=== PATIENT | male | born 1950 | race Caucasian/White ===

== ENCOUNTER 2017-07-23 12:13 | Inpatient (IN) ==
[2017-07-23] MEDS ORDERED: Ipratropium/Albuterol Neb 3 ML IH ONE (12:40)
[2017-07-23] MEDS ORDERED: methylPREDNISolone 125 MG/2 ML VIAL IVP ONE (12:40)
--- NOTE | 2017-07-23 12:41 | Emergency Department Note ---
Disposition Clinical Impression: COPD (chronic obstructive pulmonary disease), UTI (urinary tract infection), Hyperkalemia, [id number] kidney injury Disposition: Admitted As Inpatient Condition: Fair General Adult HPI - General Chief complaint: ED Shortness of Breath/Dyspnea Stated complaint: LASHAY, coughing Time Seen by Provider: 07/23/17 12:38 Source: patient Limitations: no limitations - History of Present Illness Pain Scale: 7 - Related Data Home Medications Medication Instructions Recorded Confirmed Amlodipine Besylate 2.5 mg PO DAILY 06/16/16 07/23/17 Clopidogrel [Plavix] 75 mg PO DAILY 06/16/16 07/23/17 Fenofibrate Nanocrystallized 48 mg PO DAILY 06/16/16 07/23/17 [Tricor] GlipiZIDE [Glipizide Xl] 5 mg PO DAILY 06/16/16 07/23/17 Levothyroxine Sodium [Tirosint] 137 mcg PO DAILY 06/16/16 07/23/17 Lisinopril [Zestril] 10 mg PO DAILY 06/16/16 07/23/17 Montelukast Sodium [Singulair] 10 mg PO DAILY 06/16/16 07/23/17 Pantoprazole Sodium [Protonix] 40 mg PO DAILY 06/16/16 07/23/17 Tamsulosin [Flomax] 0.4 mg PO DAILY 06/16/16 07/23/17 Budesonide/Formoterol 80/4.5 1 puff IH BID 08/07/16 07/23/17 [Symbicort 80/4.5] Isosorbide MONOnitrate (24 HR) 30 mg PO DAILY 08/07/16 07/23/17 [Imdur] Polyethylene Glycol 3350 [MiraLAX] 17 gm PO DAILY 08/07/16 07/23/17 predniSONE [Prednisone] 5 mg PO DAILY 08/07/16 07/23/17 Atorvastatin Calcium [Lipitor] 80 mg PO HS 07/23/17 07/23/17 Previous Rx's Medication Instructions Recorded Insulin ASPART [Novolog Flexpen] 0 unit SQ ACHS #200 unit 08/09/16 Metoprolol [Lopressor] 50 mg PO BID #30 08/09/16 Allergies Allergy/AdvReac Type Severity Reaction Status Date / Time adenosine Allergy See Verified 08/07/16 16:26 Comments fluticasone Allergy See Verified 08/07/16 16:26 [From Advair Diskus] Comments Iodinated Contrast- Oral and Allergy See Verified 06/16/16 15:37 IV Dye Comments [Iodinated Contrast Media - IV Dye] salmeterol Allergy See Verified 08/07/16 16:26 [From Advair Diskus] Comments Past Medical History - Past Medical History Medical history: Reports: COPD, coronary artery disease, diabetes, hyperlipidemia, hypertension Psychiatric history: Reports: no psych history - Social History Smoking Status: Current every day smoker Smokeless Tobacco Status: No Alcohol use: Reports: none Drug use: Reports: none Physical Exam - General Limitations: no limitations General appearance: alert Course Vital Signs Temperature 100.1 F H 07/23/17 12:29 Pulse Rate 95 07/23/17 12:29 Respiratory Rate 24 07/23/17 12:29 Blood Pressure 92/51 07/23/17 12:29 O2 Sat by Pulse Oximetry 74 07/23/17 12:29 Temperature 97.7 F 07/27/17 07:05 Pulse Rate 98 07/27/17 07:05 Respiratory Rate 14 07/27/17 07:05 Blood Pressure 112/87 07/27/17 07:05 O2 Sat by Pulse Oximetry 99 07/27/17 07:05 Oxygen Delivery Oxygen Delivery Nasal Cannula Medical Decision Making - Lab Data Result diagrams: 07/27/17 04:15 07/27/17 04:15 Lab Results 07/23/17 07/23/17 07/23/17 Range/Units 12:50 12:50 12:50 WBC 12.2 H (4.3-11.1) K/mcL RBC 4.63 (4.19-5.50) M/mcL Hgb 13.4 (12.9-16.9) g/dL Hct 43.5 (37.5-50.1) % MCV 94.0 (83.0-100.0) fL MCH 28.9 (28.0-33.3) pg MCHC 30.8 L (31.6-35.5) g/dL RDW 15.0 H (11.5-14.5) % Plt Count 134 L (140-400) K/mcL MPV 10.0 (9.4-12.4) fL Immature Gran % 0.4 (0-4) % Seg Neutrophils % 86.5 % Lymphocytes % 5.0 % Monocytes % 7.6 % Eosinophils % 0.0 % Basophils % 0.5 % Neutrophils # 10.5 H (1.6-8.9) K/mcL Lymphocytes # 0.6 (0.6-4.6) K/mcL Monocytes # 0.9 (0.0-1.3) K/mcL Eosinophils # 0.0 (0.0-0.6) K/mcL Basophils # 0.1 (0.0-0.2) K/mcL PT (9.4-12.1) Seconds INR APTT (26.0-36.0) Seconds ABG pH (7.32-7.45) pH Units ABG pCO2 (35-45) mmHg ABG pO2 (85-104) mmHg ABG HCO3 (21-27) mEq/L ABG Total CO2 (20-26) mEq/L ABG O2 Saturation (95-98) % ABG Base Excess (-2 to 3) mEq/L Sodium 136 (136-145) mEq/L Potassium 4.7 H (3.5-4.5) mEq/L Chloride 100 (98-109) mEq/L Carbon Dioxide 28 (19-29) mEq/L BUN 18 (8-26) mg/dL Creatinine 2.16 H (0.72-1.25) mg/dL Est GFR ( Amer) 37 L (> 60) Est GFR (Non-Af Amer) 31 L (> 60) BUN/Creatinine Ratio 8 (6-26) Glucose 177 H (70-99) mg/dL POC Glucose (58-89) Calculated Osmolality 288 (280-300) Lactic Acid (0.5-2.2) mmol/L Calcium 9.5 (8.6-10.8) mg/dL Phosphorus (2.3-4.7) mg/dL Magnesium (1.6-2.6) mg/dL Total Bilirubin (0.2-1.2) mg/dL Direct Bilirubin (0.0-0.5) mg/dL Indirect Bilirubin (0.0-1.2) mg/dL AST (5-34) Units/L ALT (0-55) Units/L Alkaline Phosphatase (38-126) Units/L Troponin I 0.04 H* (0-0.03) ng/mL B-Natriuretic Peptide (0-100) pg/mL Serum Total Protein (6.0-8.3) g/dL Albumin (3.5-5.0) g/dL Globulin (2.4-3.5) g/dL Albumin/Globulin Ratio (1.1-2.2) Lipase (8-78) Units/L Urine Color (Yellow) Urine Clarity (Clear) Urine pH (5.0-8.0) pH Units Ur Specific [place] (1.010-1.025) Urine Protein (Neg-Trace) mg/dL Urine Glucose (UA) (Normal) mg/dL Urine Ketones (Negative) mg/dL Urine Blood (Negative) Urine Nitrite (Negative) Urine Bilirubin (Negative) Urine Urobilinogen (Normal) mg/dL Ur Leukocyte Esterase (Negative) Urine Microscopic RBC (0-3) per hpf Urine Microscopic WBC (0-3) per hpf Ur Squamous Epith Cells (None-Few) per lpf Urine Bacteria (None-Few) per hpf Hyaline Casts Ur Culture Indicated? (NO) 07/23/17 07/23/17 07/23/17 Range/Units 12:50 12:50 13:38 WBC (4.3-11.1) K/mcL RBC (4.19-5.50) M/mcL Hgb (12.9-16.9) g/dL Hct (37.5-50.1) % MCV (83.0-100.0) fL MCH (28.0-33.3) pg MCHC (31.6-35.5) g/dL RDW (11.5-14.5) % Plt Count (140-400) K/mcL MPV (9.4-12.4) fL Immature Gran % (0-4) % Seg Neutrophils % % Lymphocytes % % Monocytes % % Eosinophils % % Basophils % % Neutrophils # (1.6-8.9) K/mcL Lymphocytes # (0.6-4.6) K/mcL Monocytes # (0.0-1.3) K/mcL Eosinophils # (0.0-0.6) K/mcL Basophils # (0.0-0.2) K/mcL PT 12.1 (9.4-12.1) Seconds INR 1.1 APTT (26.0-36.0) Seconds ABG pH (7.32-7.45) pH Units ABG pCO2 (35-45) mmHg ABG pO2 (85-104) mmHg ABG HCO3 (21-27) mEq/L ABG Total CO2 (20-26) mEq/L ABG O2 Saturation (95-98) % ABG Base Excess (-2 to 3) mEq/L Sodium (136-145) mEq/L Potassium (3.5-4.5) mEq/L Chloride (98-109) mEq/L Carbon Dioxide (19-29) mEq/L BUN (8-26) mg/dL Creatinine (0.72-1.25) mg/dL Est GFR ( Amer) (> 60) Est GFR (Non-Af Amer) (> 60) BUN/Creatinine Ratio (6-26) Glucose (70-99) mg/dL POC Glucose (58-89) Calculated Osmolality (280-300) Lactic Acid 0.7 (0.5-2.2) mmol/L Calcium (8.6-10.8) mg/dL Phosphorus (2.3-4.7) mg/dL Magnesium (1.6-2.6) mg/dL Total Bilirubin (0.2-1.2) mg/dL Direct Bilirubin (0.0-0.5) mg/dL Indirect Bilirubin (0.0-1.2) mg/dL AST (5-34) Units/L ALT (0-55) Units/L Alkaline Phosphatase (38-126) Units/L Troponin I (0-0.03) ng/mL B-Natriuretic Peptide 107 H (0-100) pg/mL Serum Total Protein (6.0-8.3) g/dL Albumin (3.5-5.0) g/dL Globulin (2.4-3.5) g/dL Albumin/Globulin Ratio (1.1-2.2) Lipase (8-78) Units/L Urine Color (Yellow) Urine Clarity (Clear) Urine pH (5.0-8.0) pH Units Ur Specific [place] (1.010-1.025) Urine Protein (Neg-Trace) mg/dL Urine Glucose (UA) (Normal) mg/dL Urine Ketones (Negative) mg/dL Urine Blood (Negative) Urine Nitrite (Negative) Urine Bilirubin (Negative) Urine Urobilinogen (Normal) mg/dL Ur Leukocyte Esterase (Negative) Urine Microscopic RBC (0-3) per hpf Urine Microscopic WBC (0-3) per hpf Ur Squamous Epith Cells (None-Few) per lpf Urine Bacteria (None-Few) per hpf Hyaline Casts Ur Culture Indicated? (NO) 07/23/17 07/23/17 07/23/17 Range/Units 13:38 13:38 14:16 WBC (4.3-11.1) K/mcL RBC (4.19-5.50) M/mcL Hgb (12.9-16.9) g/dL Hct (37.5-50.1) % MCV (83.0-100.0) fL MCH (28.0-33.3) pg MCHC (31.6-35.5) g/dL RDW (11.5-14.5) % Plt Count (140-400) K/mcL MPV (9.4-12.4) fL Immature Gran % (0-4) % Seg Neutrophils % % Lymphocytes % % Monocytes % % Eosinophils % % Basophils % % Neutrophils # (1.6-8.9) K/mcL Lymphocytes # (0.6-4.6) K/mcL Monocytes # (0.0-1.3) K/mcL Eosinophils # (0.0-0.6) K/mcL Basophils # (0.0-0.2) K/mcL PT (9.4-12.1) Seconds INR APTT 32.5 (26.0-36.0) Seconds ABG pH 7.30 L (7.32-7.45) pH Units ABG pCO2 59 H (35-45) mmHg ABG pO2 63 L (85-104) mmHg ABG HCO3 29 H (21-27) mEq/L ABG Total CO2 31 H (20-26) mEq/L ABG O2 Saturation 89 L (95-98) % ABG Base Excess 1 (-2 to 3) mEq/L Sodium (136-145) mEq/L Potassium (3.5-4.5) mEq/L Chloride (98-109) mEq/L Carbon Dioxide (19-29) mEq/L BUN (8-26) mg/dL Creatinine (0.72-1.25) mg/dL Est GFR ( Amer) (> 60) Est GFR (Non-Af Amer) (> 60) BUN/Creatinine Ratio (6-26) Glucose (70-99) mg/dL POC Glucose (58-89) Calculated Osmolality (280-300) Lactic Acid (0.5-2.2) mmol/L Calcium (8.6-10.8) mg/dL Phosphorus 2.7 (2.3-4.7) mg/dL Magnesium 1.4 L (1.6-2.6) mg/dL Total Bilirubin 1.4 H (0.2-1.2) mg/dL Direct Bilirubin 0.5 (0.0-0.5) mg/dL Indirect Bilirubin 0.9 (0.0-1.2) mg/dL AST 17 (5-34) Units/L ALT 13 (0-55) Units/L Alkaline Phosphatase 68 (38-126) Units/L Troponin I (0-0.03) ng/mL B-Natriuretic Peptide (0-100) pg/mL Serum Total Protein 6.2 (6.0-8.3) g/dL Albumin 3.1 L (3.5-5.0) g/dL Globulin 3.1 (2.4-3.5) g/dL Albumin/Globulin Ratio 1.0 L (1.1-2.2) Lipase 22 (8-78) Units/L Urine Color (Yellow) Urine Clarity (Clear) Urine pH (5.0-8.0) pH Units Ur Specific [place] (1.010-1.025) Urine Protein (Neg-Trace) mg/dL Urine Glucose (UA) (Normal) mg/dL Urine Ketones (Negative) mg/dL Urine Blood (Negative) Urine Nitrite (Negative) Urine Bilirubin (Negative) Urine Urobilinogen (Normal) mg/dL Ur Leukocyte Esterase (Negative) Urine Microscopic RBC (0-3) per hpf Urine Microscopic WBC (0-3) per hpf Ur Squamous Epith Cells (None-Few) per lpf Urine Bacteria (None-Few) per hpf Hyaline Casts Ur Culture Indicated? (NO) 07/23/17 07/23/17 07/23/17 Range/Units 15:02 15:07 20:07 WBC (4.3-11.1) K/mcL RBC (4.19-5.50) M/mcL Hgb (12.9-16.9) g/dL Hct (37.5-50.1) % MCV (83.0-100.0) fL MCH (28.0-33.3) pg MCHC (31.6-35.5) g/dL RDW (11.5-14.5) % Plt Count (140-400) K/mcL MPV (9.4-12.4) fL Immature Gran % (0-4) % Seg Neutrophils % % Lymphocytes % % Monocytes % % Eosinophils % % Basophils % % Neutrophils # (1.6-8.9) K/mcL Lymphocytes # (0.6-4.6) K/mcL Monocytes # (0.0-1.3) K/mcL Eosinophils # (0.0-0.6) K/mcL Basophils # (0.0-0.2) K/mcL PT (9.4-12.1) Seconds INR APTT (26.0-36.0) Seconds ABG pH (7.32-7.45) pH Units ABG pCO2 (35-45) mmHg ABG pO2 (85-104) mmHg ABG HCO3 (21-27) mEq/L ABG Total CO2 (20-26) mEq/L ABG O2 Saturation (95-98) % ABG Base Excess (-2 to 3) mEq/L Sodium (136-145) mEq/L Potassium (3.5-4.5) mEq/L Chloride (98-109) mEq/L Carbon Dioxide (19-29) mEq/L BUN (8-26) mg/dL Creatinine (0.72-1.25) mg/dL Est GFR ( Amer) (> 60) Est GFR (Non-Af Amer) (> 60) BUN/Creatinine Ratio (6-26) Glucose (70-99) mg/dL POC Glucose 177 H (58-89) Calculated Osmolality (280-300) Lactic Acid 0.8 (0.5-2.2) mmol/L Calcium (8.6-10.8) mg/dL Phosphorus (2.3-4.7) mg/dL Magnesium (1.6-2.6) mg/dL Total Bilirubin (0.2-1.2) mg/dL Direct Bilirubin (0.0-0.5) mg/dL Indirect Bilirubin (0.0-1.2) mg/dL AST (5-34) Units/L ALT (0-55) Units/L Alkaline Phosphatase (38-126) Units/L Troponin I (0-0.03) ng/mL B-Natriuretic Peptide (0-100) pg/mL Serum Total Protein (6.0-8.3) g/dL Albumin (3.5-5.0) g/dL Globulin (2.4-3.5) g/dL Albumin/Globulin Ratio (1.1-2.2) Lipase (8-78) Units/L Urine Color Dark Yellow (Yellow) Urine Clarity Cloudy A (Clear) Urine pH 6.0 (5.0-8.0) pH Units Ur Specific [place] 1.024 (1.010-1.025) Urine Protein 30 H (Neg-Trace) mg/dL Urine Glucose (UA) Normal (Normal) mg/dL Urine Ketones Trace H (Negative) mg/dL Urine Blood Negative (Negative) Urine Nitrite Positive A (Negative) Urine Bilirubin Moderate H (Negative) Urine Urobilinogen Normal (Normal) mg/dL Ur Leukocyte Esterase Small H (Negative) Urine Microscopic RBC 0-3 (0-3) per hpf Urine Microscopic WBC 5-15 H (0-3) per hpf Ur Squamous Epith Cells Many H (None-Few) per lpf Urine Bacteria None Seen (None-Few) per hpf Hyaline Casts Test Not Performed Ur Culture Indicated? YES A (NO) Attestation Statement - Attestation Attestation: I examined this patient and my medical decision-making was reviewed with the Resident Physician. I agree with the documented findings, disposition and treatment plan as described except to the extent set forth below. [id number] time provided Patient arrives to the treatment area by wheelchair. He complains of cough and dyspnea. He has a history of active tobacco use and oxygen dependency. Appears mildly dyspneic on exam. He was hypoxic at triage
[2017-07-23 13:04] LABS: Basophils # 0.1 K/mcL (0.0-0.2); Basophils % 0.5 %; Hematocrit 43.5 % (37.5-50.1); Hemoglobin 13.4 g/dL (12.9-16.9); Immature Granulocytes % 0.4 % (0-4); Lymphocytes # 0.6 K/mcL (0.6-4.6); Mean Corpuscular HGB Conc 30.8 g/dL (31.6-35.5); Mean Corpuscular Hemoglobin 28.9 pg (28.0-33.3); Monocytes # 0.9 K/mcL (0.0-1.3); Monocytes % 7.6 %; Neutrophils # 10.5 K/mcL (1.6-8.9); Platelet Count 134 K/mcL (140-400); Red Blood Count 4.63 M/mcL (4.19-5.50); Segmented Neutrophils % 86.5 %
[2017-07-23 13:11] LABS: Calcium 9.5 mg/dL (8.6-10.8); Potassium 4.7 mEq/L (3.5-4.5)
[2017-07-23 13:13] LABS: INR 1.1; Prothrombin Time 12.1 Seconds (9.4-12.1)
[2017-07-23] MEDS ORDERED: 0.9 % Sodium Chloride 1,000 ML IVC ONE (13:20)
[2017-07-23] MEDS ORDERED: cefTRIAXone 1,000 MG in Water for inj. (sterile) 10 ML IVP ONE (13:26)
[2017-07-23] MEDS ORDERED: Levofloxacin 750 MG/150 ML 750 MG/150 ML BAG IVPB ONE (13:26)
[2017-07-23 13:58] LABS: Albumin 3.1 g/dL (3.5-5.0); Bilirubin,Direct 0.5 mg/dL (0.0-0.5); Bilirubin,Indirect 0.9 mg/dL (0.0-1.2); Bilirubin,Total 1.4 mg/dL (0.2-1.2); Globulin 3.1 g/dL (2.4-3.5); Magnesium 1.4 mg/dL (1.6-2.6); Phosphorous 2.7 mg/dL (2.3-4.7); Total Protein 6.2 g/dL (6.0-8.3)
[2017-07-23 14:20] LABS: ABG Base Excess 1 mEq/L (-2 to 3); ABG HCO3 29 mEq/L (21-27); ABG Oxygen Saturation 89 % (95-98); ABG PCO2 59 mmHg (35-45); ABG PO2 63 mmHg (85-104); ABG TCO2 31 mEq/L (20-26)
--- NOTE | 2017-07-23 14:49 | Emergency Department Note ---
Disposition Clinical Impression: Hyperkalemia COPD (chronic obstructive pulmonary disease) Qualifiers: COPD type: unspecified COPD Qualified Code(s): J44.9 - Chronic obstructive pulmonary disease, unspecified UTI (urinary tract infection) Qualifiers: Urinary tract infection type: site unspecified Hematuria presence: without hematuria Qualified Code(s): N39.0 - Urinary tract infection, site not specified [id number] kidney injury Qualifiers: Acute renal failure type: unspecified Chronic kidney disease stage: unspecified stage Qualified Code(s): N17.9 - Acute kidney failure, unspecified; N18.9 - Chronic kidney disease, unspecified; N18.9 - Chronic kidney disease, unspecified Disposition: Admitted As Inpatient Condition: Fair Time of Disposition: 15:00 SOB HPI - General Chief Complaint: ED Shortness of Breath/Dyspnea Stated Complaint: LASHAY, coughing Time Seen by Provider: 07/23/17 12:38 Source: patient Limitations: no limitations Nursing Notes Reviewed: Yes Vital Signs Reviewed: Yes - History of Present Illness Patient 66-year-old male complains of shortness of breath the past 3 days. Patient has history of COPD and CHF. Patient's family on home oxygen of 2 L. Patient has not increased his home most to usage but presents today with hypoxia O2 sats 74% 2 L via nasal cannula. Patient is also has a fever of 100.1 his concerns for sepsis. Plan to rule out. Patient admits to pleuritic chest pain with deep respirations. Patient continues to smoke - Related Data Home Medications Medication Instructions Recorded Confirmed Amlodipine Besylate 2.5 mg PO DAILY 06/16/16 07/23/17 Clopidogrel [Plavix] 75 mg PO DAILY 06/16/16 07/23/17 Fenofibrate Nanocrystallized 48 mg PO DAILY 06/16/16 07/23/17 [Tricor] GlipiZIDE [Glipizide Xl] 5 mg PO DAILY 06/16/16 07/23/17 Levothyroxine Sodium [Tirosint] 137 mcg PO DAILY 06/16/16 07/23/17 Lisinopril [Zestril] 10 mg PO DAILY 06/16/16 07/23/17 Montelukast Sodium [Singulair] 10 mg PO DAILY 06/16/16 07/23/17 Pantoprazole Sodium [Protonix] 40 mg PO DAILY 06/16/16 07/23/17 Tamsulosin [Flomax] 0.4 mg PO DAILY 06/16/16 07/23/17 Budesonide/Formoterol 80/4.5 1 puff IH BID 08/07/16 07/23/17 [Symbicort 80/4.5] Isosorbide MONOnitrate (24 HR) 30 mg PO DAILY 08/07/16 07/23/17 [Imdur] Polyethylene Glycol 3350 [MiraLAX] 17 gm PO DAILY 08/07/16 07/23/17 predniSONE [Prednisone] 5 mg PO DAILY 08/07/16 07/23/17 Atorvastatin Calcium [Lipitor] 80 mg PO HS 07/23/17 07/23/17 Previous Rx's Medication Instructions Recorded Insulin ASPART [Novolog Flexpen] 0 unit SQ ACHS #200 unit 08/09/16 Metoprolol [Lopressor] 50 mg PO BID #30 08/09/16 Allergies Allergy/AdvReac Type Severity Reaction Status Date / Time adenosine Allergy See Verified 08/07/16 16:26 Comments fluticasone Allergy See Verified 08/07/16 16:26 [From Advair Diskus] Comments Iodinated Contrast- Oral and Allergy See Verified 06/16/16 15:37 IV Dye Comments [Iodinated Contrast Media - IV Dye] salmeterol Allergy See Verified 08/07/16 16:26 [From Advair Diskus] Comments All systems ED: reviewed and negative except as stated. Review of Systems: As Per HPI Constitutional: Reports: fever Eyes: Denies: vision change ENT ED: Reports: congestion Cardiovascular: Reports: chest pain Respiratory: Reports: cough, dyspnea, wheezes. Denies: hemoptysis Gastrointestinal: Reports: abdominal pain. Denies: nausea, vomiting, diarrhea Genitourinary: Denies: urgency, dysuria, frequency Musculoskeletal: Denies: back pain, neck pain Integumentary: Denies: rash Neurological: Denies: headache Psychiatric: Reports: anxiety Endocrine: Reports: fatigue Past Medical History - Past Medical History Attestation: Yes The following information was validated with the patient. Source: patient, nursing notes reviewed Medical history: Reports: COPD, coronary artery disease, diabetes, hyperlipidemia, hypertension Psychiatric history: Reports: no psych history - Social History Smoking Status: Current every day smoker Smokeless Tobacco Status: No Alcohol use: Reports: none Drug use: Reports: none Physical Exam Vital Signs Temperature 100.1 F H 07/23/17 12:29 Pulse Rate 95 07/23/17 12:29 Respiratory Rate 24 07/23/17 12:29 Blood Pressure 92/51 07/23/17 12:29 O2 Sat by Pulse Oximetry 74 07/23/17 12:29 Temperature 100.1 F H 07/23/17 12:29 Pulse Rate 95 07/23/17 12:29 Respiratory Rate 22 07/23/17 12:52 Blood Pressure 92/51 07/23/17 12:29 O2 Sat by Pulse Oximetry 93 07/23/17 12:52 Oxygen Delivery Oxygen Delivery Room Air 66-year-old male who is alert and oriented 3 and in acute distress secondary to respiratory issues of COPD exacerbation. Patient has a O2 sat of 74 was placed on nonrebreather high flow at 15 L. Patient has poor air movement bilateral lung schofield with diffuse wheezing. Patient is mildly tachypneic and has conversational dyspnea. Patient's vital signs also shows hypotension and 92 /51 - General Limitations: no limitations General appearance: alert - Head Head exam: atraumatic, normocephalic, normal inspection - Eye Eye exam: Present: normal appearance, PERRL, EOMI - ENT ENT exam: normal exam, normal oropharynx, mucous membranes moist - Neck Neck exam: Present: normal inspection, full ROM, trachea midline Course Vital Signs Temperature 100.1 F H 07/23/17 12:29 Pulse Rate 95 07/23/17 12:29 Respiratory Rate 24 07/23/17 12:29 Blood Pressure 92/51 07/23/17 12:29 O2 Sat by Pulse Oximetry 74 07/23/17 12:29 Temperature 97.8 F 07/29/17 07:04 Pulse Rate 132 07/29/17 07:04 Respiratory Rate 20 07/29/17 08:00 Blood Pressure 102/78 07/29/17 07:04 O2 Sat by Pulse Oximetry 95 07/29/17 08:00 Oxygen Delivery Oxygen Delivery Nasal Cannula Shortness of Breath/Dyspnea - MDM Narrative Medical decision making narrative: Patient presents with respiratory distress secondary to acute COPD exacerbation. Patient is febrile as well suspect infectious source. Chest x- ray shows bilateral atelectasis. Blood urine shows UTI. Patient also has hyperkalemia and acute on chronic kidney injury. Patient's WBC is elevated but lactic acid is negative. Patient also has an elevated troponin of 0.04 with no acute changes seen on EKG for ischemia. Most likely secondary to demand ischemia. Patient has been given DuoNeb therapy, started on antibiotics levofloxacin and ceftriaxone. Recommended admission and Pt accepts decision. He was been accepted for admission by Dr. Way the hospitalist. - Lab Data Lab results reviewed: Yes I reviewed the patient's lab results. Lab results narrative: Chest X-Ray 07/23/17 12:34 IMPRESSION: Bibasilar atelectasis. D/ / Marija Lewis MD / Marija Lewis MD Interpreting Provider: Marija Lewis MD Short CBC 07/23/17 Range/Units 12:50 WBC 12.2 H (4.3-11.1) K/mcL Hgb 13.4 (12.9-16.9) g/dL Hct 43.5 (37.5-50.1) % Plt Count 134 L (140-400) K/mcL Neutrophils # 10.5 H (1.6-8.9) K/mcL BMP 07/23/17 Range/Units 12:50 Sodium 136 (136-145) mEq/L Potassium 4.7 H (3.5-4.5) mEq/L Chloride 100 (98-109) mEq/L Carbon Dioxide 28 (19-29) mEq/L BUN 18 (8-26) mg/dL Creatinine 2.16 H (0.72-1.25) mg/dL Glucose 177 H (70-99) mg/dL Calcium 9.5 (8.6-10.8) mg/dL Cardiac Enzymes 07/23/17 07/23/17 Range/Units 22:10 12:50 Troponin I 0.02 0.04 H* (0-0.03) ng/mL Liver Function 07/23/17 Range/Units 13:38 Total Bilirubin 1.4 H (0.2-1.2) mg/dL Direct Bilirubin 0.5 (0.0-0.5) mg/dL AST 17 (5-34) Units/L ALT 13 (0-55) Units/L Alkaline Phosphatase 68 (38-126) Units/L Albumin 3.1 L (3.5-5.0) g/dL Urine 07/23/17 Range/Units 15:02 Urine Color Dark Yellow (Yellow) Urine Clarity Cloudy A (Clear) Urine pH 6.0 (5.0-8.0) pH Units Ur Specific Grayson 1.024 (1.010-1.025) Urine Protein 30 H (Neg-Trace) mg/dL Urine Glucose (UA) Normal (Normal) mg/dL Result diagrams: 07/29/17 04:58 07/29/17 04:58 Lab Results 07/23/17 07/23/17 07/23/17 Range/Units 12:50 12:50 12:50 WBC 12.2 H (4.3-11.1) K/mcL RBC 4.63 (4.19-5.50) M/mcL Hgb 13.4 (12.9-16.9) g/dL Hct 43.5 (37.5-50.1) % MCV 94.0 (83.0-100.0) fL MCH 28.9 (28.0-33.3) pg MCHC 30.8 L (31.6-35.5) g/dL RDW 15.0 H (11.5-14.5) % Plt Count 134 L (140-400) K/mcL MPV 10.0 (9.4-12.4) fL Immature Gran % 0.4 (0-4) % Seg Neutrophils % 86.5 % Lymphocytes % 5.0 % Monocytes % 7.6 % Eosinophils % 0.0 % Basophils % 0.5 % Neutrophils # 10.5 H (1.6-8.9) K/mcL Lymphocytes # 0.6 (0.6-4.6) K/mcL Monocytes # 0.9 (0.0-1.3) K/mcL Eosinophils # 0.0 (0.0-0.6) K/mcL Basophils # 0.1 (0.0-0.2) K/mcL PT (9.4-12.1) Seconds INR APTT (26.0-36.0) Seconds ABG pH (7.32-7.45) pH Units ABG pCO2 (35-45) mmHg ABG pO2 (85-104) mmHg ABG HCO3 (21-27) mEq/L ABG Total CO2 (20-26) mEq/L ABG O2 Saturation (95-98) % ABG Base Excess (-2 to 3) mEq/L Sodium 136 (136-145) mEq/L Potassium 4.7 H (3.5-4.5) mEq/L Chloride 100 (98-109) mEq/L Carbon Dioxide 28 (19-29) mEq/L BUN 18 (8-26) mg/dL Creatinine 2.16 H (0.72-1.25) mg/dL Est GFR ( Amer) 37 L (> 60) Est GFR (Non-Af Amer) 31 L (> 60) BUN/Creatinine Ratio 8 (6-26) Glucose 177 H (70-99) mg/dL POC Glucose (58-89) Calculated Osmolality 288 (280-300) Lactic Acid (0.5-2.2) mmol/L Calcium 9.5 (8.6-10.8) mg/dL Phosphorus (2.3-4.7) mg/dL Magnesium (1.6-2.6) mg/dL Total Bilirubin (0.2-1.2) mg/dL Direct Bilirubin (0.0-0.5) mg/dL Indirect Bilirubin (0.0-1.2) mg/dL AST (5-34) Units/L ALT (0-55) Units/L Alkaline Phosphatase (38-126) Units/L Troponin I 0.04 H* (0-0.03) ng/mL B-Natriuretic Peptide (0-100) pg/mL Serum Total Protein (6.0-8.3) g/dL Albumin (3.5-5.0) g/dL Globulin (2.4-3.5) g/dL Albumin/Globulin Ratio (1.1-2.2) Lipase (8-78) Units/L Urine Color (Yellow) Urine Clarity (Clear) Urine pH (5.0-8.0) pH Units Ur Specific Grayson (1.010-1.025) Urine Protein (Neg-Trace) mg/dL Urine Glucose (UA) (Normal) mg/dL Urine Ketones (Negative) mg/dL Urine Blood (Negative) Urine Nitrite (Negative) Urine Bilirubin (Negative) Urine Urobilinogen (Normal) mg/dL Ur Leukocyte Esterase (Negative) Urine Microscopic RBC (0-3) per hpf Urine Microscopic WBC (0-3) per hpf Ur Squamous Epith Cells (None-Few) per lpf Urine Bacteria (None-Few) per hpf Hyaline Casts Ur Culture Indicated? (NO) 07/23/17 07/23/17 07/23/17 Range/Units 12:50 12:50 13:38 WBC (4.3-11.1) K/mcL RBC (4.19-5.50) M/mcL Hgb (12.9-16.9) g/dL Hct (37.5-50.1) % MCV (83.0-100.0) fL MCH (28.0-33.3) pg MCHC (31.6-35.5) g/dL RDW (11.5-14.5) % Plt Count (140-400) K/mcL MPV (9.4-12.4) fL Immature Gran % (0-4) % Seg Neutrophils % % Lymphocytes % % Monocytes % % Eosinophils % % Basophils % % Neutrophils # (1.6-8.9) K/mcL Lymphocytes # (0.6-4.6) K/mcL Monocytes # (0.0-1.3) K/mcL Eosinophils # (0.0-0.6) K/mcL Basophils # (0.0-0.2) K/mcL PT 12.1 (9.4-12.1) Seconds INR 1.1 APTT (26.0-36.0) Seconds ABG pH (7.32-7.45) pH Units ABG pCO2 (35-45) mmHg ABG pO2 (85-104) mmHg ABG HCO3 (21-27) mEq/L ABG Total CO2 (20-26) mEq/L ABG O2 Saturation (95-98) % ABG Base Excess (-2 to 3) mEq/L Sodium (136-145) mEq/L Potassium (3.5-4.5) mEq/L Chloride (98-109) mEq/L Carbon Dioxide (19-29) mEq/L BUN (8-26) mg/dL Creatinine (0.72-1.25) mg/dL Est GFR ( Amer) (> 60) Est GFR (Non-Af Amer) (> 60) BUN/Creatinine Ratio (6-26) Glucose (70-99) mg/dL POC Glucose (58-89) Calculated Osmolality (280-300) Lactic Acid 0.7 (0.5-2.2) mmol/L Calcium (8.6-10.8) mg/dL Phosphorus (2.3-4.7) mg/dL Magnesium (1.6-2.6) mg/dL Total Bilirubin (0.2-1.2) mg/dL Direct Bilirubin (0.0-0.5) mg/dL Indirect Bilirubin (0.0-1.2) mg/dL AST (5-34) Units/L ALT (0-55) Units/L Alkaline Phosphatase (38-126) Units/L Troponin I (0-0.03) ng/mL B-Natriuretic Peptide 107 H (0-100) pg/mL Serum Total Protein (6.0-8.3) g/dL Albumin (3.5-5.0) g/dL Globulin (2.4-3.5) g/dL Albumin/Globulin Ratio (1.1-2.2) Lipase (8-78) Units/L Urine Color (Yellow) Urine Clarity (Clear) Urine pH (5.0-8.0) pH Units Ur Specific Grayson (1.010-1.025) Urine Protein (Neg-Trace) mg/dL Urine Glucose (UA) (Normal) mg/dL Urine Ketones (Negative) mg/dL Urine Blood (Negative) Urine Nitrite (Negative) Urine Bilirubin (Negative) Urine Urobilinogen (Normal) mg/dL Ur Leukocyte Esterase (Negative) Urine Microscopic RBC (0-3) per hpf Urine Microscopic WBC (0-3) per hpf Ur Squamous Epith Cells (None-Few) per lpf Urine Bacteria (None-Few) per hpf Hyaline Casts Ur Culture Indicated? (NO) 07/23/17 07/23/17 07/23/17 Range/Units 13:38 13:38 14:16 WBC (4.3-11.1) K/mcL RBC (4.19-5.50) M/mcL Hgb (12.9-16.9) g/dL Hct (37.5-50.1) % MCV (83.0-100.0) fL MCH (28.0-33.3) pg MCHC (31.6-35.5) g/dL RDW (11.5-14.5) % Plt Count (140-400) K/mcL MPV (9.4-12.4) fL Immature Gran % (0-4) % Seg Neutrophils % % Lymphocytes % % Monocytes % % Eosinophils % % Basophils % % Neutrophils # (1.6-8.9) K/mcL Lymphocytes # (0.6-4.6) K/mcL Monocytes # (0.0-1.3) K/mcL Eosinophils # (0.0-0.6) K/mcL Basophils # (0.0-0.2) K/mcL PT (9.4-12.1) Seconds INR APTT 32.5 (26.0-36.0) Seconds ABG pH 7.30 L (7.32-7.45) pH Units ABG pCO2 59 H (35-45) mmHg ABG pO2 63 L (85-104) mmHg ABG HCO3 29 H (21-27) mEq/L ABG Total CO2 31 H (20-26) mEq/L ABG O2 Saturation 89 L (95-98) % ABG Base Excess 1 (-2 to 3) mEq/L Sodium (136-145) mEq/L Potassium (3.5-4.5) mEq/L Chloride (98-109) mEq/L Carbon Dioxide (19-29) mEq/L BUN (8-26) mg/dL Creatinine (0.72-1.25) mg/dL Est GFR ( Amer) (> 60) Est GFR (Non-Af Amer) (> 60) BUN/Creatinine Ratio (6-26) Glucose (70-99) mg/dL POC Glucose (58-89) Calculated Osmolality (280-300) Lactic Acid (0.5-2.2) mmol/L Calcium (8.6-10.8) mg/dL Phosphorus 2.7 (2.3-4.7) mg/dL Magnesium 1.4 L (1.6-2.6) mg/dL Total Bilirubin 1.4 H (0.2-1.2) mg/dL Direct Bilirubin 0.5 (0.0-0.5) mg/dL Indirect Bilirubin 0.9 (0.0-1.2) mg/dL AST 17 (5-34) Units/L ALT 13 (0-55) Units/L Alkaline Phosphatase 68 (38-126) Units/L Troponin I (0-0.03) ng/mL B-Natriuretic Peptide (0-100) pg/mL Serum Total Protein 6.2 (6.0-8.3) g/dL Albumin 3.1 L (3.5-5.0) g/dL Globulin 3.1 (2.4-3.5) g/dL Albumin/Globulin Ratio 1.0 L (1.1-2.2) Lipase 22 (8-78) Units/L Urine Color (Yellow) Urine Clarity (Clear) Urine pH (5.0-8.0) pH Units Ur Specific Grayson (1.010-1.025) Urine Protein (Neg-Trace) mg/dL Urine Glucose (UA) (Normal) mg/dL Urine Ketones (Negative) mg/dL Urine Blood (Negative) Urine Nitrite (Negative) Urine Bilirubin (Negative) Urine Urobilinogen (Normal) mg/dL Ur Leukocyte Esterase (Negative) Urine Microscopic RBC (0-3) per hpf Urine Microscopic WBC (0-3) per hpf Ur Squamous Epith Cells (None-Few) per lpf Urine Bacteria (None-Few) per hpf Hyaline Casts Ur Culture Indicated? (NO) 07/23/17 07/23/17 07/23/17 Range/Units 15:02 15:07 20:07 WBC (4.3-11.1) K/mcL RBC (4.19-5.50) M/mcL Hgb (12.9-16.9) g/dL Hct (37.5-50.1) % MCV (83.0-100.0) fL MCH (28.0-33.3) pg MCHC (31.6-35.5) g/dL RDW (11.5-14.5) % Plt Count (140-400) K/mcL MPV (9.4-12.4) fL Immature Gran % (0-4) % Seg Neutrophils % % Lymphocytes % % Monocytes % % Eosinophils % % Basophils % % Neutrophils # (1.6-8.9) K/mcL Lymphocytes # (0.6-4.6) K/mcL Monocytes # (0.0-1.3) K/mcL Eosinophils # (0.0-0.6) K/mcL Basophils # (0.0-0.2) K/mcL PT (9.4-12.1) Seconds INR APTT (26.0-36.0) Seconds ABG pH (7.32-7.45) pH Units ABG pCO2 (35-45) mmHg ABG pO2 (85-104) mmHg ABG HCO3 (21-27) mEq/L ABG Total CO2 (20-26) mEq/L ABG O2 Saturation (95-98) % ABG Base Excess (-2 to 3) mEq/L Sodium (136-145) mEq/L Potassium (3.5-4.5) mEq/L Chloride (98-109) mEq/L Carbon Dioxide (19-29) mEq/L BUN (8-26) mg/dL Creatinine (0.72-1.25) mg/dL Est GFR ( Amer) (> 60) Est GFR (Non-Af Amer) (> 60) BUN/Creatinine Ratio (6-26) Glucose (70-99) mg/dL POC Glucose 177 H (58-89) Calculated Osmolality (280-300) Lactic Acid 0.8 (0.5-2.2) mmol/L Calcium (8.6-10.8) mg/dL Phosphorus (2.3-4.7) mg/dL Magnesium (1.6-2.6) mg/dL Total Bilirubin (0.2-1.2) mg/dL Direct Bilirubin (0.0-0.5) mg/dL Indirect Bilirubin (0.0-1.2) mg/dL AST (5-34) Units/L ALT (0-55) Units/L Alkaline Phosphatase (38-126) Units/L Troponin I (0-0.03) ng/mL B-Natriuretic Peptide (0-100) pg/mL Serum Total Protein (6.0-8.3) g/dL Albumin (3.5-5.0) g/dL Globulin (2.4-3.5) g/dL Albumin/Globulin Ratio (1.1-2.2) Lipase (8-78) Units/L Urine Color Dark Yellow (Yellow) Urine Clarity Cloudy A (Clear) Urine pH 6.0 (5.0-8.0) pH Units Ur Specific Gr[place] 1.024 (1.010-1.025) Urine Protein 30 H (Neg-Trace) mg/dL Urine Glucose (UA) Normal (Normal) mg/dL Urine Ketones Trace H (Negative) mg/dL Urine Blood Negative (Negative) Urine Nitrite Positive A (Negative) Urine Bilirubin Moderate H (Negative) Urine Urobilinogen Normal (Normal) mg/dL Ur Leukocyte Esterase Small H (Negative) Urine Microscopic RBC 0-3 (0-3) per hpf Urine Microscopic WBC 5-15 H (0-3) per hpf Ur Squamous Epith Cells Many H (None-Few) per lpf Urine Bacteria None Seen (None-Few) per hpf Hyaline Casts Test Not Performed Ur Culture Indicated? YES A (NO) - Radiology Data Radiology results reviewed: Yes I reviewed the patient's radiology results. Chest X-Ray 07/23/17 12:34 IMPRESSION: Bibasilar atelectasis. D/ / Marija Lewis MD / Marija Lewis MD Interpreting Provider: Marija Lewis MD - EKG Data EKG attestation: Yes I reviewed and interpreted this EKG.
[2017-07-23 15:18] LABS: Bilirubin,Urine Moderate (Negative); Blood,Urine Negative (Negative); Clarity,Urine Cloudy (Clear); Glucose,Urine (UA) Normal (Normal); Ketones,Urine Trace mg/dL (Negative); Leukocyte Esterase,Urine Small (Negative); Nitrite,Urine Positive (Negative); Protein,Urine 30 mg/dL (Neg-Trace); Specific Gravity,Urine 1.024 (1.010-1.025); Urobilinogen,Urine Normal (Normal)
[2017-07-23 15:20] LABS: Bacteria,Urine None Seen per hpf (None-Few); RBC,Urine 0-3 per hpf (0-3); Squamous Epithelial Cell,Urine Many per lpf (None-Few)
[2017-07-23 15:22] LABS: Color,Urine Dark Yellow (Yellow)
[2017-07-23] MEDS ORDERED: Magnesium Sulfate 2 GM in D5% in Water 100 ML IVPB ONE (20:50)
[2017-07-23] MEDS ORDERED: Acetaminophen 325 MG TABLET PO PRN (20:53)
[2017-07-23] MEDS ORDERED: Naloxone 0.4 MG/ML INJ IVP PRN (20:53)
[2017-07-23] MEDS ORDERED: *HR* Morphine 2 MG/ML SYRINGE IVP PRN (20:53)
[2017-07-23] MEDS ORDERED: Ondansetron 4 MG/2 ML VIAL IVP PRN (20:53)
--- NOTE | 2017-07-23 20:56 | Internal Med History&Physical ---
Date of Encounter: 07/23/17 Time of Encounter: 20:30 Assessment and Plan (1) Acute and chronic respiratory failure Current visit: Yes Status: Acute Acute on chronic hypoxic and hypercapnic respiratory failure secondary to acute exacerbation of advanced COPD Continue DuoNeb breathing treatment, IV Solu-Medrol, IV Rocephin, IV azithromycin Symbicort, O2 via NC, Continue all home meds Chest x-ray - bibasilar atelectasis Cultures - pending Cardiac telemetry, pulse ox, labs in a.m., monitor closely Qualifiers: Respiratory failure complication: hypoxia and hypercapnia Qualified Code(s) : J96.21 - Acute and chronic respiratory failure with hypoxia; J96.22 - Acute and chronic respiratory failure with hypercapnia; J96.22 - Acute and chronic respiratory failure with hypercapnia; J96.22 - Acute and chronic respiratory failure with hypercapnia (2) UTI (urinary tract infection) Current visit: Yes Status: Acute Acute cystitis, UTI, present on admission, likely secondary to gram-negative bacilli Empiric IV Rocephin Cultures - pending Qualifiers: Urinary tract infection type: site unspecified Hematuria presence: without hematuria Qualified Code(s): N39.0 - Urinary tract infection, site not specified (3) CKD (chronic kidney disease) Current visit: Yes Status: Chronic Chronic kidney disease stage III - creatinine slightly above baseline Repeat labs in a.m. Qualifiers: Chronic kidney disease stage: stage 3 (moderate) Qualified Code(s): N18.3 - Chronic kidney disease, stage 3 (moderate) (4) CAD (coronary artery disease) Current visit: Yes Status: Chronic Coronary artery disease, stable Home dose of Plavix, Lipitor, TriCor Qualifiers: Coronary Disease-Associated Artery/Lesion type: [place] artery [place] vs. transplanted heart: jackson heart Associated angina: with unstable angina Qualified Code(s): I25.110 - Atherosclerotic heart disease of [place] coronary artery with unstable angina pectoris (5) Diabetes mellitus Current visit: Yes Status: Chronic Type 2 diabetes mellitus, insulin-dependent, hyperglycemia Continue insulin sliding scale, glucose checks 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 mellitus complication status: with kidney complications Diabetes mellitus complication detail: with chronic kidney disease Diabetes mellitus long-term insulin use: with crankshaft grinder use Chronic kidney disease stage: stage 3 (moderate) Qualified Code(s): E11.22 - Type 2 diabetes mellitus with diabetic chronic kidney disease; N18.3 - Chronic kidney disease, stage 3 (moderate); Z79.4 - knitter helper (current) use of insulin (6) Morbid obesity Current visit: Yes Status: Acute Morbid obesity with BMI 40.6 Advised lifestyle modification (7) DVT prophylaxis Current visit: Yes Status: Acute Heparin subcutaneous Internal Medicine - H&P: HPI Chief complaint: Shortness of breath Admitted From: Emergency Dept Plans for Post Hospital Care: Home History of present illness: Mr. Humphries is a 66 year old male with past medical history of COPD, coronary artery disease, CHF, diabetes, hyperlipidemia and hypertension. Patient presents to the ED with complaints of shortness of breath and cough. Examined in the room. Patient is awake and alert. Not in any distress. Able to provide all history. Family members at bedside. Patient states his symptoms of shortness of breath and cough started about 2-3 days ago. They have gradually worsened. He states he does have a productive cough with clear sputum. Shortness of breath is worse with exertion. Patient uses oxygen at home and also uses nebulizer breathing treatments at home, which did not help with his symptoms. Denies chest pain or dizziness. Patient states he continues to smoke daily, but says he smokes only a few cigarettes per day. No alleviating factors. No other associated symptoms. No other acute complaints. Initial workup in the ED is significant for hypoxia and hypercapnia along with elevated white count. Patient also has a UTI. Patient is being admitted for acute COPD exacerbation. He will need DuoNeb breathing treatment and empiric IV antibiotics and IV steroids. Patient has been explained about his condition and plan of care in detail. He understood and agreed. No unanswered questions. CODE STATUS full code. Past Med Surg Social Fam HX - Past Medical History Medical history: COPD, coronary artery disease, diabetes, hyperlipidemia, hypertension Psychiatric history: no psych history - Social History Smoking Status: Current every day smoker Smokeless Tobacco Status: No Alcohol use: none Drug use: none Internal Medicine - H&P: Meds Amlodipine Besylate 2.5 mg PO DAILY 06/16/16 [History] Clopidogrel [Plavix] 75 mg PO DAILY 06/16/16 [History] Fenofibrate Nanocrystallized [Tricor] 48 mg PO DAILY 06/16/16 [History] GlipiZIDE [Glipizide Xl] 5 mg PO DAILY 06/16/16 [History] Levothyroxine Sodium [Tirosint] 137 mcg PO DAILY 06/16/16 [History] Lisinopril [Zestril] 10 mg PO DAILY 06/16/16 [History] Montelukast Sodium [Singulair] 10 mg PO DAILY 06/16/16 [History] Pantoprazole Sodium [Protonix] 40 mg PO DAILY 06/16/16 [History] Tamsulosin [Flomax] 0.4 mg PO DAILY 06/16/16 [History] Budesonide/Formoterol 80/4.5 [Symbicort 80/4.5] 1 puff IH BID 08/07/16 [History ] Isosorbide MONOnitrate (24 HR) [Imdur] 30 mg PO DAILY 08/07/16 [History] Polyethylene Glycol 3350 [MiraLAX] 17 gm PO DAILY 08/07/16 [History] predniSONE [Prednisone] 5 mg PO DAILY 08/07/16 [History] Insulin ASPART [Novolog Flexpen] 0 unit SQ ACHS #200 unit 08/09/16 [Rx] Metoprolol [Lopressor] 50 mg PO BID #30 08/09/16 [Rx] Atorvastatin Calcium [Lipitor] 80 mg PO HS 07/23/17 [History] 3 Allergy/AdvReac Type Severity Reaction Status Date / Time adenosine Allergy See Verified 08/07/16 16:26 Comments fluticasone Allergy See Verified 08/07/16 16:26 [From Advair Diskus] Comments Iodinated Contrast- Oral and Allergy See Verified 06/16/16 15:37 IV Dye Comments [Iodinated Contrast Media - IV Dye] salmeterol Allergy See Verified 08/07/16 16:26 [From Advair Diskus] Comments All Systems PM: A 10-system review of systems was performed and is negative for pertinent findings except as documented above in the HPI. - Constitutional Constitutional: fatigue, fever(s), no weakness - EENT Eyes: no blurry vision - Cardiovascular Cardiovascular ROS IM: dyspnea, dyspnea on exertion, orthopnea, no chest pain, no diaphoresis, no edema, no lightheadedness, no palpitations, no syncope - Respiratory Respiratory: cough, dyspnea on exertion, wheezing, chest congestion, no hemoptysis - Gastrointestinal Gastrointestinal: no abdominal pain, no bloating, no cramping, no diarrhea, no hematemesis, no hematochezia, no loose stools, no nausea, no vomiting - Genitourinary Genitourinary ROS male: no dysuria - Neurological Neurological ROS: no abnormal gait, no abnormal speech, no dizziness, no numbness, no tingling - Constitutional Vitals: Temp Pulse Resp BP Pulse Ox 98.7 F 88 20 102/62 86 07/23/17 20:22 07/23/17 20:22 07/23/17 20:22 07/23/17 20:22 07/23/17 20:22 General appearance: Present: cooperative, mild distress, A&O X 3, morbidly obese , pleasant, answers questions appropriately - Head Head exam: Present: atraumatic - Eye Eye exam: Present: EOMI - ENT ENT exam: Present: mucous membranes dry - Respiratory Respiratory exam: Present: wheezes (Bilateral). Absent: accessory muscle use, rales, respiratory distress, rhonchi, tachypnea - Cardiovascular Cardiovascular exam: Present: RRR, +S1, +S2 - GI/Abdominal GI/Abdominal exam: Present: soft. Absent: distended, firm, guarding, tenderness - Extremities Exam Extremities exam: Present: pedal edema (Bilateral lower leg 1+ edema), radial pulses palpable and symmetrical. Absent: calf tenderness, cyanotic - Neurological Exam Neurological exam: Present: alert, oriented X3, no focal deficits. Absent: facial droop, speech deficit Internal Med - H&P Results - Labs CBC & Chem 7: 07/23/17 12:50 07/23/17 12:50
[2017-07-23] MEDS ORDERED: 0.9 % Sodium Chloride 1,000 ML IVC SCH (21:00)
[2017-07-23] MEDS: *HR* Heparin 5,000 UNIT/ML VIAL SQ SCH (22:10)
[2017-07-23] MEDS: Azithromycin 500 MG in D5% in Water 250 ML IVPB SCH (22:11)
[2017-07-23] MEDS: Ipratropium/Albuterol Neb 3 ML IH SCH ×2 (22:40→23:35)
[2017-07-23] MEDS: Budesonide/Formoterol 80/4.5 MDI IH SCH (22:40)
[2017-07-23] MEDS: methylPREDNISolone 125 MG/2 ML VIAL IVP SCH (23:58)
[2017-07-24 02:59] LABS: Hematocrit 40.8 % (37.5-50.1); Magnesium 2.4 mg/dL (1.6-2.6); Mean Corpuscular Volume 95.1 fL (83.0-100.0); Red Blood Count 4.29 M/mcL (4.19-5.50); Red Cell Distribution Width 14.9 % (11.5-14.5)
[2017-07-24 03:01] LABS: Hemoglobin 12.5 g/dL (12.9-16.9); Immature Granulocytes % 0.9 % (0-4); Immature Platelets 4.2 % (1.1-6.1); Lymphocytes # 0.2 K/mcL (0.6-4.6); Lymphocytes % 2.5 %; Mean Corpuscular HGB Conc 30.6 g/dL (31.6-35.5); Mean Corpuscular Hemoglobin 29.1 pg (28.0-33.3); Mean Platelet Volume 9.9 fL (9.4-12.4); Monocytes # 0.2 K/mcL (0.0-1.3); Neutrophils # 7.1 K/mcL (1.6-8.9); Platelet Count 102 K/mcL (140-400); Segmented Neutrophils % 94.6 %
[2017-07-24 03:44] LABS: Platelet Estimate Slight Decrease (Normal)
[2017-07-24] MEDS: Ipratropium/Albuterol Neb 3 ML IH SCH ×5 (04:50→20:36)
[2017-07-24] MEDS ORDERED: 0.9 % Sodium Chloride 1,000 ML IVC SCH (05:13)
[2017-07-24] MEDS: *HR* Heparin 5,000 UNIT/ML VIAL SQ SCH ×3 (06:18→21:03)
[2017-07-24] MEDS: Isosorbide MONOnitrate (24 HR) 30 MG TAB.ER.24H PO SCH (09:37)
[2017-07-24] MEDS: amLODIPine 5 MG TABLET PO SCH (09:37)
[2017-07-24] MEDS: methylPREDNISolone 125 MG/2 ML VIAL IVP SCH ×2 (09:37→18:43)
[2017-07-24] MEDS: Fenofibrate 54 MG TABLET PO SCH (09:37)
[2017-07-24] MEDS: cefTRIAXone 1,000 MG in Water for inj. (sterile) 10 ML IVP SCH (09:38)
[2017-07-24] MEDS: Budesonide/Formoterol 80/4.5 MDI IH SCH ×2 (11:24→20:37)
[2017-07-24] MEDS ORDERED: Ipratropium/Albuterol Neb 3 ML IH PRN (14:31)
--- NOTE | 2017-07-24 14:33 | Internal Med Progress Note ---
Date of Encounter: 07/24/17 Time of Encounter: 14:31 - Assessment and plan (1) UTI (urinary tract infection) Current Visit: Yes Status: Acute Assessment and plan: continue IV rocephin urine culture showed no growth, will treat for 3 days Qualifiers: Urinary tract infection type: site unspecified Hematuria presence: without hematuria Qualified Code(s): N39.0 - Urinary tract infection, site not specified (2) Acute and chronic respiratory failure Current Visit: Yes Status: Acute Assessment and plan: secondary to acute exacerbation of COPD continue systemic steroids and bronchodilator support O2 supplementation bipap at bedtime continue IV abx monitor respiratory status ABG as needed f/u blood cultures goal O2 sat: 88-92% Qualifiers: Respiratory failure complication: hypoxia and hypercapnia Qualified Code(s) : J96.21 - Acute and chronic respiratory failure with hypoxia; J96.22 - Acute and chronic respiratory failure with hypercapnia; J96.22 - Acute and chronic respiratory failure with hypercapnia; J96.22 - Acute and chronic respiratory failure with hypercapnia (3) COPD exacerbation Current Visit: Yes Status: Acute Assessment and plan: as listed above (4) CAD (coronary artery disease) Current Visit: Yes Status: Chronic Assessment and plan: stable, continue home meds (plavix, statin, tricor, bb) Qualifiers: Coronary Disease-Associated Artery/Lesion type: [place] artery [place] vs. transplanted heart: [place] heart Associated angina: with unstable angina Qualified Code(s): I25.110 - Atherosclerotic heart disease of [place] coronary artery with unstable angina pectoris (5) CKD (chronic kidney disease) Current Visit: Yes Status: Chronic Assessment and plan: renal function at baseline continue to monitor Qualifiers: Chronic kidney disease stage: stage 3 (moderate) Qualified Code(s): N18.3 - Chronic kidney disease, stage 3 (moderate) (6) Diabetes mellitus Current Visit: Yes Status: Chronic Assessment and plan: sliding scale insulin algorithm monitor FS and BG ADA diet 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 mellitus complication status: with kidney complications Diabetes mellitus complication detail: with chronic kidney disease Diabetes mellitus long term care administrator insulin use: with fpc use Chronic kidney disease stage: stage 3 (moderate) Qualified Code(s): E11.22 - Type 2 diabetes mellitus with diabetic chronic kidney disease; N18.3 - Chronic kidney disease, stage 3 (moderate); Z79.4 - nursing home (current) use of insulin (7) DVT prophylaxis Current Visit: Yes Status: Acute Assessment and plan: Heparin SQ (8) Hypertension Current Visit: No Status: Chronic Assessment and plan: BP within acceptable range continue home meds Qualifiers: Hypertension type: essential hypertension Qualified Code(s): I10 - Essential (primary) hypertension (9) Morbid obesity Current Visit: Yes Status: Chronic - Subjective Interval history: Pt seen and examined at bedside. Resting in bed and reports of feeling better compared to previous day however continues to require high flow O2 therapy Noted to have bilateral expiratory wheezing - Constitutional Vitals: Temp Pulse Resp BP Pulse Ox 97.9 F 87 22 139/65 92 07/24/17 11:16 07/24/17 11:16 07/24/17 11:26 07/24/17 11:16 07/24/17 11:26 General appearance: Present: cooperative, A&O X 3, morbidly obese, pleasant, no acute distress, answers questions appropriately - Head Head exam: Present: atraumatic, normocephalic - Eye Eye exam: Present: conjuntiva pink, sclera anicteric - Respiratory Respiratory exam: Absent: accessory muscle use (bilateral expiratory wheezing ) , respiratory distress, wheezes - Cardiovascular Cardiovascular exam: Present: RRR, +S1, +S2. Absent: diastolic murmur, gallop, rubs, systolic murmur - GI/Abdominal GI/Abdominal exam: Present: normal bowel sounds, soft, no peritoneal signs. Absent: distended, tenderness - Extremities Exam Extremities exam: Present: warm, radial pulses palpable and symmetrical. Absent : calf tenderness, cyanotic, pedal edema - Neurological Exam Neurological exam: Present: alert, oriented X3 Internal Medicine: Result - Labs CBC & Chem 7: 07/24/17 02:39 07/24/17 02:39 Labs: Short CBC 07/24/17 Range/Units 02:39 WBC 7.5 (4.3-11.1) K/mcL Hgb 12.5 L (12.9-16.9) g/dL Hct 40.8 (37.5-50.1) % Plt Count 102 L (140-400) K/mcL Neutrophils # 7.1 (1.6-8.9) K/mcL BMP 07/24/17 02:39 Sodium 135 L Potassium 5.0 H Chloride 102 Carbon Dioxide 25 BUN 19 Creatinine 1.69 H Glucose 247 H Calcium 9.0 Cardiac Enzymes 07/23/17 07/24/17 07/24/17 Range/Units 22:10 02:39 08:35 Troponin I 0.02 0.02 0.02 (0-0.03) ng/mL - ABG Interpretation ABG results: ABG ABG pH 7.30 pH Units (7.32-7.45) L 07/23/17 14:16 ABG pCO2 59 mmHg (35-45) H 07/23/17 14:16 ABG pO2 63 mmHg (85-104) L 07/23/17 14:16 ABG O2 Saturation 89 % (95-98) L 07/23/17 14:16 PT/INR, D-dimer PT 12.1 Seconds (9.4-12.1) 07/23/17 12:50 Consult Discharge Plan - Plan Referrals: Khurram Victoria DO [Primary Care Provider] -
[2017-07-24] MEDS ORDERED: Dextrose Gel 15 GM PO PRN ×2 (15:26)
[2017-07-24] MEDS ORDERED: D5% in Water 1,000 ML IVC PRN (15:26)
[2017-07-24] MEDS ORDERED: *HR* Dextrose 50 % in Water (Syg) 50 ML SYRINGE IVP PRN (15:26)
[2017-07-24] MEDS: Ipratropium/Albuterol Neb 3 ML IH PRN (17:36)
[2017-07-24] MEDS: Insulin LISPRO 300 UNITS/3 ML VIAL SQ SCH ×2 (18:42→21:03)
--- NOTE | 2017-07-24 19:11 | Electrocardiograph Report ---
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
[2017-07-24] MEDS: Azithromycin 500 MG in D5% in Water 250 ML IVPB SCH (20:49)
[2017-07-25] MEDS: Ipratropium/Albuterol Neb 3 ML IH SCH ×7 (00:31→23:10)
[2017-07-25] MEDS: methylPREDNISolone 125 MG/2 ML VIAL IVP SCH ×3 (01:06→15:53)
[2017-07-25 03:40] LABS: Hematocrit 40.4 % (37.5-50.1); Hemoglobin 12.2 g/dL (12.9-16.9); Immature Granulocytes % 1.1 % (0-4); Lymphocytes # 0.2 K/mcL (0.6-4.6); Lymphocytes % 1.7 %; Mean Corpuscular HGB Conc 30.2 g/dL (31.6-35.5); Mean Corpuscular Hemoglobin 28.8 pg (28.0-33.3); Mean Corpuscular Volume 95.3 fL (83.0-100.0); Mean Platelet Volume 10.3 fL (9.4-12.4); Monocytes # 0.3 K/mcL (0.0-1.3); Monocytes % 3.3 %; Platelet Count 113 K/mcL (140-400); Red Blood Count 4.24 M/mcL (4.19-5.50); Red Cell Distribution Width 14.8 % (11.5-14.5); Segmented Neutrophils % 93.9 %
[2017-07-25 03:43] LABS: Neutrophils # 8.3 K/mcL (1.6-8.9)
[2017-07-25 03:59] LABS: Calcium 8.8 mg/dL (8.6-10.8); Magnesium 2.1 mg/dL (1.6-2.6); Potassium 5.6 mEq/L (3.5-4.5)
[2017-07-25 04:08] LABS: Platelet Estimate Decreased (Normal)
[2017-07-25] MEDS: *HR* Heparin 5,000 UNIT/ML VIAL SQ SCH ×3 (06:02→21:08)
[2017-07-25] MEDS: Budesonide/Formoterol 80/4.5 MDI IH SCH ×2 (07:42→19:20)
[2017-07-25] MEDS: Fenofibrate 54 MG TABLET PO SCH (08:12)
[2017-07-25] MEDS: Isosorbide MONOnitrate (24 HR) 30 MG TAB.ER.24H PO SCH (08:12)
[2017-07-25] MEDS: amLODIPine 5 MG TABLET PO SCH (08:12)
[2017-07-25] MEDS: cefTRIAXone 1,000 MG in Water for inj. (sterile) 10 ML IVP SCH (08:14)
[2017-07-25] MEDS: Insulin LISPRO 300 UNITS/3 ML VIAL SQ SCH ×4 (08:16→21:10)
[2017-07-25 12:42] LABS: ABG Base Excess 3 mEq/L (-2 to 3); ABG HCO3 33 mEq/L (21-27); ABG Oxygen Saturation 86 % (95-98); ABG PCO2 82 mmHg (35-45); ABG PH 7.22 pH Units (7.32-7.45); ABG PO2 64 mmHg (85-104); ABG TCO2 36 mEq/L (20-26)
--- NOTE | 2017-07-25 16:41 | Internal Med Progress Note ---
Date of Encounter: 07/25/17 Time of Encounter: 11:40 - Assessment and plan (1) Acute and chronic respiratory failure Current Visit: Yes Status: Acute Assessment and plan: Acute on chronic respiratory failure with hypercapnia and hypoxia secondary to acute exacerbation of COPD continue systemic steroids and bronchodilator support O2 supplementation Bipap throughout the day with breaks for meals and bipap at bedtime Pt has been noncompliant with bipap support overnight and noted to have worsening of his respiratory status continue IV abx monitor respiratory status will repeat ABG once patient has been on bipap for a few hours Preliminary blood cultures: No growth goal O2 sat: 88-92% patient at high risk of intubation given noncompliance with bipap and worsening respiratory status Qualifiers: Respiratory failure complication: hypoxia and hypercapnia Qualified Code(s) : J96.21 - Acute and chronic respiratory failure with hypoxia; J96.22 - Acute and chronic respiratory failure with hypercapnia; J96.22 - Acute and chronic respiratory failure with hypercapnia; J96.22 - Acute and chronic respiratory failure with hypercapnia (2) COPD exacerbation Current Visit: Yes Status: Acute Assessment and plan: as listed above (3) UTI (urinary tract infection) Current Visit: Yes Status: Acute Assessment and plan: continue IV rocephin urine culture showed no growth, will treat for 3 days Qualifiers: Urinary tract infection type: site unspecified Hematuria presence: without hematuria Qualified Code(s): N39.0 - Urinary tract infection, site not specified (4) CAD (coronary artery disease) Current Visit: Yes Status: Chronic Assessment and plan: stable, continue home meds (plavix, statin, tricor, bb) Qualifiers: Coronary Disease-Associated Artery/Lesion type: [place] artery [place] vs. transplanted heart: [place] heart Associated angina: with unstable angina Qualified Code(s): I25.110 - Atherosclerotic heart disease of [place] coronary artery with unstable angina pectoris (5) CKD (chronic kidney disease) Current Visit: Yes Status: Chronic Assessment and plan: renal function at baseline continue to monitor Qualifiers: Chronic kidney disease stage: stage 3 (moderate) Qualified Code(s): N18.3 - Chronic kidney disease, stage 3 (moderate) (6) Diabetes mellitus Current Visit: Yes Status: Chronic Assessment and plan: sliding scale insulin algorithm monitor FS and BG ADA diet 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 mellitus complication status: with kidney complications Diabetes mellitus complication detail: with chronic kidney disease 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 insulin use: with marine oil terminal superintendent use Chronic kidney disease stage: stage 3 (moderate) Qualified Code(s): E11.22 - Type 2 diabetes mellitus with diabetic chronic kidney disease; N18.3 - Chronic kidney disease, stage 3 (moderate); Z79.4 - intermediate (current) use of insulin (7) DVT prophylaxis Current Visit: Yes Status: Acute Assessment and plan: Heparin SQ (8) Hypertension Current Visit: No Status: Chronic Assessment and plan: BP within acceptable range continue home meds Qualifiers: Hypertension type: essential hypertension Qualified Code(s): I10 - Essential (primary) hypertension (9) Morbid obesity Current Visit: Yes Status: Chronic (10) Electrolyte abnormality Current Visit: Yes Status: Acute Assessment and plan: Hyperkalemia and Hypophosphatemia No ekg changes reported Kayexalate given Phos supplemented will continue to closely monitor electrolytes - Subjective Interval history: Pt seen and examined multiple times throughout the day Reported of refusing bipap overnight and requiring higher levels of O2 repeat ABG reported worsening respiratory acidosis Pt educated extensively about the need to be on bipap support Currently tolerating bipap support Will repeat ABG later today - Constitutional Vitals: Temp Pulse Resp BP Pulse Ox 97.9 F 97 16 144/86 100 07/25/17 15:41 07/25/17 15:41 07/25/17 15:41 07/25/17 15:41 07/25/17 15:41 General appearance: Present: A&O X 3, morbidly obese, no acute distress, answers questions appropriately - Head Head exam: Present: atraumatic, normocephalic - Eye Eye exam: Present: conjuntiva pink, sclera anicteric - Respiratory Respiratory exam: Present: decreased breath sounds. Absent: accessory muscle use, respiratory distress, wheezes - Cardiovascular Cardiovascular exam: Present: +S1, +S2, tachycardia. Absent: diastolic murmur, gallop, rubs, systolic murmur - GI/Abdominal GI/Abdominal exam: Present: normal bowel sounds, soft, no peritoneal signs. Absent: distended, tenderness - Extremities Exam Extremities exam: Present: warm, radial pulses palpable and symmetrical. Absent : calf tenderness - Neurological Exam Neurological exam: Present: alert, oriented X3 Internal Medicine: Result - Labs CBC & Chem 7: 07/25/17 02:49 07/25/17 02:49 Labs: Short CBC 07/25/17 Range/Units 02:49 WBC 8.8 (4.3-11.1) K/mcL Hgb 12.2 L (12.9-16.9) g/dL Hct 40.4 (37.5-50.1) % Plt Count 113 L (140-400) K/mcL Neutrophils # 8.3 (1.6-8.9) K/mcL BMP 07/25/17 02:49 Sodium 137 Potassium 5.6 H Chloride 103 Carbon Dioxide 28 BUN 25 Creatinine 1.64 H Glucose 189 H Calcium 8.8 - ABG Interpretation ABG results: ABG ABG pH 7.22 pH Units (7.32-7.45) L 07/25/17 12:35 ABG pCO2 82 mmHg (35-45) H* 07/25/17 12:35 ABG pO2 64 mmHg (85-104) L 07/25/17 12:35 ABG O2 Saturation 86 % (95-98) L 07/25/17 12:35 PT/INR, D-dimer PT 12.1 Seconds (9.4-12.1) 07/23/17 12:50 Consult Discharge Plan - Plan Referrals: George Hazel MD [Partnered Physician] - 08/15/17 1:00 pm Khurram Victoria DO [Primary Care Provider] - 08/01/17 11:30 am
--- NOTE | 2017-07-25 19:02 | Electrocardiograph Report ---
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
[2017-07-25 20:43] LABS: ABG Base Excess 5 mEq/L (-2 to 3); ABG HCO3 37 mEq/L (21-27); ABG Oxygen Saturation 88 % (95-98); ABG PCO2 97 mmHg (35-45); ABG PH 7.19 pH Units (7.32-7.45); ABG PO2 72 mmHg (85-104); ABG TCO2 40 mEq/L (20-26)
[2017-07-25] MEDS: Azithromycin 500 MG in D5% in Water 250 ML IVPB SCH (21:08)
[2017-07-26] MEDS: methylPREDNISolone 125 MG/2 ML VIAL IVP SCH ×4 (00:18→23:51)
[2017-07-26] MEDS: Ipratropium/Albuterol Neb 3 ML IH SCH ×3 (03:47→12:53)
[2017-07-26 03:56] LABS: ABG Base Excess 8 mEq/L (-2 to 3); ABG HCO3 38 mEq/L (21-27); ABG Oxygen Saturation 88 % (95-98); ABG PCO2 78 mmHg (35-45); ABG PH 7.29 pH Units (7.32-7.45); ABG PO2 63 mmHg (85-104); ABG TCO2 40 mEq/L (20-26)
[2017-07-26] MEDS: *HR* Heparin 5,000 UNIT/ML VIAL SQ SCH (06:04)
[2017-07-26] MEDS: Budesonide/Formoterol 80/4.5 MDI IH SCH ×2 (07:45→19:58)
[2017-07-26] MEDS: Isosorbide MONOnitrate (24 HR) 30 MG TAB.ER.24H PO SCH (08:09)
[2017-07-26] MEDS: Insulin LISPRO 300 UNITS/3 ML VIAL SQ SCH ×4 (08:09→21:13)
[2017-07-26] MEDS: Fenofibrate 54 MG TABLET PO SCH (08:09)
[2017-07-26] MEDS: amLODIPine 5 MG TABLET PO SCH (08:09)
[2017-07-26] MEDS: cefTRIAXone 1,000 MG in Water for inj. (sterile) 10 ML IVP SCH (08:10)
[2017-07-26 09:17] LABS: Basophils % 0.1 %; Immature Granulocytes % 1.2 % (0-4); Lymphocytes # 0.3 K/mcL (0.6-4.6); Lymphocytes % 3.2 %; Mean Corpuscular HGB Conc 29.5 g/dL (31.6-35.5); Mean Corpuscular Hemoglobin 28.7 pg (28.0-33.3); Mean Corpuscular Volume 97.1 fL (83.0-100.0); Mean Platelet Volume 9.9 fL (9.4-12.4); Monocytes # 0.4 K/mcL (0.0-1.3); Monocytes % 4.2 %; Neutrophils # 8.7 K/mcL (1.6-8.9); Platelet Count 142 K/mcL (140-400); Red Blood Count 4.53 M/mcL (4.19-5.50); Red Cell Distribution Width 14.9 % (11.5-14.5); Segmented Neutrophils % 91.3 %
[2017-07-26 09:27] LABS: Calcium 9.2 mg/dL (8.6-10.8); Magnesium 2.3 mg/dL (1.6-2.6); Phosphorous 2.7 mg/dL (2.3-4.7); Potassium 5.2 mEq/L (3.5-4.5)
[2017-07-26 12:07] LABS: ABG Base Excess 7 mEq/L (-2 to 3); ABG HCO3 38 mEq/L (21-27); ABG Oxygen Saturation 88 % (95-98); ABG PCO2 90 mmHg (35-45); ABG PH 7.23 pH Units (7.32-7.45); ABG PO2 69 mmHg (85-104); ABG TCO2 40 mEq/L (20-26); Blood Gas Modality BIVENT
[2017-07-26] MEDS: dilTIAZem HCl 100 MG in D5% in Water 50 ML IVC SCH ×2 (12:44→20:06)
[2017-07-26] MEDS ORDERED: *HR* Heparin 5,000 UNIT/ML VIAL IVP ONE (14:48)
[2017-07-26] MEDS ORDERED: *HR* Heparin 5,000 UNIT/ML VIAL IVP PRN (14:48)
[2017-07-26] MEDS ORDERED: *HR* Metoprolol 5 MG/5 ML VIAL IVP ONE ×2 (14:57→15:01)
[2017-07-26 15:26] LABS: Hemoglobin 12.2 g/dL (12.9-16.9); Mean Corpuscular HGB Conc 29.8 g/dL (31.6-35.5); Mean Corpuscular Volume 97.6 fL (83.0-100.0); Mean Platelet Volume 10.5 fL (9.4-12.4); Platelet Count 131 K/mcL (140-400); Red Cell Distribution Width 14.9 % (11.5-14.5)
[2017-07-26 15:31] LABS: Prothrombin Time 10.7 Seconds (9.4-12.1)
[2017-07-26 15:34] LABS: Activated Partial Thrombo Time 26.8 Seconds (26.0-36.0)
--- NOTE | 2017-07-26 16:04 | Cardiology Consult Note ---
<Gregg Jaramillo - Last Filed: 07/26/17 16:32> Date of Encounter: 07/26/17 Time of Encounter: 14:00 Assessment and Plan (1) Tachyarrhythmia Current Visit: Yes Status: Acute Likely 2:1 Atrial flutter Consistently 140s after 15mg/hr Cardizem drip Started on Heparin by Primary Team Possible candidate for cardioversion (assuming within 48 hours of onset) Pt needs adherence to bipap and RT. 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 (2) COPD exacerbation Current Visit: Yes Status: Acute Tachyarrhythmia unlikely MAT due to p wave morphology on ECG. COPD being managed by primary team. Discussion w patient/family: The assessment and plan as outlined above was discussed with the patient and/or family members who expressed understanding and agreement. All questions were answered. Thank you for involving us in the care of your patient. Please call with any questions. History of Present Illness Consult date: 07/26/17 Requesting physician: Sharyn Mercado Consult reason: tachyarrhythmia Chief complaint: Shortness of breath/cough History of present illness: Devyn Humphries, 66M, PMH COPD, current smoker, CAD, CHF, DM, HLD, HTN, presents to ED with shortness of breath and cough. Admitted for acute COPD exacerbation with hypoxia. Patient demonstrates intolerance to Bipap at night as he removes the mask and desaturates and worsens hypercapnia. Cardiology was consulted for newly discovered tachyarrhytmia: ddx afib/aflutter/sinus tachycardia. Past Med Surg Social Fam HX - Past Medical History Medical history: COPD, coronary artery disease, diabetes, hyperlipidemia, hypertension Psychiatric history: no psych history - Social History Smoking Status: Current every day smoker Packs per day: 3 Smokeless Tobacco Status: No Alcohol use: none Drug use: none Medications and Allergies Amlodipine Besylate 2.5 mg PO DAILY 06/16/16 [History] Clopidogrel [Plavix] 75 mg PO DAILY 06/16/16 [History] Fenofibrate Nanocrystallized [Tricor] 48 mg PO DAILY 06/16/16 [History] GlipiZIDE [Glipizide Xl] 5 mg PO DAILY 06/16/16 [History] Levothyroxine Sodium [Tirosint] 137 mcg PO DAILY 06/16/16 [History] Lisinopril [Zestril] 10 mg PO DAILY 06/16/16 [History] Montelukast Sodium [Singulair] 10 mg PO DAILY 06/16/16 [History] Pantoprazole Sodium [Protonix] 40 mg PO DAILY 06/16/16 [History] Tamsulosin [Flomax] 0.4 mg PO DAILY 06/16/16 [History] Budesonide/Formoterol 80/4.5 [Symbicort 80/4.5] 1 puff IH BID 08/07/16 [History ] Isosorbide MONOnitrate (24 HR) [Imdur] 30 mg PO DAILY 08/07/16 [History] Polyethylene Glycol 3350 [MiraLAX] 17 gm PO DAILY 08/07/16 [History] predniSONE [Prednisone] 5 mg PO DAILY 08/07/16 [History] Insulin ASPART [Novolog Flexpen] 0 unit SQ ACHS #200 unit 08/09/16 [Rx] Metoprolol [Lopressor] 50 mg PO BID #30 08/09/16 [Rx] Atorvastatin Calcium [Lipitor] 80 mg PO HS 07/23/17 [History] 3 Allergy/AdvReac Type Severity Reaction Status Date / Time adenosine Allergy See Verified 08/07/16 16:26 Comments fluticasone Allergy See Verified 08/07/16 16:26 [From Advair Diskus] Comments Iodinated Contrast- Oral and Allergy See Verified 06/16/16 15:37 IV Dye Comments [Iodinated Contrast Media - IV Dye] salmeterol Allergy See Verified 08/07/16 16:26 [From Advair Diskus] Comments All Systems Review: A 10-system review of systems was performed and is negative for pertinent findings except as documented above in the HPI. Physical Examination Vital Signs, Last 4 Hours Temp Pulse Resp BP Pulse Ox 07/26/17 15:50 98.4 F 140 16 121/98 94 07/26/17 12:53 26 95 General: Conversant HEENT: Atraumatic Neck: No JVD Cardiac: Reg Rate and Rhythm, Normal S1 and S2 Lungs: Other (distant breath sounds, on bipap) Neuro: No focal deficits noted Extremities: No Clubbing, No Cyanosis Results 07/26/17 15:05 07/26/17 09:08 Lab Results 12/08/17 12/08/17 12/08/17 09:08 09:08 15:05 WBC 9.5 8.3 Hgb 13.0 12.2 L Hct 44.0 41.0 Plt Count 142 131 L INR APTT Sodium 141 Potassium 5.2 H Chloride 102 Carbon Dioxide 30 H BUN 27 H Creatinine 1.46 H Glucose 265 H Calcium 9.2 Magnesium 2.3 07/26/17 15:05 WBC Hgb Hct Plt Count INR 1.0 APTT 26.8 Sodium Potassium Chloride Carbon Dioxide BUN Creatinine Glucose Calcium Magnesium Consult Discharge Plan - Plan Referrals: George Hazel MD [Partnered Physician] - 08/15/17 1:00 pm Khurram Victoria DO [Primary Care Provider] - 08/01/17 11:30 am <Alice Melgar - Last Filed: 07/27/17 07:17> Date of Encounter: 07/27/17 - Attending Attestation I examined this patient and my medical decision-making was reviewed with the Resident Physician. I agree with the documented findings, disposition and treatment plan as described except to the extent set forth below. 66 YOM presents with COPD exacerbation found to be in tachycardia. EKGs reviewed no clear afib or flutter noted confirmed also on telemetry. Previously seen by cardiology for similiar tachycardia and no afib confirmed. Attempt to record EKG and administer adenosine to verify rythm as it slows but pt allergic to adenosine. BB and CCB boluses did not lower rate. Low suspicion for aflutter but could not confirm. Will review previous ECHO for A waves and also review telemetry overnight. Heparin IV overnight Assessment and Plan Discussion w patient/family: The assessment and plan as outlined above was discussed with the patient and/or family members who expressed understanding and agreement. All questions were answered. Thank you for involving us in the care of your patient. Please call with any questions. History of Present Illness History of present illness: Mr. Humphries is a 66 year old male All Systems Review: A 10-system review of systems was performed and is negative for pertinent findings except as documented above in the HPI. Physical Examination Vital Signs, Last 4 Hours Temp Pulse Resp BP Pulse Ox 07/27/17 07:05 97.7 F 98 14 112/87 99 07/27/17 04:00 97.8 F 71 21 117/60 20 07/27/17 03:24 26 96 Results 07/27/17 04:15 07/27/17 04:15 Lab Results 07/26/17 07/26/17 07/26/17 09:08 09:08 15:05 WBC 9.5 8.3 Hgb 13.0 12.2 L Hct 44.0 41.0 Plt Count 142 131 L INR APTT Sodium 141 Potassium 5.2 H Chloride 102 Carbon Dioxide 30 H BUN 27 H Creatinine 1.46 H Glucose 265 H Calcium 9.2 Magnesium 2.3 07/26/17 07/26/17 07/27/17 15:05 21:54 04:15 WBC 8.5 Hgb 12.4 L Hct 42.4 Plt Count 131 L INR 1.0 APTT 26.8 119.8 H* D Sodium Potassium Chloride Carbon Dioxide BUN Creatinine Glucose Calcium Magnesium 07/27/17 07/27/17 04:15 05:49 WBC Hgb Hct Plt Count INR APTT 110.1 H* Sodium 142 Potassium 5.8 H Chloride 103 Carbon Dioxide 35 H BUN 37 H D Creatinine 1.52 H Glucose 238 H Calcium 9.1 Magnesium 2.3
[2017-07-26] MEDS: Ipratropium Neb 0.5 MG NEBULIZER IH SCH ×4 (16:36→23:10)
[2017-07-26] MEDS: Levalbuterol Neb 1.25 MG/3 ML IH SCH ×4 (16:36→23:10)
[2017-07-26 16:52] LABS: ABG Base Excess 6 mEq/L (-2 to 3); ABG HCO3 37 mEq/L (21-27); ABG Oxygen Saturation 95 % (95-98); ABG PCO2 90 mmHg (35-45); ABG PH 7.23 pH Units (7.32-7.45); ABG PO2 97 mmHg (85-104); ABG TCO2 40 mEq/L (20-26)
--- NOTE | 2017-07-26 17:27 | Internal Med Progress Note ---
Date of Encounter: 07/26/17 Time of Encounter: 09:45 - Assessment and plan (1) Atrial tachycardia Current Visit: No Status: Acute Assessment and plan: Likely Aflutter cardiology on board and consultation appreciated continue heparin gtt continue cardizem gtt pt may need cardioversion as per cardiology if arrhythmia persists (2) Acute and chronic respiratory failure Current Visit: Yes Status: Acute Assessment and plan: Acute on chronic respiratory failure with hypercapnia and hypoxia secondary to acute exacerbation of COPD continue systemic steroids and bronchodilator support O2 supplementation Bipap throughout the day with breaks for meals and bipap at bedtime Pt has been noncompliant with bipap support overnight and noted to have worsening of his respiratory status continue IV abx monitor respiratory status Preliminary blood cultures: No growth goal O2 sat: 88-92% will f/u CT chest patient at high risk of intubation given noncompliance with bipap and worsening respiratory status (3) COPD exacerbation Current Visit: Yes Status: Acute Assessment and plan: as listed above (4) UTI (urinary tract infection) Current Visit: Yes Status: Resolved Assessment and plan: urine culture showed no growth Qualifiers: Urinary tract infection type: site unspecified Hematuria presence: without hematuria Qualified Code(s): N39.0 - Urinary tract infection, site not specified (5) CAD (coronary artery disease) Current Visit: Yes Status: Chronic Assessment and plan: stable, continue home meds (plavix, statin, tricor, bb) Qualifiers: Coronary Disease-Associated Artery/Lesion type: [place] artery [place] vs. transplanted heart: [place] heart Associated angina: with unstable angina Qualified Code(s): I25.110 - Atherosclerotic heart disease of [place] coronary artery with unstable angina pectoris (6) CKD (chronic kidney disease) Current Visit: Yes Status: Chronic Assessment and plan: renal function at baseline continue to monitor Qualifiers: Chronic kidney disease stage: stage 3 (moderate) Qualified Code(s): N18.3 - Chronic kidney disease, stage 3 (moderate) (7) Diabetes mellitus Current Visit: Yes Status: Chronic Assessment and plan: sliding scale insulin algorithm monitor FS and BG ADA diet 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 mellitus complication status: with kidney complications Diabetes mellitus complication detail: with chronic kidney disease Diabetes mellitus 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 care 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 Chronic kidney disease stage: stage 3 (moderate) Qualified Code(s): E11.22 - Type 2 diabetes mellitus with diabetic chronic kidney disease; N18.3 - Chronic kidney disease, stage 3 (moderate); Z79.4 - custodial (current) use of insulin (8) DVT prophylaxis Current Visit: Yes Status: Acute Assessment and plan: Heparin SQ (9) Hypertension Current Visit: No Status: Chronic Assessment and plan: BP within acceptable range continue home meds Qualifiers: Hypertension type: essential hypertension Qualified Code(s): I10 - Essential (primary) hypertension (10) Morbid obesity Current Visit: Yes Status: Chronic (11) Electrolyte abnormality Current Visit: Yes Status: Acute Assessment and plan: Hyperkalemia improved from previous day will continue to monitor - Time Spent With Patient Greater than 35 minutes - Subjective Interval history: Pt seen and examined multiple times throughout the day Patient continues to remain in respiratory distress and only wearing bipap for a couple of hours at a time. He is able to communicate, eat his meals and has been refusing to stay on the bipap for more than a couple of hours Pt repetitively counselled about the need to be compliant with bipap support. Currently on bipap saturating well Also noted to have atrial tachycardia, EKG concerning for Afib due to which cardiology was consulted. pt started on Cardizem gtt and given IV lopressor without any rate control Will obtain CT chest to r/o any acute etiology other than the current COPD exac contributing to his current presentation Pt remains high risk for intubation - Constitutional Vitals: Temp Pulse Resp BP Pulse Ox 98.4 F 140 22 121/98 95 07/26/17 15:50 07/26/17 15:50 07/26/17 16:36 07/26/17 15:50 07/26/17 16:36 General appearance: Present: mild distress (respiratory distress), A&O X 3, morbidly obese, answers questions appropriately - Head Head exam: Present: atraumatic, normocephalic - Eye Eye exam: Present: conjuntiva pink, sclera anicteric - Respiratory Respiratory exam: Present: respiratory distress (expiratory wheezing with minimal inspiratory effort, decreased breath sounds diffusely ) - Cardiovascular Cardiovascular exam: Present: irregular rhythm, +S1, +S2, tachycardia - GI/Abdominal GI/Abdominal exam: Present: normal bowel sounds, soft, no peritoneal signs. Absent: distended, tenderness - Extremities Exam Extremities exam: Present: warm, radial pulses palpable and symmetrical. Absent : calf tenderness - Neurological Exam Neurological exam: Present: alert, oriented X3 Internal Medicine: Result - Labs CBC & Chem 7: 07/26/17 15:05 07/26/17 09:08 Labs: Short CBC 07/26/17 07/26/17 Range/Units 09:08 15:05 WBC 9.5 8.3 (4.3-11.1) K/mcL Hgb 13.0 12.2 L (12.9-16.9) g/dL Hct 44.0 41.0 (37.5-50.1) % Plt Count 142 131 L (140-400) K/mcL Neutrophils # 8.7 (1.6-8.9) K/mcL BMP 07/26/17 09:08 Sodium 141 Potassium 5.2 H Chloride 102 Carbon Dioxide 30 H BUN 27 H Creatinine 1.46 H Glucose 265 H Calcium 9.2 - ABG Interpretation ABG results: ABG ABG pH 7.23 pH Units (7.32-7.45) L 07/26/17 16:47 ABG pCO2 90 mmHg (35-45) H* 07/26/17 16:47 ABG pO2 97 mmHg (85-104) 07/26/17 16:47 ABG O2 Saturation 95 % (95-98) 07/26/17 16:47 PT/INR, D-dimer PT 10.7 Seconds (9.4-12.1) 07/26/17 15:05 Consult Discharge Plan - Plan Referrals: George Hazel MD [Partnered Physician] - 08/15/17 1:00 pm Khurram Victoria DO [Primary Care Provider] - 08/01/17 11:30 am
[2017-07-26] MEDS: Heparin 25,000 UNIT/500 ML D5W 25,000 UNIT/500 ML BAG IVC SCH (19:55)
[2017-07-26] MEDS ORDERED: Azithromycin 250 MG TABLET PO SCH (21:00)
[2017-07-26 23:12] LABS: Activated Partial Thrombo Time 119.8 Seconds (26.0-36.0)
[2017-07-26 23:21] LABS: Heparin anti-factor XA UFH 0.77 IU/mL (0.30-0.70)
[2017-07-27] MEDS: dilTIAZem HCl 100 MG in D5% in Water 50 ML IVC SCH ×2 (02:52→10:09)
[2017-07-27] MEDS: Levalbuterol Neb 1.25 MG/3 ML IH SCH ×6 (03:24→23:41)
[2017-07-27] MEDS: Ipratropium Neb 0.5 MG NEBULIZER IH SCH ×6 (03:24→23:41)
[2017-07-27 04:43] LABS: Basophils % 0.2 %; Hematocrit 42.4 % (37.5-50.1); Hemoglobin 12.4 g/dL (12.9-16.9); Immature Granulocytes % 0.7 % (0-4); Lymphocytes # 0.4 K/mcL (0.6-4.6); Mean Corpuscular HGB Conc 29.2 g/dL (31.6-35.5); Mean Corpuscular Hemoglobin 28.5 pg (28.0-33.3); Mean Corpuscular Volume 97.5 fL (83.0-100.0); Mean Platelet Volume 10.5 fL (9.4-12.4); Monocytes # 0.4 K/mcL (0.0-1.3); Monocytes % 4.7 %; Neutrophils # 7.6 K/mcL (1.6-8.9); Platelet Count 131 K/mcL (140-400); Red Blood Count 4.35 M/mcL (4.19-5.50); Red Cell Distribution Width 14.9 % (11.5-14.5); Segmented Neutrophils % 89.4 %
[2017-07-27 04:55] LABS: Calcium 9.1 mg/dL (8.6-10.8); Magnesium 2.3 mg/dL (1.6-2.6); Phosphorous 2.9 mg/dL (2.3-4.7)
[2017-07-27 05:20] LABS: Potassium 5.8 mEq/L (3.5-4.5)
[2017-07-27 06:25] LABS: Activated Partial Thrombo Time 110.1 Seconds (26.0-36.0)
[2017-07-27 06:30] LABS: Heparin anti-factor XA UFH 0.71 IU/mL (0.30-0.70)
[2017-07-27] MEDS: Budesonide/Formoterol 80/4.5 MDI IH SCH ×2 (08:18→20:30)
[2017-07-27] MEDS: cefTRIAXone 1,000 MG in Water for inj. (sterile) 10 ML IVP SCH (08:18)
[2017-07-27] MEDS: methylPREDNISolone 125 MG/2 ML VIAL IVP SCH ×3 (08:19→23:41)
[2017-07-27] MEDS: Insulin LISPRO 300 UNITS/3 ML VIAL SQ SCH ×4 (08:19→21:12)
[2017-07-27] MEDS: Isosorbide MONOnitrate (24 HR) 30 MG TAB.ER.24H PO SCH (08:20)
[2017-07-27] MEDS: Fenofibrate 54 MG TABLET PO SCH (08:20)
[2017-07-27] MEDS: amLODIPine 5 MG TABLET PO SCH (08:20)
--- NOTE | 2017-07-27 10:49 | Internal Med Progress Note ---
Date of Encounter: 07/27/17 Time of Encounter: 10:40 - Assessment and plan (1) Atrial tachycardia Current Visit: No Status: Acute Assessment and plan: Likely Aflutter cardiology on board and consultation appreciated continue heparin gtt continue cardizem gtt pt may need cardioversion as per cardiology if arrhythmia persists Amiodarone loading dose ordered by cardiology (2) Acute and chronic respiratory failure Current Visit: Yes Status: Acute Assessment and plan: Acute on chronic respiratory failure with hypercapnia and hypoxia secondary to acute exacerbation of COPD continue systemic steroids and bronchodilator support O2 supplementation Bipap throughout the day with breaks for meals and bipap at bedtime Pt has been more compliant with bipap support, will continue, repeat ABG improved from previous day continue IV abx monitor respiratory status Preliminary blood cultures: No growth goal O2 sat: 88-92% Given CT chest findings, concern for aspiration, will start zosyn and d/c ceftriaxone/azithromycin patient at high risk of intubation Qualifiers: Respiratory failure complication: hypoxia and hypercapnia Qualified Code(s) : J96.21 - Acute and chronic respiratory failure with hypoxia; J96.22 - Acute and chronic respiratory failure with hypercapnia; J96.22 - Acute and chronic respiratory failure with hypercapnia; J96.22 - Acute and chronic respiratory failure with hypercapnia (3) COPD exacerbation Current Visit: Yes Status: Acute Assessment and plan: as listed above (4) UTI (urinary tract infection) Current Visit: Yes Status: Resolved Assessment and plan: urine culture showed no growth Qualifiers: Urinary tract infection type: site unspecified Hematuria presence: without hematuria Qualified Code(s): N39.0 - Urinary tract infection, site not specified (5) CAD (coronary artery disease) Current Visit: Yes Status: Chronic Assessment and plan: stable, continue home meds (plavix, statin, tricor, bb) Qualifiers: Coronary Disease-Associated Artery/Lesion type: [place] artery [place] vs. transplanted heart: [place] heart Associated angina: with unstable angina Qualified Code(s): I25.110 - Atherosclerotic heart disease of [place] coronary artery with unstable angina pectoris (6) CKD (chronic kidney disease) Current Visit: Yes Status: Chronic Assessment and plan: renal function at baseline continue to monitor Qualifiers: Chronic kidney disease stage: stage 3 (moderate) Qualified Code(s): N18.3 - Chronic kidney disease, stage 3 (moderate) (7) Diabetes mellitus Current Visit: Yes Status: Chronic Assessment and plan: sliding scale insulin algorithm monitor FS and BG ADA diet 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 mellitus complication status: with kidney complications Diabetes mellitus complication detail: with chronic kidney disease Diabetes mellitus snf insulin use: with 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 operations manager use Chronic kidney disease stage: stage 3 (moderate) Qualified Code(s): E11.22 - Type 2 diabetes mellitus with diabetic chronic kidney disease; N18.3 - Chronic kidney disease, stage 3 (moderate); N18.3 - Chronic kidney disease, stage 3 ( moderate); 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; Z79.4 - FDC ( current) use of insulin; 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; Z79.4 - FDC (current) use of insulin (8) DVT prophylaxis Current Visit: Yes Status: Acute Assessment and plan: on heparin gtt (9) Hypertension Current Visit: No Status: Chronic Assessment and plan: BP within acceptable range continue home meds Qualifiers: Hypertension type: essential hypertension Qualified Code(s): I10 - Essential (primary) hypertension (10) Morbid obesity Current Visit: Yes Status: Chronic (11) Electrolyte abnormality Current Visit: Yes Status: Acute Assessment and plan: Hyperkalemia [place] given no ekg changes noted will continue to monitor - Subjective Interval history: Pt seen and examined at bedside. Resting in bed, saturating well on bipap pt being compliant with bipap support and improved from previous day continues to have Aflutter, rate poorly controlled, cardiology on board - Constitutional Vitals: Temp Pulse Resp BP Pulse Ox 97.7 F 98 19 113/87 99 07/27/17 07:05 07/27/17 07:05 07/27/17 08:18 07/27/17 08:18 07/27/17 08:36 General appearance: Present: A&O X 3, morbidly obese, no acute distress, answers questions appropriately - Head Head exam: Present: atraumatic, normocephalic - Eye Eye exam: Present: conjuntiva pink, sclera anicteric - Respiratory Respiratory exam: Present: wheezes (bilateral expiratory wheezing ). Absent: accessory muscle use - Cardiovascular Cardiovascular exam: Present: irregular rhythm, +S1, +S2, tachycardia - GI/Abdominal GI/Abdominal exam: Present: normal bowel sounds, soft, no peritoneal signs. Absent: distended, tenderness - Extremities Exam Extremities exam: Present: warm, radial pulses palpable and symmetrical. Absent : calf tenderness - Neurological Exam Neurological exam: Present: alert, oriented X3 Internal Medicine: Result - Labs CBC & Chem 7: 07/27/17 04:15 07/27/17 04:15 Labs: Short CBC 07/26/17 07/27/17 Range/Units 15:05 04:15 WBC 8.3 8.5 (4.3-11.1) K/mcL Hgb 12.2 L 12.4 L (12.9-16.9) g/dL Hct 41.0 42.4 (37.5-50.1) % Plt Count 131 L 131 L (140-400) K/mcL Neutrophils # 7.6 (1.6-8.9) K/mcL BMP 07/27/17 04:15 Sodium 142 Potassium 5.8 H Chloride 103 Carbon Dioxide 35 H BUN 37 H D Creatinine 1.52 H Glucose 238 H Calcium 9.1 - ABG Interpretation ABG results: ABG ABG pH 7.23 pH Units (7.32-7.45) L 07/26/17 16:47 ABG pCO2 90 mmHg (35-45) H* 07/26/17 16:47 ABG pO2 97 mmHg (85-104) 07/26/17 16:47 ABG O2 Saturation 95 % (95-98) 07/26/17 16:47 PT/INR, D-dimer PT 10.7 Seconds (9.4-12.1) 07/26/17 15:05 - Impressions Impressions Chest CT 07/26/17 16:11 IMPRESSION: Limited evaluation due to respiratory motion artifact; however, there is moderate to severe diffuse bronchial wall inflammation with multifocal tree-in-bud like opacities, most pronounced in the right upper and middle lobes, but probably involving the right lower and left upper lobes as well. These findings could reflect sequela of aspiration, especially given tracheobronchial secretions, hiatal hernia and esophageal features, suggesting dysmotility and reflux. Infectious bronchiolitis would be an additional consideration. No consolidative pneumonia. Enlarged main pulmonary artery may be seen with pulmonary hypertension. Advanced multivessel coronary artery disease with evidence of prior percutaneous coronary intervention. D/ /26/2017 17:43:55 Jaren Laird / earnold Interpreting Provider: Jaren Laird Consult Discharge Plan - Plan Referrals: George Hazel MD [Partnered Physician] - 08/15/17 1:00 pm Khurram Victoria DO [Primary Care Provider] - 08/01/17 11:30 am
[2017-07-27 11:05] LABS: ABG Base Excess 2 mEq/L (-2 to 3); ABG HCO3 30 mEq/L (21-27); ABG Oxygen Saturation 96 % (95-98); ABG PCO2 62 mmHg (35-45); ABG PH 7.29 pH Units (7.32-7.45); ABG PO2 90 mmHg (85-104); ABG TCO2 32 mEq/L (20-26)
[2017-07-27] MEDS ORDERED: Amiodarone Premix 150 MG/100 ML BAG IVPB ONE (12:04)
--- NOTE | 2017-07-27 12:16 | Cardiology Progress Note ---
Date of Encounter: 07/27/17 Time of Encounter: 11:30 Assessment and Plan (1) COPD exacerbation Current Visit: Yes Status: Acute Per cardiology: -On Bipap, states breathing improved today. -Management per primary service. (2) Tachyarrhythmia Current Visit: Yes Status: Acute Per cardiology: -Likely 2:1 Atrial flutter -Consistently 140s after 15mg/hr Cardizem drip. Average HR previous 12 hours 135. -ON heparin drip. -Telemetry strips reviewed with and noted to be atrial flutter. -Suspect may be difficult tor rate control due to underlying lung issues. -Per discussion with will give 150mg amiodarone bolus in attempt to rate control. -Possible NINOSKA/DCCV on Saturday if unable to rate control. -Will consider possible EP consult on Saturday. Discussion w patient/family: The assessment and plan as outlined above was discussed with the patient who expressed understanding and agreement. All questions were answered. Thank you for involving us in the care of your patient. Please call with any questions. Discussed and reviewed with . Subjective Principal diagnosis: COPD exacerbation Interval history: Patient states his breathing is imrpoved today. Denies chest pain. Denies palpitations or fluttering. Objective Vital Signs, Last 4 Hours Temp Pulse Resp BP Pulse Ox 07/27/17 11:50 98.2 F 84 14 103/73 92 07/27/17 08:36 99 07/27/17 08:18 19 113/87 99 General: Conversant, No Apparent Distress HEENT: Atraumatic, Normocephaly, Mucus Membranes Moist Neck: No JVD, Normal carotid pulses Cardiac: No Murmur, Other (Tachycardic. ) Lungs: Other (Lung sound with inspiratory wheezes throughout. ) Neuro: Alert and responsive, No focal deficits noted Abdomen: Soft, Non-Tender Skin: No rashes noted on visualized skin Musculoskeletal: No Chest Wall Tenderness Extremities: No Clubbing, No Cyanosis, Normal Pulses, Other (Moderate pedal edema noted, non-pitting. ) Results 07/27/17 04:15 07/27/17 04:15 Lab Results Impressions Chest CT 07/26/17 16:11 IMPRESSION: Limited evaluation due to respiratory motion artifact; however, there is moderate to severe diffuse bronchial wall inflammation with multifocal tree-in-bud like opacities, most pronounced in the right upper and middle lobes, but probably involving the right lower and left upper lobes as well. These findings could reflect sequela of aspiration, especially given tracheobronchial secretions, hiatal hernia and esophageal features, suggesting dysmotility and reflux. Infectious bronchiolitis would be an additional consideration. No consolidative pneumonia. Enlarged main pulmonary artery may be seen with pulmonary hypertension. Advanced multivessel coronary artery disease with evidence of prior percutaneous coronary intervention. D/ : / 07/26/2017 17:43:55 Jaren Laird / earnold Interpreting Provider: Jaren Laird Active Medications Acetaminophen (Tylenol) 650 mg PO Q6HR PRN PRN Reason: Mild Pain (1-3) Stop: 01/22/18 20:54 Albuterol/Ipratropium (Duoneb) 3 ml IH Q2HR PRN PRN Reason: Shortness Of Breath/Wheezing Stop: 01/23/18 14:44 Last Admin: 07/24/17 17:36 Dose: 3 ml Amlodipine Besylate (Norvasc) 2.5 mg PO DAILY [facility] Stop: 01/23/18 09:01 Last Admin: 07/27/17 08:20 Dose: 2.5 mg Atorvastatin Calcium (Lipitor) 80 mg PO HS [facility] Stop: 01/22/18 21:01 Last Admin: 07/26/17 20:06 Dose: 80 mg Azithromycin (Zithromax) 500 mg PO Q24H [facility] Stop: 01/25/18 21:01 Last Admin: 07/26/17 20:06 Dose: 500 mg Budesonide/Formoterol Fumarate (Symbicort) 1 puff IH BIDR [facility] PRN Reason: Protocol Stop: 01/22/18 22:01 Last Admin: 07/27/17 08:18 Dose: 1 puff Clopidogrel Bisulfate (Plavix) 75 mg PO DAILY [facility] Stop: 01/23/18 09:01 Last Admin: 07/27/17 05:28 Dose: 75 mg Dextrose/Water (Dextrose 50% (Syg)) 25 ml IVP AD PRN PRN Reason: Hypoglycemia Stop: 01/23/18 15:27 Fenofibrate (Tricor) 54 mg PO DAILY [facility] Stop: 01/23/18 09:01 Last Admin: 07/27/17 08:20 Dose: 54 mg Glucagon (Glucagen) 1 mg IM ONCE PRN PRN Reason: Hypoglycemia Stop: 01/23/18 15:27 Glucose (Gluctose) 15 gm PO ONCE PRN PRN Reason: Hypoglycemia Stop: 01/23/18 15:27 Glucose (Gluctose) 30 gm PO ONCE PRN PRN Reason: Hypoglycemia Stop: 01/23/18 15:27 Heparin Sodium (Porcine) (Heparin) 6,500 unit 70 unit/kg (6500 unit) IVP Q6HR PRN PRN Reason: SEE COMMENTS Stop: 01/25/18 14:49 Heparin Sodium (Porcine) (Heparin) 3,300 unit 35 unit/kg (3300 unit) IVP Q6H PRN PRN Reason: SEE COMMENTS Stop: 01/25/18 14:49 Hydralazine HCl (Hydralazine) 10 mg IVP Q6HR PRN PRN Reason: SBP>160 Stop: 01/24/18 08:27 Ceftriaxone Sodium 1,000 mg/ (Sterile Water) 10 mls @ 300 mls/hr IVP DAILY [facility] Stop: 01/23/18 09:01 Last Admin: 07/27/17 08:18 Dose: 300 mls/hr Dextrose (Dextrose 5%) 1,000 mls @ 100 mls/hr IVC .Q10H PRN PRN Reason: HYPOGLYCEMIA Stop: 01/23/18 15:27 Diltiazem HCl 100 mg/ Dextrose 50 mls @ 2.5 mls/hr IVC .Q20H [facility]; 5 MG/HR PRN Reason: Protocol Stop: 01/25/18 12:16 Last Titration: 07/27/17 12:05 Dose: 12.5 mg/hr, 6.25 mls/hr Heparin Sodium/Dextrose (Heparin 25,000 Unit/500 Ml D5w) 25,000 unit in 500 mls @ 26.068 mls/hr IVC .[id number] [facility]; 14 UNIT/KG/HR PRN Reason: Protocol Stop: 01/25/18 15:01 Last Titration: 07/27/17 08:30 Dose: 7.57 unit/kg/hr, 14.1 mls/hr Amiodarone HCl/Dextrose (Amiodarone Premix 150mg/100ml) 150 mg in 100 mls @ 300 mls/hr IVPB ONCE ONE Stop: 07/27/17 12:23 Insulin Human Lispro (Humalog) 0 units SQ HS [facility] PRN Reason: Protocol Stop: 01/23/18 21:01 Last Admin: 07/26/17 21:13 Dose: 3 units Insulin Human Lispro (Humalog) 0 units SQ TIDAC [facility] PRN Reason: Protocol Stop: 01/23/18 16:31 Last Admin: 07/27/17 12:04 Dose: 10 units Ipratropium [place] (Atrovent Neb) 0.5 mg IH [id number] [facility] Stop: 01/25/18 16:01 Last Admin: 07/27/17 11:12 Dose: 0.5 mg Isosorbide Mononitrate (Imdur) 30 mg PO DAILY [facility] Stop: 01/23/18 09:01 Last Admin: 07/27/17 08:20 Dose: 30 mg Levalbuterol HCl (Xopenex) 1.25 mg IH [id number] [facility] Stop: 01/25/18 16:01 Last Admin: 07/27/17 11:12 Dose: 1.25 mg Levothyroxine Sodium (Levothyroxine Sodium) 137 mcg PO 0630 [facility] Stop: 01/23/18 06:31 Last Admin: 07/27/17 05:28 Dose: 137 mcg Methylprednisolone (Solu-Medrol) 60 mg IVP Q8HR [facility] Stop: 01/23/18 00:01 Last Admin: 07/27/17 08:19 Dose: 60 mg Metoprolol Tartrate (Lopressor) 50 mg PO BID [facility] Stop: 01/22/18 21:01 Last Admin: 07/27/17 08:20 Dose: 50 mg Montelukast Sodium (Singulair) 10 mg PO QPM [facility] Stop: 01/23/18 18:01 Last Admin: 07/26/17 18:17 Dose: 10 mg Morphine Sulfate (Morphine Sulfate) 2 mg IVP Q4HR PRN PRN Reason: Severe Pain (7-10) Stop: 01/22/18 20:54 Naloxone HCl (Narcan) 0.4 mg IVP Q2MIN PRN PRN Reason: Opioid Reversal Stop: 01/22/18 20:54 Omeprazole (Prilosec) 20 mg PO 0630 [facility] Stop: 01/22/18 20:46 Last Admin: 07/27/17 08:20 Dose: Not Given Ondansetron HCl (Zofran) 4 mg IVP Q8HR PRN PRN Reason: Nausea And Vomiting Stop: 01/22/18 20:54 Polyethylene Glycol (Miralax) 17 gm PO DAILY [facility] Stop: 01/23/18 09:01 Last Admin: 07/27/17 08:19 Dose: 17 gm Tamsulosin HCl (Flomax) 0.4 mg PO HS [facility] PRN Reason: Protocol Stop: 01/23/18 21:01 Last Admin: 07/26/17 20:06 Dose: 0.4 mg Laboratory Tests 07/27/17 07/27/17 04:15 04:15 Hgb 12.4 L Potassium 5.8 H Creatinine 1.52 H - Imaging and Cardiology Chest Xray: report reviewed Echo: pending - EKG Interpretation EKG results cardiology: other (Telemetry reviewed with average HR previous 12 hours noted to be 135, atrial flutter. PVCs noted. Strips reviewed with and noted to be atrial flutter.) Consult Discharge Plan - Plan Referrals: George Hazel MD [Partnered Physician] - 08/15/17 1:00 pm Khurram Victoria DO [Primary Care Provider] - 08/01/17 11:30 am
[2017-07-27] MEDS: *HR* Heparin 5,000 UNIT/ML VIAL IVP PRN (15:03)
[2017-07-27] MEDS: Piperacillin/Tazobactam 3.375 GM/200 ML BAG IVPB SCH (16:44)
[2017-07-27] MEDS: Heparin 25,000 UNIT/500 ML D5W 25,000 UNIT/500 ML BAG IVC SCH (16:46)
[2017-07-27] MEDS ORDERED: 0.9 % Sodium Chloride 250 ML ONE (21:30)
[2017-07-28] MEDS: Piperacillin/Tazobactam 3.375 GM/200 ML BAG IVPB SCH ×3 (00:07→16:22)
[2017-07-28] MEDS: dilTIAZem HCl 100 MG in D5% in Water 50 ML IVC SCH ×2 (00:47→11:33)
[2017-07-28] MEDS: Levalbuterol Neb 1.25 MG/3 ML IH SCH ×5 (03:38→20:46)
[2017-07-28] MEDS: Ipratropium Neb 0.5 MG NEBULIZER IH SCH ×5 (03:38→20:46)
[2017-07-28 03:41] LABS: Hematocrit 36.6 % (37.5-50.1); Hemoglobin 11.3 g/dL (12.9-16.9); Immature Granulocytes % 0.7 % (0-4); Lymphocytes % 5.1 %; Mean Corpuscular HGB Conc 30.9 g/dL (31.6-35.5); Mean Corpuscular Hemoglobin 29.6 pg (28.0-33.3); Mean Corpuscular Volume 95.8 fL (83.0-100.0); Mean Platelet Volume 10.4 fL (9.4-12.4); Monocytes % 4.1 %; Platelet Count 109 K/mcL (140-400); Red Blood Count 3.82 M/mcL (4.19-5.50); Red Cell Distribution Width 14.5 % (11.5-14.5); Segmented Neutrophils % 89.9 %
[2017-07-28 03:42] LABS: Basophils % 0.2 %; Lymphocytes # 0.3 K/mcL (0.6-4.6); Monocytes # 0.3 K/mcL (0.0-1.3); Neutrophils # 5.5 K/mcL (1.6-8.9)
[2017-07-28 03:47] LABS: BUN/Creatinine Ratio 27 (6-26); Blood Urea Nitrogen 38 mg/dL (8-26); Calcium 9.1 mg/dL (8.6-10.8); Carbon Dioxide 38 mEq/L (19-29); Chloride 102 mEq/L (98-109); Glucose 225 mg/dL (70-99); Magnesium 2.3 mg/dL (1.6-2.6); Osmolality,Calculated 310 (280-300); Phosphorous 2.6 mg/dL (2.3-4.7); Sodium 142 mEq/L (136-145); eGFR For African Americans > 60 (> 60); eGFR For Non-African Americans 51 (> 60)
[2017-07-28 03:49] LABS: Potassium 4.7 mEq/L (3.5-4.5)
[2017-07-28] MEDS: Isosorbide MONOnitrate (24 HR) 30 MG TAB.ER.24H PO SCH (07:47)
[2017-07-28] MEDS: methylPREDNISolone 125 MG/2 ML VIAL IVP SCH ×2 (07:47→16:22)
[2017-07-28] MEDS: Insulin LISPRO 300 UNITS/3 ML VIAL SQ SCH ×4 (07:48→21:11)
[2017-07-28] MEDS: Budesonide/Formoterol 80/4.5 MDI IH SCH ×2 (08:11→20:46)
[2017-07-28 08:46] LABS: ABG Base Excess 10 mEq/L (-2 to 3); ABG HCO3 37 mEq/L (21-27); ABG Oxygen Saturation 89 % (95-98); ABG PCO2 64 mmHg (35-45); ABG PH 7.37 pH Units (7.32-7.45); ABG PO2 60 mmHg (85-104); ABG TCO2 39 mEq/L (20-26)
[2017-07-28] MEDS: *HR* Heparin 5,000 UNIT/ML VIAL IVP PRN (09:51)
[2017-07-28] MEDS: amLODIPine 5 MG TABLET PO SCH (09:51)
[2017-07-28] MEDS: Fenofibrate 54 MG TABLET PO SCH (09:51)
--- NOTE | 2017-07-28 10:49 | Internal Med Progress Note ---
Date of Encounter: 07/28/17 Time of Encounter: 10:45 - Assessment and plan (1) Atrial tachycardia Current Visit: No Status: Acute Assessment and plan: Likely Aflutter cardiology on board and consultation appreciated continue heparin gtt restarted cardizem gtt pt may need cardioversion as per cardiology if arrhythmia persists Amiodarone loading dose ordered by cardiology yesterday but was not given as his rate was appropriately controlled (2) Acute and chronic respiratory failure Current Visit: Yes Status: Acute Assessment and plan: Acute on chronic respiratory failure with hypercapnia and hypoxia secondary to acute exacerbation of COPD continue systemic steroids and bronchodilator support O2 supplementation Bipap support continue IV abx monitor respiratory status Preliminary blood cultures: No growth goal O2 sat: 88-92% Given CT chest findings, concern for aspiration will continue Zosyn IV patient remains at high risk of intubation (3) COPD exacerbation Current Visit: Yes Status: Acute Assessment and plan: as listed above (4) UTI (urinary tract infection) Current Visit: Yes Status: Resolved Assessment and plan: urine culture showed no growth Qualifiers: Urinary tract infection type: site unspecified Hematuria presence: without hematuria Qualified Code(s): N39.0 - Urinary tract infection, site not specified (5) CAD (coronary artery disease) Current Visit: Yes Status: Chronic Assessment and plan: stable, continue home meds (plavix, statin, tricor, bb) Qualifiers: Coronary Disease-Associated Artery/Lesion type: [place] artery [place] vs. transplanted heart: [place] heart Associated angina: with unstable angina Qualified Code(s): I25.110 - Atherosclerotic heart disease of [place] coronary artery with unstable angina pectoris (6) CKD (chronic kidney disease) Current Visit: Yes Status: Chronic Assessment and plan: renal function at baseline continue to monitor Qualifiers: Chronic kidney disease stage: stage 3 (moderate) Qualified Code(s): N18.3 - Chronic kidney disease, stage 3 (moderate) (7) Diabetes mellitus Current Visit: Yes Status: Chronic Assessment and plan: sliding scale insulin algorithm monitor FS and BG ADA diet 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 mellitus complication status: with kidney complications Diabetes mellitus complication detail: with chronic kidney disease Diabetes mellitus snf insulin use: with terminal operator use Chronic kidney disease stage: stage 3 (moderate) Qualified Code(s): E11.22 - Type 2 diabetes mellitus with diabetic chronic kidney disease; N18.3 - Chronic kidney disease, stage 3 (moderate); N18.3 - Chronic kidney disease, stage 3 ( moderate); Z79.4 - intermediate teacher (current) use of insulin; Z79.4 - correction ( current) use of insulin; Z79.4 - intermediate teacher (current) use of insulin; Z79.4 - intermediate teacher (current) use of insulin (8) DVT prophylaxis Current Visit: Yes Status: Acute Assessment and plan: on heparin gtt (9) Hypertension Current Visit: No Status: Chronic Assessment and plan: BP within acceptable range continue home meds Qualifiers: Hypertension type: essential hypertension Qualified Code(s): I10 - Essential (primary) hypertension (10) Morbid obesity Current Visit: Yes Status: Chronic (11) Electrolyte abnormality Current Visit: Yes Status: Resolved - Subjective Interval history: Pt seen and examined at bedside. Resting in bed. Pt has been refusing to wear bipap since yesterday evening and overnight Currently on 8L high flow NC I had an extensive conversation with the need for him to be compliant with bipap support He is in agreement to bipap support at this time. Bipap placed and will continue to closely monitor Yesterday the rate was better controlled while his respiratory status was stable. According to his tele readings, his HR remains controlled when he is on bipap support compared to nasal cannula. Amiodarone not given yesterday due to appropriate rate control. - Constitutional Vitals: Temp Pulse Resp BP Pulse Ox 97.8 F 148 16 113/92 97 07/28/17 06:59 07/28/17 06:59 07/28/17 07:50 07/28/17 07:50 07/28/17 07:50 General appearance: Present: A&O X 3, morbidly obese, no acute distress, answers questions appropriately - Head Head exam: Present: atraumatic, normocephalic - Eye Eye exam: Present: conjuntiva pink, sclera anicteric - Respiratory Respiratory exam: Present: decreased breath sounds. Absent: respiratory distress, tachypnea - Cardiovascular Cardiovascular exam: Present: irregular rhythm, +S1, +S2, tachycardia - GI/Abdominal GI/Abdominal exam: Present: normal bowel sounds, soft, no peritoneal signs. Absent: distended, tenderness - Extremities Exam Extremities exam: Present: warm, radial pulses palpable and symmetrical. Absent : calf tenderness, pedal edema, tenderness - Neurological Exam Neurological exam: Present: alert, oriented X3 Internal Medicine: Result - Labs CBC & Chem 7: 07/28/17 03:22 07/28/17 03:22 Labs: Short CBC 07/28/17 Range/Units 03:22 WBC 6.1 (4.3-11.1) K/mcL Hgb 11.3 L (12.9-16.9) g/dL Hct 36.6 L (37.5-50.1) % Plt Count 109 L (140-400) K/mcL Neutrophils # 5.5 (1.6-8.9) K/mcL BMP 07/28/17 03:22 Sodium 142 Potassium 4.7 H D Chloride 102 Carbon Dioxide 38 H BUN 38 H Creatinine 1.39 H Glucose 225 H Calcium 9.1 - ABG Interpretation ABG results: ABG ABG pH 7.37 pH Units (7.32-7.45) 07/28/17 08:41 ABG pCO2 64 mmHg (35-45) H 07/28/17 08:41 ABG pO2 60 mmHg (85-104) L 07/28/17 08:41 ABG O2 Saturation 89 % (95-98) L 07/28/17 08:41 PT/INR, D-dimer PT 10.7 Seconds (9.4-12.1) 07/26/17 15:05 - Impressions Impressions Echocardiogram 07/27/17 12:16 Impressions: LVEF 60%. Mild left ventricular diastolic dysfunction. Mildly dilated left atrium. Unable to estimate RVSP due to lack of TR jet. Left Ventricular Wall Motion: Rest Echo Findings All wall segments showed normal motion. Findings: Study Quality * Technically sub-optimal due to COPD. ECG Findings * Normal sinus rhythm. Left Ventricle * LVEF 60%. * Mild left ventricular diastolic dysfunction. Right Ventricle * Normal right ventricular structure and function. Left Atrium * Mildly dilated left atrium. Right Atrium * Normal right atrial size. Interatrial Septum * No evidence of PFO by color Doppler. Aortic Valve * Aortic valve not well visualized. * No aortic regurgitation. * No aortic stenosis. Mitral Valve * Normal mitral valve structure and function. Tricuspid Valve * Unable to estimate RVSP due to lack of TR jet. Pulmonic Valve * Pulmonic valve not well visualized. Aorta * Normally sized aortic root. Pericardium * The pericardium appears normal. IVC * Normal IVC dimensions and inspiratory collapse. Consult Discharge Plan - Plan Referrals: George Hazel MD [Partnered Physician] - 08/15/17 1:00 pm Khurram Victoria DO [Primary Care Provider] - 08/01/17 11:30 am
--- NOTE | 2017-07-28 11:31 | Cardiology Progress Note ---
Date of Encounter: 07/28/17 Time of Encounter: 10:30 Assessment and Plan (1) COPD exacerbation Current Visit: Yes Status: Acute Per cardiology: -On Bipap, states breathing improved today. -Management per primary service. (2) Tachyarrhythmia Current Visit: Yes Status: Acute Per cardiology: -Atrial flutter, on cardizem drip and beta evin. -Average HR previous 12 hours noted to be 113. At bedside HR 80s. Previously average HR had been 135. -ON heparin drip for anticoagulation. -Telemetry strips reviewed with and noted to be atrial flutter. -Suspect may be difficult tor rate control due to underlying lung issues. -TTE with LVEF 60%, mild diastolic dysfunction, mildly dilated left atrium, all wall segments with normal motion. -Will increase beta evin. -Possible NINOSKA/DCCV on Saturday if unable to rate control. -Will consider possible EP consult on Saturday. Discussion w patient/family: The assessment and plan as outlined above was discussed with the patient who expressed understanding and agreement. All questions were answered. Thank you for involving us in the care of your patient. Please call with any questions. Discussed and reviewed with . Subjective Principal diagnosis: COPD exacerbation Interval history: Patient states his breathing is imrpoved today. Denies chest pain. Denies palpitations or fluttering. Objective Vital Signs, Last 4 Hours Temp Pulse Resp BP Pulse Ox 07/28/17 11:15 98.3 F 149 17 149/96 98 07/28/17 07:50 16 113/92 97 General: Conversant, No Apparent Distress HEENT: Atraumatic, Normocephaly, Mucus Membranes Moist Neck: No JVD, Normal carotid pulses Cardiac: Normal S1 and S2, No Murmur, Other (Irregular) Lungs: Other (Lung sounds diminished throughout) Neuro: Alert and responsive, No focal deficits noted Abdomen: Soft, Non-Tender Skin: No rashes noted on visualized skin Musculoskeletal: No Chest Wall Tenderness Extremities: No Clubbing, No Cyanosis, Normal Pulses, Other (Mild pedal edema noted, non-pitting. ) Results 07/28/17 03:22 07/28/17 03:22 Lab Results Impressions Echocardiogram 07/27/17 12:16 Impressions: LVEF 60%. Mild left ventricular diastolic dysfunction. Mildly dilated left atrium. Unable to estimate RVSP due to lack of TR jet. Left Ventricular Wall Motion: Rest Echo Findings All wall segments showed normal motion. Findings: Study Quality * Technically sub-optimal due to COPD. ECG Findings * Normal sinus rhythm. Left Ventricle * LVEF 60%. * Mild left ventricular diastolic dysfunction. Right Ventricle * Normal right ventricular structure and function. Left Atrium * Mildly dilated left atrium. Right Atrium * Normal right atrial size. Interatrial Septum * No evidence of PFO by color Doppler. Aortic Valve * Aortic valve not well visualized. * No aortic regurgitation. * No aortic stenosis. Mitral Valve * Normal mitral valve structure and function. Tricuspid Valve * Unable to estimate RVSP due to lack of TR jet. Pulmonic Valve * Pulmonic valve not well visualized. Aorta * Normally sized aortic root. Pericardium * The pericardium appears normal. IVC * Normal IVC dimensions and inspiratory collapse. Active Medications Acetaminophen (Tylenol) 650 mg PO Q6HR PRN PRN Reason: Mild Pain (1-3) Stop: 01/22/18 20:54 Albuterol/Ipratropium (Duoneb) 3 ml IH Q2HR PRN PRN Reason: Shortness Of Breath/Wheezing Stop: 01/23/18 14:44 Last Admin: 07/24/17 17:36 Dose: 3 ml Amlodipine Besylate (Norvasc) 2.5 mg PO DAILY [facility] Stop: 01/23/18 09:01 Last Admin: 07/28/17 09:51 Dose: 2.5 mg Atorvastatin Calcium (Lipitor) 80 mg PO HS [facility] Stop: 01/22/18 21:01 Last Admin: 07/27/17 21:09 Dose: 80 mg Budesonide/Formoterol Fumarate (Symbicort) 1 puff IH BIDR [facility] PRN Reason: Protocol Stop: 01/22/18 22:01 Last Admin: 07/28/17 08:11 Dose: 1 puff Clopidogrel Bisulfate (Plavix) 75 mg PO DAILY [facility] Stop: 01/23/18 09:01 Last Admin: 07/28/17 09:51 Dose: 75 mg Dextrose/Water (Dextrose 50% (Syg)) 25 ml IVP AD PRN PRN Reason: Hypoglycemia Stop: 01/23/18 15:27 Fenofibrate (Tricor) 54 mg PO DAILY [facility] Stop: 01/23/18 09:01 Last Admin: 07/28/17 09:51 Dose: 54 mg Glucagon (Glucagen) 1 mg IM ONCE PRN PRN Reason: Hypoglycemia Stop: 01/23/18 15:27 Glucose (Gluctose) 15 gm PO ONCE PRN PRN Reason: Hypoglycemia Stop: 01/23/18 15:27 Glucose (Gluctose) 30 gm PO ONCE PRN PRN Reason: Hypoglycemia Stop: 01/23/18 15:27 Heparin Sodium (Porcine) (Heparin) 6,500 unit 70 unit/kg (6500 unit) IVP Q6HR PRN PRN Reason: SEE COMMENTS Stop: 01/25/18 14:49 Heparin Sodium (Porcine) (Heparin) 3,300 unit 35 unit/kg (3300 unit) IVP Q6H PRN PRN Reason: SEE COMMENTS Stop: 01/25/18 14:49 Last Admin: 07/28/17 09:51 Dose: 3,300 unit Hydralazine HCl (Hydralazine) 10 mg IVP Q6HR PRN PRN Reason: SBP>160 Stop: 01/24/18 08:27 Dextrose (Dextrose 5%) 1,000 mls @ 100 mls/hr IVC .Q10H PRN PRN Reason: HYPOGLYCEMIA Stop: 01/23/18 15:27 Diltiazem HCl 100 mg/ Dextrose 50 mls @ 2.5 mls/hr IVC .Q20H [facility]; 5 MG/HR PRN Reason: Protocol Stop: 01/25/18 12:16 Last Titration: 07/28/17 07:54 Dose: 12.5 mg/hr, 6.25 mls/hr Heparin Sodium/Dextrose (Heparin 25,000 Unit/500 Ml D5w) 25,000 unit in 500 mls @ 26.068 mls/hr IVC .[id number] [facility]; 14 UNIT/KG/HR PRN Reason: Protocol Stop: 01/25/18 15:01 Last Titration: 07/28/17 09:47 Dose: 9.72 unit/kg/hr, 18.1 mls/hr Piperacillin Sod/Tazobactam Sod (Zosyn Premix 3.375 Gm/200 Ml) 3.375 gm in 200 mls @ 50 mls/hr IVPB Q8H [facility] Stop: 01/26/18 16:01 Last Admin: 07/28/17 08:52 Dose: 50 mls/hr Insulin Human Lispro (Humalog) 0 units SQ HS [facility] PRN Reason: Protocol Stop: 01/23/18 21:01 Last Admin: 07/27/17 21:12 Dose: 5 units Insulin Human Lispro (Humalog) 0 units SQ TIDAC [facility] PRN Reason: Protocol Stop: 01/23/18 16:31 Last Admin: 07/28/17 07:48 Dose: 8 units Ipratropium [place] (Atrovent Neb) 0.5 mg IH [id number] [facility] Stop: 01/25/18 16:01 Last Admin: 07/28/17 07:50 Dose: 0.5 mg Isosorbide Mononitrate (Imdur) 30 mg PO DAILY [facility] Stop: 01/23/18 09:01 Last Admin: 07/28/17 07:47 Dose: 30 mg Levalbuterol HCl (Xopenex) 1.25 mg IH [id number] [facility] Stop: 01/25/18 16:01 Last Admin: 07/28/17 07:50 Dose: 1.25 mg Levothyroxine Sodium (Levothyroxine Sodium) 137 mcg PO 0630 [facility] Stop: 01/23/18 06:31 Last Admin: 07/28/17 06:30 Dose: 137 mcg Methylprednisolone (Solu-Medrol) 60 mg IVP Q8HR [facility] Stop: 01/23/18 00:01 Last Admin: 07/28/17 07:47 Dose: 60 mg Metoprolol Tartrate (Lopressor) 50 mg PO BID [facility] Stop: 01/22/18 21:01 Last Admin: 07/28/17 07:47 Dose: 50 mg Montelukast Sodium (Singulair) 10 mg PO QPM [facility] Stop: 01/23/18 18:01 Last Admin: 07/27/17 16:23 Dose: 10 mg Morphine Sulfate (Morphine Sulfate) 2 mg IVP Q4HR PRN PRN Reason: Severe Pain (7-10) Stop: 01/22/18 20:54 Naloxone HCl (Narcan) 0.4 mg IVP Q2MIN PRN PRN Reason: Opioid Reversal Stop: 01/22/18 20:54 Omeprazole (Prilosec) 20 mg PO 0630 [facility] Stop: 01/22/18 20:46 Last Admin: 07/28/17 06:30 Dose: 20 mg Ondansetron HCl (Zofran) 4 mg IVP Q8HR PRN PRN Reason: Nausea And Vomiting Stop: 01/22/18 20:54 Polyethylene Glycol (Miralax) 17 gm PO DAILY [facility] Stop: 01/23/18 09:01 Last Admin: 07/28/17 07:46 Dose: 17 gm Tamsulosin HCl (Flomax) 0.4 mg PO HS [facility] PRN Reason: Protocol Stop: 01/23/18 21:01 Last Admin: 07/27/17 21:09 Dose: 0.4 mg Laboratory Tests 07/27/17 07/28/17 07/28/17 04:15 03:22 03:22 Hgb 11.3 L Plt Count 109 L Creatinine 1.52 H 1.39 H - Imaging and Cardiology Chest Xray: report reviewed Echo: report reviewed - EKG Interpretation EKG results cardiology: other (Telemetry reviewed with average HR previous 12 hours noted to be 113, atrial flutter. At bedside now, HRs 80s.) Consult Discharge Plan - Plan Referrals: George Hazel MD [Partnered Physician] - 08/15/17 1:00 pm Khurram Victoria DO [Primary Care Provider] - 08/01/17 11:30 am
[2017-07-28] MEDS: *HR* Warfarin 5 MG TABLET PO SCH (16:22)
[2017-07-28] MEDS ORDERED: Warfarin perPT PO PRN (18:00)
[2017-07-28] MEDS: Heparin 25,000 UNIT/500 ML D5W 25,000 UNIT/500 ML BAG IVC SCH ×2 (22:47→22:48)
[2017-07-28] MEDS: *HR* Heparin 5,000 UNIT/ML VIAL SQ SCH (22:51)
[2017-07-29] MEDS: dilTIAZem HCl 100 MG in D5% in Water 50 ML IVC SCH ×2 (00:50→07:38)
[2017-07-29] MEDS: Heparin 25,000 UNIT/500 ML D5W 25,000 UNIT/500 ML BAG IVC SCH (00:52)
[2017-07-29] MEDS: Levalbuterol Neb 1.25 MG/3 ML IH SCH ×6 (01:23→20:23)
[2017-07-29] MEDS: Ipratropium Neb 0.5 MG NEBULIZER IH SCH ×6 (01:23→20:24)
[2017-07-29] MEDS: Piperacillin/Tazobactam 3.375 GM/200 ML BAG IVPB SCH ×4 (01:29→23:24)
[2017-07-29] MEDS: methylPREDNISolone 125 MG/2 ML VIAL IVP SCH ×4 (01:29→17:47)
[2017-07-29 05:06] LABS: Basophils % 0.2 %; Hematocrit 39.8 % (37.5-50.1); Hemoglobin 12.2 g/dL (12.9-16.9); Immature Granulocytes % 1.6 % (0-4); Lymphocytes # 0.5 K/mcL (0.6-4.6); Lymphocytes % 5.7 %; Mean Corpuscular HGB Conc 30.7 g/dL (31.6-35.5); Mean Corpuscular Volume 94.5 fL (83.0-100.0); Mean Platelet Volume 10.9 fL (9.4-12.4); Monocytes # 0.4 K/mcL (0.0-1.3); Monocytes % 4.3 %; Neutrophils # 7.9 K/mcL (1.6-8.9); Platelet Count 128 K/mcL (140-400); Red Blood Count 4.21 M/mcL (4.19-5.50); Red Cell Distribution Width 14.5 % (11.5-14.5); Segmented Neutrophils % 88.2 %
[2017-07-29 05:21] LABS: Calcium 8.9 mg/dL (8.6-10.8); Magnesium 2.2 mg/dL (1.6-2.6); Phosphorous 3.1 mg/dL (2.3-4.7); Potassium 4.6 mEq/L (3.5-4.5)
[2017-07-29 05:49] LABS: Activated Partial Thrombo Time > 360.0 Seconds (26.0-36.0)
[2017-07-29 06:11] LABS: Heparin anti-factor XA UFH 1.09 IU/mL (0.30-0.70)
[2017-07-29] MEDS: amLODIPine 5 MG TABLET PO SCH (07:37)
[2017-07-29] MEDS: Isosorbide MONOnitrate (24 HR) 30 MG TAB.ER.24H PO SCH (07:37)
[2017-07-29] MEDS: Fenofibrate 54 MG TABLET PO SCH (07:37)
[2017-07-29] MEDS: Insulin LISPRO 300 UNITS/3 ML VIAL SQ SCH ×5 (07:39→22:11)
[2017-07-29] MEDS: Budesonide/Formoterol 80/4.5 MDI IH SCH ×2 (08:00→20:21)
[2017-07-29 12:32] LABS: INR 1.3
[2017-07-29 12:36] LABS: Activated Partial Thrombo Time 88.4 Seconds (26.0-36.0)
--- NOTE | 2017-07-29 13:31 | Electrophysiology Consult Note ---
<Maty Pichardo - Last Filed: 07/29/17 13:28> Date of Encounter: 07/29/17 Time of Encounter: 10:30 Assessment and Plan (1) COPD exacerbation Current Visit: Yes Status: Acute Per cardiology: -On nasal cannula now, states breathing improved today. -Management per primary service. (2) Tachyarrhythmia Current Visit: Yes Status: Acute Per cardiology: -Suspected Atrial flutter, on cardizem drip at 7.5mg/hour and lopressor 75mg BID. -Average HR previous 12 hours noted to be 146. -BP 90-100s systolic. -ON heparin drip for anticoagulation, started on coumadin yesterday. -Suspect may be difficult tor rate control due to underlying lung issues. -TTE with LVEF 60%, mild diastolic dysfunction, mildly dilated left atrium, all wall segments with normal motion. -Will disucss and review with Dr.John Torres for further recommendations. Discussion w patient/family: The assessment and plan as outlined above was discussed with the patient who expressed understanding and agreement. All questions were answered. Thank you for involving us in the care of your patient. Please call with any questions. Discussed and reviewed with Dr.John Torres. History of Present Illness Consult date: 07/29/17 Requesting physician: Pasha Dangelo Consult reason: a.flutter RVR Chief complaint: shortness of breath History of present illness: Mr. Humphries is a 67 year old male with a relevant past medical history of COPD, current smoker, CAD, CHF, DM, HLD, HTN. Patient presented to [facility] with complaints of cough and shortness of breath. Patient has been tachycardic and mostly Bipap dependent since admission. Patient has been difficult to rate control. Patient states he feels breathing has improved today. Patient denies chest pain. Patient denies palpitations or fluttering. Past Med Surg Social Fam HX - Past Medical History Attestation: Yes The following information was validated with the patient. Source: patient, old records reviewed Medical history: COPD, coronary artery disease, diabetes, hyperlipidemia, hypertension Psychiatric history: no psych history - Social History Smoking Status: Current every day smoker Packs per day: 3 Smokeless Tobacco Status: No Alcohol use: none Drug use: none Medications and Allergies Amlodipine Besylate 2.5 mg PO DAILY 06/16/16 [History] Clopidogrel [Plavix] 75 mg PO DAILY 06/16/16 [History] Fenofibrate Nanocrystallized [Tricor] 48 mg PO DAILY 06/16/16 [History] GlipiZIDE [Glipizide Xl] 5 mg PO DAILY 06/16/16 [History] Lisinopril [Zestril] 10 mg PO DAILY 06/16/16 [History] Montelukast Sodium [Singulair] 10 mg PO DAILY 06/16/16 [History] Pantoprazole Sodium [Protonix] 40 mg PO DAILY 06/16/16 [History] Tamsulosin [Flomax] 0.4 mg PO DAILY 06/16/16 [History] Budesonide/Formoterol 80/4.5 [Symbicort 80/4.5] 1 puff IH BID 08/07/16 [History ] Isosorbide MONOnitrate (24 HR) [Imdur] 30 mg PO DAILY 08/07/16 [History] Polyethylene Glycol 3350 [MiraLAX] 17 gm PO DAILY 08/07/16 [History] predniSONE [Prednisone] 5 mg PO DAILY 08/07/16 [History] Insulin ASPART [Novolog Flexpen] 0 unit SQ ACHS #200 unit 08/09/16 [Rx] Metoprolol [Lopressor] 50 mg PO BID #30 08/09/16 [Rx] Atorvastatin Calcium [Lipitor] 80 mg PO HS 07/23/17 [History] Levothyroxine [Synthroid] 125 mcg PO 0630 07/30/17 [History] 3 Allergy/AdvReac Type Severity Reaction Status Date / Time adenosine Allergy See Verified 08/07/16 16:26 Comments fluticasone Allergy See Verified 08/07/16 16:26 [From SMS Assist] Comments Iodinated Contrast- Oral and Allergy See Verified 06/16/16 15:37 IV Dye Comments [Iodinated Contrast Media - IV Dye] salmeterol Allergy See Verified 08/07/16 16:26 [From SMS Assist] Comments All Systems Review: A 10-system review of systems was performed and is negative for pertinent findings except as documented above in the HPI. - Cardiovascular Cardiovascular: as per HPI, dyspnea on exertion - Respiratory Respiratory: cough Physical Examination Vital Signs, Last 4 Hours Temp Pulse Resp BP Pulse Ox 12/11/17 11:14 97.9 F 94 14 108/78 96 General: Conversant, No Apparent Distress HEENT: Atraumatic, Normocephaly, Mucus Membranes Moist Neck: No JVD, Normal carotid pulses Cardiac: Normal S1 and S2, No Murmur, Other (Tachycardic. ) Lungs: Other (Lung sounds diminished througout. ) Neuro: Alert and responsive, No focal deficits noted Abdomen: Soft, Non-Tender Skin: No rashes noted on visualized skin Musculoskeletal: No Chest Wall Tenderness Extremities: No Clubbing, No Cyanosis, Normal Pulses, Other (Moderate pedal edema, non-pitting. ) Results 07/29/17 04:58 07/29/17 04:58 Lab Results Impressions Chest CT 07/26/17 16:11 IMPRESSION: Limited evaluation due to respiratory motion artifact; however, there is moderate to severe diffuse bronchial wall inflammation with multifocal tree-in-bud like opacities, most pronounced in the right upper and middle lobes, but probably involving the right lower and left upper lobes as well. These findings could reflect sequela of aspiration, especially given tracheobronchial secretions, hiatal hernia and esophageal features, suggesting dysmotility and reflux. Infectious bronchiolitis would be an additional consideration. No consolidative pneumonia. Enlarged main pulmonary artery may be seen with pulmonary hypertension. Advanced multivessel coronary artery disease with evidence of prior percutaneous coronary intervention. D/ /26/2017 17:43:55 Jaren Laird / marlon Interpreting Provider: Jaren Laird Active Medications Acetaminophen (Tylenol) 650 mg PO Q6HR PRN PRN Reason: Mild Pain (1-3) Stop: 01/22/18 20:54 Albuterol/Ipratropium (Duoneb) 3 ml IH Q2HR PRN PRN Reason: Shortness Of Breath/Wheezing Stop: 01/23/18 14:44 Last Admin: 07/24/17 17:36 Dose: 3 ml Amlodipine Besylate (Norvasc) 2.5 mg PO DAILY EL[facility]ETH Stop: 01/23/18 09:01 Last Admin: 07/29/17 07:37 Dose: 2.5 mg Atorvastatin Calcium (Lipitor) 80 mg PO HS EL[facility]ETH Stop: 01/22/18 21:01 Last Admin: 07/28/17 20:25 Dose: 80 mg Budesonide/Formoterol Fumarate (Symbicort) 1 puff IH BIDR [facility]ETH PRN Reason: Protocol Stop: 01/22/18 22:01 Last Admin: 07/29/17 08:00 Dose: 1 puff Clopidogrel Bisulfate (Plavix) 75 mg PO DAILY [facility]ETH Stop: 01/23/18 09:01 Last Admin: 07/29/17 07:36 Dose: 75 mg Dextrose/Water (Dextrose 50% (Syg)) 25 ml IVP AD PRN PRN Reason: Hypoglycemia Stop: 01/23/18 15:27 Fenofibrate (Tricor) 54 mg PO DAILY [facility]ETH Stop: 01/23/18 09:01 Last Admin: 07/29/17 07:37 Dose: 54 mg Glucagon (Glucagen) 1 mg IM ONCE PRN PRN Reason: Hypoglycemia Stop: 01/23/18 15:27 Glucose (Gluctose) 15 gm PO ONCE PRN PRN Reason: Hypoglycemia Stop: 01/23/18 15:27 Glucose (Gluctose) 30 gm PO ONCE PRN PRN Reason: Hypoglycemia Stop: 01/23/18 15:27 Heparin Sodium (Porcine) (Heparin) 6,500 unit 70 unit/kg (6500 unit) IVP Q6HR PRN PRN Reason: SEE COMMENTS Stop: 01/25/18 14:49 Last Admin: 07/28/17 23:16 Dose: 6,500 unit Heparin Sodium (Porcine) (Heparin) 3,300 unit 35 unit/kg (3300 unit) IVP Q6H PRN PRN Reason: SEE COMMENTS Stop: 01/25/18 14:49 Last Admin: 07/28/17 09:51 Dose: 3,300 unit Hydralazine HCl (Hydralazine) 10 mg IVP Q6HR PRN PRN Reason: SBP>160 Stop: 01/24/18 08:27 Dextrose (Dextrose 5%) 1,000 mls @ 100 mls/hr IVC .Q10H PRN PRN Reason: HYPOGLYCEMIA Stop: 01/23/18 15:27 Diltiazem HCl 100 mg/ Dextrose 50 mls @ 2.5 mls/hr IVC .Q20H ELIZABETH; 5 MG/HR PRN Reason: Protocol Stop: 01/25/18 12:16 Last Admin: 07/29/17 07:38 Dose: 15 mg/hr, 7.5 mls/hr Heparin Sodium/Dextrose (Heparin 25,000 Unit/500 Ml D5w) 25,000 unit in 500 mls @ 26.068 mls/hr IVC .[id number] ELIZABETH; 14 UNIT/KG/HR PRN Reason: Protocol Stop: 01/25/18 15:01 Last Titration: 07/29/17 07:00 Dose: 10.47 unit/kg/hr, 19.5 mls/hr Piperacillin Sod/Tazobactam Sod (Zosyn Premix 3.375 Gm/200 Ml) 3.375 gm in 200 mls @ 50 mls/hr IVPB Q8H [facility] Stop: 01/26/18 16:01 Last Admin: 07/29/17 07:38 Dose: 50 mls/hr Insulin Human Lispro (Humalog) 0 units SQ HS [facility] PRN Reason: Protocol Stop: 01/23/18 21:01 Last Admin: 07/28/17 21:11 Dose: Not Given Insulin Human Lispro (Humalog) 0 units SQ TIDAC [facility] PRN Reason: Protocol Stop: 01/23/18 16:31 Last Admin: 07/29/17 11:26 Dose: Not Given Ipratropium [place] (Atrovent Neb) 0.5 mg IH [id number] [facility] Stop: 01/25/18 16:01 Last Admin: 07/29/17 11:13 Dose: 0.5 mg Isosorbide Mononitrate (Imdur) 30 mg PO DAILY [facility] Stop: 01/23/18 09:01 Last Admin: 07/29/17 07:37 Dose: 30 mg Levalbuterol HCl (Xopenex) 1.25 mg IH [id number] [facility] Stop: 01/25/18 16:01 Last Admin: 07/29/17 11:13 Dose: 1.25 mg Levothyroxine Sodium (Levothyroxine Sodium) 137 mcg PO 0630 [facility] Stop: 01/23/18 06:31 Last Admin: 07/29/17 07:36 Dose: 137 mcg Methylprednisolone (Solu-Medrol) 60 mg IVP Q8HR [facility] Stop: 01/23/18 00:01 Last Admin: 07/29/17 07:37 Dose: 60 mg Metoprolol Tartrate (Lopressor) 75 mg PO BID [facility] Stop: 01/27/18 21:01 Last Admin: 07/29/17 07:37 Dose: 75 mg Montelukast Sodium (Singulair) 10 mg PO QPM [facility] Stop: 01/23/18 18:01 Last Admin: 07/28/17 16:22 Dose: 10 mg Morphine Sulfate (Morphine Sulfate) 2 mg IVP Q4HR PRN PRN Reason: Severe Pain (7-10) Stop: 01/22/18 20:54 Naloxone HCl (Narcan) 0.4 mg IVP Q2MIN PRN PRN Reason: Opioid Reversal Stop: 01/22/18 20:54 Omeprazole (Prilosec) 20 mg PO 0630 [facility] Stop: 01/22/18 20:46 Last Admin: 07/29/17 07:37 Dose: 20 mg Ondansetron HCl (Zofran) 4 mg IVP Q8HR PRN PRN Reason: Nausea And Vomiting Stop: 01/22/18 20:54 Polyethylene Glycol (Miralax) 17 gm PO DAILY [facility] Stop: 01/23/18 09:01 Last Admin: 07/29/17 07:39 Dose: Not Given Tamsulosin HCl (Flomax) 0.4 mg PO HS [facility]ETH PRN Reason: Protocol Stop: 01/23/18 21:01 Last Admin: 07/28/17 20:25 Dose: 0.4 mg Warfarin Sodium (Coumadin Perpt) 1 each PO DAILY@1800 PRN PRN Reason: SEE COMMENTS Stop: 01/27/18 18:01 Warfarin Sodium (Coumadin) 5 mg PO 1800 [facility] Stop: 01/27/18 18:01 Last Admin: 07/28/17 16:22 Dose: 5 mg Laboratory Tests 06/11/17 07/29/17 07/29/17 10:47 04:58 04:58 Hgb 12.2 L INR Potassium 4.6 H Creatinine 1.62 H Magnesium 2.2 TSH 0.623 07/29/17 12:13 Hgb INR 1.3 Potassium Creatinine Magnesium TSH - Imaging and Cardiology Chest Xray: report reviewed Echo: report reviewed - EKG Interpretation EKG results cardiology: other (Telemetry reviewed with average HR previous 12 hours noted to be 146, suspect atrial flutter.) Consult Discharge Plan - Plan Referrals: George Hazel MD [Partnered Physician] - 08/15/17 1:00 pm Khurram Victoria DO [Primary Care Provider] - 08/01/17 11:30 am <Rell Torres - Last Filed: 07/30/17 15:39> Date of Encounter: 07/30/17 - Attending Attestation I have personally performed a face to face evaluation on this patient. I have reviewed and agree with the care plan. History and Exam by me shows: AFL with RVR in setting of resp. failure. At this point the best treatment strategy is aggressive rate control and anticoagulation. Would use amio and cardizem. Hopefully as resp, status improves rate control will be easier. At this point he does not seem to be stable enough from a resp. standpoint for cardioversion. Assessment and Plan Discussion w patient/family: The assessment and plan as outlined above was discussed with the patient and/or family members who expressed understanding and agreement. All questions were answered. Thank you for involving us in the care of your patient. Please call with any questions. History of Present Illness History of present illness: Mr. Humphries is a 67 year old male All Systems Review: A 10-system review of systems was performed and is negative for pertinent findings except as documented above in the HPI. Physical Examination Vital Signs, Last 4 Hours Temp Pulse Resp BP Pulse Ox 07/30/17 15:11 18 92 07/30/17 11:46 97.6 F 157 18 103/80 92 Results 07/30/17 07:20 07/30/17 07:20 Lab Results 07/29/17 07/30/17 07/30/17 22:41 07:20 07:20 WBC 7.5 Hgb 11.1 L Hct 36.2 L Plt Count 140 INR 2.2 D APTT 80.1 H Sodium Potassium Chloride Carbon Dioxide BUN Creatinine Glucose Calcium Magnesium 07/30/17 07:20 WBC Hgb Hct Plt Count INR APTT Sodium 140 Potassium 4.6 H Chloride 101 Carbon Dioxide 33 H BUN 43 H Creatinine 1.53 H Glucose 321 H Calcium 8.7 Magnesium 2.4
--- NOTE | 2017-07-29 14:35 | Electrocardiograph Report ---
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
--- NOTE | 2017-07-29 14:36 | Electrocardiograph Report ---
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
--- NOTE | 2017-07-29 14:37 | Electrocardiograph Report ---
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
--- NOTE | 2017-07-29 14:42 | Electrocardiograph Report ---
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
--- NOTE | 2017-07-29 14:51 | Electrocardiograph Report ---
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
[2017-07-29] MEDS ORDERED: Amiodarone Premix 360 MG/200 ML BAG IVC ONE (15:18)
--- NOTE | 2017-07-29 15:23 | Event Note ---
Date of Encounter: 07/29/17 Time of Encounter: 15:20 - Cardiology Event Note Patient's case, ECGs, and telemetry discussed and reviewed with Dr.John Torres. Per 's recommendations, will start amiodarone drip in attempt to rate control patient. Patient will need to transfer to for amio drip. If unable to rate control with amio, may need NINOSKA/DCCV. Will continue to monitor.
--- NOTE | 2017-07-29 17:27 | Internal Med Progress Note ---
<Bekah Quevedo - Last Filed: 07/29/17 17:25> Date of Encounter: 07/29/17 Time of Encounter: 13:00 - Assessment and plan (1) Atrial tachycardia Current Visit: No Status: Acute Assessment and plan: Likely Aflutter Echo 07/29/17 showed LVEF 60%, mild LV diastolic dysfunction, mildly dilated left atrium, no wall motion abnormalities. Plan: consult to cardio- appreciate recs amiodarone gtt per cardio if unable to rate control, may need NINOSKA/DCCV per cardio continue heparin gtt being bridged with coumadin (2) Acute and chronic respiratory failure Current Visit: Yes Status: Acute Assessment and plan: Acute on chronic respiratory failure with hypercapnia and hypoxia secondary to acute exacerbation of COPD CXR showed bibasilar atalectasis influenza A/B negative. chest CT showed moderate to severe diffuse bronchial wall inflammation with multifocal tree in bud like opacities, opacities in right lower and left upper lobes, possible aspiration. Plan: continue IV zosyn- day 3 Qualifiers: Respiratory failure complication: hypoxia and hypercapnia Qualified Code(s) : J96.21 - Acute and chronic respiratory failure with hypoxia; J96.22 - Acute and chronic respiratory failure with hypercapnia; J96.22 - Acute and chronic respiratory failure with hypercapnia; J96.22 - Acute and chronic respiratory failure with hypercapnia (3) COPD exacerbation Current Visit: Yes Status: Acute Assessment and plan: acute on chronic respiratory failure with hypercapnia, hypoxia secondary to COPD exacerbation. plan as above (4) UTI (urinary tract infection) Current Visit: Yes Status: Acute Assessment and plan: urine culture showed no growth. Qualifiers: Urinary tract infection type: site unspecified Hematuria presence: without hematuria Qualified Code(s): N39.0 - Urinary tract infection, site not specified (5) CAD (coronary artery disease) Current Visit: Yes Status: Chronic Assessment and plan: continue atorvastatin. Qualifiers: Coronary Disease-Associated Artery/Lesion type: [place] artery [place] vs. transplanted heart: [place] heart Associated angina: with unstable angina Qualified Code(s): I25.110 - Atherosclerotic heart disease of [place] coronary artery with unstable angina pectoris (6) CKD (chronic kidney disease) Current Visit: Yes Status: Chronic Assessment and plan: renal function at baseline. continue to monitor. Qualifiers: Chronic kidney disease stage: stage 3 (moderate) Qualified Code(s): N18.3 - Chronic kidney disease, stage 3 (moderate) (7) Diabetes mellitus Current Visit: Yes Status: Chronic Assessment and plan: continue medium dose sliding scale insulin diabetic diet ACHS accuchecks 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 mellitus complication status: with kidney complications Diabetes mellitus complication detail: with chronic kidney disease Diabetes mellitus longterm insulin use: with longterm use Chronic kidney disease stage: stage 3 (moderate) Qualified Code(s): E11.22 - Type 2 diabetes mellitus with diabetic chronic kidney disease; N18.3 - Chronic kidney disease, stage 3 (moderate); N18.3 - Chronic kidney disease, stage 3 ( moderate); Z79.4 - USP (current) use of insulin; Z79.4 - intermediate card tender ( current) use of insulin; Z79.4 - intermediate card tender (current) use of insulin; Z79.4 - USP (current) use of insulin (8) Hypertension Current Visit: No Status: Chronic Assessment and plan: continue norvasc, metoprolol hydralazine PRN Qualifiers: Hypertension type: essential hypertension Qualified Code(s): I10 - Essential (primary) hypertension (9) Morbid obesity Current Visit: Yes Status: Chronic Assessment and plan: lifestyle modifications advised (10) Hypothyroidism Current Visit: Yes Status: Acute Assessment and plan: continue synthroid Qualifiers: Hypothyroidism type: unspecified Qualified Code(s): E03.9 - Hypothyroidism , unspecified (11) DVT prophylaxis Current Visit: Yes Status: Acute Assessment and plan: pharmacy dosing coumadin, being bridged with heparin gtt - Subjective Interval history: 67M evaluated at bedside. patient denies nausea, vomiting, diarrhea, fever, chills, chest pain, shortness of breath. - Constitutional Vitals: Temp Pulse Resp BP Pulse Ox 97.6 F 159 24 111/96 95 07/29/17 16:51 07/29/17 16:51 07/29/17 16:51 07/29/17 16:51 07/29/17 16:51 General appearance: Present: A&O X 3, morbidly obese, no acute distress, answers questions appropriately - Head Head exam: Present: atraumatic, normocephalic - Neck Neck exam general surgery: Present: supple, trachea midline - Respiratory Respiratory exam: Present: wheezes - Cardiovascular Cardiovascular exam: Present: +S1, +S2, tachycardia - GI/Abdominal Additional comments: significant bruising/hematoma present on lower abdomen. - Extremities Exam Extremities exam: Present: pedal edema. Absent: cyanotic Additional comments: left lower extremity +2 pitting edema right lower extremity +1 pitting edema. - Neurological Exam Neurological exam: Present: alert, oriented X3, no focal deficits - Psychiatric Psychiatric exam: Present: normal affect, normal mood - Skin Skin exam: Present: intact Internal Medicine: Result - Labs CBC & Chem 7: 07/29/17 04:58 07/29/17 04:58 Labs: Short CBC 07/29/17 Range/Units 04:58 WBC 9.0 (4.3-11.1) K/mcL Hgb 12.2 L (12.9-16.9) g/dL Hct 39.8 (37.5-50.1) % Plt Count 128 L (140-400) K/mcL Neutrophils # 7.9 (1.6-8.9) K/mcL BMP 07/29/17 04:58 Sodium 142 Potassium 4.6 H Chloride 102 Carbon Dioxide 33 H BUN 40 H Creatinine 1.62 H Glucose 303 H Calcium 8.9 - ABG Interpretation ABG results: ABG ABG pH 7.37 pH Units (7.32-7.45) 07/28/17 08:41 ABG pCO2 64 mmHg (35-45) H 07/28/17 08:41 ABG pO2 60 mmHg (85-104) L 07/28/17 08:41 ABG O2 Saturation 89 % (95-98) L 07/28/17 08:41 PT/INR, D-dimer PT 14.0 Seconds (9.4-12.1) H 07/29/17 12:13 Consult Discharge Plan - Plan Referrals: George Hazel MD [Partnered Physician] - 08/15/17 1:00 pm Khurram Victoria DO [Primary Care Provider] - 08/01/17 11:30 am <Mega Pearl - Last Filed: 07/29/17 18:17> Date of Encounter: 07/29/17 - Assessment and plan (1) Acute and chronic respiratory failure Current Visit: Yes Status: Acute Qualifiers: Respiratory failure complication: hypoxia and hypercapnia Qualified Code(s) : J96.21 - Acute and chronic respiratory failure with hypoxia; J96.22 - Acute and chronic respiratory failure with hypercapnia; J96.22 - Acute and chronic respiratory failure with hypercapnia; J96.22 - Acute and chronic respiratory failure with hypercapnia (2) Pneumonia Current Visit: Yes Status: Suspected Assessment and plan: On IV Zosyn. Suggested on CT of chest. Qualifiers: Pneumonia type: aspiration pneumonia Aspiration pneumonia type: due to gastric secretions Laterality: bilateral Lung location: upper lobe of lung Qualified Code(s): J69.0 - Pneumonitis due to inhalation of food and vomit (3) COPD exacerbation Current Visit: Yes Status: Acute (4) Atrial flutter Current Visit: Yes Status: Acute Assessment and plan: Transferred to and amio drip started Qualifiers: Atrial flutter type: atypical Qualified Code(s): I48.4 - Atypical atrial flutter (5) CAD (coronary artery disease) Current Visit: Yes Status: Chronic Qualifiers: Coronary Disease-Associated Artery/Lesion type: [place] artery [place] vs. transplanted heart: [place] heart Associated angina: with unstable angina Qualified Code(s): I25.110 - Atherosclerotic heart disease of [place] coronary artery with unstable angina pectoris (6) Hypothyroidism Current Visit: Yes Status: Acute Qualifiers: Hypothyroidism type: acquired Qualified Code(s): E03.9 - Hypothyroidism, unspecified (7) Diabetes mellitus Current Visit: Yes Status: Chronic 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 mellitus complication status: with kidney complications Diabetes mellitus complication detail: with chronic kidney disease Diabetes mellitus termite exterminator helper insulin use: with termite exterminator helper use Chronic kidney disease stage: stage 3 (moderate) Qualified Code(s): E11.22 - Type 2 diabetes mellitus with diabetic chronic kidney disease; N18.3 - Chronic kidney disease, stage 3 (moderate); N18.3 - Chronic kidney disease, stage 3 ( moderate); Z79.4 - intermediate card tender (current) use of insulin; Z79.4 - intermediate card tender ( current) use of insulin; Z79.4 - intermediate card tender (current) use of insulin; Z79.4 - intermediate card tender (current) use of insulin (8) Hypertension Current Visit: No Status: Chronic Qualifiers: Hypertension type: essential hypertension Qualified Code(s): I10 - Essential (primary) hypertension (9) Ecchymoses, spontaneous Current Visit: Yes Status: Acute Assessment and plan: Multiple on arms, abdomen. Monitoring as he is on IV heparin and coumadin. (10) Tobacco abuse Current Visit: Yes Status: Chronic Assessment and plan: Cessation counselling. - Constitutional Vitals: Temp Pulse Resp BP Pulse Ox 97.6 F 159 24 111/96 95 07/29/17 16:51 07/29/17 16:51 07/29/17 16:51 07/29/17 16:51 07/29/17 16:51 Internal Medicine: Result - Labs CBC & Chem 7: 07/29/17 04:58 07/29/17 04:58 Labs: Short CBC 07/29/17 Range/Units 04:58 WBC 9.0 (4.3-11.1) K/mcL Hgb 12.2 L (12.9-16.9) g/dL Hct 39.8 (37.5-50.1) % Plt Count 128 L (140-400) K/mcL Neutrophils # 7.9 (1.6-8.9) K/mcL BMP 07/29/17 04:58 Sodium 142 Potassium 4.6 H Chloride 102 Carbon Dioxide 33 H BUN 40 H Creatinine 1.62 H Glucose 303 H Calcium 8.9 - ABG Interpretation ABG results: ABG ABG pH 7.37 pH Units (7.32-7.45) 07/28/17 08:41 ABG pCO2 64 mmHg (35-45) H 07/28/17 08:41 ABG pO2 60 mmHg (85-104) L 07/28/17 08:41 ABG O2 Saturation 89 % (95-98) L 07/28/17 08:41 PT/INR, D-dimer PT 14.0 Seconds (9.4-12.1) H 07/29/17 12:13 - Attending Attestation I examined this patient and my medical decision-making was reviewed with the Resident Physician on 07/29/17. I agree with the documented findings, disposition and treatment plan as described except to the extent set forth below. Mr Humphries has been admitted for COPD and atrial flutter. He remains moderate to high risk due to potential for worsening cardiac and respiratory status. He has been transferred to and amiodarone drip has been started. Mr Humphries feels OK. His breathing is about baseline. No CP. He remains in a flutter with rates above 155. No fever or chills. He has multiple areas of ecchymosis including on abdomen. Exam Alert. Comfortable Mucus membranes dry Heart reg and tachy Diffuse rhonchi present Large ecchymosis on lower abdomen and arms Edema present L leg more than R I/P 1. Atypical atrial flutter - transferred to and amiodarone drip started. 2. Respiratory failure - on Zosyn to cover potential aspiration 3. Asp pna on Zosyn 4. CAD Further diagnoses and plan as above.
[2017-07-29] MEDS: *HR* Warfarin 5 MG TABLET PO SCH (18:01)
[2017-07-29] MEDS: Ipratropium/Albuterol Neb 3 ML IH PRN (20:21)
[2017-07-29] MEDS: Amiodarone Premix 360 MG/200 ML BAG IVC SCH (23:25)
[2017-07-30] MEDS: Ipratropium Neb 0.5 MG NEBULIZER IH SCH ×7 (00:16→23:53)
[2017-07-30] MEDS: Levalbuterol Neb 1.25 MG/3 ML IH SCH ×7 (00:16→23:53)
[2017-07-30] MEDS: Heparin 25,000 UNIT/500 ML D5W 25,000 UNIT/500 ML BAG IVC SCH (02:48)
[2017-07-30] MEDS: methylPREDNISolone 125 MG/2 ML VIAL IVP SCH (06:11)
[2017-07-30] MEDS: Budesonide/Formoterol 80/4.5 MDI IH SCH ×2 (07:38→20:23)
[2017-07-30 07:46] LABS: INR 2.2; Prothrombin Time 23.6 Seconds (9.4-12.1)
[2017-07-30 07:47] LABS: Calcium 8.7 mg/dL (8.6-10.8); Magnesium 2.4 mg/dL (1.6-2.6); Phosphorous 3.2 mg/dL (2.3-4.7); Potassium 4.6 mEq/L (3.5-4.5)
[2017-07-30 08:11] LABS: Basophils % 0.1 %; Hematocrit 36.2 % (37.5-50.1); Hemoglobin 11.1 g/dL (12.9-16.9); Immature Granulocytes % 3.6 % (0-4); Lymphocytes # 0.4 K/mcL (0.6-4.6); Lymphocytes % 5.2 %; Mean Corpuscular HGB Conc 30.7 g/dL (31.6-35.5); Mean Corpuscular Hemoglobin 28.7 pg (28.0-33.3); Mean Corpuscular Volume 93.5 fL (83.0-100.0); Mean Platelet Volume 10.8 fL (9.4-12.4); Monocytes # 0.4 K/mcL (0.0-1.3); Monocytes % 5.5 %; Neutrophils # 6.4 K/mcL (1.6-8.9); Platelet Count 140 K/mcL (140-400); Red Blood Count 3.87 M/mcL (4.19-5.50); Red Cell Distribution Width 14.6 % (11.5-14.5); Segmented Neutrophils % 85.6 %
[2017-07-30] MEDS: amLODIPine 5 MG TABLET PO SCH (08:13)
[2017-07-30] MEDS: Isosorbide MONOnitrate (24 HR) 30 MG TAB.ER.24H PO SCH (08:13)
[2017-07-30] MEDS: Insulin LISPRO 300 UNITS/3 ML VIAL SQ SCH ×4 (08:13→19:58)
[2017-07-30] MEDS: Piperacillin/Tazobactam 3.375 GM/200 ML BAG IVPB SCH ×2 (08:13→16:00)
[2017-07-30] MEDS: Fenofibrate 54 MG TABLET PO SCH (08:14)
[2017-07-30] MEDS ORDERED: Furosemide 40 MG/4 ML VIAL IVP ONE (08:59)
--- NOTE | 2017-07-30 09:50 | Internal Med Progress Note ---
<Bekah Quevedo - Last Filed: 07/30/17 09:43> Date of Encounter: 07/30/17 Time of Encounter: 09:43 - Assessment and plan (1) Atrial tachycardia Current Visit: No Status: Acute Assessment and plan: Likely Aflutter Echo 07/29/17 showed LVEF 60%, mild LV diastolic dysfunction, mildly dilated left atrium, no wall motion abnormalities. Plan: consult to cardio- appreciate recs amiodarone gtt per cardio if unable to rate control, may need NINOSKA/DCCV per cardio continue coumadin (2) Acute and chronic respiratory failure Current Visit: Yes Status: Acute Assessment and plan: Acute on chronic respiratory failure with hypercapnia and hypoxia secondary to acute exacerbation of COPD CXR showed bibasilar atalectasis influenza A/B negative. chest CT showed moderate to severe diffuse bronchial wall inflammation with multifocal tree in bud like opacities, opacities in right lower and left upper lobes, possible aspiration. Plan: continue IV zosyn- day 4 repeat CXR pending Qualifiers: Respiratory failure complication: hypoxia and hypercapnia Qualified Code(s) : J96.21 - Acute and chronic respiratory failure with hypoxia; J96.22 - Acute and chronic respiratory failure with hypercapnia; J96.22 - Acute and chronic respiratory failure with hypercapnia; J96.22 - Acute and chronic respiratory failure with hypercapnia (3) Hematoma Current Visit: Yes Status: Acute Assessment and plan: large lower abdominal hematoma, likely superficial Plan: will CT A/P without contrast to make sure there is no internal bleed. jerry monitor H/H (4) COPD exacerbation Current Visit: Yes Status: Acute Assessment and plan: acute on chronic respiratory failure with hypercapnia, hypoxia secondary to COPD exacerbation. plan as above (5) UTI (urinary tract infection) Current Visit: Yes Status: Acute Assessment and plan: urine culture showed no growth. Qualifiers: Urinary tract infection type: site unspecified Hematuria presence: without hematuria Qualified Code(s): N39.0 - Urinary tract infection, site not specified (6) CAD (coronary artery disease) Current Visit: Yes Status: Chronic Assessment and plan: continue atorvastatin. Qualifiers: Coronary Disease-Associated Artery/Lesion type: [place] artery [place] vs. transplanted heart: [place] heart Associated angina: with unstable angina Qualified Code(s): I25.110 - Atherosclerotic heart disease of [place] coronary artery with unstable angina pectoris (7) CKD (chronic kidney disease) Current Visit: Yes Status: Chronic Assessment and plan: renal function at baseline. continue to monitor. Qualifiers: Chronic kidney disease stage: stage 3 (moderate) Qualified Code(s): N18.3 - Chronic kidney disease, stage 3 (moderate) (8) Diabetes mellitus Current Visit: Yes Status: Chronic Assessment and plan: continue medium dose sliding scale insulin diabetic diet ACHS accuchecks sugars running high due to steroids. discontinued IV steroids today. 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 mellitus complication status: with kidney complications Diabetes mellitus complication detail: with chronic kidney disease Diabetes mellitus halfway insulin use: with halfway use Chronic kidney disease stage: stage 3 (moderate) Qualified Code(s): E11.22 - Type 2 diabetes mellitus with diabetic chronic kidney disease; N18.3 - Chronic kidney disease, stage 3 (moderate); N18.3 - Chronic kidney disease, stage 3 ( moderate); 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; Z79.4 - snf ( current) use of insulin; 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; Z79.4 - snf (current) use of insulin (9) Hypertension Current Visit: No Status: Chronic Assessment and plan: continue norvasc, metoprolol hydralazine PRN Qualifiers: Hypertension type: essential hypertension Qualified Code(s): I10 - Essential (primary) hypertension (10) Morbid obesity Current Visit: Yes Status: Chronic Assessment and plan: lifestyle modifications advised (11) Hypothyroidism Current Visit: Yes Status: Acute Assessment and plan: continue synthroid Qualifiers: Hypothyroidism type: acquired Qualified Code(s): E03.9 - Hypothyroidism, unspecified (12) DVT prophylaxis Current Visit: Yes Status: Acute Assessment and plan: coumadin - Subjective Interval history: 67M evaluated at bedside. patient denies nausea, vomiting, diarrhea, fever, chills, chest pain, shortness of breath. he reports some lower abdominal pain. - Constitutional Vitals: Temp Pulse Resp BP Pulse Ox 97.6 F 153 17 111/94 92 07/30/17 08:15 07/30/17 08:15 07/30/17 08:15 07/30/17 08:15 07/30/17 08:15 General appearance: Present: A&O X 3, morbidly obese, pleasant, no acute distress, answers questions appropriately - Head Head exam: Present: atraumatic, normocephalic - Neck Neck exam general surgery: Present: supple, trachea midline - Respiratory Respiratory exam: Present: decreased breath sounds, wheezes - Cardiovascular Cardiovascular exam: Present: +S1, +S2, tachycardia - GI/Abdominal GI/Abdominal exam: Present: normal bowel sounds, soft. Absent: distended, tenderness - Extremities Exam Additional comments: +2 bilateral lower extremity pitting edema - Neurological Exam Neurological exam: Present: alert, oriented X3, no focal deficits - Skin Skin exam: Present: intact Internal Medicine: Result - Labs CBC & Chem 7: 07/30/17 07:20 07/30/17 07:20 Labs: Short CBC 07/30/17 Range/Units 07:20 WBC 7.5 (4.3-11.1) K/mcL Hgb 11.1 L (12.9-16.9) g/dL Hct 36.2 L (37.5-50.1) % Plt Count 140 (140-400) K/mcL Neutrophils # 6.4 (1.6-8.9) K/mcL BMP 07/30/17 07:20 Sodium 140 Potassium 4.6 H Chloride 101 Carbon Dioxide 33 H BUN 43 H Creatinine 1.53 H Glucose 321 H Calcium 8.7 - ABG Interpretation ABG results: ABG ABG pH 7.37 pH Units (7.32-7.45) 07/28/17 08:41 ABG pCO2 64 mmHg (35-45) H 07/28/17 08:41 ABG pO2 60 mmHg (85-104) L 07/28/17 08:41 ABG O2 Saturation 89 % (95-98) L 07/28/17 08:41 PT/INR, D-dimer PT 23.6 Seconds (9.4-12.1) H D 07/30/17 07:20 Consult Discharge Plan - Plan Referrals: George Hazel MD [Partnered Physician] - 08/15/17 1:00 pm Khurram Victoria DO [Primary Care Provider] - 08/01/17 11:30 am <Mega Pearl - Last Filed: 07/30/17 13:32> Date of Encounter: 07/30/17 - Assessment and plan (1) Rectus sheath hematoma Current Visit: Yes Status: Acute Assessment and plan: Monitor H/H. May need surg eval. Qualifiers: Encounter type: initial encounter Qualified Code(s): S30.1XXA - Contusion of abdominal wall, initial encounter (2) Acute and chronic respiratory failure Current Visit: Yes Status: Acute Qualifiers: Respiratory failure complication: hypoxia and hypercapnia Qualified Code(s) : J96.21 - Acute and chronic respiratory failure with hypoxia; J96.22 - Acute and chronic respiratory failure with hypercapnia; J96.22 - Acute and chronic respiratory failure with hypercapnia; J96.22 - Acute and chronic respiratory failure with hypercapnia (3) Pneumonia Current Visit: Yes Status: Suspected Qualifiers: Pneumonia type: aspiration pneumonia Aspiration pneumonia type: due to gastric secretions Laterality: bilateral Lung location: upper lobe of lung Qualified Code(s): J69.0 - Pneumonitis due to inhalation of food and vomit (4) COPD exacerbation Current Visit: Yes Status: Acute (5) Atrial flutter Current Visit: Yes Status: Acute Assessment and plan: On IV amiodarone. Plan per card. Qualifiers: Atrial flutter type: atypical Qualified Code(s): I48.4 - Atypical atrial flutter (6) CAD (coronary artery disease) Current Visit: Yes Status: Chronic Qualifiers: Coronary Disease-Associated Artery/Lesion type: [place] artery [place] vs. transplanted heart: [place] heart Associated angina: with unstable angina Qualified Code(s): I25.110 - Atherosclerotic heart disease of [place] coronary artery with unstable angina pectoris (7) Hypothyroidism Current Visit: Yes Status: Acute Qualifiers: Hypothyroidism type: acquired Qualified Code(s): E03.9 - Hypothyroidism, unspecified (8) Diabetes mellitus Current Visit: Yes Status: Chronic 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 mellitus complication status: with kidney complications Diabetes mellitus complication detail: with chronic kidney disease Diabetes mellitus halfway insulin use: with halfway use Chronic kidney disease stage: stage 3 (moderate) Qualified Code(s): E11.22 - Type 2 diabetes mellitus with diabetic chronic kidney disease; N18.3 - Chronic kidney disease, stage 3 (moderate); N18.3 - Chronic kidney disease, stage 3 ( moderate); Z79.4 - snf (current) use of insulin; Z79.4 - medical terminologist ( current) use of insulin; 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; 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 (9) Hypertension Current Visit: No Status: Chronic Qualifiers: Hypertension type: essential hypertension Qualified Code(s): I10 - Essential (primary) hypertension (10) Tobacco abuse Current Visit: Yes Status: Chronic - Constitutional Vitals: Temp Pulse Resp BP Pulse Ox 97.6 F 157 18 103/80 92 07/30/17 11:46 07/30/17 11:46 07/30/17 11:46 07/30/17 11:46 07/30/17 11:46 Internal Medicine: Result - Labs CBC & Chem 7: 07/30/17 07:20 07/30/17 07:20 Labs: Short CBC 07/30/17 Range/Units 07:20 WBC 7.5 (4.3-11.1) K/mcL Hgb 11.1 L (12.9-16.9) g/dL Hct 36.2 L (37.5-50.1) % Plt Count 140 (140-400) K/mcL Neutrophils # 6.4 (1.6-8.9) K/mcL BMP 07/30/17 07:20 Sodium 140 Potassium 4.6 H Chloride 101 Carbon Dioxide 33 H BUN 43 H Creatinine 1.53 H Glucose 321 H Calcium 8.7 - ABG Interpretation ABG results: ABG ABG pH 7.37 pH Units (7.32-7.45) 07/28/17 08:41 ABG pCO2 64 mmHg (35-45) H 07/28/17 08:41 ABG pO2 60 mmHg (85-104) L 07/28/17 08:41 ABG O2 Saturation 89 % (95-98) L 07/28/17 08:41 PT/INR, D-dimer PT 23.6 Seconds (9.4-12.1) H D 07/30/17 07:20 - Impressions Impressions Chest X-Ray 07/30/17 08:58 IMPRESSION: 1. Worsening infiltrates in the right mid and lower lung field, compatible with pneumonia. There is an associated small right pleural effusion. D/ / Chandler Chavez MD / Chandler Chavez MD Interpreting Provider: Chandler Chavez MD Abdomen/Pelvis CT 07/30/17 09:48 IMPRESSION: 1. Moderate rectus sheath hematoma within the anterior pelvis, more notable on the right, with a small amount of intrapelvic blood anteriorly. Evaluation for active hemorrhage is limited without contrast. Consider further evaluation with CTA if there is a clinical concern for an acute bleed. 2. New right middle lobe pneumonia and trace right pleural effusion. 3. Severe vascular atherosclerotic disease, including coronary artery disease. Results verbally communicated to Dr. Pearl at 10:42 a.m. on 07/30/2017. D/ / 07/30/2017 10:48:44 Reynaldo Pimentel MD / jaydon Interpreting Provider: Reynaldo Pimentel MD - Attending Attestation I examined this patient and my medical decision-making was reviewed with the Resident Physician on 07/30/17. I agree with the documented findings, disposition and treatment plan as described except to the extent set forth below. Mr Humphries is currently admitted for atrial flutter. He has multiple associated complications including: pneumonia, COPD, rectus sheath hematoma. He remains high risk due to multiple potential issues including respiratory, cardiac and bleeding. Mr Humphries feels more dyspneic today. He feels more swollen as well. He is having pain in his lower abdomen worse with movement. No fever or chills. Remains in atrial flutter with rates in 150s. Appetite fair. Exam Alert. Mod distress due to pain and dyspnea. Mucus membranes dry Heart reg and tachy Lungs with crackes L base and diminished. Scant anterior wheeze noted Abd with large ecchymosis/hematoma lower Edema present I/P 1. Atrial flutter - on amio drip. Remains tachycardic 2. Rectus sheath hematoma - H/H stable. Appears to have intrapelvic blood. Allergic to IV contrast. Monitoring H/H. He is fully anticoagulated at this time as well. 3. Pneumonia - seen on CT. Most likely aspiration/gram neg. On IV abx. Further diagnoses and plan as above.
[2017-07-30] MEDS: predniSONE 20 MG TABLET PO SCH (10:48)
[2017-07-30] MEDS: Amiodarone Premix 360 MG/200 ML BAG IVC SCH (13:45)
--- NOTE | 2017-07-30 14:07 | Electrophysiology ProgressNote ---
Date of Encounter: 07/30/17 Time of Encounter: 08:30 Assessment and Plan (1) COPD exacerbation Current Visit: Yes Status: Acute Per cardiology: -On high flow nasal cannula. -Management per primary service. (2) Tachyarrhythmia Current Visit: Yes Status: Acute Per cardiology: -Atrial flutter, on amiodarone drip at 0.5mg/hour. On lopressor 75mg BID. Was on cardizem dripo, however was held due to hypotension. -Average HR previous 12 hours noted to be 146. -BP 90-100s systolic. -ON heparin drip for anticoagulation, started on coumadin. -INR therpeutic today. -Suspect may be difficult tor rate control due to underlying lung issues. -TTE with LVEF 60%, mild diastolic dysfunction, mildly dilated left atrium, all wall segments with normal motion. -Discussed and reviewed with Dr.John Torres, who recommends restarting cardizem drip. Titrate for SBP greater than 90. -Heparin drip discontinued. -WIll make NPO after midnight. Discussed with patient regarding possible need for NINOSKA/DCCV. Eductaed patient on possible need for intubation for procedure, patient states he would be agreeable. -Will continue to monitor. Discussion w patient/family: The assessment and plan as outlined above was discussed with the patient who expressed understanding and agreement. All questions were answered. Thank you for involving us in the care of your patient. Please call with any questions. Discussed and reviewed with Dr.John Torres. Subjective Principal diagnosis: COPD exacerbation Interval history: Patient states his breathing is slightly worse today. Patient continues to deny chest pain, palpitations, or fluttering. Objective Vital Signs, Last 4 Hours Temp Pulse Resp BP Pulse Ox 07/30/17 11:46 97.6 F 157 18 103/80 92 07/30/17 10:43 17 92 General: Conversant, No Apparent Distress HEENT: Atraumatic, Normocephaly, Mucus Membranes Moist Neck: No JVD, Normal carotid pulses Cardiac: Normal S1 and S2, No Murmur, Other (Tachycardic. ) Lungs: Other (Lung sounds diminished throughout. ) Neuro: Alert and responsive, No focal deficits noted Abdomen: Soft, Non-Tender Skin: No rashes noted on visualized skin Musculoskeletal: No Chest Wall Tenderness Extremities: No Clubbing, No Cyanosis, Normal Pulses, Other (Bilateral moderate pedal edema noted. ) Results 07/30/17 07:20 07/30/17 07:20 Lab Results Active Medications Acetaminophen (Tylenol) 650 mg PO Q6HR PRN PRN Reason: Mild Pain (1-3) Stop: 01/22/18 20:54 Albuterol/Ipratropium (Duoneb) 3 ml IH Q2HR PRN PRN Reason: Shortness Of Breath/Wheezing Stop: 01/23/18 14:44 Last Admin: 07/29/17 20:21 Dose: 3 ml Atorvastatin Calcium (Lipitor) 80 mg PO HS [facility] Stop: 01/22/18 21:01 Last Admin: 07/29/17 22:11 Dose: 80 mg Budesonide/Formoterol Fumarate (Symbicort) 1 puff IH BIDR [facility] PRN Reason: Protocol Stop: 01/22/18 22:01 Last Admin: 07/30/17 07:38 Dose: 1 puff Clopidogrel Bisulfate (Plavix) 75 mg PO DAILY [facility] Stop: 01/23/18 09:01 Last Admin: 07/30/17 08:14 Dose: 75 mg Dextrose/Water (Dextrose 50% (Syg)) 25 ml IVP AD PRN PRN Reason: Hypoglycemia Stop: 01/23/18 15:27 Fenofibrate (Tricor) 54 mg PO DAILY [facility] Stop: 01/23/18 09:01 Last Admin: 07/30/17 08:14 Dose: 54 mg Glucagon (Glucagen) 1 mg IM ONCE PRN PRN Reason: Hypoglycemia Stop: 01/23/18 15:27 Glucose (Gluctose) 15 gm PO ONCE PRN PRN Reason: Hypoglycemia Stop: 01/23/18 15:27 Glucose (Gluctose) 30 gm PO ONCE PRN PRN Reason: Hypoglycemia Stop: 01/23/18 15:27 Hydralazine HCl (Hydralazine) 10 mg IVP Q6HR PRN PRN Reason: SBP>160 Stop: 01/24/18 08:27 Dextrose (Dextrose 5%) 1,000 mls @ 100 mls/hr IVC .Q10H PRN PRN Reason: HYPOGLYCEMIA Stop: 01/23/18 15:27 Diltiazem HCl 100 mg/ Dextrose 50 mls @ 2.5 mls/hr IVC .Q20H [facility]; 5 MG/HR PRN Reason: Protocol Stop: 01/25/18 12:16 Last Titration: 07/29/17 17:45 Dose: Infused Piperacillin Sod/Tazobactam Sod (Zosyn Premix 3.375 Gm/200 Ml) 3.375 gm in 200 mls @ 50 mls/hr IVPB Q8H [facility] Stop: 01/26/18 16:01 Last Infusion: 07/30/17 10:54 Dose: Infused Amiodarone HCl/Dextrose (Amiodarone Drip Premix 360mg/200ml) 360 mg in 200 mls @ 16.667 mls/hr IVC CONT [facility] PRN Reason: 0.5 MG/MIN Stop: 01/28/18 15:31 Last Infusion: 07/30/17 13:45 Dose: Infused Insulin Human Lispro (Humalog) 0 units SQ HS [facility] PRN Reason: Protocol Stop: 01/23/18 21:01 Last Admin: 07/29/17 22:11 Dose: 5 units Insulin Human Lispro (Humalog) 0 units SQ TIDAC [facility] PRN Reason: Protocol Stop: 01/23/18 16:31 Last Admin: 07/30/17 08:13 Dose: 10 units Ipratropium [place] (Atrovent Neb) 0.5 mg IH [id number] [facility] Stop: 01/25/18 16:01 Last Admin: 07/30/17 10:41 Dose: 0.5 mg Isosorbide Mononitrate (Imdur) 30 mg PO DAILY [facility] Stop: 01/23/18 09:01 Last Admin: 07/30/17 08:13 Dose: 30 mg Levalbuterol HCl (Xopenex) 1.25 mg IH [id number] [facility] Stop: 01/25/18 16:01 Last Admin: 07/30/17 10:41 Dose: 1.25 mg Metoprolol Tartrate (Lopressor) 75 mg PO BID [facility] Stop: 01/27/18 21:01 Last Admin: 07/30/17 08:13 Dose: 75 mg Montelukast Sodium (Singulair) 10 mg PO QPM [facility] Stop: 01/23/18 18:01 Last Admin: 07/29/17 17:40 Dose: 10 mg Naloxone HCl (Narcan) 0.4 mg IVP Q2MIN PRN PRN Reason: Opioid Reversal Stop: 01/22/18 20:54 Omeprazole (Prilosec) 20 mg PO 0630 [facility] Stop: 01/22/18 20:46 Last Admin: 07/30/17 06:11 Dose: 20 mg Ondansetron HCl (Zofran) 4 mg IVP Q8HR PRN PRN Reason: Nausea And Vomiting Stop: 01/22/18 20:54 Polyethylene Glycol (Miralax) 17 gm PO DAILY [facility] Stop: 01/23/18 09:01 Last Admin: 07/30/17 08:14 Dose: 17 gm Prednisone (Prednisone) 40 mg PO DAILY [facility] Stop: 01/29/18 10:01 Last Admin: 07/30/17 10:48 Dose: 40 mg Tamsulosin HCl (Flomax) 0.4 mg PO HS [facility] PRN Reason: Protocol Stop: 01/23/18 21:01 Last Admin: 07/29/17 22:11 Dose: 0.4 mg Warfarin Sodium (Coumadin Perpt) 1 each PO DAILY@1800 PRN PRN Reason: SEE COMMENTS Stop: 01/27/18 18:01 Laboratory Tests 07/28/17 07/29/17 07/30/17 03:22 04:58 07:20 Hgb 11.3 L 12.2 L INR 2.2 D Potassium Creatinine Magnesium 07/30/17 07/30/17 07:20 07:20 Hgb 11.1 L INR Potassium 4.6 H Creatinine 1.53 H Magnesium 2.4 - Imaging and Cardiology Chest Xray: report reviewed Echo: report reviewed - EKG Interpretation EKG results cardiology: other (Telemetry reviewed with average HR previous 12 hours noted to be 146, atrial flutter.) Consult Discharge Plan - Plan Referrals: George Hazel MD [Partnered Physician] - 08/15/17 1:00 pm Khurram Victoria DO [Primary Care Provider] - 08/01/17 11:30 am
[2017-07-30 18:05] LABS: Basophils % 0.2 %; Hematocrit 37.4 % (37.5-50.1); Hemoglobin 11.7 g/dL (12.9-16.9); Immature Granulocytes % 2.5 % (0-4); Lymphocytes # 0.3 K/mcL (0.6-4.6); Lymphocytes % 2.5 %; Mean Corpuscular HGB Conc 31.3 g/dL (31.6-35.5); Mean Corpuscular Hemoglobin 29.3 pg (28.0-33.3); Mean Corpuscular Volume 93.5 fL (83.0-100.0); Mean Platelet Volume 10.8 fL (9.4-12.4); Monocytes # 0.7 K/mcL (0.0-1.3); Platelet Count 140 K/mcL (140-400); Red Cell Distribution Width 14.7 % (11.5-14.5); Segmented Neutrophils % 88.8 %
[2017-07-30 18:33] LABS: Neutrophils # 10.1 K/mcL (1.6-8.9)
[2017-07-31] MEDS: Piperacillin/Tazobactam 3.375 GM/200 ML BAG IVPB SCH ×3 (00:39→18:14)
[2017-07-31] MEDS: Amiodarone Premix 360 MG/200 ML BAG IVC SCH ×2 (02:01→14:28)
[2017-07-31] MEDS: Ipratropium Neb 0.5 MG NEBULIZER IH SCH ×5 (05:03→20:42)
[2017-07-31] MEDS: Levalbuterol Neb 1.25 MG/3 ML IH SCH ×5 (05:03→20:42)
[2017-07-31 06:32] LABS: Basophils % 0.1 %; Hematocrit 31.4 % (37.5-50.1); Immature Granulocytes % 3.3 % (0-4); Lymphocytes # 0.5 K/mcL (0.6-4.6); Lymphocytes % 4.7 %; Mean Corpuscular HGB Conc 30.9 g/dL (31.6-35.5); Mean Corpuscular Hemoglobin 28.8 pg (28.0-33.3); Mean Corpuscular Volume 93.2 fL (83.0-100.0); Mean Platelet Volume 10.9 fL (9.4-12.4); Monocytes # 0.7 K/mcL (0.0-1.3); Monocytes % 6.9 %; Neutrophils # 8.7 K/mcL (1.6-8.9); Platelet Count 128 K/mcL (140-400); Red Blood Count 3.37 M/mcL (4.19-5.50); Red Cell Distribution Width 14.6 % (11.5-14.5)
[2017-07-31 06:33] LABS: INR 3.3
[2017-07-31 06:35] LABS: Calcium 8.4 mg/dL (8.6-10.8)
[2017-07-31 06:40] LABS: Hemoglobin 9.7 g/dL (12.9-16.9)
[2017-07-31 06:57] LABS: Thyroid Stimulating Hormone 0.187 mcIU/mL (0.350-4.840)
[2017-07-31] MEDS: Insulin LISPRO 300 UNITS/3 ML VIAL SQ SCH ×4 (08:14→21:21)
--- NOTE | 2017-07-31 10:35 | Electrophysiology ProgressNote ---
Date of Encounter: 07/31/17 Time of Encounter: 08:30 Assessment and Plan (1) COPD exacerbation Current Visit: Yes Status: Acute Per cardiology: -On high flow nasal cannula. -Management per primary service. (2) Tachyarrhythmia Current Visit: Yes Status: Acute Per cardiology: -Atrial flutter, on amiodarone drip at 0.5mg/hour. On lopressor 75mg BID, and cardizem drip at 2.5mg/hour. -Average HR previous 12 hours noted to be 150, atrial flutter. -BP 90-100s systolic. -On coumadin. -INR 3.3 today. -Suspect may be difficult tor rate control due to underlying lung issues. -TTE with LVEF 60%, mild diastolic dysfunction, mildly dilated left atrium, all wall segments with normal motion. -ECG today with atrial flutter, HR 151. QT 286, QTc 372ms. -ECG 07/27/17 with atrial flutter, HR 143. QT 246, QTc 329ms. -Discussed and reviewed with Dr.John Torres, who recommends NINOSKA, cardioversion when able. Of note, hemoglobin decreased today. Being worked up per primary service. Will plan for NINOSKA/DCCV tomorrow after work up. Disucssed and reviewed with , who recommends NINOSKA/DCCV be completed with anethesia due to hypotension and high O2 requirements. -WIll make NPO after midnight. Discussed with patient regarding need for NINOSKA/ DCCV. Eductaed patient on possible need for intubation for procedure, patient states he would be agreeable. Risks versus benefits of NINOSKA and DCCV explained to patient. Patient states understanding and agreeable to proceed if able tomorrow. -Will continue to monitor. (3) Rectus sheath hematoma Current Visit: Yes Status: Acute Per cardiology: -CT with moderate rectus sheath hematoma. -Hemoglobin dropped 2gm today. -CT pelvis being repeated today. -Management per primary service. Qualifiers: Encounter type: initial encounter Qualified Code(s): S30.1XXA - Contusion of abdominal wall, initial encounter Discussion w patient/family: The assessment and plan as outlined above was discussed with the patient who expressed understanding and agreement. All questions were answered. Thank you for involving us in the care of your patient. Please call with any questions. Discussed and reviewed with Dr.John Torres. Subjective Principal diagnosis: COPD exacerbation Interval history: Patient states he feels his breathing has improved today. Patient's only complaint was he wanted to be out of bed. Patient continues to deny chest pain, palpitations, or fluttering. Objective Vital Signs, Last 4 Hours Temp Pulse Resp BP Pulse Ox 07/31/17 08:06 22 92 07/31/17 07:37 97.8 F 155 12 97/76 93 07/31/17 07:00 91/74 General: Conversant, No Apparent Distress HEENT: Atraumatic, Normocephaly, Mucus Membranes Moist Neck: No JVD, Normal carotid pulses Cardiac: Normal S1 and S2, No Murmur, Other (Tachycardic. ) Lungs: Other (Lung sounds diminished throughout) Neuro: Alert and responsive, No focal deficits noted Abdomen: Soft, Non-Tender Skin: No rashes noted on visualized skin Musculoskeletal: No Chest Wall Tenderness Extremities: No Clubbing, No Cyanosis, Normal Pulses, Other (Moderate bilateral pedal edema noted, non-pitting. ) Results 07/31/17 05:54 07/31/17 05:54 Lab Results Impressions Chest X-Ray 07/30/17 08:58 IMPRESSION: 1. Worsening infiltrates in the right mid and lower lung field, compatible with pneumonia. There is an associated small right pleural effusion. D/ / Chandler Chavez MD / Chandler Chavez MD Interpreting Provider: Chandler Chavez MD Abdomen/Pelvis CT 07/30/17 09:48 IMPRESSION: 1. Moderate rectus sheath hematoma within the anterior pelvis, more notable on the right, with a small amount of intrapelvic blood anteriorly. Evaluation for active hemorrhage is limited without contrast. Consider further evaluation with CTA if there is a clinical concern for an acute bleed. 2. New right middle lobe pneumonia and trace right pleural effusion. 3. Severe vascular atherosclerotic disease, including coronary artery disease. Results verbally communicated to Dr. Pearl at 10:42 a.m. on 07/30/2017. D/ / 07/30/2017 10:48:44 Reynaldo Pimentel MD / jaydon Interpreting Provider: Reynaldo Pimentel MD Active Medications Acetaminophen (Tylenol) 650 mg PO Q6HR PRN PRN Reason: Mild Pain (1-3) Stop: 01/22/18 20:54 Last Admin: 07/30/17 19:57 Dose: 650 mg Albuterol/Ipratropium (Duoneb) 3 ml IH Q2HR PRN PRN Reason: Shortness Of Breath/Wheezing Stop: 01/23/18 14:44 Last Admin: 07/29/17 20:21 Dose: 3 ml Atorvastatin Calcium (Lipitor) 80 mg PO HS [facility] Stop: 01/22/18 21:01 Last Admin: 07/30/17 19:57 Dose: 80 mg Budesonide/Formoterol Fumarate (Symbicort) 1 puff IH BIDR [facility] PRN Reason: Protocol Stop: 01/22/18 22:01 Last Admin: 07/30/17 20:23 Dose: 1 puff Clopidogrel Bisulfate (Plavix) 75 mg PO DAILY [facility] Stop: 01/23/18 09:01 Last Admin: 07/30/17 08:14 Dose: 75 mg Dextrose/Water (Dextrose 50% (Syg)) 25 ml IVP AD PRN PRN Reason: Hypoglycemia Stop: 01/23/18 15:27 Fenofibrate (Tricor) 54 mg PO DAILY [facility] Stop: 01/23/18 09:01 Last Admin: 07/30/17 08:14 Dose: 54 mg Glucagon (Glucagen) 1 mg IM ONCE PRN PRN Reason: Hypoglycemia Stop: 01/23/18 15:27 Glucose (Gluctose) 15 gm PO ONCE PRN PRN Reason: Hypoglycemia Stop: 01/23/18 15:27 Glucose (Gluctose) 30 gm PO ONCE PRN PRN Reason: Hypoglycemia Stop: 01/23/18 15:27 Hydralazine HCl (Hydralazine) 10 mg IVP Q6HR PRN PRN Reason: SBP>160 Stop: 01/24/18 08:27 Dextrose (Dextrose 5%) 1,000 mls @ 100 mls/hr IVC .Q10H PRN PRN Reason: HYPOGLYCEMIA Stop: 01/23/18 15:27 Diltiazem HCl 100 mg/ Dextrose 50 mls @ 2.5 mls/hr IVC .Q20H [facility]; 5 MG/HR PRN Reason: Protocol Stop: 01/25/18 12:16 Last Titration: 07/29/17 17:45 Dose: Infused Piperacillin Sod/Tazobactam Sod (Zosyn Premix 3.375 Gm/200 Ml) 3.375 gm in 200 mls @ 50 mls/hr IVPB Q8H [facility] Stop: 01/26/18 16:01 Last Admin: 07/31/17 10:29 Dose: 50 mls/hr Amiodarone HCl/Dextrose (Amiodarone Drip Premix 360mg/200ml) 360 mg in 200 mls @ 16.667 mls/hr IVC CONT [facility] PRN Reason: 0.5 MG/MIN Stop: 01/28/18 15:31 Last Admin: 07/31/17 02:01 Dose: 0.5 mg/min, 16.667 mls/hr Insulin Human Lispro (Humalog) 0 units SQ HS [facility] PRN Reason: Protocol Stop: 01/23/18 21:01 Last Admin: 07/30/17 19:58 Dose: 6 units Insulin Human Lispro (Humalog) 0 units SQ TIDAC [facility] PRN Reason: Protocol Stop: 01/23/18 16:31 Last Admin: 07/31/17 08:14 Dose: 12 units Ipratropium [place] (Atrovent Neb) 0.5 mg IH [id number] [facility] Stop: 01/25/18 16:01 Last Admin: 07/31/17 08:05 Dose: 0.5 mg Isosorbide Mononitrate (Imdur) 30 mg PO DAILY [facility] Stop: 01/23/18 09:01 Last Admin: 07/30/17 08:13 Dose: 30 mg Levalbuterol HCl (Xopenex) 1.25 mg IH [id number] [facility] Stop: 01/25/18 16:01 Last Admin: 07/31/17 08:05 Dose: 1.25 mg Levothyroxine Sodium (Synthroid) 125 mcg PO DAILY@0630 [facility] Stop: 01/30/18 06:31 Last Admin: 07/31/17 05:22 Dose: 125 mcg Metoprolol Tartrate (Lopressor) 75 mg PO BID [facility] Stop: 01/27/18 21:01 Last Admin: 07/30/17 19:57 Dose: 75 mg Montelukast Sodium (Singulair) 10 mg PO QPM [facility] Stop: 01/23/18 18:01 Last Admin: 07/30/17 18:56 Dose: 10 mg Naloxone HCl (Narcan) 0.4 mg IVP Q2MIN PRN PRN Reason: Opioid Reversal Stop: 01/22/18 20:54 Omeprazole (Prilosec) 20 mg PO 0630 [facility] Stop: 01/22/18 20:46 Last Admin: 07/31/17 05:22 Dose: 20 mg Ondansetron HCl (Zofran) 4 mg IVP Q8HR PRN PRN Reason: Nausea And Vomiting Stop: 01/22/18 20:54 Polyethylene Glycol (Miralax) 17 gm PO DAILY [facility] Stop: 01/23/18 09:01 Last Admin: 07/30/17 08:14 Dose: 17 gm Prednisone (Prednisone) 40 mg PO DAILY [facility] Stop: 01/29/18 10:01 Last Admin: 07/30/17 10:48 Dose: 40 mg Tamsulosin HCl (Flomax) 0.4 mg PO HS [facility] PRN Reason: Protocol Stop: 01/23/18 21:01 Last Admin: 07/30/17 19:57 Dose: 0.4 mg Warfarin Sodium (Coumadin Perpt) 1 each PO DAILY@1800 PRN PRN Reason: SEE COMMENTS Stop: 01/27/18 18:01 Laboratory Tests 07/31/17 07/31/17 07/31/17 05:54 05:54 05:54 Hgb 9.7 L D Plt Count 128 L INR 3.3 Potassium 4.0 Creatinine 1.75 H TSH 0.187 L - Imaging and Cardiology Chest Xray: report reviewed Echo: report reviewed - EKG Interpretation EKG results cardiology: other (Telemetry reviewed with average HR previous 12 hours noted to be 150, atrial flutter. PVCs noted.) Consult Discharge Plan - Plan Referrals: George Hazel MD [Partnered Physician] - 08/15/17 1:00 pm Khurram Victoria DO [Primary Care Provider] - 08/01/17 11:30 am
[2017-07-31] MEDS: Budesonide/Formoterol 80/4.5 MDI IH SCH ×2 (11:51→20:42)
[2017-07-31] MEDS: dilTIAZem HCl 100 MG in D5% in Water 50 ML IVC SCH ×2 (13:12→14:31)
[2017-07-31] MEDS ORDERED: 0.9 % Sodium Chloride 1,000 ML ONE (13:36)
[2017-07-31 13:42] LABS: Hematocrit 32.6 % (37.5-50.1); Hemoglobin 10.2 g/dL (12.9-16.9)
[2017-07-31] MEDS ORDERED: 0.9 % Sodium Chloride 1,000 ML IVC ONE (13:59)
[2017-07-31] MEDS: predniSONE 20 MG TABLET PO SCH (14:24)
[2017-07-31] MEDS: Fenofibrate 54 MG TABLET PO SCH (14:24)
[2017-07-31] MEDS: Isosorbide MONOnitrate (24 HR) 30 MG TAB.ER.24H PO SCH (14:25)
[2017-07-31] MEDS ORDERED: 0.9 % Sodium Chloride 250 ML ONE (14:59)
--- NOTE | 2017-07-31 15:21 | General Surgery Consult Note ---
Date of Encounter: 07/31/17 Time of Encounter: 15:20 Assessment and Plan (1) Hematoma Current Visit: Yes Status: Acute resuscitate trend h/h reverse INR: FFP per primary team no acute surgery; if continues to bleed or have ongoing need for transfusion, consider IR for embolization History of Present Illness Consult date: 07/31/17 Reason for consult: other (rectus sheath hematoma) History of present illness: 67M with multiple comorbidities comorbidities who was admitted for COPD exacerbation/respiratory issues. During his hospital stay he was anticoagulated for concern for DVT. This was complicated by a rectus sheath and retroperitoneal hematoma. The patient was in atrial fibrillation but is currently in sinus rhythm. I have reviewed all imaging and pertinent laboratory results. General surgery was consulted for management recommendations. Past Med Surg Social Fam HX - Past Medical History Medical history: COPD, coronary artery disease, diabetes, hyperlipidemia, hypertension Psychiatric history: no psych history - Social History Smoking Status: Current every day smoker Packs per day: 3 Smokeless Tobacco Status: No Alcohol use: none Drug use: none Medications and Allergies Amlodipine Besylate 2.5 mg PO DAILY 06/16/16 [History] Clopidogrel [Plavix] 75 mg PO DAILY 06/16/16 [History] Fenofibrate Nanocrystallized [Tricor] 48 mg PO DAILY 06/16/16 [History] GlipiZIDE [Glipizide Xl] 5 mg PO DAILY 06/16/16 [History] Lisinopril [Zestril] 10 mg PO DAILY 06/16/16 [History] Montelukast Sodium [Singulair] 10 mg PO DAILY 06/16/16 [History] Pantoprazole Sodium [Protonix] 40 mg PO DAILY 06/16/16 [History] Tamsulosin [Flomax] 0.4 mg PO DAILY 06/16/16 [History] Budesonide/Formoterol 80/4.5 [Symbicort 80/4.5] 1 puff IH BID 08/07/16 [History ] Isosorbide MONOnitrate (24 HR) [Imdur] 30 mg PO DAILY 08/07/16 [History] Polyethylene Glycol 3350 [MiraLAX] 17 gm PO DAILY 08/07/16 [History] predniSONE [Prednisone] 5 mg PO DAILY 08/07/16 [History] Insulin ASPART [Novolog Flexpen] 0 unit SQ ACHS #200 unit 08/09/16 [Rx] Metoprolol [Lopressor] 50 mg PO BID #30 08/09/16 [Rx] Atorvastatin Calcium [Lipitor] 80 mg PO HS 07/23/17 [History] Levothyroxine [Synthroid] 125 mcg PO 0630 07/30/17 [History] 3 Allergy/AdvReac Type Severity Reaction Status Date / Time adenosine Allergy See Verified 08/07/16 16:26 Comments fluticasone Allergy See Verified 08/07/16 16:26 [From Advair Diskus] Comments Iodinated Contrast- Oral and Allergy See Verified 06/16/16 15:37 IV Dye Comments [Iodinated Contrast Media - IV Dye] salmeterol Allergy See Verified 08/07/16 16:26 [From Advair Diskus] Comments Review of Systems All systems PM: A 10-system review of systems was performed and is negative for pertinent findings except as documented above in the HPI. General Surgery Exam Initial Vital Signs Temp Pulse Resp BP Pulse Ox 100.1 F H 95 24 92/51 74 07/23/17 12:29 07/23/17 12:29 07/23/17 12:29 07/23/17 12:29 07/23/17 12:29 - General physical appearance well developed, well nourished, no distress - Eyes normal ocular movement - ENT normocephalic - Neck no lymphadectomy - Respiratory normal expansion, normal respiratory effort - Cardiovascular Cardiovascular exam: Present: RRR - Abdomen Abdomen general surgery: Present: soft, tender (ecchymosis along lower quadrants ) Abdominal Tenderness: Present: RLQ, LLQ, suprapubic - Integumentary Integumentary general surgery: Present: warm and dry - Neurologic Present: CN 2-12 grossly intact - Musculoskeletal Present: other (no limited range of motion appreciated) - Psychiatric Psychiatric general surgery: Present: A&Ox3 Exam Initial Vital Signs Temp Pulse Resp BP Pulse Ox 100.1 F H 95 24 92/51 74 07/23/17 12:29 07/23/17 12:29 07/23/17 12:29 07/23/17 12:29 07/23/17 12:29 Results - Labs 07/31/17 13:32 07/31/17 05:54 Abnormal lab results RBC 3.37 M/mcL (4.19-5.50) L 07/31/17 05:54 Hgb 10.2 g/dL (12.9-16.9) L 07/31/17 13:32 Hct 32.6 % (37.5-50.1) L 07/31/17 13:32 MCHC 30.9 g/dL (31.6-35.5) L 07/31/17 05:54 RDW 14.6 % (11.5-14.5) H 07/31/17 05:54 Plt Count 128 K/mcL (140-400) L 07/31/17 05:54 Lymphocytes # 0.5 K/mcL (0.6-4.6) L 07/31/17 05:54 Platelet Estimate Decreased (Normal) L 07/25/17 02:49 PT 36.0 Seconds (9.4-12.1) H D 07/31/17 05:54 APTT 88.2 Seconds (26.0-36.0) H 07/30/17 17:33 Heparin Anti-Xa, Unfract 1.09 IU/mL (0.30-0.70) H* 07/29/17 04:58 ABG pCO2 64 mmHg (35-45) H 07/28/17 08:41 ABG pO2 60 mmHg (85-104) L 07/28/17 08:41 ABG HCO3 37 mEq/L (21-27) H 07/28/17 08:41 ABG Total CO2 39 mEq/L (20-26) H 07/28/17 08:41 ABG O2 Saturation 89 % (95-98) L 07/28/17 08:41 ABG Base Excess 10 mEq/L (-2 to 3) H 07/28/17 08:41 Carbon Dioxide 34 mEq/L (19-29) H 07/31/17 05:54 BUN 47 mg/dL (8-26) H 07/31/17 05:54 Creatinine 1.75 mg/dL (0.72-1.25) H 07/31/17 05:54 Est GFR ( Amer) 47 (> 60) L 07/31/17 05:54 Est GFR (Non-Af Amer) 39 (> 60) L 07/31/17 05:54 BUN/Creatinine Ratio 27 (6-26) H 07/31/17 05:54 Glucose 308 mg/dL (70-99) H 07/31/17 05:54 POC Glucose 347 (58-89) H 07/30/17 19:17 Calculated Osmolality 312 (280-300) H 07/31/17 05:54 Calcium 8.4 mg/dL (8.6-10.8) L 07/31/17 05:54 Total Bilirubin 1.4 mg/dL (0.2-1.2) H 07/23/17 13:38 B-Natriuretic Peptide 107 pg/mL (0-100) H 07/23/17 12:50 Albumin 3.1 g/dL (3.5-5.0) L 07/23/17 13:38 Albumin/Globulin Ratio 1.0 (1.1-2.2) L 07/23/17 13:38 TSH 0.187 mcIU/mL (0.350-4.840) L 07/31/17 05:54 Urine Clarity Cloudy (Clear) A 07/23/17 15:02 Urine Protein 30 mg/dL (Neg-Trace) H 07/23/17 15:02 Urine Ketones Trace mg/dL (Negative) H 07/23/17 15:02 Urine Nitrite Positive (Negative) A 07/23/17 15:02 Urine Bilirubin Moderate (Negative) H 07/23/17 15:02 Ur Leukocyte Esterase Small (Negative) H 07/23/17 15:02 Urine Microscopic WBC 5-15 per hpf (0-3) H 07/23/17 15:02 Ur Squamous Epith Cells Many per lpf (None-Few) H 07/23/17 15:02 Ur Culture Indicated? YES (NO) A 07/23/17 15:02 Diabetes panel 07/31/17 Range/Units 05:54 Sodium 139 (136-145) mEq/L Potassium 4.0 (3.5-4.5) mEq/L Chloride 98 (98-109) mEq/L Carbon Dioxide 34 H (19-29) mEq/L BUN 47 H (8-26) mg/dL Creatinine 1.75 H (0.72-1.25) mg/dL Glucose 308 H (70-99) mg/dL Calcium 8.4 L (8.6-10.8) mg/dL Thyroid panel 07/31/17 Range/Units 05:54 TSH 0.187 L (0.350-4.840) mcIU/mL Calcium panel 07/31/17 Range/Units 05:54 Calcium 8.4 L (8.6-10.8) mg/dL Pituitary panel 07/31/17 Range/Units 05:54 Sodium 139 (136-145) mEq/L Potassium 4.0 (3.5-4.5) mEq/L Chloride 98 (98-109) mEq/L Carbon Dioxide 34 H (19-29) mEq/L BUN 47 H (8-26) mg/dL Creatinine 1.75 H (0.72-1.25) mg/dL Glucose 308 H (70-99) mg/dL Calcium 8.4 L (8.6-10.8) mg/dL TSH 0.187 L (0.350-4.840) mcIU/mL Adrenal panel 07/31/17 Range/Units 05:54 Sodium 139 (136-145) mEq/L Potassium 4.0 (3.5-4.5) mEq/L Chloride 98 (98-109) mEq/L Carbon Dioxide 34 H (19-29) mEq/L BUN 47 H (8-26) mg/dL Creatinine 1.75 H (0.72-1.25) mg/dL Glucose 308 H (70-99) mg/dL Calcium 8.4 L (8.6-10.8) mg/dL All other labs normal. - Imaging CT scan - abdomen: report reviewed, image reviewed CT scan - pelvis: report reviewed, image reviewed Consult Discharge Plan - Plan Referrals: George Hazel MD [Partnered Physician] - 08/15/17 1:00 pm Khurram Victoria DO [Primary Care Provider] - 08/01/17 11:30 am
--- NOTE | 2017-07-31 16:47 | Internal Med Progress Note ---
<Bekah Quevedo - Last Filed: 07/31/17 16:45> Date of Encounter: 07/31/17 Time of Encounter: 13:00 - Assessment and plan (1) Atrial tachycardia Current Visit: No Status: Acute Assessment and plan: Likely Aflutter Echo 07/29/17 showed LVEF 60%, mild LV diastolic dysfunction, mildly dilated left atrium, no wall motion abnormalities. cardio on board. hesitant to do NINOSKA/DCC due to bleeding and needing to be on anticoagulation post procedure. HAS Bled: 6: alternatives to anticoagulation should be considered CHADS/VASC: 4 Plan: consult to cardio- appreciate recs amiodarone gtt. cardizem gtt discontinued for now due to hypotension reversing coagulopathy with IV vitamin K, two units FFP. will repeat INR appreciate surgery recs for abdominal wall hematoma. will have discussion with family tomorrow regarding goals of care, complication of atrial tachycardia with abdominal bleed. patient not a candidate for anticoagulation but will remain a stroke risk if not anticoagulated. (2) Rectus sheath hematoma Current Visit: Yes Status: Acute Assessment and plan: repeat CT pelvis today showed significant increase in the size of rectus sheath hematoma compared from prior CT with attenuation of fluid. there is extension of hematoma into the pelvic floor contributing to extrinsic mass effect. Plan: as above Qualifiers: Encounter type: initial encounter Qualified Code(s): S30.1XXA - Contusion of abdominal wall, initial encounter (3) Acute and chronic respiratory failure Current Visit: Yes Status: Acute Assessment and plan: Acute on chronic respiratory failure with hypercapnia and hypoxia secondary to acute exacerbation of COPD CXR showed bibasilar atalectasis influenza A/B negative. chest CT showed moderate to severe diffuse bronchial wall inflammation with multifocal tree in bud like opacities, opacities in right lower and left upper lobes, possible aspiration. Plan: continue IV zosyn- day 5 oral prednisone Qualifiers: Respiratory failure complication: hypoxia and hypercapnia Qualified Code(s) : J96.21 - Acute and chronic respiratory failure with hypoxia; J96.22 - Acute and chronic respiratory failure with hypercapnia; J96.22 - Acute and chronic respiratory failure with hypercapnia; J96.22 - Acute and chronic respiratory failure with hypercapnia (4) COPD exacerbation Current Visit: Yes Status: Acute Assessment and plan: acute on chronic respiratory failure with hypercapnia, hypoxia secondary to COPD exacerbation. plan as above (5) CAD (coronary artery disease) Current Visit: Yes Status: Chronic Assessment and plan: continue atorvastatin. Qualifiers: Coronary Disease-Associated Artery/Lesion type: [place] artery [place] vs. transplanted heart: [place] heart Associated angina: with unstable angina Qualified Code(s): I25.110 - Atherosclerotic heart disease of [place] coronary artery with unstable angina pectoris (6) CKD (chronic kidney disease) Current Visit: Yes Status: Chronic Assessment and plan: renal function at baseline. continue to monitor. Qualifiers: Chronic kidney disease stage: stage 3 (moderate) Qualified Code(s): N18.3 - Chronic kidney disease, stage 3 (moderate) (7) Diabetes mellitus Current Visit: Yes Status: Chronic Assessment and plan: continue medium dose sliding scale insulin diabetic diet ACHS accuchecks 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 mellitus complication status: with kidney complications Diabetes mellitus complication detail: with chronic kidney disease Diabetes mellitus middle or intermediate school principal insulin use: with fdc use Chronic kidney disease stage: stage 3 (moderate) Qualified Code(s): E11.22 - Type 2 diabetes mellitus with diabetic chronic kidney disease; N18.3 - Chronic kidney disease, stage 3 (moderate); N18.3 - Chronic kidney disease, stage 3 ( moderate); Z79.4 - terminal superintendent (current) use of insulin; Z79.4 - terminal superintendent ( current) use of insulin; Z79.4 - terminal superintendent (current) use of insulin; Z79.4 - assisted (current) use of insulin (8) Hypertension Current Visit: No Status: Resolved Assessment and plan: continue metoprolol hydralazine PRN Qualifiers: Hypertension type: essential hypertension Qualified Code(s): I10 - Essential (primary) hypertension (9) Morbid obesity Current Visit: Yes Status: Chronic Assessment and plan: lifestyle modifications advised (10) Hypothyroidism Current Visit: Yes Status: Acute Assessment and plan: continue synthroid Qualifiers: Hypothyroidism type: acquired Qualified Code(s): E03.9 - Hypothyroidism, unspecified (11) DVT prophylaxis Current Visit: Yes Status: Acute Assessment and plan: hold anticoagulation for now due to hematoma. reversing coagulopathy due to bleed - Subjective Interval history: 67M evaluated at bedside. patient denies nausea, vomiting, diarrhea, fever, chills, chest pain, shortness of breath. he reports being fatigued. - Constitutional Vitals: Temp Pulse Resp BP Pulse Ox 97.9 F 88 20 130/75 93 07/31/17 15:07 07/31/17 15:07 07/31/17 16:30 07/31/17 15:07 07/31/17 16:30 General appearance: Present: A&O X 3, morbidly obese, pleasant, no acute distress, answers questions appropriately - Head Head exam: Present: atraumatic, normocephalic - Neck Neck exam general surgery: Present: supple, trachea midline - Respiratory Respiratory exam: Present: wheezes - Cardiovascular Cardiovascular exam: Present: +S1, +S2, tachycardia - GI/Abdominal GI/Abdominal exam: Present: normal bowel sounds, soft, tenderness. Absent: distended Additional comments: large lower abdominal wall hematoma present. - Extremities Exam Extremities exam: Absent: cyanotic, pedal edema - Neurological Exam Neurological exam: Present: alert, oriented X3, no focal deficits - Psychiatric Psychiatric exam: Present: normal affect, normal mood Internal Medicine: Result - Labs CBC & Chem 7: 07/31/17 13:32 07/31/17 05:54 Labs: Short CBC 07/30/17 07/31/17 07/31/17 Range/Units 17:33 05:54 13:32 WBC 11.4 H D 10.2 (4.3-11.1) K/mcL Hgb 11.7 L 9.7 L D 10.2 L (12.9-16.9) g/dL Hct 37.4 L 31.4 L 32.6 L (37.5-50.1) % Plt Count 140 128 L (140-400) K/mcL Neutrophils # 10.1 H 8.7 (1.6-8.9) K/mcL BMP 07/31/17 05:54 Sodium 139 Potassium 4.0 Chloride 98 Carbon Dioxide 34 H BUN 47 H Creatinine 1.75 H Glucose 308 H Calcium 8.4 L - ABG Interpretation ABG results: ABG ABG pH 7.37 pH Units (7.32-7.45) 07/28/17 08:41 ABG pCO2 64 mmHg (35-45) H 07/28/17 08:41 ABG pO2 60 mmHg (85-104) L 07/28/17 08:41 ABG O2 Saturation 89 % (95-98) L 07/28/17 08:41 PT/INR, D-dimer PT 36.0 Seconds (9.4-12.1) H D 07/31/17 05:54 - Impressions Impressions Pelvis CT 07/31/17 11:30 IMPRESSION: 1. Significant increase in the size of a rectus sheath hematoma observed on prior CT. Attenuation of fluid suggests acute/subacute blood. 2. Extension of hematoma to the pelvic floor contributing to extrinsic mass effect upon the bladder. Additional extension superiorly into the right retroperitoneum contributing to mass effect upon the nearby cecum. No intraperitoneal extension. Critical results were called by Dr. Dae Cabrales MD to Dr. Pearl on 07/31/2017 at 12:55. D/ / Dae Cabrales MD / Dae Cabrales MD Interpreting Provider: Dae Cabrales MD Consult Discharge Plan - Plan Referrals: George Hazel MD [Partnered Physician] - 08/15/17 1:00 pm Khurram Victoria DO [Primary Care Provider] - 08/01/17 11:30 am <Mega Pearl - Last Filed: 07/31/17 18:57> Date of Encounter: 07/31/17 - Assessment and plan (1) Rectus sheath hematoma Current Visit: Yes Status: Acute Qualifiers: Encounter type: initial encounter Qualified Code(s): S30.1XXA - Contusion of abdominal wall, initial encounter (2) Acute and chronic respiratory failure Current Visit: Yes Status: Acute Qualifiers: Respiratory failure complication: hypoxia and hypercapnia Qualified Code(s) : J96.21 - Acute and chronic respiratory failure with hypoxia; J96.22 - Acute and chronic respiratory failure with hypercapnia; J96.22 - Acute and chronic respiratory failure with hypercapnia; J96.22 - Acute and chronic respiratory failure with hypercapnia (3) Pneumonia Current Visit: Yes Status: Suspected Qualifiers: Pneumonia type: aspiration pneumonia Aspiration pneumonia type: due to gastric secretions Laterality: bilateral Lung location: upper lobe of lung Qualified Code(s): J69.0 - Pneumonitis due to inhalation of food and vomit (4) COPD exacerbation Current Visit: Yes Status: Acute (5) Atrial flutter Current Visit: Yes Status: Acute Qualifiers: Atrial flutter type: atypical Qualified Code(s): I48.4 - Atypical atrial flutter (6) CAD (coronary artery disease) Current Visit: Yes Status: Chronic Qualifiers: Coronary Disease-Associated Artery/Lesion type: [place] artery [place] vs. transplanted heart: [place] heart Associated angina: with unstable angina Qualified Code(s): I25.110 - Atherosclerotic heart disease of [place] coronary artery with unstable angina pectoris (7) Hypothyroidism Current Visit: Yes Status: Acute Qualifiers: Hypothyroidism type: acquired Qualified Code(s): E03.9 - Hypothyroidism, unspecified (8) Diabetes mellitus Current Visit: Yes Status: Chronic 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 mellitus complication status: with kidney complications Diabetes mellitus complication detail: with chronic kidney disease Diabetes mellitus middle or intermediate school principal insulin use: with fdc use Chronic kidney disease stage: stage 3 (moderate) Qualified Code(s): E11.22 - Type 2 diabetes mellitus with diabetic chronic kidney disease; N18.3 - Chronic kidney disease, stage 3 (moderate); N18.3 - Chronic kidney disease, stage 3 ( moderate); Z79.4 - terminal superintendent (current) use of insulin; Z79.4 - assisted ( current) use of insulin; Z79.4 - terminal superintendent (current) use of insulin; Z79.4 - assisted (current) use of insulin (9) Hypertension Current Visit: No Status: Resolved Qualifiers: Hypertension type: essential hypertension Qualified Code(s): I10 - Essential (primary) hypertension (10) Tobacco abuse Current Visit: Yes Status: Chronic - Constitutional Vitals: Temp Pulse Resp BP Pulse Ox 97.5 F L 85 20 130/75 93 07/31/17 16:15 07/31/17 16:15 07/31/17 16:30 07/31/17 16:15 07/31/17 16:30 Internal Medicine: Result - Labs CBC & Chem 7: 07/31/17 13:32 07/31/17 05:54 Labs: Short CBC 07/31/17 07/31/17 Range/Units 05:54 13:32 WBC 10.2 (4.3-11.1) K/mcL Hgb 9.7 L D 10.2 L (12.9-16.9) g/dL Hct 31.4 L 32.6 L (37.5-50.1) % Plt Count 128 L (140-400) K/mcL Neutrophils # 8.7 (1.6-8.9) K/mcL BMP 07/31/17 05:54 Sodium 139 Potassium 4.0 Chloride 98 Carbon Dioxide 34 H BUN 47 H Creatinine 1.75 H Glucose 308 H Calcium 8.4 L - ABG Interpretation ABG results: ABG ABG pH 7.37 pH Units (7.32-7.45) 07/28/17 08:41 ABG pCO2 64 mmHg (35-45) H 07/28/17 08:41 ABG pO2 60 mmHg (85-104) L 07/28/17 08:41 ABG O2 Saturation 89 % (95-98) L 07/28/17 08:41 PT/INR, D-dimer PT 20.8 Seconds (9.4-12.1) H 07/31/17 18:10 - Impressions Impressions Pelvis CT 07/31/17 11:30 IMPRESSION: 1. Significant increase in the size of a rectus sheath hematoma observed on prior CT. Attenuation of fluid suggests acute/subacute blood. 2. Extension of hematoma to the pelvic floor contributing to extrinsic mass effect upon the bladder. Additional extension superiorly into the right retroperitoneum contributing to mass effect upon the nearby cecum. No intraperitoneal extension. Critical results were called by Dr. Dae Cabrales MD to Dr. Pearl on 07/31/2017 at 12:55. D/ / Dae Cabrales MD / Dae Cabrales MD Interpreting Provider: Dae Cabrales MD - Attending Attestation I examined this patient and my medical decision-making was reviewed with the Resident Physician on 07/31/17. I agree with the documented findings, disposition and treatment plan as described except to the extent set forth below. Mr Humphries is currently admitted for a flutter and acute rectus sheath bleed. He remains high risk due to potential for worsening respiratory and cardiac status as well as bleeding. Mr Humphries is having pain in his abdomen. Breathing about the same. Still tachycardic. Hemoglobin lower today. No fever or chills. No CP. Exam Alert. Mod distress Mucus membranes dry Heart irreg and tachy Lungs with some wheeze Abd with tenderness in lower area. Edema present. I/P 1. Atrial flutter 2. Rectus sheath bleed 3. Anemia due to blood loss 4. COPD At this point repeat CT has shown increase in size of hematoma with extension into pelvis and retroperitoneum. His H/H is down 2 g. He remains tachy and INR is 3.3. At this point will give IV vit K and FFP to reverse anticoagulation. He cannot have cardioversion at this time as he cannot be anticoagulated. D/W IR and no procedure indicated and he is allergic to contrast as well. Surgery eval by Dr. Oates appreciated. He did have a brief episode of hypotension and card drip stopped. He also briefly converted to regular rhythm. His prognosis is tenuous at this time. CCM 48min
[2017-07-31 18:25] LABS: INR 1.9; Prothrombin Time 20.8 Seconds (9.4-12.1)
[2017-08-01 00:07] LABS: Hematocrit 27.2 % (37.5-50.1)
[2017-08-01 00:11] LABS: Hemoglobin 8.5 g/dL (12.9-16.9)
[2017-08-01] MEDS: Ipratropium Neb 0.5 MG NEBULIZER IH SCH ×6 (00:50→20:05)
[2017-08-01] MEDS: Levalbuterol Neb 1.25 MG/3 ML IH SCH ×6 (00:50→20:05)
[2017-08-01 01:31] LABS: INR 1.4; Prothrombin Time 15.3 Seconds (9.4-12.1)
[2017-08-01] MEDS: Piperacillin/Tazobactam 3.375 GM/200 ML BAG IVPB SCH ×4 (01:48→23:20)
[2017-08-01] MEDS: Amiodarone Premix 360 MG/200 ML BAG IVC SCH ×2 (02:31→15:31)
[2017-08-01 04:39] LABS: INR 1.3
[2017-08-01 04:48] LABS: BUN/Creatinine Ratio 25 (6-26); Calcium 8.6 mg/dL (8.6-10.8); Carbon Dioxide 35 mEq/L (19-29); Chloride 101 mEq/L (98-109); Glucose 227 mg/dL (70-99); Magnesium 2.2 mg/dL (1.6-2.6); Osmolality,Calculated 307 (280-300); Phosphorous 2.3 mg/dL (2.3-4.7); Potassium 3.8 mEq/L (3.5-4.5); Sodium 141 mEq/L (136-145); eGFR For African Americans > 60 (> 60); eGFR For Non-African Americans 51 (> 60)
[2017-08-01 04:50] LABS: Blood Urea Nitrogen 35 mg/dL (8-26)
[2017-08-01 05:05] LABS: Basophils % 0.2 %; Hemoglobin 8.4 g/dL (12.9-16.9); Mean Corpuscular Volume 93.8 fL (83.0-100.0)
[2017-08-01 05:07] LABS: Eosinophils % 0.2 %; Hematocrit 27.1 % (37.5-50.1); Immature Granulocytes % 5.1 % (0-4); Immature Platelets 7.7 % (1.1-6.1); Lymphocytes # 0.3 K/mcL (0.6-4.6); Lymphocytes % 4.7 %; Mean Corpuscular Hemoglobin 29.1 pg (28.0-33.3); Mean Platelet Volume 10.7 fL (9.4-12.4); Monocytes # 0.3 K/mcL (0.0-1.3); Monocytes % 5.7 %; Red Blood Count 2.89 M/mcL (4.19-5.50); Red Cell Distribution Width 14.7 % (11.5-14.5); Segmented Neutrophils % 84.1 %
[2017-08-01 06:07] LABS: Neutrophils # 4.5 K/mcL (1.6-8.9); Platelet Count 92 K/mcL (140-400)
[2017-08-01 06:09] LABS: Platelet Estimate Slight Decrease (Normal)
[2017-08-01] MEDS: Isosorbide MONOnitrate (24 HR) 30 MG TAB.ER.24H PO SCH (08:55)
[2017-08-01] MEDS: Fenofibrate 54 MG TABLET PO SCH (08:55)
[2017-08-01] MEDS: Insulin LISPRO 300 UNITS/3 ML VIAL SQ SCH ×4 (08:56→20:54)
[2017-08-01] MEDS: predniSONE 20 MG TABLET PO SCH (08:56)
[2017-08-01] MEDS: dilTIAZem HCl 100 MG in D5% in Water 50 ML IVC SCH (08:56)
--- NOTE | 2017-08-01 09:19 | Electrophysiology ProgressNote ---
Date of Encounter: 08/01/17 Time of Encounter: 09:17 Assessment and Plan (1) Tachyarrhythmia Current Visit: Yes Status: Acute Per cardiology: -Atrial flutter, on amiodarone drip at 0.5mg/hour. On lopressor 75mg BID. Cardizem gtt stopped overnight due to hypotension. B/p now 140/90 will restart. -Average HR previous 12 hours noted to be 119, sinus tachycardia, PAF, and aflutter periods -Coumadin held 07/31/17 due to increasing rectus sheath hematoma and 2gm decrease in HGB. -Suspect arrythmias may be difficult tor rate control due to underlying lung issues and acute anemia. -TTE with LVEF 60%, mild diastolic dysfunction, mildly dilated left atrium, all wall segments with normal motion. -ECG today with atrial flutter, HR 151. QT 286, QTc 372ms. -ECG 07/27/17 with atrial flutter, HR 143. QT 246, QTc 329ms. -Due to acute anemia requiring holding coumadin patient is not a candidate for DCCV. Rate control is recommended. Will restart cardizem gtt as tolerated. Continue amiodarone and lopressor. (2) Rectus sheath hematoma Current Visit: Yes Status: Acute Per cardiology: -CT with increasing rectus sheath hematoma. Surgery is following -Hemoglobin dropped 2gm today. -Coumadin on hold. Management per primary team. Qualifiers: Encounter type: initial encounter Qualified Code(s): S30.1XXA - Contusion of abdominal wall, initial encounter Discussion w patient/family: The assessment and plan as outlined above was discussed with the patient and/or family members who expressed understanding and agreement. All questions were answered. Thank you for involving us in the care of your patient. Please call with any questions. Subjective Principal diagnosis: COPD exacerbation Interval history: Mr. Humphries is resting in bed comfortably. Continues to have lower abdominal pelvic tenderness. C/o midsternal chest pressure 2/10. HR currently [address] with periods of afib. Objective Vital Signs, Last 4 Hours Temp Pulse Resp BP Pulse Ox 08/01/17 08:00 99 08/01/17 07:30 98.1 F 129 18 141/94 94 General: Conversant, No Apparent Distress HEENT: Atraumatic, Normocephaly, Mucus Membranes Moist Neck: No JVD, Normal carotid pulses Cardiac: Other (irregularly irregular) Lungs: Normal Breath Sounds, No Wheeze, Rales, Rhonchi Neuro: Alert and responsive, No focal deficits noted Abdomen: Soft, Other (tender to palpation) Skin: No rashes noted on visualized skin Musculoskeletal: No Chest Wall Tenderness Extremities: No Clubbing, No Cyanosis, No Edema, Normal Pulses Results 08/01/17 04:18 08/01/17 04:18 Lab Results 07/31/17 07/31/17 07/31/17 00:00 05:54 13:32 WBC 10.2 Hgb 8.5 L D 9.7 L 10.2 L Hct 27.2 L 31.4 L 32.6 L Plt Count 128 L INR Sodium Potassium Chloride Carbon Dioxide BUN Creatinine Glucose Calcium Magnesium 07/31/17 08/01/17 08/01/17 18:10 01:18 04:18 WBC Hgb Hct Plt Count INR 1.9 1.4 1.3 Sodium Potassium Chloride Carbon Dioxide BUN Creatinine Glucose Calcium Magnesium 08/01/17 08/01/17 04:18 04:18 WBC 5.3 Hgb 8.4 L D Hct 27.1 L Plt Count 92 L INR Sodium 141 Potassium 3.8 Chloride 101 Carbon Dioxide 35 H BUN 35 H D Creatinine 1.39 H Glucose 227 H Calcium 8.6 Magnesium 2.2 - Imaging and Cardiology Echo: report reviewed - EKG Interpretation EKG results cardiology: personally reviewed - VTE Documentation of Mechanical Device: Intermittent pneumatic compression device Consult Discharge Plan - Plan Referrals: George Hazel MD [Partnered Physician] - 08/15/17 1:00 pm Khurram Victoria DO [Primary Care Provider] - 08/01/17 11:30 am
--- NOTE | 2017-08-01 09:54 | Internal Med Progress Note ---
<Bekah Quevedo - Last Filed: 08/01/17 09:51> Date of Encounter: 08/01/17 Time of Encounter: 09:51 - Assessment and plan (1) Atrial tachycardia Current Visit: No Status: Acute Assessment and plan: Likely Aflutter Echo 07/29/17 showed LVEF 60%, mild LV diastolic dysfunction, mildly dilated left atrium, no wall motion abnormalities. cardio on board. hesitant to do NINOSKA/DCC due to bleeding and needing to be on anticoagulation post procedure. HAS-Bled: 6: alternatives to anticoagulation should be considered CHADS/VASC: 4 Plan: consult to cardio- appreciate recs continue amiodarone and cardizem gtt coagulopathy reversed, continue to monitor INR appreciate surgery recs for abdominal wall hematoma. consult to palliative care for goals of care discussion. trying to arrange family meeting. (2) Rectus sheath hematoma Current Visit: Yes Status: Acute Assessment and plan: repeat CT pelvis today showed significant increase in the size of rectus sheath hematoma compared from prior CT with attenuation of fluid. there is extension of hematoma into the pelvic floor contributing to extrinsic mass effect. Plan: as above Qualifiers: Encounter type: initial encounter Qualified Code(s): S30.1XXA - Contusion of abdominal wall, initial encounter (3) Acute and chronic respiratory failure Current Visit: Yes Status: Acute Assessment and plan: Acute on chronic respiratory failure with hypercapnia and hypoxia secondary to acute exacerbation of COPD CXR showed bibasilar atalectasis influenza A/B negative. chest CT showed moderate to severe diffuse bronchial wall inflammation with multifocal tree in bud like opacities, opacities in right lower and left upper lobes, possible aspiration. Plan: continue IV zosyn- day 6 oral prednisone Qualifiers: Respiratory failure complication: hypoxia and hypercapnia Qualified Code(s) : J96.21 - Acute and chronic respiratory failure with hypoxia; J96.22 - Acute and chronic respiratory failure with hypercapnia; J96.22 - Acute and chronic respiratory failure with hypercapnia; J96.22 - Acute and chronic respiratory failure with hypercapnia (4) COPD exacerbation Current Visit: Yes Status: Acute Assessment and plan: acute on chronic respiratory failure with hypercapnia, hypoxia secondary to COPD exacerbation. plan as above (5) CAD (coronary artery disease) Current Visit: Yes Status: Chronic Assessment and plan: continue atorvastatin. Qualifiers: Coronary Disease-Associated Artery/Lesion type: [place] artery [place] vs. transplanted heart: [place] heart Associated angina: with unstable angina Qualified Code(s): I25.110 - Atherosclerotic heart disease of [place] coronary artery with unstable angina pectoris (6) CKD (chronic kidney disease) Current Visit: Yes Status: Chronic Assessment and plan: renal function at baseline. continue to monitor. Qualifiers: Chronic kidney disease stage: stage 3 (moderate) Qualified Code(s): N18.3 - Chronic kidney disease, stage 3 (moderate) (7) Diabetes mellitus Current Visit: Yes Status: Chronic Assessment and plan: continue medium dose sliding scale insulin diabetic diet ACHS accuchecks 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 mellitus complication status: with kidney complications Diabetes mellitus complication detail: with chronic kidney disease Diabetes mellitus longterm insulin use: with intermediate teacher use Chronic kidney disease stage: stage 3 (moderate) Qualified Code(s): E11.22 - Type 2 diabetes mellitus with diabetic chronic kidney disease; N18.3 - Chronic kidney disease, stage 3 (moderate); N18.3 - Chronic kidney disease, stage 3 ( moderate); Z79.4 - intermediate teacher (current) use of insulin; Z79.4 - senior care ( current) use of insulin; Z79.4 - intermediate teacher (current) use of insulin; Z79.4 - senior care (current) use of insulin (8) Morbid obesity Current Visit: Yes Status: Chronic Assessment and plan: lifestyle modifications advised (9) Hypothyroidism Current Visit: Yes Status: Acute Assessment and plan: TSH .187 hold synthroid in setting of atrial tachycardia Qualifiers: Hypothyroidism type: acquired Qualified Code(s): E03.9 - Hypothyroidism, unspecified (10) DVT prophylaxis Current Visit: Yes Status: Acute Assessment and plan: hold anticoagulation for now due to hematoma. EPCD - Subjective Interval history: 67M evaluated at bedside. patient denies nausea, vomiting, diarrhea, fever, chills, chest pain, shortness of breath. he reports being fatigued. - Constitutional Vitals: Temp Pulse Resp BP Pulse Ox 98.1 F 99 18 141/94 94 08/01/17 07:30 08/01/17 08:00 08/01/17 07:30 08/01/17 07:30 08/01/17 07:30 General appearance: Present: A&O X 3, morbidly obese, pleasant, no acute distress, answers questions appropriately - Head Head exam: Present: atraumatic, normocephalic - Neck Neck exam general surgery: Present: supple, trachea midline - Respiratory Respiratory exam: Present: wheezes - Cardiovascular Cardiovascular exam: Present: +S1, +S2, tachycardia - GI/Abdominal GI/Abdominal exam: Present: normal bowel sounds, tenderness. Absent: distended Additional comments: large lower abdominal wall hematoma - Extremities Exam Extremities exam: Present: pedal edema (+1 left lower extremity pitting edema). Absent: cyanotic - Neurological Exam Neurological exam: Present: alert, oriented X3, no focal deficits - Psychiatric Psychiatric exam: Present: normal affect, normal mood - Skin Skin exam: Present: intact Internal Medicine: Result - Labs CBC & Chem 7: 08/01/17 04:18 08/01/17 04:18 Labs: Short CBC 07/31/17 07/31/17 07/31/17 Range/Units 00:00 05:54 13:32 WBC 10.2 (4.3-11.1) K/mcL Hgb 8.5 L D 9.7 L 10.2 L (12.9-16.9) g/dL Hct 27.2 L 31.4 L 32.6 L (37.5-50.1) % Plt Count 128 L (140-400) K/mcL Neutrophils # 8.7 (1.6-8.9) K/mcL 08/01/17 Range/Units 04:18 WBC 5.3 (4.3-11.1) K/mcL Hgb 8.4 L D (12.9-16.9) g/dL Hct 27.1 L (37.5-50.1) % Plt Count 92 L (140-400) K/mcL Neutrophils # 4.5 (1.6-8.9) K/mcL BMP 08/01/17 04:18 Sodium 141 Potassium 3.8 Chloride 101 Carbon Dioxide 35 H BUN 35 H D Creatinine 1.39 H Glucose 227 H Calcium 8.6 - ABG Interpretation ABG results: ABG ABG pH 7.37 pH Units (7.32-7.45) 07/28/17 08:41 ABG pCO2 64 mmHg (35-45) H 07/28/17 08:41 ABG pO2 60 mmHg (85-104) L 07/28/17 08:41 ABG O2 Saturation 89 % (95-98) L 07/28/17 08:41 PT/INR, D-dimer PT 14.0 Seconds (9.4-12.1) H 08/01/17 04:18 - Impressions Impressions Pelvis CT 07/31/17 11:30 IMPRESSION: 1. Significant increase in the size of a rectus sheath hematoma observed on prior CT. Attenuation of fluid suggests acute/subacute blood. 2. Extension of hematoma to the pelvic floor contributing to extrinsic mass effect upon the bladder. Additional extension superiorly into the right retroperitoneum contributing to mass effect upon the nearby cecum. No intraperitoneal extension. Critical results were called by Dr. Dae Cabrales MD to Dr. Pearl on 07/31/2017 at 12:55. D/ / Dae Cabrales MD / Dae Cabrales MD Interpreting Provider: Dae Cabrales MD - VTE Documentation of Mechanical Device: Intermittent pneumatic compression device Consult Discharge Plan - Plan Referrals: George Hazel MD [Partnered Physician] - 08/15/17 1:00 pm Khurram Victoria DO [Primary Care Provider] - 08/09/17 11:30 am <Mega Pearl - Last Filed: 08/01/17 11:41> Date of Encounter: 08/01/17 - Assessment and plan (1) Anemia Current Visit: Yes Status: Acute Assessment and plan: Transfuse again today. Qualifiers: Anemia type: other cause Other causes of anemia: acute posthemorrhagic Qualified Code(s): D62 - Acute posthemorrhagic anemia (2) Rectus sheath hematoma Current Visit: Yes Status: Acute Qualifiers: Encounter type: subsequent encounter Qualified Code(s): S30.1XXD - Contusion of abdominal wall, subsequent encounter (3) Acute and chronic respiratory failure Current Visit: Yes Status: Acute Qualifiers: Respiratory failure complication: hypoxia and hypercapnia Qualified Code(s) : J96.21 - Acute and chronic respiratory failure with hypoxia; J96.22 - Acute and chronic respiratory failure with hypercapnia; J96.22 - Acute and chronic respiratory failure with hypercapnia; J96.22 - Acute and chronic respiratory failure with hypercapnia (4) Pneumonia Current Visit: Yes Status: Suspected Qualifiers: Pneumonia type: aspiration pneumonia Aspiration pneumonia type: due to gastric secretions Laterality: bilateral Lung location: upper lobe of lung Qualified Code(s): J69.0 - Pneumonitis due to inhalation of food and vomit (5) COPD exacerbation Current Visit: Yes Status: Acute (6) Atrial flutter Current Visit: Yes Status: Acute Qualifiers: Atrial flutter type: atypical Qualified Code(s): I48.4 - Atypical atrial flutter (7) CAD (coronary artery disease) Current Visit: Yes Status: Chronic Qualifiers: Coronary Disease-Associated Artery/Lesion type: [place] artery [place] vs. transplanted heart: [place] heart Associated angina: with unstable angina Qualified Code(s): I25.110 - Atherosclerotic heart disease of [place] coronary artery with unstable angina pectoris (8) Hypothyroidism Current Visit: Yes Status: Acute Qualifiers: Hypothyroidism type: acquired Qualified Code(s): E03.9 - Hypothyroidism, unspecified (9) Diabetes mellitus Current Visit: Yes Status: Chronic 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 mellitus complication status: with kidney complications Diabetes mellitus complication detail: with chronic kidney disease Diabetes mellitus intermediate teacher insulin use: with longterm use Chronic kidney disease stage: stage 3 (moderate) Qualified Code(s): E11.22 - Type 2 diabetes mellitus with diabetic chronic kidney disease; N18.3 - Chronic kidney disease, stage 3 (moderate); N18.3 - Chronic kidney disease, stage 3 ( moderate); Z79.4 - senior care (current) use of insulin; Z79.4 - senior care ( current) use of insulin; Z79.4 - intermediate teacher (current) use of insulin; Z79.4 - intermediate teacher (current) use of insulin (10) Hypertension Current Visit: No Status: Resolved Qualifiers: Hypertension type: essential hypertension Qualified Code(s): I10 - Essential (primary) hypertension (11) Tobacco abuse Current Visit: Yes Status: Chronic - Constitutional Vitals: Temp Pulse Resp BP Pulse Ox 98.1 F 90 20 141/94 95 08/01/17 07:30 08/01/17 11:05 08/01/17 07:35 08/01/17 07:30 08/01/17 07:35 Internal Medicine: Result - Labs CBC & Chem 7: 08/01/17 04:18 08/01/17 04:18 Labs: Short CBC 07/31/17 07/31/17 07/31/17 Range/Units 00:00 05:54 13:32 WBC 10.2 (4.3-11.1) K/mcL Hgb 8.5 L D 9.7 L 10.2 L (12.9-16.9) g/dL Hct 27.2 L 31.4 L 32.6 L (37.5-50.1) % Plt Count 128 L (140-400) K/mcL Neutrophils # 8.7 (1.6-8.9) K/mcL 08/01/17 Range/Units 04:18 WBC 5.3 (4.3-11.1) K/mcL Hgb 8.4 L D (12.9-16.9) g/dL Hct 27.1 L (37.5-50.1) % Plt Count 92 L (140-400) K/mcL Neutrophils # 4.5 (1.6-8.9) K/mcL BMP 08/01/17 04:18 Sodium 141 Potassium 3.8 Chloride 101 Carbon Dioxide 35 H BUN 35 H D Creatinine 1.39 H Glucose 227 H Calcium 8.6 - ABG Interpretation ABG results: ABG ABG pH 7.37 pH Units (7.32-7.45) 07/28/17 08:41 ABG pCO2 64 mmHg (35-45) H 07/28/17 08:41 ABG pO2 60 mmHg (85-104) L 07/28/17 08:41 ABG O2 Saturation 89 % (95-98) L 07/28/17 08:41 PT/INR, D-dimer PT 14.0 Seconds (9.4-12.1) H 08/01/17 04:18 - Impressions Impressions Pelvis CT 07/31/17 11:30 IMPRESSION: 1. Significant increase in the size of a rectus sheath hematoma observed on prior CT. Attenuation of fluid suggests acute/subacute blood. 2. Extension of hematoma to the pelvic floor contributing to extrinsic mass effect upon the bladder. Additional extension superiorly into the right retroperitoneum contributing to mass effect upon the nearby cecum. No intraperitoneal extension. Critical results were called by Dr. Dae Cabrales MD to Dr. Pearl on 07/31/2017 at 12:55. D/ / Dae Cabrales MD / Dae Cabrales MD Interpreting Provider: Dae Cabrales MD - Attending Attestation I examined this patient and my medical decision-making was reviewed with the Resident Physician on 08/01/17. I agree with the documented findings, disposition and treatment plan as described except to the extent set forth below. Mr Humphries is currently admitted for COPD exac, atrial flutter and rectus sheath hematoma. He remains high risk due to potential for worsening clinical status. Mr Humphries is resting comfortably at this time. He remains in rapid a fib/ flutter. Intermittently he is in NSR/sinus tach. Still with pain in abdomen. Urinating OK at this time. No fever or chills. No CP. Breathing about the same. Exam Alert. Comfortable at this time. Mucus membranes dry Heart irreg and tachy Lungs with scattered rhonchi Abd with large ecchymosis and tenderness to palpation Edema present Hgb 8.4 INR 1.3 I/P 1. Rectus sheath hematoma - continue to monitor. Transfuse as needed. INR now better. 2. Anemia due to acute blood loss - transfuse as needed 3. Atrial flutter - rate control. Cannot have cardioversion due to bleeding and unable to be anticoagulated 4. COPD Further diagnoses and plan as above Palliative to see today.
--- NOTE | 2017-08-01 10:28 | Palliative - Consult Note ---
Date of Encounter: 08/01/17 Time of Encounter: 08:45 - Assessment and Plan (1) Goals of care, counseling/discussion Current Visit: Yes Status: Acute Assessment and plan: Patient awake and alert. Conducted bedside meeting with patient. No family at bedside. Discussed patients current POC in relationship to his expanding rectus sheath bleeding hematoma, cardiac rhythm, COPD and overall prognosis. Discussed patients need for blood transfusions as patient still has active bleeding to rectal sheath, cardiac drips of cardizem and amiodarone for rhythm and rate control and antibiotics for COPD exacerbation. Patient is aware of comorbid conditions and denies having advanced directives. Prior to admit, he was living alone, he is without children. He does have a sister Mildred and she has been visiting him in the hospital. The patient continues to need blood and FFP but d/t his risk for bleeding he cannot undergo IR interventions for hematoma bleeding or Cardiac cardioversion for rhythm control. I explained to the patient that he has a lot of issues going on and that his interventions for treatment are limited. He verbalized that he still desires to have blood infusions, and medications that could facilitate treatment. I discussed his continued bleeding despite maximum medical therapy and that this could result in a a rapid decline in his status if he continues to bleed. He states that if he needs to transition to comfort care that he wishes to pass away at home. He doesn't want to be in an ECF or pass away in a hospital. His goals for passing would be at his home. I recommended that we call Mildred his sister to have another meeting to discuss prognosis and desires. He desires to remain a FULL CODE for now and he would only desire short term intubation. I called Mildred and she will be here at 1300 today for a meeting. Case discussed with Dr. Quevedo and Dr. Pearl (2) Rectus sheath hematoma Current Visit: Yes Status: Acute Assessment and plan: CT revealed increased rectal sheath hematoma bleeding now into pelvic floor. Patient Hgb 8.4 and Hct 27.1. Patient receiving blood transfusions. Patient denies chest pain, SOB. Vital signs stable. Alert and oriented. Continue to provide medical support as indicated by serial H/H. Patient desires blood transfusions as indicated. Qualifiers: Encounter type: initial encounter Qualified Code(s): S30.1XXA - Contusion of abdominal wall, initial encounter (3) Dyspnea Current Visit: Yes Status: Acute Assessment and plan: Continue steroids, antibiotics, O2 and duonebs. Position for comfort. Qualifiers: Dyspnea type: dyspnea on exertion Qualified Code(s): R06.09 - Other forms of dyspnea (4) Atrial fibrillation with RVR Current Visit: Yes Status: Acute Assessment and plan: Cardiology following. (5) COPD (chronic obstructive pulmonary disease) Current Visit: Yes Status: Chronic Qualifiers: COPD type: unspecified COPD Qualified Code(s): J44.9 - Chronic obstructive pulmonary disease, unspecified Palliative-CN HPI - Data of Consult Patient: new to practice Consult date: 08/01/17 Requesting Physician: Bekah Quevedo Primary Care Provider: Khurram Victoria DO - Consult Narrative Palliative Care/Comfort Measures: Palliative care Reason for consult: Goals of care History of present illness: Mr. Humphries is a 66 year old male with past medical history of COPD, coronary artery disease, CHF, diabetes, hyperlipidemia and hypertension. Patient on day nine of admission. Was admitted with complaints of shortness of breath and cough. Patient is awake and alert. Not in any distress. Able to provide medical history. No family members at bedside. Patient states his symptoms of shortness of breath and cough have improved. He has shortness of breath with exertion. Patient uses oxygen at home and also uses nebulizer breathing treatments at home, and has home health and meals on wheels. He currently lives alone and drives himself as needed. Denies chest pain or dizziness. Patient states he continues to smoke daily, but says he smokes only a few cigarettes per day. No other acute complaints. Patient experienced suspicion for DVT and received anticoagulation therapy which resulted in a rectus sheeth hematoma that has now expanded into the pelvic floor region per CT scan on 07/31/17. Surgery consult was reviewed as well as IR and Cardiac interventions cannot be performed d/t poor bleeding risk. At present the patient is receiving Cardizem and Amiodarone drips for Atrial fib/flutter that the patient is in and out of. This palliative care consult is for goals of care discussions. The patient has no or children but states he has a sister Mildred. Current CODE STATUS Full Code. CC: Mega Pearl DO Past Med Surg Social Fam HX - Past Medical History Source: patient, old records reviewed, obtained from family, nursing notes reviewed Medical history: COPD, coronary artery disease, diabetes, hyperlipidemia, hypertension Psychiatric history: no psych history - Social History Smoking Status: Current every day smoker Packs per day: 3 Smokeless Tobacco Status: No Alcohol use: none Drug use: none Occupational status: unemployed Current living situation: Home Activity Level: Independent ambulation Recent Out of Country Travel Within the Last 8 Weeks: No Exposure or Possible Exposure to Illness During Travel: No Medications and Allergies Amlodipine Besylate 2.5 mg PO DAILY 06/16/16 [History] Clopidogrel [Plavix] 75 mg PO DAILY 06/16/16 [History] Fenofibrate Nanocrystallized [Tricor] 48 mg PO DAILY 06/16/16 [History] GlipiZIDE [Glipizide Xl] 5 mg PO DAILY 06/16/16 [History] Lisinopril [Zestril] 10 mg PO DAILY 06/16/16 [History] Montelukast Sodium [Singulair] 10 mg PO DAILY 06/16/16 [History] Pantoprazole Sodium [Protonix] 40 mg PO DAILY 06/16/16 [History] Tamsulosin [Flomax] 0.4 mg PO DAILY 06/16/16 [History] Budesonide/Formoterol 80/4.5 [Symbicort 80/4.5] 1 puff IH BID 08/07/16 [History ] Isosorbide MONOnitrate (24 HR) [Imdur] 30 mg PO DAILY 08/07/16 [History] Polyethylene Glycol 3350 [MiraLAX] 17 gm PO DAILY 08/07/16 [History] predniSONE [Prednisone] 5 mg PO DAILY 08/07/16 [History] Insulin ASPART [Novolog Flexpen] 0 unit SQ ACHS #200 unit 08/09/16 [Rx] Metoprolol [Lopressor] 50 mg PO BID #30 08/09/16 [Rx] Atorvastatin Calcium [Lipitor] 80 mg PO HS 07/23/17 [History] Levothyroxine [Synthroid] 125 mcg PO 0630 07/30/17 [History] 3 Allergy/AdvReac Type Severity Reaction Status Date / Time adenosine Allergy See Verified 08/07/16 16:26 Comments fluticasone Allergy See Verified 08/07/16 16:26 [From Advair Diskus] Comments Iodinated Contrast- Oral and Allergy See Verified 06/16/16 15:37 IV Dye Comments [Iodinated Contrast Media - IV Dye] salmeterol Allergy See Verified 08/07/16 16:26 [From Advair Diskus] Comments All systems: reviewed and no additional remarkable complaints except as stated ( lower pelvic pressure) - Constitutional Constitutional ROS PAL: fatigue - Cardiovascular Cardiovascular ROS: irregular heart rhythm, pedal edema - Respiratory Respiratory: dyspnea on exertion, wheezing - Gastrointestinal Gastrointestinal: cramping - Genitourinary Genitourinary ROS male: urinary frequency - Musculoskeletal Musculoskeletal ROS IM: muscle weakness Palliative Care-Exam - Constitutional Vitals: Temp Pulse Resp BP Pulse Ox 98.1 F 99 18 141/94 94 08/01/17 07:30 08/01/17 08:00 08/01/17 07:30 08/01/17 07:30 08/01/17 07:30 General appearance: Present: cooperative, no acute distress - Head Head Exam: Present: atraumatic, normal inspection - Eye Eye exam: Present: PERRL Pupils: Present: PERRL - ENT ENT exam: Present: mucous membranes moist - Expanded ENT Exam Mouth Exam: Present: moist - Neck Neck exam: Present: normal inspection - Respiratory Respiratory exam: Present: decreased breath sounds, wheezes - Expanded Respiratory Exam Location: decreased breath sounds: Left, Right, Lower - Cardiovascular Cardiovascular exam: Present: irregular rhythm, +S1, +S2 - Expanded Cardiovascular Exam Peripheral pulses: 1+: Femoral (L) PM, Femoral (R) PM, Posterior Tibialis (L), Posterior Tibialis (R), 2+: Carotid (L) PM, Carotid (R) PM, Radial (L), Radial ( R), Dorsalis Pedis (L) PM, Dorsalis Pedis (R) PM - GI/Abdominal Exam GI/Abdominal exam: Present: normal bowel sounds, soft - Rectal Rectal Exam: Present: deferred - Additional comments: Voids per BSC - Extremities Exam Extremities exam: Present: pedal edema (2+) - Expanded Upper Extremities Exam Shoulder exam: Present: full ROM Upper Arm exam: Present: full ROM Forearm wrist exam: Present: full ROM - Expanded Lower Extremities Exam Upper Leg exam: Present: full ROM Lower Leg exam: Present: full ROM - Neurological Exam Neurological exam: Present: alert, CN II-XII intact, oriented X3 - Expanded Neurological Exam Patient oriented to: Present: person, place, time Coma Scale Eye Opening: Spontaneous Coma Scale Motor Response: Obeys Commands Coma Scale Verbal Response: Oriented Coma Scale Total: 15 - Psychiatric Psychiatric exam: Present: normal affect - Skin Skin exam: Present: pallor, warm Internal Medicine - CN: Reslt - Labs CBC & Chem 7: 08/01/17 04:18 08/01/17 04:18 Labs: Short CBC 07/31/17 07/31/17 07/31/17 Range/Units 00:00 05:54 13:32 WBC 10.2 (4.3-11.1) K/mcL Hgb 8.5 L D 9.7 L 10.2 L (12.9-16.9) g/dL Hct 27.2 L 31.4 L 32.6 L (37.5-50.1) % Plt Count 128 L (140-400) K/mcL Neutrophils # 8.7 (1.6-8.9) K/mcL 08/01/17 Range/Units 04:18 WBC 5.3 (4.3-11.1) K/mcL Hgb 8.4 L D (12.9-16.9) g/dL Hct 27.1 L (37.5-50.1) % Plt Count 92 L (140-400) K/mcL Neutrophils # 4.5 (1.6-8.9) K/mcL BMP 08/01/17 04:18 Sodium 141 Potassium 3.8 Chloride 101 Carbon Dioxide 35 H BUN 35 H D Creatinine 1.39 H Glucose 227 H Calcium 8.6 - ABG Interpretation ABG results: ABG ABG pH 7.37 pH Units (7.32-7.45) 07/28/17 08:41 ABG pCO2 64 mmHg (35-45) H 07/28/17 08:41 ABG pO2 60 mmHg (85-104) L 07/28/17 08:41 ABG O2 Saturation 89 % (95-98) L 07/28/17 08:41 PT/INR, D-dimer PT 14.0 Seconds (9.4-12.1) H 08/01/17 04:18 - Impressions Impressions Pelvis CT 07/31/17 11:30 IMPRESSION: 1. Significant increase in the size of a rectus sheath hematoma observed on prior CT. Attenuation of fluid suggests acute/subacute blood. 2. Extension of hematoma to the pelvic floor contributing to extrinsic mass effect upon the bladder. Additional extension superiorly into the right retroperitoneum contributing to mass effect upon the nearby cecum. No intraperitoneal extension. Critical results were called by Dr. Dae Cabrales MD to Dr. Pearl on 07/31/2017 at 12:55. D/ / Dae Cabrales MD / Dae Cabrales MD Interpreting Provider: Dae Cabrales MD Consult Discharge Plan - Plan Referrals: George Hazel MD [Partnered Physician] - 08/15/17 1:00 pm Khurram Victoria DO [Primary Care Provider] - 08/01/17 11:30 am Palliative Quality Palliative Quality: Screen for Code Status: Yes, Screen for Goals of Care: Yes, Screen for Pain: Yes, If Pain Regimen Started, Initiate Bowel Regimen: Yes, Screen for Nausea/Vomitting: Yes Code Status: Full Code
[2017-08-01] MEDS: Budesonide/Formoterol 80/4.5 MDI IH SCH ×2 (11:39→20:05)
[2017-08-01] MEDS ORDERED: 0.9 % Sodium Chloride 250 ML ONE (12:03)
--- NOTE | 2017-08-01 13:50 | Event Note ---
Date of Encounter: 08/01/17 Time of Encounter: 13:00 Conducted 45 minute bedside meeting with patients sister Mildred and members of the mu-ism. Explained patients condition in regards to cardiac Rhythm and rectal sheath bleeding. I explained that the patient is receiving blood transfusions and as evidenced on the CT yesterday is still bleeding into the pelvic floor. They verbalized understanding and the patient agrees to continue current treatments with medications and infusions as needed. We discussed goals of care for end-of-life comfort care if patient fails to remain stable in his current POC. Mildred's contact information was listed in the room on the patients dry erase board. Mildred - and Home [phone]. We will continue to follow the patient and provide family updates as warranted. Thank you!
[2017-08-01] MEDS: *HR* Amiodarone 200 MG TABLET PO SCH ×2 (14:41→20:54)
--- NOTE | 2017-08-01 16:37 | Electrocardiograph Report ---
[address] [address] Test Date: 2017-07-31 Pat Name: Devyn Humphries Department: 110 Room: 2N03 Gender: M Stockroom Coordinator: : 1950 Requested By: Mega Pearl Order Number: [id number] Reading MD: Nieves Yan Measurements Intervals [place] Rate: 91 P: 263 OR: 92 QRS: 71 QRSD: 105 T: 52 QT: 371 QTc: 420 Interpretive Statements SINUS RHYTHM POSSIBLE LEFT ATRIAL ENLARGEMENT LOW QRS VOLTAGE IN EXTREMITY LEADS ABNORMAL RHYTHM ECG Electronically Signed On 08-01-2017 16:35:47 EST by Nieves Yan
--- NOTE | 2017-08-01 16:44 | Electrocardiograph Report ---
[address] [place], [place] [address] Test Date: 2017-07-31 Pat Name: Devyn Humphries Department: 110 Room: 2N03 Gender: M Va Underwriter: OLAF : 1950 Requested By: Maty Pichardo Order Number: [id number] Reading MD: Nieves Yan Measurements Intervals [place] Rate: 157 P: VT: 0 QRS: 27 QRSD: 105 T: 17 QT: 283 QTc: 371 Interpretive Statements ATRIAL FLUTTER/TACHYCARDIA WITH RAPID VENTRICULAR RESPONSE LOW QRS VOLTAGE IN EXTREMITY LEADS ABNORMAL RHYTHM ECG Electronically Signed On 08-01-2017 16:42:44 EST by Nieves Yan
--- NOTE | 2017-08-01 16:45 | Electrocardiograph Report ---
[address] [address] Test Date: 2017-07-31 Pat Name: Devyn Humphries Department: 110 Room: 2N03 Gender: M Psychiatric Specialist: OLAF : 1950 Requested By: Mega Pearl Order Number: [id number] Reading MD: Nieves Yan Measurements Intervals [place] Rate: 151 P: DE: 0 QRS: 5 QRSD: 83 T: -1 QT: 286 QTc: 372 Interpretive Statements ATRIAL FLUTTER/TACHYCARDIA WITH RAPID VENTRICULAR RESPONSE ABNORMAL RHYTHM ECG Electronically Signed On 08-01-2017 16:43:03 EST by Nieves Yan
[2017-08-01 18:30] LABS: Hematocrit 31.5 % (37.5-50.1); Hemoglobin 9.8 g/dL (12.9-16.9)
[2017-08-01] MEDS: Sennosides/Docusate Sodium TABLET PO SCH (20:54)
[2017-08-01] MEDS ORDERED: dilTIAZem HCl 100 MG in D5% in Water 50 ML IVC SCH (22:24)
[2017-08-02] MEDS: Ipratropium Neb 0.5 MG NEBULIZER IH SCH ×6 (00:25→20:42)
[2017-08-02] MEDS: Levalbuterol Neb 1.25 MG/3 ML IH SCH ×6 (00:25→20:42)
[2017-08-02] MEDS: Amiodarone Premix 360 MG/200 ML BAG IVC SCH ×2 (02:45→12:59)
[2017-08-02 03:35] LABS: Basophils % 0.1 %; Eosinophils % 0.1 %; Hematocrit 29.2 % (37.5-50.1); Hemoglobin 9.2 g/dL (12.9-16.9); Immature Granulocytes % 5.4 % (0-4); Lymphocytes # 0.4 K/mcL (0.6-4.6); Lymphocytes % 4.7 %; Mean Corpuscular HGB Conc 31.5 g/dL (31.6-35.5); Mean Corpuscular Hemoglobin 29.7 pg (28.0-33.3); Mean Corpuscular Volume 94.2 fL (83.0-100.0); Mean Platelet Volume 11.1 fL (9.4-12.4); Monocytes # 0.5 K/mcL (0.0-1.3); Monocytes % 5.4 %; Neutrophils # 7.2 K/mcL (1.6-8.9); Nucleated Red Blood Cells 0.2 /100 WBC (0); Platelet Count 102 K/mcL (140-400); Red Cell Distribution Width 14.8 % (11.5-14.5); Segmented Neutrophils % 84.3 %
[2017-08-02 03:44] LABS: INR 1.1; Prothrombin Time 12.4 Seconds (9.4-12.1)
[2017-08-02 03:56] LABS: BUN/Creatinine Ratio 18 (6-26); Blood Urea Nitrogen 25 mg/dL (8-26); Calcium 8.4 mg/dL (8.6-10.8); Carbon Dioxide 31 mEq/L (19-29); Chloride 104 mEq/L (98-109); Glucose 219 mg/dL (70-99); Magnesium 1.9 mg/dL (1.6-2.6); Osmolality,Calculated 301 (280-300); Phosphorous 1.7 mg/dL (2.3-4.7); Potassium 4.5 mEq/L (3.5-4.5); Sodium 140 mEq/L (136-145); eGFR For African Americans > 60 (> 60); eGFR For Non-African Americans 52 (> 60)
[2017-08-02 05:30] LABS: Platelet Estimate Slight Decrease (Normal)
[2017-08-02] MEDS: Budesonide/Formoterol 80/4.5 MDI IH SCH ×2 (07:20→20:43)
[2017-08-02] MEDS: Piperacillin/Tazobactam 3.375 GM/200 ML BAG IVPB SCH ×2 (08:17→17:30)
[2017-08-02] MEDS: Insulin LISPRO 300 UNITS/3 ML VIAL SQ SCH ×4 (08:18→21:10)
[2017-08-02] MEDS: Fenofibrate 54 MG TABLET PO SCH (08:18)
[2017-08-02] MEDS: Sennosides/Docusate Sodium TABLET PO SCH ×2 (08:18→21:11)
[2017-08-02] MEDS: predniSONE 20 MG TABLET PO SCH (08:19)
[2017-08-02] MEDS: *HR* Amiodarone 200 MG TABLET PO SCH ×2 (08:19→21:11)
[2017-08-02] MEDS: Isosorbide MONOnitrate (24 HR) 30 MG TAB.ER.24H PO SCH (08:19)
--- NOTE | 2017-08-02 09:23 | Palliative Progress Note ---
Date of Encounter: 08/02/17 Time of Encounter: 09:20 - Assessment and plan (1) Dyspnea Current Visit: Yes Status: Acute Assessment and plan: Has improved since admission and pt states at baseline. Continues with supportive oxygen/nebs/steroids. Monitor Qualifiers: Dyspnea type: dyspnea on exertion Qualified Code(s): R06.09 - Other forms of dyspnea (2) Rectus sheath hematoma Current Visit: Yes Status: Acute Assessment and plan: Patient desires transfusions as necessary. Hbg stable this am. Qualifiers: Encounter type: subsequent encounter Qualified Code(s): S30.1XXD - Contusion of abdominal wall, subsequent encounter (3) Atrial fibrillation with RVR Current Visit: Yes Status: Acute Assessment and plan: Cardiology following (4) Goals of care, counseling/discussion Current Visit: Yes Status: Acute Assessment and plan: Continues full code - ok with short term intubation if needed. Appears improved today. Will continue to follow clinical course and assist as needed. - Time Spent With Patient Total time spent is greater than 50% in coordination of care (as documented) at patient's floor/unit and/or counseling patient: 25 - 35 minutes - Subjective Interval history: Patient awake and resting. Denies any pain or discomfort. States abd area " just feels full". States breathing at baseline. No family at bedside. Hgb stable at 9.2. Remains on amiodarone drip - Constitutional Vitals: Abnormal lab results RBC 3.10 M/mcL (4.19-5.50) L 08/02/17 03:05 Hgb 9.2 g/dL (12.9-16.9) L 08/02/17 03:05 Hct 29.2 % (37.5-50.1) L 08/02/17 03:05 MCHC 31.5 g/dL (31.6-35.5) L 08/02/17 03:05 RDW 14.8 % (11.5-14.5) H 08/02/17 03:05 Plt Count 102 K/mcL (140-400) L 08/02/17 03:05 Immature Gran % 5.4 % (0-4) H 08/02/17 03:05 Lymphocytes # 0.4 K/mcL (0.6-4.6) L 08/02/17 03:05 Nucleated RBCs/100 WBC 0.2 /100 WBC (0) H 08/02/17 03:05 Platelet Estimate Slight Decrease (Normal) L 08/02/17 03:05 Immature Plt Fraction 7.7 % (1.1-6.1) H 08/01/17 04:18 PT 12.4 Seconds (9.4-12.1) H 08/02/17 03:05 APTT 88.2 Seconds (26.0-36.0) H 07/30/17 17:33 Heparin Anti-Xa, Unfract 1.09 IU/mL (0.30-0.70) H* 07/29/17 04:58 ABG pCO2 64 mmHg (35-45) H 07/28/17 08:41 ABG pO2 60 mmHg (85-104) L 07/28/17 08:41 ABG HCO3 37 mEq/L (21-27) H 07/28/17 08:41 ABG Total CO2 39 mEq/L (20-26) H 07/28/17 08:41 ABG O2 Saturation 89 % (95-98) L 07/28/17 08:41 ABG Base Excess 10 mEq/L (-2 to 3) H 07/28/17 08:41 Carbon Dioxide 31 mEq/L (19-29) H 08/02/17 03:05 Creatinine 1.36 mg/dL (0.72-1.25) H 08/02/17 03:05 Est GFR (Non-Af Amer) 52 (> 60) L 08/02/17 03:05 Glucose 219 mg/dL (70-99) H 08/02/17 03:05 POC Glucose 272 (58-89) H 08/01/17 20:18 Calculated Osmolality 301 (280-300) H 08/02/17 03:05 Calcium 8.4 mg/dL (8.6-10.8) L 08/02/17 03:05 Phosphorus 1.7 mg/dL (2.3-4.7) L 08/02/17 03:05 Total Bilirubin 1.4 mg/dL (0.2-1.2) H 07/23/17 13:38 B-Natriuretic Peptide 107 pg/mL (0-100) H 07/23/17 12:50 Albumin 3.1 g/dL (3.5-5.0) L 07/23/17 13:38 Albumin/Globulin Ratio 1.0 (1.1-2.2) L 07/23/17 13:38 TSH 0.187 mcIU/mL (0.350-4.840) L 07/31/17 05:54 Urine Clarity Cloudy (Clear) A 07/23/17 15:02 Urine Protein 30 mg/dL (Neg-Trace) H 07/23/17 15:02 Urine Ketones Trace mg/dL (Negative) H 07/23/17 15:02 Urine Nitrite Positive (Negative) A 07/23/17 15:02 Urine Bilirubin Moderate (Negative) H 07/23/17 15:02 Ur Leukocyte Esterase Small (Negative) H 07/23/17 15:02 Urine Microscopic WBC 5-15 per hpf (0-3) H 07/23/17 15:02 Ur Squamous Epith Cells Many per lpf (None-Few) H 07/23/17 15:02 Ur Culture Indicated? YES (NO) A 07/23/17 15:02 General appearance: Present: no acute distress, obese - Respiratory Respiratory exam: Present: decreased breath sounds, CTAB - Cardiovascular Cardiovascular exam: Present: +S1, +S2 - GI/Abdominal GI/Abdominal exam: Present: distended, normal bowel sounds, soft - Extremities Exam Extremities exam: Present: normal capillary refill, normal inspection - Neurological Exam Neurological exam: Present: alert, oriented X3, strengths equal and symetr throughout - Skin Skin exam: Present: dry, pallor, warm Palliative Quality Palliative Quality: Screen for Code Status: Yes, Screen for Goals of Care: Yes, Screen for Pain: Yes, If Pain Regimen Started, Initiate Bowel Regimen: Yes, Screen for Nausea/Vomitting: Yes - Labs CBC & Chem 7: 08/02/17 03:05 08/02/17 03:05 Labs: Laboratory Results - last 24 hr 07/31/17 08/01/17 08/01/17 13:32 07:32 11:40 WBC RBC Hgb Hct MCV MCH MCHC RDW Plt Count MPV Immature Gran % Seg Neutrophils % Lymphocytes % Monocytes % Eosinophils % Basophils % Neutrophils # Lymphocytes # Monocytes # Eosinophils # Basophils # Nucleated RBCs/100 WBC Platelet Estimate PT INR Sodium Potassium Chloride Carbon Dioxide BUN Creatinine Est GFR ( Amer) Est GFR (Non-Af Amer) BUN/Creatinine Ratio Glucose POC Glucose 217 H 253 H Calculated Osmolality Calcium Phosphorus Magnesium Blood Type O POSITIVE Antibody Screen NEGATIVE Crossmatch See Detail 08/01/17 08/01/17 08/01/17 16:32 18:02 20:18 WBC RBC Hgb 9.8 L Hct 31.5 L MCV MCH MCHC RDW Plt Count MPV Immature Gran % Seg Neutrophils % Lymphocytes % Monocytes % Eosinophils % Basophils % Neutrophils # Lymphocytes # Monocytes # Eosinophils # Basophils # Nucleated RBCs/100 WBC Platelet Estimate PT INR Sodium Potassium Chloride Carbon Dioxide BUN Creatinine Est GFR ( Amer) Est GFR (Non-Af Amer) BUN/Creatinine Ratio Glucose POC Glucose 219 H 272 H Calculated Osmolality Calcium Phosphorus Magnesium Blood Type Antibody Screen Crossmatch 08/02/17 08/02/17 08/02/17 03:05 03:05 03:05 WBC 8.5 D RBC 3.10 L Hgb 9.2 L Hct 29.2 L MCV 94.2 MCH 29.7 MCHC 31.5 L RDW 14.8 H Plt Count 102 L MPV 11.1 Immature Gran % 5.4 H Seg Neutrophils % 84.3 Lymphocytes % 4.7 Monocytes % 5.4 Eosinophils % 0.1 Basophils % 0.1 Neutrophils # 7.2 Lymphocytes # 0.4 L Monocytes # 0.5 Eosinophils # 0.0 Basophils # 0.0 Nucleated RBCs/100 WBC 0.2 H Platelet Estimate Slight Decrease L PT 12.4 H INR 1.1 Sodium 140 Potassium 4.5 Chloride 104 Carbon Dioxide 31 H BUN 25 D Creatinine 1.36 H Est GFR ( Amer) > 60 Est GFR (Non-Af Amer) 52 L BUN/Creatinine Ratio 18 Glucose 219 H POC Glucose Calculated Osmolality 301 H Calcium 8.4 L Phosphorus 1.7 L Magnesium 1.9 Blood Type Antibody Screen Crossmatch - ABG Interpretation ABG results: ABG ABG pH 7.37 pH Units (7.32-7.45) 07/28/17 08:41 ABG pCO2 64 mmHg (35-45) H 07/28/17 08:41 ABG pO2 60 mmHg (85-104) L 07/28/17 08:41 ABG O2 Saturation 89 % (95-98) L 07/28/17 08:41 PT/INR, D-dimer PT 12.4 Seconds (9.4-12.1) H 08/02/17 03:05 Consult Discharge Plan - Plan Referrals: George Hazel MD [Partnered Physician] - 08/15/17 1:00 pm Khurram Victoria DO [Primary Care Provider] - 08/09/17 11:30 am
--- NOTE | 2017-08-02 11:50 | Internal Med Progress Note ---
<Bekah Quevedo - Last Filed: 08/02/17 11:48> Date of Encounter: 08/02/17 Time of Encounter: 11:48 - Assessment and plan (1) Atrial tachycardia Current Visit: No Status: Acute Assessment and plan: Likely Aflutter Echo 07/29/17 showed LVEF 60%, mild LV diastolic dysfunction, mildly dilated left atrium, no wall motion abnormalities. cardio on board. hesitant to do NINOSKA/DCC due to bleeding and needing to be on anticoagulation post procedure. HAS-Bled: 6: alternatives to anticoagulation should be considered CHADS/VASC: 4 Plan: consult to cardio- appreciate recs continue amiodarone gtt, continue to wean as tolerated, continue PO amiodarone. coagulopathy reversed, continue to monitor INR appreciate surgery recs for abdominal wall hematoma. consult to palliative care for goals of care discussion. trying to arrange family meeting. discharge planning in progress. (2) Rectus sheath hematoma Current Visit: Yes Status: Acute Assessment and plan: repeat CT pelvis today showed significant increase in the size of rectus sheath hematoma compared from prior CT with attenuation of fluid. there is extension of hematoma into the pelvic floor contributing to extrinsic mass effect. Plan: as above Qualifiers: Encounter type: subsequent encounter Qualified Code(s): S30.1XXD - Contusion of abdominal wall, subsequent encounter (3) Acute and chronic respiratory failure Current Visit: Yes Status: Acute Assessment and plan: Acute on chronic respiratory failure with hypercapnia and hypoxia secondary to acute exacerbation of COPD CXR showed bibasilar atalectasis influenza A/B negative. chest CT showed moderate to severe diffuse bronchial wall inflammation with multifocal tree in bud like opacities, opacities in right lower and left upper lobes, possible aspiration. Plan: continue IV zosyn- day 7 oral prednisone Qualifiers: Respiratory failure complication: hypoxia and hypercapnia Qualified Code(s) : J96.21 - Acute and chronic respiratory failure with hypoxia; J96.22 - Acute and chronic respiratory failure with hypercapnia; J96.22 - Acute and chronic respiratory failure with hypercapnia; J96.22 - Acute and chronic respiratory failure with hypercapnia (4) COPD exacerbation Current Visit: Yes Status: Acute Assessment and plan: acute on chronic respiratory failure with hypercapnia, hypoxia secondary to COPD exacerbation. plan as above (5) CAD (coronary artery disease) Current Visit: Yes Status: Chronic Assessment and plan: continue atorvastatin. Qualifiers: Coronary Disease-Associated Artery/Lesion type: [place] artery [place] vs. transplanted heart: [place] heart Associated angina: with unstable angina Qualified Code(s): I25.110 - Atherosclerotic heart disease of [place] coronary artery with unstable angina pectoris (6) CKD (chronic kidney disease) Current Visit: Yes Status: Chronic Assessment and plan: renal function at baseline. continue to monitor. Qualifiers: Chronic kidney disease stage: stage 3 (moderate) Qualified Code(s): N18.3 - Chronic kidney disease, stage 3 (moderate) (7) Diabetes mellitus Current Visit: Yes Status: Chronic Assessment and plan: continue medium dose sliding scale insulin diabetic diet ACHS accuchecks 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 mellitus complication status: with kidney complications Diabetes mellitus complication detail: with chronic kidney disease Diabetes mellitus care home insulin use: with eyeglass inspector use Chronic kidney disease stage: stage 3 (moderate) Qualified Code(s): E11.22 - Type 2 diabetes mellitus with diabetic chronic kidney disease; N18.3 - Chronic kidney disease, stage 3 (moderate); N18.3 - Chronic kidney disease, stage 3 ( moderate); Z79.4 - junior copywriter (current) use of insulin; Z79.4 - prison ( current) use of insulin; Z79.4 - prison (current) use of insulin; Z79.4 - junior copywriter (current) use of insulin (8) Morbid obesity Current Visit: Yes Status: Chronic Assessment and plan: lifestyle modifications advised (9) Hypothyroidism Current Visit: Yes Status: Acute Assessment and plan: TSH .187 hold synthroid in setting of atrial tachycardia Qualifiers: Hypothyroidism type: acquired Qualified Code(s): E03.9 - Hypothyroidism, unspecified (10) DVT prophylaxis Current Visit: Yes Status: Acute Assessment and plan: hold anticoagulation for now due to hematoma. EPCD - Subjective Interval history: 67M evaluated at bedside. patient denies nausea, vomiting, diarrhea, fever, chills, chest pain, shortness of breath. he was getting a breathing treatment upon my examination. - Constitutional Vitals: Temp Pulse Resp BP Pulse Ox 98.6 F 78 16 145/82 98 08/02/17 11:22 08/02/17 11:22 08/02/17 11:39 08/02/17 11:22 08/02/17 11:39 General appearance: Present: A&O X 3, morbidly obese, pleasant, no acute distress, answers questions appropriately - Head Head exam: Present: atraumatic, normocephalic - Neck Neck exam general surgery: Present: supple, trachea midline - Respiratory Respiratory exam: Present: CTAB - Cardiovascular Cardiovascular exam: Present: RRR, +S1, +S2 - GI/Abdominal GI/Abdominal exam: Present: distended, soft. Absent: tenderness Additional comments: large abdominal wall hematoma in lower abdomen- improving - Extremities Exam Extremities exam: Absent: cyanotic, pedal edema - Neurological Exam Neurological exam: Present: alert, oriented X3, no focal deficits - Psychiatric Psychiatric exam: Present: normal affect, normal mood - Skin Skin exam: Present: intact Internal Medicine: Result - Labs CBC & Chem 7: 08/02/17 03:05 08/02/17 03:05 Labs: Short CBC 08/01/17 08/02/17 Range/Units 18:02 03:05 WBC 8.5 D (4.3-11.1) K/mcL Hgb 9.8 L 9.2 L (12.9-16.9) g/dL Hct 31.5 L 29.2 L (37.5-50.1) % Plt Count 102 L (140-400) K/mcL Neutrophils # 7.2 (1.6-8.9) K/mcL BMP 08/02/17 03:05 Sodium 140 Potassium 4.5 Chloride 104 Carbon Dioxide 31 H BUN 25 D Creatinine 1.36 H Glucose 219 H Calcium 8.4 L - ABG Interpretation ABG results: ABG ABG pH 7.37 pH Units (7.32-7.45) 07/28/17 08:41 ABG pCO2 64 mmHg (35-45) H 07/28/17 08:41 ABG pO2 60 mmHg (85-104) L 07/28/17 08:41 ABG O2 Saturation 89 % (95-98) L 07/28/17 08:41 PT/INR, D-dimer PT 12.4 Seconds (9.4-12.1) H 08/02/17 03:05 - VTE Documentation of Mechanical Device: Intermittent pneumatic compression device Consult Discharge Plan - Plan Referrals: George Hazel MD [Partnered Physician] - 08/15/17 1:00 pm Khurram Victoria DO [Primary Care Provider] - 08/09/17 11:30 am <Mega Pearl - Last Filed: 08/02/17 14:04> Date of Encounter: 08/02/17 - Assessment and plan (1) Rectus sheath hematoma Current Visit: Yes Status: Acute Qualifiers: Encounter type: subsequent encounter Qualified Code(s): S30.1XXD - Contusion of abdominal wall, subsequent encounter (2) Anemia Current Visit: Yes Status: Acute Qualifiers: Anemia type: other cause Other causes of anemia: acute posthemorrhagic Qualified Code(s): D62 - Acute posthemorrhagic anemia (3) Acute and chronic respiratory failure Current Visit: Yes Status: Acute Qualifiers: Respiratory failure complication: hypoxia and hypercapnia Qualified Code(s) : J96.21 - Acute and chronic respiratory failure with hypoxia; J96.22 - Acute and chronic respiratory failure with hypercapnia; J96.22 - Acute and chronic respiratory failure with hypercapnia; J96.22 - Acute and chronic respiratory failure with hypercapnia (4) Pneumonia Current Visit: Yes Status: Suspected Qualifiers: Pneumonia type: aspiration pneumonia Aspiration pneumonia type: due to gastric secretions Laterality: bilateral Lung location: upper lobe of lung Qualified Code(s): J69.0 - Pneumonitis due to inhalation of food and vomit (5) COPD exacerbation Current Visit: Yes Status: Acute (6) Atrial flutter Current Visit: Yes Status: Acute Qualifiers: Atrial flutter type: atypical Qualified Code(s): I48.4 - Atypical atrial flutter (7) CAD (coronary artery disease) Current Visit: Yes Status: Chronic Qualifiers: Coronary Disease-Associated Artery/Lesion type: [place] artery [place] vs. transplanted heart: [place] heart Associated angina: with unstable angina Qualified Code(s): I25.110 - Atherosclerotic heart disease of [place] coronary artery with unstable angina pectoris (8) Hypothyroidism Current Visit: Yes Status: Acute Qualifiers: Hypothyroidism type: acquired Qualified Code(s): E03.9 - Hypothyroidism, unspecified (9) Diabetes mellitus Current Visit: Yes Status: Chronic 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 mellitus complication status: with kidney complications Diabetes mellitus complication detail: with chronic kidney disease Diabetes mellitus care home insulin use: with eyeglass inspector use Chronic kidney disease stage: stage 3 (moderate) Qualified Code(s): E11.22 - Type 2 diabetes mellitus with diabetic chronic kidney disease; N18.3 - Chronic kidney disease, stage 3 (moderate); N18.3 - Chronic kidney disease, stage 3 ( moderate); Z79.4 - junior copywriter (current) use of insulin; Z79.4 - junior copywriter ( current) use of insulin; Z79.4 - junior copywriter (current) use of insulin; Z79.4 - junior copywriter (current) use of insulin (10) Hypertension Current Visit: No Status: Resolved Qualifiers: Hypertension type: essential hypertension Qualified Code(s): I10 - Essential (primary) hypertension (11) Tobacco abuse Current Visit: Yes Status: Chronic - Constitutional Vitals: Temp Pulse Resp BP Pulse Ox 98.6 F 78 16 145/82 98 08/02/17 11:22 08/02/17 11:22 08/02/17 11:39 08/02/17 11:22 08/02/17 11:39 Internal Medicine: Result - Labs CBC & Chem 7: 08/02/17 03:05 08/02/17 03:05 Labs: Short CBC 08/01/17 08/02/17 Range/Units 18:02 03:05 WBC 8.5 D (4.3-11.1) K/mcL Hgb 9.8 L 9.2 L (12.9-16.9) g/dL Hct 31.5 L 29.2 L (37.5-50.1) % Plt Count 102 L (140-400) K/mcL Neutrophils # 7.2 (1.6-8.9) K/mcL BMP 08/02/17 03:05 Sodium 140 Potassium 4.5 Chloride 104 Carbon Dioxide 31 H BUN 25 D Creatinine 1.36 H Glucose 219 H Calcium 8.4 L - ABG Interpretation ABG results: ABG ABG pH 7.37 pH Units (7.32-7.45) 07/28/17 08:41 ABG pCO2 64 mmHg (35-45) H 07/28/17 08:41 ABG pO2 60 mmHg (85-104) L 07/28/17 08:41 ABG O2 Saturation 89 % (95-98) L 07/28/17 08:41 PT/INR, D-dimer PT 12.4 Seconds (9.4-12.1) H 08/02/17 03:05 - Attending Attestation I examined this patient and my medical decision-making was reviewed with the Resident Physician on 08/02/17. I agree with the documented findings, disposition and treatment plan as described except to the extent set forth below. Mr Humphries is currently admitted for acute resp failure, atrial flutter and rectus sheath hematoma. He remains moderate to high risk due to potential for worsening clinical status. Mr Humphries remains in sinus rhythm at this time. No CP. Breathing about baseline. Still with lower abd discomfort. H/H doing better today. No fever or chills. Exam Alert. Comfortable Mucus membranes dry Heart reg Lungs with some wheeze and rhonchi Abd soft - hematoma present Edema present I/P 1. Resp failure 2. Atrial flutter - not NSR. On amiodarone 3. Rectus sheath hematoma Further diagnoses and plan as above.
--- NOTE | 2017-08-02 12:08 | Electrophysiology ProgressNote ---
Date of Encounter: 08/02/17 Time of Encounter: 12:05 Assessment and Plan (1) Tachyarrhythmia Current Visit: Yes Status: Acute Per cardiology: -Atrial flutter, on amiodarone drip at 0.5mg/hour. On lopressor 75mg BID. Cardizem gtt stopped overnight after converting to NSR. Oral amiodarone started yesterday. -Average HR previous 12 hours noted to be 75 bpm, appears to be SR to junctional. EKG ordered. -Coumadin held 07/31/17 due to increasing rectus sheath hematoma and 2gm decrease in HGB. -TTE with LVEF 60%, mild diastolic dysfunction, mildly dilated left atrium, all wall segments with normal motion. -ECG today with atrial flutter, HR 151. QT 286, QTc 372ms. -ECG 07/27/17 with atrial flutter, HR 143. QT 246, QTc 329ms. -Due to acute anemia requiring holding coumadin patient is not a candidate for DCCV. Now NSr. Continue lopressor and amiodarone. Continue amiodarone 400 mg BID until discharge. At discharge start amiodarone 200 mg BID for one month and then 200 mg daily. Continue to hold coumadin for large rectus sheath hematoma. EP will sign off. Please call with questions. Out-pt f/u will be scheduled in 2- 3 weeks. (2) Rectus sheath hematoma Current Visit: Yes Status: Acute Per cardiology: -CT with increasing rectus sheath hematoma. Surgery is following -Hemoglobin stable today s/p blood transfusion. -Coumadin on hold. Management per primary team. Qualifiers: Encounter type: subsequent encounter Qualified Code(s): S30.1XXD - Contusion of abdominal wall, subsequent encounter (3) Peripheral edema Current Visit: Yes Status: Acute Noted to have BLE edema. Patient has SOB, likely multifactoral in the setting COPD exacerbation and mild fluid overload. Patient with persistent aflutter with RVR and s/p blood transfusion is likely cause of fluid overload. Give one time dose lasix today. Fluid status + [id number]. Repeat as needed. Discussion w patient/family: The assessment and plan as outlined above was discussed with the patient and/or family members who expressed understanding and agreement. All questions were answered. Thank you for involving us in the care of your patient. Please call with any questions. Subjective Principal diagnosis: COPD exacerbation Interval history: Mr. Humphries is resting in bed comfortably. Continues to have lower abdominal pelvic tenderness unchanged. Denies chest pain. HR currently 80-90 appears to be SR to juctional. EKG ordered. Objective Vital Signs, Last 4 Hours Temp Pulse Resp BP Pulse Ox 08/02/17 11:39 16 98 08/02/17 11:22 98.6 F 78 145/82 98 08/02/17 09:00 87 149/90 08/02/17 08:24 71 General: Conversant, No Apparent Distress HEENT: Atraumatic, Normocephaly, Mucus Membranes Moist Neck: No JVD, Normal carotid pulses Cardiac: Reg Rate and Rhythm, Normal S1 and S2, No Murmur Lungs: Normal Breath Sounds, No Wheeze, Rales, Rhonchi Neuro: Alert and responsive, No focal deficits noted Abdomen: Soft, Other (tender to palpations. Ecchymosis noted on lower abdomen.) Skin: No rashes noted on visualized skin Musculoskeletal: No Chest Wall Tenderness Extremities: No Clubbing, No Cyanosis, Normal Pulses, Other (1+ ankle and pedal edema. ) Results 08/02/17 03:05 08/02/17 03:05 Lab Results 08/01/17 08/02/17 08/02/17 18:02 03:05 03:05 WBC 8.5 D Hgb 9.8 L 9.2 L Hct 31.5 L 29.2 L Plt Count 102 L INR 1.1 Sodium Potassium Chloride Carbon Dioxide BUN Creatinine Glucose Calcium Magnesium 08/02/17 03:05 WBC Hgb Hct Plt Count INR Sodium 140 Potassium 4.5 Chloride 104 Carbon Dioxide 31 H BUN 25 D Creatinine 1.36 H Glucose 219 H Calcium 8.4 L Magnesium 1.9 - Imaging and Cardiology Echo: report reviewed - VTE Documentation of Mechanical Device: Intermittent pneumatic compression device Consult Discharge Plan - Plan Referrals: George Hazel MD [Partnered Physician] - 08/15/17 1:00 pm Khurram Victoria DO [Primary Care Provider] - 08/09/17 11:30 am
[2017-08-02] MEDS ORDERED: Furosemide 40 MG/4 ML VIAL IVP ONE (12:09)
--- NOTE | 2017-08-02 16:54 | Electrocardiograph Report ---
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
--- NOTE | 2017-08-02 17:19 | Electrocardiograph Report ---
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
[2017-08-02] MEDS ORDERED: Melatonin 3 MG TABLET PO SCH (21:00)
[2017-08-03] MEDS: Levalbuterol Neb 1.25 MG/3 ML IH SCH ×7 (04:42→23:51)
[2017-08-03] MEDS: Ipratropium Neb 0.5 MG NEBULIZER IH SCH ×7 (04:42→23:51)
[2017-08-03 05:23] LABS: Basophils % 0.3 %; Eosinophils % 0.3 %; Hematocrit 33.4 % (37.5-50.1); Hemoglobin 10.4 g/dL (12.9-16.9); Immature Granulocytes % 4.2 % (0-4); Lymphocytes # 0.7 K/mcL (0.6-4.6); Lymphocytes % 6.3 %; Mean Corpuscular HGB Conc 31.1 g/dL (31.6-35.5); Mean Corpuscular Hemoglobin 29.2 pg (28.0-33.3); Mean Corpuscular Volume 93.8 fL (83.0-100.0); Mean Platelet Volume 11.1 fL (9.4-12.4); Monocytes # 0.5 K/mcL (0.0-1.3); Monocytes % 4.6 %; Neutrophils # 9.3 K/mcL (1.6-8.9); Platelet Count 120 K/mcL (140-400); Red Blood Count 3.56 M/mcL (4.19-5.50); Red Cell Distribution Width 14.7 % (11.5-14.5); Segmented Neutrophils % 84.3 %
[2017-08-03 05:31] LABS: INR 1.1; Prothrombin Time 11.7 Seconds (9.4-12.1)
[2017-08-03 05:38] LABS: BUN/Creatinine Ratio 15 (6-26); Blood Urea Nitrogen 22 mg/dL (8-26); Calcium 9.2 mg/dL (8.6-10.8); Carbon Dioxide 34 mEq/L (19-29); Chloride 101 mEq/L (98-109); Glucose 191 mg/dL (70-99); Magnesium 1.7 mg/dL (1.6-2.6); Osmolality,Calculated 296 (280-300); Phosphorous 2.4 mg/dL (2.3-4.7); Potassium 4.4 mEq/L (3.5-4.5); Sodium 139 mEq/L (136-145); eGFR For African Americans > 60 (> 60); eGFR For Non-African Americans 50 (> 60)
[2017-08-03] MEDS: *HR* Amiodarone 200 MG TABLET PO SCH ×2 (08:38→20:30)
[2017-08-03] MEDS: Isosorbide MONOnitrate (24 HR) 30 MG TAB.ER.24H PO SCH (08:38)
[2017-08-03] MEDS: predniSONE 20 MG TABLET PO SCH (08:38)
[2017-08-03] MEDS: Insulin LISPRO 300 UNITS/3 ML VIAL SQ SCH ×4 (08:40→20:31)
[2017-08-03] MEDS: Fenofibrate 54 MG TABLET PO SCH (08:43)
[2017-08-03] MEDS: Sennosides/Docusate Sodium TABLET PO SCH (08:43)
--- NOTE | 2017-08-03 09:49 | Event Note ---
Date of Encounter: 08/03/17 Time of Encounter: 09:45 Patient feeling well. Denies complaints. Hgb has improved, no evidence of further bleeding. PT/OT consults ordered, and he desires to continue current course of care. Palliative will sign off. Please call if needed.
--- NOTE | 2017-08-03 10:34 | Internal Med Progress Note ---
Date of Encounter: 08/03/17 Time of Encounter: 10:10 - Assessment and plan (1) Rectus sheath hematoma Current Visit: Yes Status: Acute Assessment and plan: Clinically improving. H/H has remained stable and he has not needed blood transfusion in 48 hours. Continue monitor clinically and monitor H/H. Qualifiers: Encounter type: subsequent encounter Qualified Code(s): S30.1XXD - Contusion of abdominal wall, subsequent encounter (2) Anemia Current Visit: Yes Status: Acute Assessment and plan: H/H has remained stable over last 48h. Qualifiers: Anemia type: other cause Other causes of anemia: acute posthemorrhagic Qualified Code(s): D62 - Acute posthemorrhagic anemia (3) Acute and chronic respiratory failure Current Visit: Yes Status: Acute Assessment and plan: Acute on chronic respiratory failure with hypercapnia and hypoxia secondary to acute exacerbation of COPD CXR showed bibasilar atalectasis influenza A/B negative. chest CT showed moderate to severe diffuse bronchial wall inflammation with multifocal tree in bud like opacities, opacities in right lower and left upper lobes, possible aspiration. Plan: Completing abx Taper steroids. Qualifiers: Respiratory failure complication: hypoxia and hypercapnia Qualified Code(s) : J96.21 - Acute and chronic respiratory failure with hypoxia; J96.22 - Acute and chronic respiratory failure with hypercapnia; J96.22 - Acute and chronic respiratory failure with hypercapnia; J96.22 - Acute and chronic respiratory failure with hypercapnia (4) Pneumonia Current Visit: Yes Status: Suspected Assessment and plan: Completing abx. Qualifiers: Pneumonia type: aspiration pneumonia Aspiration pneumonia type: due to gastric secretions Laterality: bilateral Lung location: upper lobe of lung Qualified Code(s): J69.0 - Pneumonitis due to inhalation of food and vomit (5) COPD exacerbation Current Visit: Yes Status: Acute Assessment and plan: acute on chronic respiratory failure with hypercapnia, hypoxia secondary to COPD exacerbation. plan as above (6) Atrial flutter Current Visit: Yes Status: Acute Assessment and plan: On oral amiodarone. Remains in NSR. Qualifiers: Atrial flutter type: atypical Qualified Code(s): I48.4 - Atypical atrial flutter (7) CAD (coronary artery disease) Current Visit: Yes Status: Chronic Assessment and plan: continue atorvastatin. Qualifiers: Coronary Disease-Associated Artery/Lesion type: [place] artery [place] vs. transplanted heart: [place] heart Associated angina: without angina Qualified Code(s): I25.10 - Atherosclerotic heart disease of [place] coronary artery without angina pectoris (8) Hypothyroidism Current Visit: Yes Status: Acute Assessment and plan: Restart synthyroid at a lower dose. Qualifiers: Hypothyroidism type: acquired Qualified Code(s): E03.9 - Hypothyroidism, unspecified (9) Diabetes mellitus Current Visit: Yes Status: Chronic Assessment and plan: continue medium dose sliding scale insulin diabetic diet ACHS accuchecks 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 mellitus complication status: with kidney complications Diabetes mellitus complication detail: with chronic kidney disease Diabetes mellitus vermin exterminator insulin use: with vermin exterminator use Chronic kidney disease stage: stage 3 (moderate) Qualified Code(s): E11.22 - Type 2 diabetes mellitus with diabetic chronic kidney disease; N18.3 - Chronic kidney disease, stage 3 (moderate); N18.3 - Chronic kidney disease, stage 3 ( moderate); Z79.4 - terminal make up operator (current) use of insulin; Z79.4 - [facility]CI ( current) use of insulin; Z79.4 - [facility] (current) use of insulin; Z79.4 - [facility] (current) use of insulin (10) Hypertension Current Visit: No Status: Resolved Assessment and plan: continue metoprolol hydralazine PRN Qualifiers: Hypertension type: essential hypertension Qualified Code(s): I10 - Essential (primary) hypertension (11) Tobacco abuse Current Visit: Yes Status: Chronic Assessment and plan: Cessation counselling. - Subjective Interval history: Mr Humphries is currently admitted for multiple medical issues including COPD exac , atrial flutter and rectus sheath hematoma. He remains moderate to high risk due to potential for worsening clinical status. Mr Humphries is feeling OK. He has not been up much. He is still having low abd discomfort. Stools are loose but he is on Miralax and Senna. No CP. Breathing about baseline. He has a lot of upper airway congestion he attributes to not moving around much. Remains in sinus rhythm. - Constitutional Vitals: Temp Pulse Resp BP Pulse Ox 97.4 F L 84 18 135/82 96 08/03/17 08:30 08/03/17 08:30 08/03/17 08:30 08/03/17 08:30 08/03/17 08:30 General appearance: Present: A&O X 3, morbidly obese, pleasant, answers questions appropriately - Head Head exam: Present: atraumatic, normocephalic - Eye Eye exam: Present: conjuntiva pink - ENT ENT exam: Present: mucous membranes moist - Respiratory Respiratory exam: Present: decreased breath sounds, rhonchi - Cardiovascular Cardiovascular exam: Present: RRR. Absent: tachycardia - GI/Abdominal GI/Abdominal exam: Present: soft, tenderness. Absent: mass - Extremities Exam Extremities exam: Present: pedal edema, warm. Absent: tenderness - Neurological Exam Neurological exam: Present: alert, oriented X3 - Skin Skin exam: Present: dry, warm. Absent: rash Internal Medicine: Result - Labs CBC & Chem 7: 08/03/17 05:09 08/03/17 05:09 Labs: Short CBC 08/03/17 Range/Units 05:09 WBC 11.0 (4.3-11.1) K/mcL Hgb 10.4 L (12.9-16.9) g/dL Hct 33.4 L (37.5-50.1) % Plt Count 120 L (140-400) K/mcL Neutrophils # 9.3 H (1.6-8.9) K/mcL BMP 08/03/17 05:09 Sodium 139 Potassium 4.4 Chloride 101 Carbon Dioxide 34 H BUN 22 Creatinine 1.42 H Glucose 191 H Calcium 9.2 - ABG Interpretation ABG results: ABG ABG pH 7.37 pH Units (7.32-7.45) 07/28/17 08:41 ABG pCO2 64 mmHg (35-45) H 07/28/17 08:41 ABG pO2 60 mmHg (85-104) L 07/28/17 08:41 ABG O2 Saturation 89 % (95-98) L 07/28/17 08:41 PT/INR, D-dimer PT 11.7 Seconds (9.4-12.1) 08/03/17 05:09 - VTE Documentation of Mechanical Device: Intermittent pneumatic compression device Consult Discharge Plan - Plan Referrals: George Hazel MD [Partnered Physician] - 08/15/17 1:00 pm Khurram Victoria DO [Primary Care Provider] - 08/09/17 11:30 am
[2017-08-03] MEDS: Budesonide/Formoterol 80/4.5 MDI IH SCH ×2 (11:54→20:07)
[2017-08-03] MEDS ORDERED: Acetaminophen 325 MG TABLET PO PRN (12:01)
[2017-08-03] MEDS ORDERED: Ipratropium/Albuterol Neb 3 ML IH PRN (12:01)
[2017-08-03] MEDS ORDERED: Dextrose Gel 15 GM PO PRN ×2 (12:01)
[2017-08-03] MEDS ORDERED: *HR* Dextrose 50 % in Water (Syg) 50 ML SYRINGE IVP PRN (12:01)
[2017-08-03] MEDS ORDERED: Naloxone 0.4 MG/ML INJ IVP PRN (12:01)
[2017-08-03] MEDS ORDERED: Ondansetron 4 MG/2 ML VIAL IVP PRN (12:01)
[2017-08-03] MEDS ORDERED: D5% in Water 1,000 ML IVC PRN (12:01)
[2017-08-03] MEDS ORDERED: Insulin LISPRO 300 UNITS/3 ML VIAL SQ ONE (13:07)
[2017-08-03] MEDS ORDERED: Insulin LISPRO 300 UNITS/3 ML VIAL SQ SCH (16:30)
[2017-08-03] MEDS: Melatonin 3 MG TABLET PO SCH (20:29)
[2017-08-04] MEDS: Levalbuterol Neb 1.25 MG/3 ML IH SCH ×6 (03:47→23:59)
[2017-08-04] MEDS: Ipratropium Neb 0.5 MG NEBULIZER IH SCH ×6 (03:47→23:59)
[2017-08-04 08:09] LABS: INR 1.1; Prothrombin Time 11.7 Seconds (9.4-12.1)
[2017-08-04] MEDS: Insulin LISPRO 300 UNITS/3 ML VIAL SQ SCH ×4 (08:16→22:08)
[2017-08-04] MEDS: Isosorbide MONOnitrate (24 HR) 30 MG TAB.ER.24H PO SCH (08:17)
[2017-08-04] MEDS: Fenofibrate 54 MG TABLET PO SCH (08:17)
[2017-08-04] MEDS: *HR* Amiodarone 200 MG TABLET PO SCH ×2 (08:18→22:02)
[2017-08-04] MEDS: Budesonide/Formoterol 80/4.5 MDI IH SCH ×2 (08:31→20:34)
[2017-08-04] MEDS ORDERED: predniSONE 20 MG TABLET PO SCH (09:00)
--- NOTE | 2017-08-04 12:12 | Internal Med Progress Note ---
Date of Encounter: 08/04/17 Time of Encounter: 10:30 - Assessment and plan (1) Rectus sheath hematoma Current Visit: Yes Status: Acute Assessment and plan: Hemoglobin stable. No evidence of further bleeding. Pain tolerable. Will follow symptomatically. Qualifiers: Encounter type: subsequent encounter Qualified Code(s): S30.1XXD - Contusion of abdominal wall, subsequent encounter (2) Anemia Current Visit: Yes Status: Acute Assessment and plan: Hemoglobin stable. Qualifiers: Anemia type: other cause Other causes of anemia: acute posthemorrhagic Qualified Code(s): D62 - Acute posthemorrhagic anemia (3) Acute and chronic respiratory failure Current Visit: Yes Status: Acute Assessment and plan: Acute on chronic respiratory failure with hypercapnia and hypoxia secondary to acute exacerbation of COPD CXR showed bibasilar atalectasis influenza A/B negative. chest CT showed moderate to severe diffuse bronchial wall inflammation with multifocal tree in bud like opacities, opacities in right lower and left upper lobes, possible aspiration. Plan: Continues to improve Bipap study tonight Suspect he will need at least CPAP at discharge. Anticipate d/c tomorrow if remains stable. Qualifiers: Respiratory failure complication: hypoxia and hypercapnia Qualified Code(s) : J96.21 - Acute and chronic respiratory failure with hypoxia; J96.22 - Acute and chronic respiratory failure with hypercapnia; J96.22 - Acute and chronic respiratory failure with hypercapnia; J96.22 - Acute and chronic respiratory failure with hypercapnia (4) Pneumonia Current Visit: Yes Status: Resolved Assessment and plan: Abx completed Qualifiers: Pneumonia type: aspiration pneumonia Aspiration pneumonia type: due to gastric secretions Laterality: bilateral Lung location: upper lobe of lung Qualified Code(s): J69.0 - Pneumonitis due to inhalation of food and vomit (5) COPD exacerbation Current Visit: Yes Status: Resolved Assessment and plan: acute on chronic respiratory failure with hypercapnia, hypoxia secondary to COPD exacerbation. plan as above (6) Atrial flutter Current Visit: Yes Status: Resolved Assessment and plan: On oral amiodarone. Remains in NSR. Qualifiers: Atrial flutter type: atypical Qualified Code(s): I48.4 - Atypical atrial flutter (7) CAD (coronary artery disease) Current Visit: Yes Status: Chronic Assessment and plan: continue atorvastatin. Qualifiers: Coronary Disease-Associated Artery/Lesion type: [place] artery [place] vs. transplanted heart: [place] heart Associated angina: without angina Qualified Code(s): I25.10 - Atherosclerotic heart disease of [place] coronary artery without angina pectoris (8) Hypothyroidism Current Visit: Yes Status: Acute Assessment and plan: Synthroid started at lower dose. Qualifiers: Hypothyroidism type: acquired Qualified Code(s): E03.9 - Hypothyroidism, unspecified (9) Diabetes mellitus Current Visit: Yes Status: Chronic Assessment and plan: continue medium dose sliding scale insulin diabetic diet ACHS accuchecks 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 mellitus complication status: with kidney complications Diabetes mellitus complication detail: with chronic kidney disease Diabetes mellitus fdc insulin use: with intermediate manager use Chronic kidney disease stage: stage 3 (moderate) Qualified Code(s): E11.22 - Type 2 diabetes mellitus with diabetic chronic kidney disease; N18.3 - Chronic kidney disease, stage 3 (moderate); N18.3 - Chronic kidney disease, stage 3 ( moderate); Z79.4 - assisted (current) use of insulin; Z79.4 - meterman ( current) use of insulin; Z79.4 - meterman (current) use of insulin; Z79.4 - assisted (current) use of insulin (10) Hypertension Current Visit: No Status: Resolved Assessment and plan: continue metoprolol hydralazine PRN Qualifiers: Hypertension type: essential hypertension Qualified Code(s): I10 - Essential (primary) hypertension (11) Tobacco abuse Current Visit: Yes Status: Chronic Assessment and plan: Cessation counselling. - Subjective Interval history: Mr Humphries is currently admitted for multiple medical issues including COPD exac , atrial flutter and rectus sheath hematoma. He remains moderate to high risk due to potential for worsening clinical status. Mr Humphries is resting in bed. He was desaturating while asleep when I went in room. We spoke about potential need for bipap. He does not think he will be able to wear the mask. PT recommend HH at discharge. He is not coughing at this time. No fever or chills. - Constitutional Vitals: Temp Pulse Resp BP Pulse Ox 97.7 F 61 18 136/74 98 08/04/17 11:40 08/04/17 11:40 08/04/17 11:40 08/04/17 11:40 08/04/17 11:40 General appearance: Present: A&O X 3, morbidly obese, pleasant, answers questions appropriately - Head Head exam: Present: atraumatic, normocephalic - Eye Eye exam: Present: EOMI, conjuntiva pink - ENT ENT exam: Present: mucous membranes moist - Respiratory Respiratory exam: Present: decreased breath sounds. Absent: rhonchi, wheezes - Cardiovascular Cardiovascular exam: Present: RRR. Absent: tachycardia - GI/Abdominal GI/Abdominal exam: Present: soft, tenderness - Extremities Exam Extremities exam: Present: pedal edema, warm. Absent: tenderness - Neurological Exam Neurological exam: Present: alert, oriented X3 - Skin Skin exam: Present: warm Additional comments: Ecchymosis on abdomen. Internal Medicine: Result - Labs CBC & Chem 7: 08/03/17 05:09 08/03/17 05:09 - ABG Interpretation ABG results: ABG ABG pH 7.37 pH Units (7.32-7.45) 07/28/17 08:41 ABG pCO2 64 mmHg (35-45) H 07/28/17 08:41 ABG pO2 60 mmHg (85-104) L 07/28/17 08:41 ABG O2 Saturation 89 % (95-98) L 07/28/17 08:41 PT/INR, D-dimer PT 11.7 Seconds (9.4-12.1) 08/04/17 07:49 - VTE Documentation of Mechanical Device: Intermittent pneumatic compression device Consult Discharge Plan - Plan Referrals: George Hazel MD [Partnered Physician] - 08/15/17 1:00 pm Khurram Victoria DO [Primary Care Provider] - 08/09/17 11:30 am
--- NOTE | 2017-08-04 12:34 | Physician Discharge Referral ---
Home Health/Hosp Referral Info Transfer to: Home Health Provider in Charge Post Discharge: PCP - Diagnosis (1) Rectus sheath hematoma Priority: Secondary Status: Acute (2) Anemia Priority: Secondary Status: Acute (3) Acute and chronic respiratory failure Priority: Primary Status: Acute (4) Pneumonia Priority: Primary Status: Resolved (5) COPD exacerbation Priority: Primary Status: Resolved (6) Atrial flutter Priority: Secondary Status: Resolved (7) CAD (coronary artery disease) Priority: Secondary Status: Chronic (8) Hypothyroidism Priority: Secondary Status: Chronic (9) Diabetes mellitus Priority: Secondary Status: Chronic (10) Hypertension Priority: Secondary Status: Resolved (11) Tobacco abuse Priority: Secondary Status: Chronic - Respiratory Orders Oxygen / L per min (2 liters/min continuous) Smoking Cessation: Smoking cessation has been advised. For more information, call the [place] Tobacco Quit Line at 1-154-HELZ-NOW. - Diet/Nutrition Diet/Nutrition Orders: Cardiac, No Concentrated Sweets - Activity Activity Orders: Up ad tri - Services Needed Following services are medically necessary services: Nursing, Physical Therapy, Occupational Therapy - Transfer Medications Prescriptions: Amiodarone [Cordarone] 200 mg PO BID #60 tablet Levothyroxine [Synthroid] 100 mcg PO DAILY@0630 #30 tablet Metoprolol [Lopressor] 75 mg PO BID #90 tablet PredniSONE [Deltasone] 20 mg PO DAILY #12 tablet Home Medications: Fenofibrate Nanocrystallized [Tricor] 48 mg PO DAILY 06/16/16 [History] GlipiZIDE [Glipizide Xl] 5 mg PO DAILY 06/16/16 [History] Montelukast Sodium [Singulair] 10 mg PO DAILY 06/16/16 [History] Pantoprazole Sodium [Protonix] 40 mg PO DAILY 06/16/16 [History] Tamsulosin [Flomax] 0.4 mg PO DAILY 06/16/16 [History] Budesonide/Formoterol 80/4.5 [Symbicort 80/4.5] 1 puff IH BID 08/07/16 [History ] Isosorbide MONOnitrate (24 HR) [Imdur] 30 mg PO DAILY 08/07/16 [History] Polyethylene Glycol 3350 [MiraLAX] 17 gm PO DAILY 08/07/16 [History] Insulin ASPART [Novolog Flexpen] 0 unit SQ ACHS #200 unit 08/09/16 [Rx] Atorvastatin Calcium [Lipitor] 80 mg PO HS 07/23/17 [History] Levothyroxine [Synthroid] 125 mcg PO 0630 07/30/17 [History] Amiodarone [Cordarone] 200 mg PO BID #60 tablet 08/05/17 [Rx] Levothyroxine [Synthroid] 100 mcg PO DAILY@0630 #30 tablet 08/05/17 [Rx] Metoprolol [Lopressor] 75 mg PO BID #90 tablet 08/05/17 [Rx] PredniSONE [Deltasone] 20 mg PO DAILY #12 tablet 08/05/17 [Rx] Allergies/Adverse Reactions: 3 Allergy/AdvReac Type Severity Reaction Status Date / Time adenosine Allergy See Verified 08/07/16 16:26 Comments fluticasone Allergy See Verified 08/07/16 16:26 [From Advair Diskus] Comments Iodinated Contrast- Oral and Allergy See Verified 06/16/16 15:37 IV Dye Comments [Iodinated Contrast Media - IV Dye] salmeterol Allergy See Verified 08/07/16 16:26 [From Advair Diskus] Comments Certification: Further, I certify that my clinical findings support that this patient is homebound (i.e. absences from home require considerable and taxing effort and are for medical reasons or moravian services or infrequently or short duration when for other reasons) because: Homebound Reason: Patient requires assistance of a person or device to safely leave home, Leaving home requires considerable and taxing effort due to condition, Severity of cardiac or pulmonary status limits activity tolerance Attestation: My signature below is to certify that this patient is under my care and that I, or nurse practitioner, or a physician's child center assistant working with me, has a face-to -face encounter with this patient.
[2017-08-04] MEDS: predniSONE 20 MG TABLET PO SCH (13:17)
[2017-08-04] MEDS: Melatonin 3 MG TABLET PO SCH (22:03)
[2017-08-05] MEDS: Ipratropium Neb 0.5 MG NEBULIZER IH SCH ×3 (03:41→10:55)
[2017-08-05] MEDS: Levalbuterol Neb 1.25 MG/3 ML IH SCH ×3 (03:42→10:55)
[2017-08-05 04:46] LABS: Hematocrit 31.7 % (37.5-50.1); Mean Corpuscular HGB Conc 31.5 g/dL (31.6-35.5); Mean Corpuscular Hemoglobin 29.3 pg (28.0-33.3); Mean Platelet Volume 10.9 fL (9.4-12.4); Platelet Count 123 K/mcL (140-400); Red Blood Count 3.41 M/mcL (4.19-5.50); Red Cell Distribution Width 15.3 % (11.5-14.5)
[2017-08-05 04:59] LABS: Alanine Aminotransferase 21 Units/L (0-55); Albumin 2.4 g/dL (3.5-5.0); Alkaline Phosphatase 59 Units/L (38-126); Aspartate Amino Transferase 10 Units/L (5-34); BUN/Creatinine Ratio 19 (6-26); Bilirubin,Total 1.4 mg/dL (0.2-1.2); Blood Urea Nitrogen 22 mg/dL (8-26); Calcium 9.1 mg/dL (8.6-10.8); Carbon Dioxide 29 mEq/L (19-29); Chloride 103 mEq/L (98-109); Globulin 2.5 g/dL (2.4-3.5); Glucose 103 mg/dL (70-99); Magnesium 1.7 mg/dL (1.6-2.6); Osmolality,Calculated 284 (280-300); Potassium 4.6 mEq/L (3.5-4.5); Sodium 135 mEq/L (136-145); Total Protein 4.9 g/dL (6.0-8.3); eGFR For African Americans > 60 (> 60); eGFR For Non-African Americans > 60 (> 60)
[2017-08-05] MEDS: Insulin LISPRO 300 UNITS/3 ML VIAL SQ SCH ×2 (07:55→11:51)
[2017-08-05] MEDS: predniSONE 20 MG TABLET PO SCH (09:00)
[2017-08-05] MEDS: *HR* Amiodarone 200 MG TABLET PO SCH (09:01)
[2017-08-05] MEDS: Fenofibrate 54 MG TABLET PO SCH (09:01)
[2017-08-05] MEDS: Isosorbide MONOnitrate (24 HR) 30 MG TAB.ER.24H PO SCH (09:01)
--- NOTE | 2017-08-05 09:11 | Discharge Summary ---
Date of Encounter: 08/05/17 Time of Encounter: 09:09 - Discharge Diagnosis (1) Acute and chronic respiratory failure Priority: Primary Status: Acute Qualifiers: Respiratory failure complication: hypoxia and hypercapnia Qualified Code(s) : J96.21 - Acute and chronic respiratory failure with hypoxia; J96.22 - Acute and chronic respiratory failure with hypercapnia; J96.22 - Acute and chronic respiratory failure with hypercapnia; J96.22 - Acute and chronic respiratory failure with hypercapnia (2) Rectus sheath hematoma Priority: Secondary Status: Acute Qualifiers: Encounter type: subsequent encounter Qualified Code(s): S30.1XXD - Contusion of abdominal wall, subsequent encounter (3) Anemia Priority: Secondary Status: Acute Qualifiers: Anemia type: other cause Other causes of anemia: acute posthemorrhagic Qualified Code(s): D62 - Acute posthemorrhagic anemia (4) Pneumonia Priority: Secondary Status: Resolved Qualifiers: Pneumonia type: aspiration pneumonia Aspiration pneumonia type: due to gastric secretions Laterality: bilateral Lung location: upper lobe of lung Qualified Code(s): J69.0 - Pneumonitis due to inhalation of food and vomit (5) COPD exacerbation Priority: Primary Status: Resolved (6) Atrial flutter Priority: Secondary Status: Resolved Qualifiers: Atrial flutter type: atypical Qualified Code(s): I48.4 - Atypical atrial flutter (7) CAD (coronary artery disease) Priority: Secondary Status: Chronic Qualifiers: Coronary Disease-Associated Artery/Lesion type: [place] artery [place] vs. transplanted heart: [place] heart Associated angina: without angina Qualified Code(s): I25.10 - Atherosclerotic heart disease of [place] coronary artery without angina pectoris (8) Hypothyroidism Priority: Secondary Status: Chronic Qualifiers: Hypothyroidism type: acquired Qualified Code(s): E03.9 - Hypothyroidism, unspecified (9) Diabetes mellitus Priority: Secondary Status: Chronic 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 mellitus complication status: with kidney complications Diabetes mellitus complication detail: with chronic kidney disease Diabetes mellitus usp insulin use: with [place] use Chronic kidney disease stage: stage 3 (moderate) Qualified Code(s): E11.22 - Type 2 diabetes mellitus with diabetic chronic kidney disease; N18.3 - Chronic kidney disease, stage 3 (moderate); N18.3 - Chronic kidney disease, stage 3 ( moderate); Z79.4 - supervisor intermediates (current) use of insulin; Z79.4 - retirement ( current) use of insulin; Z79.4 - supervisor intermediates (current) use of insulin; Z79.4 - supervisor intermediates (current) use of insulin (10) Hypertension Priority: Secondary Status: Resolved Qualifiers: Hypertension type: essential hypertension Qualified Code(s): I10 - Essential (primary) hypertension (11) Tobacco abuse Priority: Secondary Status: Chronic - Discharge Medications Prescriptions: Amiodarone [Cordarone] 200 mg PO BID #60 tablet Levothyroxine [Synthroid] 100 mcg PO DAILY@0630 #30 tablet Metoprolol [Lopressor] 75 mg PO BID #90 tablet PredniSONE [Deltasone] 20 mg PO DAILY #12 tablet Home Medications: Fenofibrate Nanocrystallized [Tricor] 48 mg PO DAILY 06/16/16 [History] GlipiZIDE [Glipizide Xl] 5 mg PO DAILY 06/16/16 [History] Montelukast Sodium [Singulair] 10 mg PO DAILY 06/16/16 [History] Pantoprazole Sodium [Protonix] 40 mg PO DAILY 06/16/16 [History] Tamsulosin [Flomax] 0.4 mg PO DAILY 06/16/16 [History] Budesonide/Formoterol 80/4.5 [Symbicort 80/4.5] 1 puff IH BID 08/07/16 [History ] Isosorbide MONOnitrate (24 HR) [Imdur] 30 mg PO DAILY 08/07/16 [History] Polyethylene Glycol 3350 [MiraLAX] 17 gm PO DAILY 08/07/16 [History] Insulin ASPART [Novolog Flexpen] 0 unit SQ ACHS #200 unit 08/09/16 [Rx] Atorvastatin Calcium [Lipitor] 80 mg PO HS 07/23/17 [History] Levothyroxine [Synthroid] 125 mcg PO 0630 07/30/17 [History] Amiodarone [Cordarone] 200 mg PO BID #60 tablet 08/05/17 [Rx] Levothyroxine [Synthroid] 100 mcg PO DAILY@0630 #30 tablet 08/05/17 [Rx] Metoprolol [Lopressor] 75 mg PO BID #90 tablet 08/05/17 [Rx] PredniSONE [Deltasone] 20 mg PO DAILY #12 tablet 08/05/17 [Rx] Allergies/Adverse Reactions: 3 Allergy/AdvReac Type Severity Reaction Status Date / Time adenosine Allergy See Verified 08/07/16 16:26 Comments fluticasone Allergy See Verified 08/07/16 16:26 [From Advair Diskus] Comments Iodinated Contrast- Oral and Allergy See Verified 06/16/16 15:37 IV Dye Comments [Iodinated Contrast Media - IV Dye] salmeterol Allergy See Verified 08/07/16 16:26 [From Advair Diskus] Comments Procedures/tests Complete & Pending: Procedures Performed prior 72 hours Category Date Time Status ECG 12 lead ECG [ECG] Routine Y 08/02/17 09:17 Completed Date of admission: 07/23/17 20:53 Primary care physician: Khurram Victoria DO Consults: 07/26/17 10:55 Consult to Cardiology [CONS] Routine Comment: Consulting Provider: Cardiology Anali Reason for Consult: new onset afib Call Completed: Yes 07/29/17 13:28 Consult to Electrophysiology (EP) [CONS] Routine Consulting Provider: Electrophysiology Anali Reason for Consult: atrial flutter Call Completed: Yes 07/31/17 13:30 Consult to Surgery [CONS] Routine Consulting Provider: Denis Oates Reason for Consult: Rectus sheath hematoma. Spoke with Dr. Oates yesterday and he saw patient. Just did not get consult order put in at that time. Call Completed: Yes 08/01/17 09:03 Consult to Palliative Care [CONS] Routine Comment: Consulting Provider: Palliative Care [place] Reason for Consult: discuss goals of care Call Completed: Yes 08/02/17 15:26 PT [Consult to Physical Therapy] [CONS] Routine Comment: Evaluate, develop and implement POC Reason for Consult: Discharge planning. 08/02/17 15:27 OT [Consult to Occupational Therapy] [CONS] Routine Comment: Evaluate, develop and implement POC Reason for Consult: Discharge planning. Discharging clinician: Mega Pearl Anticipated date of discharge: 08/05/17 - Patient Status Disposition: Home Health Service Condition: Fair Functional capacity at discharge: uses cane/walker Overall status at discharge: patient is progressing back to baseline - Discharge Instructions Instructions: Prednisone (By mouth), Amiodarone (By mouth) Follow Up With: George Hazel MD [Partnered Physician] - 08/15/17 1:00 pm Khurram Victoria DO [Primary Care Provider] - 08/09/17 11:30 am - Diet and Activity Activity: ambulate only with your walker, increase activity as tolerated Diet: diabetic diet, low salt diet Hospital course: Mr. Humphries is a 67 year old male with hx of COPD and continued tobacco use presented to ED with worsening respiratory status. He was evaluated and admitted for acute COPD exacerbation. Mr Humphries was admitted to [facility] for COPD exacerbation. He was started on IV abx for possible pneumonia as well as steroids, aerosols and oxygen. He developed atypical atrial flutter and multiple attempts to control rate were unsuccessful. He was started on heparin drip and PO Coumadin. He was then started on IV amiodarone and continued to have tachycardia. He complained of lower abdominal pain and CT revealed rectus sheath hematoma. His H/H was stable so anticoagulation was continued due to potential for cardioversion. The next day his H/H dropped and repeat CT showed enlargement of hematoma. He was unable to have IR imaging due to CT dye allergy. He was seen by surgery and his anticoagulation was reversed. He received blood transfusions as well. He was seen by palliative care as well. Ultimately his heart rate slowed and he converted to NSR. He was switched to PO amiodarone. He slowly improved and was transferred to [facility]. He was evaluated by PT/OT and C recommended. He had nocturnal study and need only oxygen not bipap. On 08/05 he was afebrile with stable vitals. At that time he was felt stable for discharge home. - Time Spent with Patient Total time spent providing and/or coordinating discharge services: 45min - Constitutional Vitals: Temp Pulse Resp BP Pulse Ox 98.6 F 60 18 145/69 94 08/05/17 06:45 08/05/17 06:45 08/05/17 06:45 08/05/17 06:45 08/05/17 06:45 General appearance: Present: A&O X 3, morbidly obese, pleasant, answers questions appropriately - Head Head exam: Present: atraumatic, normocephalic - Eye Eye exam: Present: EOMI, conjuntiva pink - ENT ENT exam: Present: mucous membranes moist - Respiratory Respiratory exam: Present: CTAB. Absent: rales, rhonchi, wheezes - Cardiovascular Cardiovascular exam: Present: RRR. Absent: tachycardia - GI/Abdominal GI/Abdominal exam: Present: soft, tenderness (Ecchymosis improving.) - Extremities Exam Extremities exam: Present: warm. Absent: tenderness - Neurological Exam Neurological exam: Present: alert, oriented X3 - Skin Skin exam: Present: warm. Absent: rash - VTE Documentation of Mechanical Device: Intermittent pneumatic compression device
[2017-08-05] MEDS: Budesonide/Formoterol 80/4.5 MDI IH SCH (10:55)
[2017-08-05 16:37] VITALS: BP 181/86
== END 2017-08-05 14:05 | disposition home health service (06) | DRG 190 ==
LOC: 2NENU 12:13 → EMEROO 12:13 → 2NENU 19:29 → SUATTDRO 20:53 → 2NNU 07-29 16:39 → 2ANU 08-03 11:40
PROVIDERS: ADMIT Hospitalist; ATTEND Internal Medicine

== ENCOUNTER 2018-05-05 14:33 | Inpatient (IN) ==
[2018-05-05] MEDS ORDERED: Ipratropium/Albuterol Neb 3 ML ONE (14:55)
[2018-05-05] MEDS ORDERED: Ipratropium/Albuterol Neb 3 ML IH ONE (14:57)
[2018-05-05] MEDS ORDERED: 0.9 % Sodium Chloride 1,000 ML ONE ×2 (15:03→18:32)
[2018-05-05 15:17] LABS: Basophils % 0.4 %; Eosinophils # 0.1 K/mcL (0.0-0.6); Eosinophils % 2.8 %; Hematocrit 39.6 % (37.5-50.1); Hemoglobin 12.8 g/dL (12.9-16.9); Immature Granulocytes % 0.9 % (0-4); Lymphocytes # 1.2 K/mcL (0.6-4.6); Lymphocytes % 26.5 %; Mean Corpuscular HGB Conc 32.3 g/dL (31.6-35.5); Mean Corpuscular Hemoglobin 33.1 pg (28.0-33.3); Mean Corpuscular Volume 102.3 fL (83.0-100.0); Mean Platelet Volume 9.4 fL (9.4-12.4); Monocytes # 0.5 K/mcL (0.0-1.3); Monocytes % 10.7 %; Neutrophils # 2.7 K/mcL (1.6-8.9); Platelet Count 104 K/mcL (140-400); Red Blood Count 3.87 M/mcL (4.19-5.50); Red Cell Distribution Width 16.8 % (11.5-14.5); Segmented Neutrophils % 58.7 %
--- NOTE | 2018-05-05 15:17 | Emergency Department Note ---
Disposition Clinical Impression: COPD exacerbation, Hypoxia, TAYA (acute kidney injury) Nausea and vomiting Qualifiers: Vomiting type: unspecified Vomiting Intractability: non-intractable Qualified Code(s): R11.2 - Nausea with vomiting, unspecified Disposition: Admitted As Inpatient Condition: Fair Time of Disposition: 16:23 General Adult HPI - General Chief complaint: ED Shortness of Breath/Dyspnea Stated complaint: LASHAY Time Seen by Provider: 05/05/18 14:57 Source: patient Limitations: no limitations Nursing Notes Reviewed: Yes Vital Signs Reviewed: Yes - History of Present Illness HPI Narrative: Patient is a 67-year-old male that presents to the emergency department with increased shortness of breath. states that he was at Dr. Chadwick's office for spinal stenosis evaluation and became short of breath and Dr. Chadwick said that he needed to go to the emergency department. Patient states that he has a history of COPD and wears 2 L of oxygen at home. Patient states that he has been having increased work of breathing and shortness of breath. Patient denies any chest pain at this time. Patient states that he is having low back pain which is chronic for him and is why he was seeing Dr. Chadwick. Pain Scale: 7 - Related Data Home Medications Medication Instructions Recorded Confirmed GlipiZIDE [Glipizide Xl] 5 mg PO DAILY 06/16/16 05/05/18 Montelukast Sodium [Singulair] 10 mg PO DAILY 06/16/16 05/05/18 Pantoprazole Sodium [Protonix] 40 mg PO DAILY 06/16/16 05/05/18 Isosorbide MONOnitrate (24 HR) 30 mg PO DAILY 08/07/16 05/05/18 [Imdur] Atorvastatin Calcium [Lipitor] 80 mg PO HS 07/23/17 05/05/18 Amiodarone [Cordarone] 200 mg PO DAILY 05/05/18 05/05/18 Fenofibrate Nanocrystallized 48 mg PO DAILY 05/05/18 05/05/18 [Tricor] Insulin ASPART [Novolog Flexpen] 0 unit SQ TIDWM 05/05/18 05/05/18 Levothyroxine [Synthroid] 100 mcg PO DAILY 05/05/18 05/05/18 Polyethylene Glycol 3350 [MiraLAX] 17 gm PO DAILY 05/05/18 05/05/18 PredniSONE [Xin] 7.5 mg PO DAILY 05/05/18 05/05/18 Tamsulosin HCl [Flomax] 0.4 mg PO DAILY 05/05/18 05/05/18 Previous Rx's Medication Instructions Recorded Metoprolol [Lopressor] 75 mg PO BID #90 tablet 08/05/17 Allergies Allergy/AdvReac Type Severity Reaction Status Date / Time adenosine Allergy See Verified 08/07/16 16:26 Comments fluticasone Allergy See Verified 08/07/16 16:26 [From Advair Diskus] Comments Iodinated Contrast- Oral and Allergy See Verified 06/16/16 15:37 IV Dye Comments [Iodinated Contrast Media - IV Dye] salmeterol Allergy See Verified 08/07/16 16:26 [From Advair Diskus] Comments All systems ED: reviewed and negative except as stated. Cardiovascular: Denies: chest pain Respiratory: Reports: dyspnea. Denies: cough, sputum production Musculoskeletal: Reports: back pain Past Medical History - Past Medical History Medical history: Reports: CHF, COPD, coronary artery disease, diabetes, hyperlipidemia, hypertension Psychiatric history: Reports: no psych history - Social History Smoking Status: Current every day smoker Smokeless Tobacco Status: No Alcohol use: Reports: none Drug use: Reports: none Physical Exam - General Limitations: no limitations General appearance: alert, in no apparent distress - Head Head exam: atraumatic, normocephalic - Eye Eye exam: Present: normal appearance, EOMI - Neck Neck exam: Present: normal inspection, full ROM, trachea midline - Respiratory Respiratory exam: Present: other (Diminished breath sounds bilaterally) - Cardiovascular Cardiovascular exam: Present: regular rate, normal rhythm, normal heart sounds, +S1, +S2 - Abdominal Exam Abdominal exam: Present: soft, Non-Tender, normal bowel sounds - Neurological Exam Neurological exam: Present: alert, oriented X3 - Psychiatric Psychiatric exam: Present: normal affect, normal mood - Skin Skin exam: Present: warm, dry, intact Course Vital Signs Temperature 97.7 F 05/05/18 14:41 Pulse Rate 86 05/05/18 14:41 Respiratory Rate 18 05/05/18 14:41 Blood Pressure 84/50 05/05/18 14:41 O2 Sat by Pulse Oximetry 77 05/05/18 14:41 Temperature 97.6 F 05/07/18 04:00 Pulse Rate 72 05/07/18 06:00 Respiratory Rate 16 05/07/18 06:00 Blood Pressure 104/58 05/07/18 06:00 O2 Sat by Pulse Oximetry 95 05/07/18 06:00 Oxygen Delivery Oxygen Delivery Ventilator Medical Decision Making - [facility] Narrative Medical decision making narrative: Due the patient presented to the emergency department with increased shortness of breath we will contact respiratory therapy immediately for breathing treatments. We also contacted x-ray so that a stat portable chest x-ray could be obtained. We will obtain basic laboratory testing and the patient likely need to be admitted to the hospital for further evaluation and management. Chest x-ray showed some mild pulmonary edema. EKG did not show any acute ischemic changes. Patient does appear to have an acute kidney injury. Patient is mildly acidotic of 7.28. Patient did require breathing treatments here in the emergency department as well as steroids. This time I do not feel a BiPAP as necessary. I feel that it is necessary for him to be admitted to the hospital for further evaluation and management. The patient did become nauseated while here in the emergency department and will be given Zofran. Called and spoke with the admitting hospitalist Dr. Martinez and he is accepted the patient to their service. Patient be admitted to the hospital at this time for further evaluation and management. Chest X-Ray 05/05/18 14:57 IMPRESSION: Mild pulmonary edema. D/ / 05/05/2018 15:40:23 Reynaldo Kilgore MD / Gabriela Sanford Interpreting Provider: Reynaldo Kilgore MD 1600 hrs.: Patient's labs are back he does have any worsening renal insufficiency. His hemoglobin is stable. Chest x-ray shows no infiltrate does have a little bit of pulmonary edema BMP is in the 200s. He is on better after getting his breathing treatments. We have kept him off BiPAP at this time. This point read bring him in for acute exacerbation of COPD rule out CHF. Patient's in agreement with this plan. 1700 hrs.: Patient is awaiting a bed for admission. We will be transferred upstairs and in the meantime evaluated and managed by Dr. Davila in the emergency department until admission. - Medical Records Medical records reviewed: Yes I reviewed the patient's medical records. - Lab Data Lab results reviewed: Yes I reviewed the patient's lab results. Result diagrams: 05/07/18 05:48 05/06/18 12:21 Lab Results 05/05/18 05/05/18 05/05/18 Range/Units 15:05 15:05 15:05 WBC 4.6 (4.3-11.1) K/mcL RBC 3.87 L (4.19-5.50) M/mcL Hgb 12.8 L (12.9-16.9) g/dL Hct 39.6 (37.5-50.1) % MCV 102.3 H (83.0-100.0) fL MCH 33.1 (28.0-33.3) pg MCHC 32.3 (31.6-35.5) g/dL RDW 16.8 H (11.5-14.5) % Plt Count 104 L (140-400) K/mcL MPV 9.4 (9.4-12.4) fL Immature Gran % 0.9 (0-4) % Seg Neutrophils % 58.7 % Lymphocytes % 26.5 % Monocytes % 10.7 % Eosinophils % 2.8 % Basophils % 0.4 % Neutrophils # 2.7 (1.6-8.9) K/mcL Lymphocytes # 1.2 (0.6-4.6) K/mcL Monocytes # 0.5 (0.0-1.3) K/mcL Eosinophils # 0.1 (0.0-0.6) K/mcL Basophils # 0.0 (0.0-0.2) K/mcL VBG pH (7.32-7.42) pH Units VBG pCO2 (41-51) mmHg VBG pO2 (25-50) mmHg VBG HCO3 (21-27) mEq/L Sodium 128 L (136-145) mEq/L Potassium 5.0 (3.5-5.1) mEq/L Chloride 98 (98-107) mEq/L Carbon Dioxide 30 H (23-29) mEq/L BUN 20 (8-23) mg/dL Creatinine 2.08 H (0.70-1.30) mg/dL Est GFR ( Amer) 39 L (> 60) Est GFR (Non-Af Amer) 32 L (> 60) BUN/Creatinine Ratio 10 (6-26) Glucose 160 H (70-105) mg/dL POC Glucose (70-99) mg/dL Calculated Osmolality 272 L (280-300) Calcium 9.0 (8.6-10.3) mg/dL Troponin I < 0.03 (< 0.04) ng/mL B-Natriuretic Peptide 231 H (Less than 100) pg/mL TSH (0.340-5.600) mcIU/mL Free T4 (0.70-2.00) ng/dl Total T3 (0.87-1.78) ng/mL Person Notif of Crit 05/05/18 05/05/18 05/05/18 Range/Units 15:17 17:02 17:37 WBC (4.3-11.1) K/mcL RBC (4.19-5.50) M/mcL Hgb (12.9-16.9) g/dL Hct (37.5-50.1) % MCV (83.0-100.0) fL MCH (28.0-33.3) pg MCHC (31.6-35.5) g/dL RDW (11.5-14.5) % Plt Count (140-400) K/mcL MPV (9.4-12.4) fL Immature Gran % (0-4) % Seg Neutrophils % % Lymphocytes % % Monocytes % % Eosinophils % % Basophils % % Neutrophils # (1.6-8.9) K/mcL Lymphocytes # (0.6-4.6) K/mcL Monocytes # (0.0-1.3) K/mcL Eosinophils # (0.0-0.6) K/mcL Basophils # (0.0-0.2) K/mcL VBG pH 7.28 L (7.32-7.42) pH Units VBG pCO2 64 H (41-51) mmHg VBG pO2 146 H (25-50) mmHg VBG HCO3 30 H (21-27) mEq/L Sodium (136-145) mEq/L Potassium (3.5-5.1) mEq/L Chloride (98-107) mEq/L Carbon Dioxide (23-29) mEq/L BUN (8-23) mg/dL Creatinine (0.70-1.30) mg/dL Est GFR ( Amer) (> 60) Est GFR (Non-Af Amer) (> 60) BUN/Creatinine Ratio (6-26) Glucose (70-105) mg/dL POC Glucose 137 H (70-99) mg/dL Calculated Osmolality (280-300) Calcium (8.6-10.3) mg/dL Troponin I (< 0.04) ng/mL B-Natriuretic Peptide (Less than 100) pg/mL TSH 88.600 H (0.340-5.600) mcIU/mL Free T4 (0.70-2.00) ng/dl Total T3 (0.87-1.78) ng/mL Person Notif of Crit 05/05/18 05/05/18 Range/Units 17:37 17:57 WBC (4.3-11.1) K/mcL RBC (4.19-5.50) M/mcL Hgb (12.9-16.9) g/dL Hct (37.5-50.1) % MCV (83.0-100.0) fL MCH (28.0-33.3) pg MCHC (31.6-35.5) g/dL RDW (11.5-14.5) % Plt Count (140-400) K/mcL MPV (9.4-12.4) fL Immature Gran % (0-4) % Seg Neutrophils % % Lymphocytes % % Monocytes % % Eosinophils % % Basophils % % Neutrophils # (1.6-8.9) K/mcL Lymphocytes # (0.6-4.6) K/mcL Monocytes # (0.0-1.3) K/mcL Eosinophils # (0.0-0.6) K/mcL Basophils # (0.0-0.2) K/mcL VBG pH 7.10 L* D (7.32-7.42) pH Units VBG pCO2 110 H* (41-51) mmHg VBG pO2 177 H (25-50) mmHg VBG HCO3 34 H (21-27) mEq/L Sodium (136-145) mEq/L Potassium (3.5-5.1) mEq/L Chloride (98-107) mEq/L Carbon Dioxide (23-29) mEq/L BUN (8-23) mg/dL Creatinine (0.70-1.30) mg/dL Est GFR ( Amer) (> 60) Est GFR (Non-Af Amer) (> 60) BUN/Creatinine Ratio (6-26) Glucose (70-105) mg/dL POC Glucose (70-99) mg/dL Calculated Osmolality (280-300) Calcium (8.6-10.3) mg/dL Troponin I (< 0.04) ng/mL B-Natriuretic Peptide (Less than 100) pg/mL TSH (0.340-5.600) mcIU/mL Free T4 0.48 L (0.70-2.00) ng/dl Total T3 0.73 L (0.87-1.78) ng/mL Person Notif of Michelle WILLETT MCCULLOUGH - Radiology Data Radiology results reviewed: Yes I reviewed the patient's radiology results. Chest X-Ray 05/05/18 14:57 IMPRESSION: Mild pulmonary edema. D/ / 05/05/2018 15:40:23 Reynaldo Kilgore MD / Gabriela Sanford Interpreting Provider: Reynaldo Kilgore MD - EKG Data EKG #1 EKG attestation: Yes I reviewed and interpreted this EKG. EKG results narrative: EKG showed what appears to be a regular rhythm at a rate of approximately 60 bpm. EKG has a lot of artifact along the baselines is difficult to interpret. Normal axis. No evidence of STEMI on EKG. This is compared to previous EKG application technician which showed a sinus rhythm. EKG #2 EKG attestation: Yes I reviewed and interpreted this EKG. EKG results narrative: EKG shows a sinus rhythm with a prolonged PA interval. Normal axis. No evidence of STEMI on EKG. This was a repeat EKG at 1616 05/05/18. Critical Care Time Critical Care Time: Yes Total Critical Care Time: 45 Attestation: Excluding separately billable procedures.
[2018-05-05 15:19] LABS: VBG HCO3 30 mEq/L (21-27); VBG PCO2 64 mmHg (41-51); VBG PH 7.28 pH Units (7.32-7.42); VBG PO2 146 mmHg (25-50)
[2018-05-05 15:53] LABS: BUN/Creatinine Ratio 10 (6-26); Blood Urea Nitrogen 20 mg/dL (8-23); Carbon Dioxide 30 mEq/L (23-29); Chloride 98 mEq/L (98-107); Glucose 160 mg/dL (70-105); Osmolality,Calculated 272 (280-300); Sodium 128 mEq/L (136-145); Troponin I < 0.03 ng/mL (< 0.04); eGFR For Non-African Americans 32 (> 60)
[2018-05-05] MEDS ORDERED: Ondansetron 4 MG/2 ML VIAL ONE (16:21)
[2018-05-05] MEDS ORDERED: Ondansetron 4 MG/2 ML VIAL IVP ONE (16:21)
[2018-05-05] MEDS ORDERED: Naloxone 0.4 MG/ML INJ IVP ONE (17:33)
[2018-05-05] MEDS ORDERED: Naloxone 0.4 MG/ML INJ ONE (17:34)
[2018-05-05 18:06] LABS: VBG HCO3 34 mEq/L (21-27); VBG PCO2 110 mmHg (41-51); VBG PO2 177 mmHg (25-50)
[2018-05-05] MEDS ORDERED: *HR* FentaNYL (PF) 100 MCG/2 ML VIAL ONE (18:18)
[2018-05-05] MEDS ORDERED: Propofol 500 MG/50 ML INFUS..BTL ONE (18:32)
--- NOTE | 2018-05-05 18:42 | Internal Med History&Physical ---
<Jorge Luis Tabares - Last Filed: 05/05/18 23:56> Date of Encounter: 05/05/18 Time of Encounter: 18:39 Internal Medicine - H&P: HPI Chief complaint: SOB Admitted From: Emergency Dept History of present illness: Mr. Humphries is a 67 year old male with a PMH of diastolic CHF, oxygen dependent COPD, CAD, DM type 2, chronic back pain, remote penile cancer, hypertension, hyperlipidemia, and hypothyroidism who presented to the emergency department with increased shortness of breath from pain management physician, Dr. Chadwick's office following evaluation for spinal stenosis. He acutely became short of breath and Dr. Chadwick advised patient to report to the emergency department. HPI was obtained from the medical record because patient was intubated in the ED secondary to AMS and inability to protect his airway while wearing Bipap. According to ED documentation, patient c/o increased work with breathing, nausea, and chronic low back pain. Chest x-ray showed some mild pulmonary edema. Patient was given Duonebs, Percocet x1, and placed on Bipap due to hypercapnia on VBG. He denied fever, chills, chest pain, cough, or sputum production. Past Med Surg Social Fam HX - Past Medical History Medical history: cancer (penile), CHF, COPD, coronary artery disease, diabetes, hyperlipidemia, hypertension Additional medical history: anemia. leukocytosis. penile cancer. PAD Psychiatric history: no psych history - Past Surgical History Additional surgical history: CARDIAC CATH. Cardiac Stenting x5. gallbladder surgery. cancer removed twice. polyp removal. testicular tumor removal. colonoscopy. bypass in legs - Social History Smoking Status: Current every day smoker Smokeless Tobacco Status: No Alcohol use: none Drug use: none Current living situation: Home, With Family - Family History Father Living Status: Hx Family Cardiac Disorders: Yes (Enlarged heart) Mother Living Status: Hx Family Cardiac Disorders: Yes Hx Family Respiratory Disorders: Yes (COPD) Internal Medicine - H&P: Meds GlipiZIDE [Glipizide Xl] 5 mg PO DAILY 06/16/16 [History] Montelukast Sodium [Singulair] 10 mg PO DAILY 06/16/16 [History] Pantoprazole Sodium [Protonix] 40 mg PO DAILY 06/16/16 [History] Isosorbide MONOnitrate (24 HR) [Imdur] 30 mg PO DAILY 08/07/16 [History] Atorvastatin Calcium [Lipitor] 80 mg PO HS 07/23/17 [History] Metoprolol [Lopressor] 75 mg PO BID #90 tablet 08/05/17 [Rx] Amiodarone [Cordarone] 200 mg PO DAILY 05/05/18 [History] Fenofibrate Nanocrystallized [Tricor] 48 mg PO DAILY 05/05/18 [History] Insulin ASPART [Novolog Flexpen] 0 unit SQ TIDWM 05/05/18 [History] Levothyroxine [Synthroid] 100 mcg PO DAILY 05/05/18 [History] Polyethylene Glycol 3350 [MiraLAX] 17 gm PO DAILY 05/05/18 [History] PredniSONE [Xin] 7.5 mg PO DAILY 05/05/18 [History] Tamsulosin HCl [Flomax] 0.4 mg PO DAILY 05/05/18 [History] 3 Allergy/AdvReac Type Severity Reaction Status Date / Time adenosine Allergy See Verified 08/07/16 16:26 Comments fluticasone Allergy See Verified 08/07/16 16:26 [From Advair Diskus] Comments Iodinated Contrast- Oral and Allergy See Verified 06/16/16 15:37 IV Dye Comments [Iodinated Contrast Media - IV Dye] salmeterol Allergy See Verified 08/07/16 16:26 [From Advair Diskus] Comments ROS unobtainable: due to endotracheal tube All Systems PM: A 10-system review of systems was performed and is negative for pertinent findings except as documented above in the HPI. - Constitutional Vitals: Temp Pulse Resp BP Pulse Ox 97.7 F 59 18 119/54 100 05/05/18 14:52 05/05/18 18:25 05/05/18 18:22 05/05/18 18:25 05/05/18 18:25 General appearance: Present: obese Exam: intubated, sedated - Head Head exam: Present: atraumatic, normocephalic - Eye Eye exam: Present: PERRL ([place]), conjuntiva pink, sclera anicteric Pupils: Present: PERRL - ENT ENT exam: Present: mucous membranes dry, normal oropharynx (Intubated) - Neck Neck exam general surgery: Present: supple, trachea midline. Absent: lymphadenopathy - Respiratory Respiratory exam: Present: decreased breath sounds, respiratory distress ( Intubated, equal breath sounds). Absent: accessory muscle use, rales, rhonchi, wheezes - Cardiovascular Cardiovascular exam: Present: RRR, +S1, +S2. Absent: diastolic murmur, gallop, rubs, systolic murmur - GI/Abdominal GI/Abdominal exam: Present: normal bowel sounds, soft, tenderness, no peritoneal signs. Absent: distended - Extremities Exam Extremities exam: Present: cyanotic, radial pulses palpable and symmetrical. Absent: calf tenderness, pedal edema, warm - Neurological Exam Neurological exam: Present: no focal deficits (Intubated and sedated, responds noxious stimuli). Absent: facial droop - Skin Skin exam: Present: cyanosis, dry, intact. Absent: warm (cold) Internal Med - H&P Results - Labs CBC & Chem 7: 05/05/18 15:05 05/05/18 15:05 - ABG Interpretation ABG results: 05/05/18 17:57 VBG pH 7.10 L* D VBG pCO2 110 H* VBG pO2 177 H VBG HCO3 34 H - EKG Data -: EKG Interpreted by Myself EKG shows normal: sinus rhythm (60 bpm, prolonged [place] interval), axis, ST-T waves (No evidence of STEMI ) - EKG Data Prior EKG available for review: yes When compared to previous EKG: there is no significant change - Impressions ITS Impressions Head CT 05/05/18 17:33 IMPRESSION: No acute intracranial abnormality. D/ / 05/05/2018 18:02:37 Reynaldo Kilgore MD / jaydon Interpreting Provider: Reynaldo Kilgore MD X-Ray 05/05/18 18:39 IMPRESSION: ET and nasogastric tubes in satisfactory position. D/ / Marquez Abraham MD / Marquez Abraham MD Interpreting Provider: Marquez Abraham MD Chest X-Ray 05/05/18 18:45 IMPRESSION: ET and nasogastric tubes in satisfactory position. D/ / Marquez Abraham MD / Marquez Abraham MD Interpreting Provider: Marquez Abraham MD - Assessment and plan (1) Acute on chronic respiratory failure with hypoxia and hypercapnia Current Visit: Yes Status: Acute Assessment and plan: Patient presented with acute respiratory failure, intubated and sedated in the ED History of COPD and wears 2 L of continuous supplemental oxygen at home ABG reveals respiratory acidosis with metabolic compensation Continue bronchodilators Critical care consulted for vent management (2) COPD exacerbation Current Visit: Yes Status: Acute Assessment and plan: Patient with oxygen dependent COPD, CXR revealed no focal consolidation, mild pulmonary edema Urine Legionella and strep pneumo antigens negative Patient started on empiric Levaquin and IV steroids every 6 hours Continue bronchodilators (3) Hyponatremia Current Visit: Yes Status: Acute Assessment and plan: Sodium level 128, corrected serum sodium 129, calculated serum osmolality 272 Urine osmolality 638, urine sodium 28.1 Patient given 1 L normal saline Remeasure urine sodium and urine osmolality after 1 L normal saline TSH level is elevated Cortisol level pending Likely hypotonic hyponatremia consistent with severe hypothyroidism, TAYA, and CKD 3 (4) Heart failure with preserved left ventricular function (HFpEF) Current Visit: Yes Status: Acute Assessment and plan: Echo 07/27/17 revealed LVEF 60%, mild LV diastolic dysfunction, mild dilated left atrium BNP 231 CXR revealed mild pulmonary edema No pedal edema, S3, or rales on exam Continue gentle hydration the setting of TAYA Resume home beta evin once blood pressure has improved, consider changing home antihypertensive regimen to include ARB given history of CHF (5) TAYA (acute kidney injury) Current Visit: Yes Status: Acute Assessment and plan: Serum creatinine 2.8, baseline creatinine around 1.5 Avoid nephrotoxins Continue gentle hydration in the setting of CHF Continue monitoring (6) CKD (chronic kidney disease) Current Visit: Yes Status: Chronic Assessment and plan: Avoid nephrotoxins Continue monitoring Qualifiers: Chronic kidney disease stage: stage 3 (moderate) Qualified Code(s): N18.3 - Chronic kidney disease, stage 3 (moderate) (7) Diabetes mellitus Current Visit: Yes Status: Chronic Assessment and plan: History of DM Type 2 Last HGB a1c 5.9, repeat level pending Patient was started on steroids Continue accuchecks and low dose SSI 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 mellitus jail insulin use: with jail use Diabetes mellitus complication status: with kidney complications Diabetes mellitus complication detail: with chronic kidney disease Chronic kidney disease stage: stage 3 (moderate) Qualified Code(s): E11.22 - Type 2 diabetes mellitus with diabetic chronic kidney disease; N18.3 - Chronic kidney disease, stage 3 (moderate); Z79.4 - [employer] (current) use of insulin (8) Anemia Current Visit: Yes Status: Chronic Assessment and plan: Chronic, no active signs of bleeding PPI for GI prophylaxis Continue monitoring Qualifiers: Anemia type: unspecified type Qualified Code(s): D64.9 - Anemia, unspecified (9) CAD (coronary artery disease) Current Visit: No Status: Chronic Assessment and plan: EKG shows no signs of ischemia Trend serial troponins Continue home meds Qualifiers: Coronary Disease-Associated Artery/Lesion type: [place] artery [place] vs. transplanted heart: [place] heart Associated angina: without angina Qualified Code(s): I25.10 - Atherosclerotic heart disease of [place] coronary artery without angina pectoris (10) Atrial flutter Current Visit: No Status: Resolved Assessment and plan: History of A-flutter Not on anticoagulation Qualifiers: Atrial flutter type: atypical Qualified Code(s): I48.4 - Atypical atrial flutter (11) History of DVT of lower extremity Current Visit: No Status: Resolved Assessment and plan: Patient presents with acute onset shortness of breath, altered mental status, tachycardia, history of cancer and DVT, and possible recent immobilization secondary to chronic back pain Ordered CTA to r/o PE, will need to give pre-treatment regimen due to IV contrast allergy, if negative consider r/o DVT with ultrasound of bilateral lower extremities Continue Heparin (12) Chronic back pain Current Visit: Yes Status: Chronic Assessment and plan: Patient was sent to ED from pain management office during evaluation for spinal stenosis treatment, unknown if patient had recent immobilization due to pain Continue home meds Qualifiers: Back pain location: back pain in unspecified location Back pain laterality : bilateral Qualified Code(s): M54.9 - Dorsalgia, unspecified; G89.29 - Other chronic pain (13) Hypertension Current Visit: Yes Status: Chronic Assessment and plan: Continue home meds Qualifiers: Hypertension type: essential hypertension Qualified Code(s): I10 - Essential (primary) hypertension (14) HLD (hyperlipidemia) Current Visit: Yes Status: Chronic Assessment and plan: Continue home meds Qualifiers: Hyperlipidemia type: unspecified Qualified Code(s): E78.5 - Hyperlipidemia , unspecified (15) Morbid obesity Current Visit: Yes Status: Chronic Assessment and plan: BMI 45.3, lifestyle modification (16) DVT prophylaxis Current Visit: Yes Status: Acute Assessment and plan: Heparin subcutaneous TID (17) Myxedema Current Visit: Yes Status: Suspected Assessment and plan: Patient with history of hypothyroidism on 100 g of Synthroid daily TSH level 88.6, repeat level pending Free T4 0.48, total T3 0.73 Started Synthoid IV, switch to PO once extubated Continue close monitoring - Time Spent With Patient Total time spent is greater than 50% in coordination of care (as documented) at patient's floor/unit and/or counseling patient: <Eduar Callahan - Last Filed: 05/07/18 20:29> Date of Encounter: 05/05/18 Internal Medicine - H&P: HPI Admitted From: Home Plans for Post Hospital Care: Home History of present illness: Mr. Humphries is a 67 year old male All Systems PM: A 10-system review of systems was performed and is negative for pertinent findings except as documented above in the HPI. - Constitutional Vitals: Temp Pulse Resp BP Pulse Ox 98.3 F 80 15 118/68 90 05/07/18 15:30 05/07/18 17:46 05/07/18 19:43 05/07/18 17:46 05/07/18 19:43 Internal Med - H&P Results - Labs CBC & Chem 7: 05/07/18 05:48 05/07/18 08:40 Labs: Short CBC 05/07/18 Range/Units 05:48 WBC 7.1 D (4.3-11.1) K/mcL Hgb 13.6 (12.9-16.9) g/dL Hct 40.9 (37.5-50.1) % Plt Count 131 L (140-400) K/mcL Neutrophils # 6.4 (1.6-8.9) K/mcL BMP 05/07/18 08:40 Sodium 136 Potassium 3.5 Chloride 100 Carbon Dioxide 27 BUN 26 H Creatinine 2.20 H Glucose 218 H Calcium 9.2 - ABG Interpretation ABG results: 05/05/18 05/05/18 05/06/18 19:00 21:52 04:56 ABG pH 7.30 L 7.34 7.42 ABG pCO2 57 H 48 H 37 ABG pO2 140 H 84 L D 57 L ABG HCO3 28 H 26 24 ABG Total CO2 30 H 28 H 25 ABG O2 Saturation 99 H 96 90 L ABG Base Excess 1 0 0 - Impressions ITS Impressions Chest X-Ray 05/05/18 18:45 IMPRESSION: ET and nasogastric tubes in satisfactory position. D/ / Marquez Abraham MD / Marquez Abraham MD Interpreting Provider: Marquez Abraham MD Retroperitoneum Ultrasound 05/06/18 00:00 IMPRESSION: No hydronephrosis. Normal renal echogenicity. Minimal nonspecific perinephric fluid. Multiple renal cysts. D/ / 05/06/2018 19:01:33 Reynaldo Kilgore MD / sadia Interpreting Provider: Reynaldo Kilgore MD - Assessment and plan (1) Acute on chronic respiratory failure with hypoxia and hypercapnia Current Visit: Yes Status: Acute (2) COPD exacerbation Current Visit: Yes Status: Acute (3) TAYA (acute kidney injury) Current Visit: Yes Status: Acute (4) Chronic back pain Current Visit: Yes Status: Chronic Qualifiers: Back pain location: back pain in unspecified location Back pain laterality : bilateral Qualified Code(s): M54.9 - Dorsalgia, unspecified; G89.29 - Other chronic pain (5) Hypertension Current Visit: Yes Status: Chronic Qualifiers: Hypertension type: essential hypertension Qualified Code(s): I10 - Essential (primary) hypertension (6) CKD (chronic kidney disease) Current Visit: Yes Status: Chronic Qualifiers: Chronic kidney disease stage: stage 3 (moderate) Qualified Code(s): N18.3 - Chronic kidney disease, stage 3 (moderate) (7) CAD (coronary artery disease) Current Visit: Yes Status: Chronic Qualifiers: Coronary Disease-Associated Artery/Lesion type: [place] artery [place] vs. transplanted heart: [place] heart Associated angina: without angina Qualified Code(s): I25.10 - Atherosclerotic heart disease of [place] coronary artery without angina pectoris (8) History of DVT of lower extremity Current Visit: No Status: Resolved (9) Diabetes mellitus Current Visit: Yes Status: Chronic 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 mellitus jail insulin use: with jail use Diabetes mellitus complication status: with kidney complications Diabetes mellitus complication detail: with chronic kidney disease Chronic kidney disease stage: stage 3 (moderate) Qualified Code(s): E11.22 - Type 2 diabetes mellitus with diabetic chronic kidney disease; N18.3 - Chronic kidney disease, stage 3 (moderate); Z79.4 - [employer] (current) use of insulin (10) DVT prophylaxis Current Visit: Yes Status: Acute (11) Morbid obesity Current Visit: Yes Status: Chronic (12) Anemia Current Visit: Yes Status: Chronic Qualifiers: Anemia type: unspecified type Qualified Code(s): D64.9 - Anemia, unspecified (13) Hyponatremia Current Visit: Yes Status: Acute (14) HLD (hyperlipidemia) Current Visit: Yes Status: Chronic Qualifiers: Hyperlipidemia type: unspecified Qualified Code(s): E78.5 - Hyperlipidemia , unspecified (15) Heart failure with preserved left ventricular function (HFpEF) Current Visit: Yes Status: Acute (16) Myxedema Current Visit: Yes Status: Acute - Time Spent With Patient Total time spent is greater than 50% in coordination of care (as documented) at patient's floor/unit and/or counseling patient: Greater than 35 minutes (40 minutes) - Attending Attestation I SAW/EXAMINED AND EVALUATED THE PATIENT WITH THE RESIDENT ON THE DAY OF ADMISSION. THE CASE WAS DISCUSSED WITH HIM/HER. I AGREE WITH THE FINDINGS/PLAN , DOCUMENTED IN THE RESIDENT'S H&H. THE DOCUMENT WAS EDITED BY ME TO CORRECT ERRORS AND ADD MISSING DATA.
--- NOTE | 2018-05-05 18:42 | Emergency Department Note ---
Disposition Clinical Impression: COPD exacerbation, Hypoxia, TAYA (acute kidney injury) Nausea and vomiting Qualifiers: Vomiting type: unspecified Vomiting Intractability: non-intractable Qualified Code(s): R11.2 - Nausea with vomiting, unspecified Disposition: Admitted As Inpatient Condition: Fair General Adult HPI - General Chief complaint: ED Shortness of Breath/Dyspnea Stated complaint: LASHAY Time Seen by Provider: 05/05/18 14:57 Source: patient Limitations: no limitations - History of Present Illness Pain Scale: 0 - Related Data Home Medications Medication Instructions Recorded Confirmed GlipiZIDE [Glipizide Xl] 5 mg PO DAILY 06/16/16 05/05/18 Montelukast Sodium [Singulair] 10 mg PO DAILY 06/16/16 05/05/18 Pantoprazole Sodium [Protonix] 40 mg PO DAILY 06/16/16 05/05/18 Isosorbide MONOnitrate (24 HR) 30 mg PO DAILY 08/07/16 05/05/18 [Imdur] Atorvastatin Calcium [Lipitor] 80 mg PO HS 07/23/17 05/05/18 Amiodarone [Cordarone] 200 mg PO DAILY 05/05/18 05/05/18 Fenofibrate Nanocrystallized 48 mg PO DAILY 05/05/18 05/05/18 [Tricor] Insulin ASPART [Novolog Flexpen] 0 unit SQ TIDWM 05/05/18 05/05/18 Levothyroxine [Synthroid] 100 mcg PO DAILY 05/05/18 05/05/18 Polyethylene Glycol 3350 [MiraLAX] 17 gm PO DAILY 05/05/18 05/05/18 PredniSONE [Xin] 7.5 mg PO DAILY 05/05/18 05/05/18 Tamsulosin HCl [Flomax] 0.4 mg PO DAILY 05/05/18 05/05/18 Previous Rx's Medication Instructions Recorded Metoprolol [Lopressor] 75 mg PO BID #90 tablet 08/05/17 Allergies Allergy/AdvReac Type Severity Reaction Status Date / Time adenosine Allergy See Verified 08/07/16 16:26 Comments fluticasone Allergy See Verified 08/07/16 16:26 [From Advair Diskus] Comments Iodinated Contrast- Oral and Allergy See Verified 06/16/16 15:37 IV Dye Comments [Iodinated Contrast Media - IV Dye] salmeterol Allergy See Verified 08/07/16 16:26 [From Advair Diskus] Comments Cardiovascular: Denies: chest pain Respiratory: Reports: dyspnea. Denies: cough, sputum production Musculoskeletal: Reports: back pain Past Medical History - Past Medical History Medical history: Reports: CHF, COPD, coronary artery disease, diabetes, hyperlipidemia, hypertension Psychiatric history: Reports: no psych history - Social History Smoking Status: Current every day smoker Smokeless Tobacco Status: No Alcohol use: Reports: none Drug use: Reports: none Physical Exam - General Limitations: no limitations General appearance: alert, in no apparent distress Course Vital Signs Temperature 97.7 F 05/05/18 14:41 Pulse Rate 86 05/05/18 14:41 Respiratory Rate 18 05/05/18 14:41 Blood Pressure 84/50 05/05/18 14:41 O2 Sat by Pulse Oximetry 77 05/05/18 14:41 Temperature 97.7 F 05/05/18 14:52 Pulse Rate 59 05/05/18 18:25 Respiratory Rate 18 05/05/18 18:22 Blood Pressure 119/54 05/05/18 18:25 O2 Sat by Pulse Oximetry 100 05/05/18 18:25 Oxygen Delivery Oxygen Delivery Room Air Medical Decision Making - Lab Data Result diagrams: 05/05/18 15:05 05/05/18 15:05 Lab Results 05/05/18 05/05/18 05/05/18 Range/Units 15:05 15:05 15:05 WBC 4.6 (4.3-11.1) K/mcL RBC 3.87 L (4.19-5.50) M/mcL Hgb 12.8 L (12.9-16.9) g/dL Hct 39.6 (37.5-50.1) % MCV 102.3 H (83.0-100.0) fL MCH 33.1 (28.0-33.3) pg MCHC 32.3 (31.6-35.5) g/dL RDW 16.8 H (11.5-14.5) % Plt Count 104 L (140-400) K/mcL MPV 9.4 (9.4-12.4) fL Immature Gran % 0.9 (0-4) % Seg Neutrophils % 58.7 % Lymphocytes % 26.5 % Monocytes % 10.7 % Eosinophils % 2.8 % Basophils % 0.4 % Neutrophils # 2.7 (1.6-8.9) K/mcL Lymphocytes # 1.2 (0.6-4.6) K/mcL Monocytes # 0.5 (0.0-1.3) K/mcL Eosinophils # 0.1 (0.0-0.6) K/mcL Basophils # 0.0 (0.0-0.2) K/mcL VBG pH (7.32-7.42) pH Units VBG pCO2 (41-51) mmHg VBG pO2 (25-50) mmHg VBG HCO3 (21-27) mEq/L Sodium 128 L (136-145) mEq/L Potassium 5.0 (3.5-5.1) mEq/L Chloride 98 (98-107) mEq/L Carbon Dioxide 30 H (23-29) mEq/L BUN 20 (8-23) mg/dL Creatinine 2.08 H (0.70-1.30) mg/dL Est GFR ( Amer) 39 L (> 60) Est GFR (Non-Af Amer) 32 L (> 60) BUN/Creatinine Ratio 10 (6-26) Glucose 160 H (70-105) mg/dL Calculated Osmolality 272 L (280-300) Calcium 9.0 (8.6-10.3) mg/dL Troponin I < 0.03 (< 0.04) ng/mL B-Natriuretic Peptide 231 H (Less than 100) pg/mL 05/05/18 Range/Units 15:17 WBC (4.3-11.1) K/mcL RBC (4.19-5.50) M/mcL Hgb (12.9-16.9) g/dL Hct (37.5-50.1) % MCV (83.0-100.0) fL MCH (28.0-33.3) pg MCHC (31.6-35.5) g/dL RDW (11.5-14.5) % Plt Count (140-400) K/mcL MPV (9.4-12.4) fL Immature Gran % (0-4) % Seg Neutrophils % % Lymphocytes % % Monocytes % % Eosinophils % % Basophils % % Neutrophils # (1.6-8.9) K/mcL Lymphocytes # (0.6-4.6) K/mcL Monocytes # (0.0-1.3) K/mcL Eosinophils # (0.0-0.6) K/mcL Basophils # (0.0-0.2) K/mcL VBG pH 7.28 L (7.32-7.42) pH Units VBG pCO2 64 H (41-51) mmHg VBG pO2 146 H (25-50) mmHg VBG HCO3 30 H (21-27) mEq/L Sodium (136-145) mEq/L Potassium (3.5-5.1) mEq/L Chloride (98-107) mEq/L Carbon Dioxide (23-29) mEq/L BUN (8-23) mg/dL Creatinine (0.70-1.30) mg/dL Est GFR ( Amer) (> 60) Est GFR (Non-Af Amer) (> 60) BUN/Creatinine Ratio (6-26) Glucose (70-105) mg/dL Calculated Osmolality (280-300) Calcium (8.6-10.3) mg/dL Troponin I (< 0.04) ng/mL B-Natriuretic Peptide (Less than 100) pg/mL Attestation Statement - Attestation Attestation: I examined this patient and my medical decision-making was reviewed with the Resident Physician. I agree with the documented findings, disposition and treatment plan as described except to the extent set forth below. Patient was seen by Dr. Rodriguez on previous shift along with Dr. Perry, the resident. I relieved Dr. Rodriguez as we are sharing a shift today. The patient had already been admitted and accepted by the hospitalist. After I took over, Dr. Perry and I were called to the bedside because of patient's mental status had changed. His blood sugar was normal, pupils were not pinpoint. He has not had any opioid medications in 7 hours, had 1 Percocet at that point. He was oriented, seemed a little bit groggy but arousable. A repeat venous blood gas was ordered at that point. Before the VBG was back, the patient deteriorated again, assessment was similar although he was a little more difficult to arouse the second time. Around this time we got our VBG back and show significant worsening of his hypercarbic respiratory failure. Decision was made to intubate at this point. See Dr. Perry's procedure note for full details. I was present and supervising throughout the procedure. The hospitalist came into the resuscitation bay just prior to the intubation. The patient will be admitted to the ICU.
[2018-05-05] MEDS ORDERED: Naloxone 0.4 MG/ML INJ IVP PRN (18:59)
[2018-05-05 19:03] LABS: ABG Base Excess 1 mEq/L (-2 to 3); ABG HCO3 28 mEq/L (21-27); ABG Oxygen Saturation 99 % (95-98); ABG PCO2 57 mmHg (35-45); ABG PO2 140 mmHg (85-104); ABG TCO2 30 mEq/L (20-26); Blood Gas Modality VC; Blood Gas PEEP 5 cm H2O; Blood Gas Respiration Rate 16; Blood Gas VT 600 cc
[2018-05-05 20:09] LABS: Triiodothyronine (T3) Total 0.73 ng/mL (0.87-1.78)
[2018-05-05] MEDS ORDERED: MethylPREDNISolone 40 MG/ML VIAL IVP ONE (20:55)
[2018-05-05] MEDS ORDERED: Isovue-370 500 ML INFUS..BTL IV ONE (20:55)
[2018-05-05] MEDS ORDERED: Acetaminophen 325 MG TABLET PO PRN (20:55)
[2018-05-05] MEDS ORDERED: 0.9 % Sodium Chloride 1,000 ML IVC SCH (21:00)
[2018-05-05] MEDS ORDERED: Artificial Tears SOLN 15 ML BOTTLE BOTH EYES PRN (21:08)
[2018-05-05] MEDS ORDERED: *HR* Dextrose 50 % in Water (Syg) 50 ML SYRINGE IVP PRN (21:08)
[2018-05-05] MEDS ORDERED: D5% in Water 1,000 ML IVC PRN (21:08)
[2018-05-05] MEDS ORDERED: Dextrose Gel 15 GM/37.5 ML TUBE PO PRN ×2 (21:08)
--- NOTE | 2018-05-05 21:37 | Emergency Department Note ---
START Narrative - START START: Nursing staff notified myself and Dr. Jarrett that he was having increased altered mentation. A repeat VBG was obtained and his acidosis worsened and was 7.06. His PCO2 is greater than 100. Due to the patient having worsening of his respiratory status, mentation and his VBG worsening did not feel that is appropriate for him to be placed on BiPAP and he was intubated at bedside. I updated the hospitalist on these new findings and the hospitals that would be admitting her was at bedside just prior to the patient being intubated. Patient is patient having to be intubated he will need ICU level of care.
--- NOTE | 2018-05-05 21:38 | Emergency Department Note ---
Disposition Clinical Impression: COPD exacerbation, Hypoxia, TAYA (acute kidney injury) Nausea and vomiting Qualifiers: Vomiting type: unspecified Vomiting Intractability: non-intractable Qualified Code(s): R11.2 - Nausea with vomiting, unspecified Disposition: Admitted As Inpatient Condition: Fair General Adult HPI - General Chief complaint: ED Shortness of Breath/Dyspnea Stated complaint: LASHAY Time Seen by Provider: 05/05/18 14:57 Source: patient Limitations: no limitations - History of Present Illness Pain Scale: 0 - Related Data Home Medications Medication Instructions Recorded Confirmed GlipiZIDE [Glipizide Xl] 5 mg PO DAILY 06/16/16 05/05/18 Montelukast Sodium [Singulair] 10 mg PO DAILY 06/16/16 05/05/18 Pantoprazole Sodium [Protonix] 40 mg PO DAILY 06/16/16 05/05/18 Isosorbide MONOnitrate (24 HR) 30 mg PO DAILY 08/07/16 05/05/18 [Imdur] Atorvastatin Calcium [Lipitor] 80 mg PO HS 07/23/17 05/05/18 Amiodarone [Cordarone] 200 mg PO DAILY 05/05/18 05/05/18 Fenofibrate Nanocrystallized 48 mg PO DAILY 05/05/18 05/05/18 [Tricor] Insulin ASPART [Novolog Flexpen] 0 unit SQ TIDWM 05/05/18 05/05/18 Levothyroxine [Synthroid] 100 mcg PO DAILY 05/05/18 05/05/18 Polyethylene Glycol 3350 [MiraLAX] 17 gm PO DAILY 05/05/18 05/05/18 PredniSONE [Xin] 7.5 mg PO DAILY 05/05/18 05/05/18 Tamsulosin HCl [Flomax] 0.4 mg PO DAILY 05/05/18 05/05/18 Previous Rx's Medication Instructions Recorded Metoprolol [Lopressor] 75 mg PO BID #90 tablet 08/05/17 Allergies Allergy/AdvReac Type Severity Reaction Status Date / Time adenosine Allergy See Verified 08/07/16 16:26 Comments fluticasone Allergy See Verified 08/07/16 16:26 [From Advair Diskus] Comments Iodinated Contrast- Oral and Allergy See Verified 06/16/16 15:37 IV Dye Comments [Iodinated Contrast Media - IV Dye] salmeterol Allergy See Verified 08/07/16 16:26 [From Jas Sands] Comments Cardiovascular: Denies: chest pain Respiratory: Reports: dyspnea. Denies: cough, sputum production Musculoskeletal: Reports: back pain Past Medical History - Past Medical History Medical history: Reports: CHF, COPD, coronary artery disease, diabetes, hyperlipidemia, hypertension Psychiatric history: Reports: no psych history - Social History Smoking Status: Current every day smoker Smokeless Tobacco Status: No Alcohol use: Reports: none Drug use: Reports: none Physical Exam - General Limitations: no limitations General appearance: alert, in no apparent distress Course Vital Signs Temperature 97.7 F 05/05/18 14:41 Pulse Rate 86 05/05/18 14:41 Respiratory Rate 18 05/05/18 14:41 Blood Pressure 84/50 05/05/18 14:41 O2 Sat by Pulse Oximetry 77 05/05/18 14:41 Temperature 97.7 F 05/05/18 14:52 Pulse Rate 46 05/05/18 19:02 Respiratory Rate 16 05/05/18 20:30 Blood Pressure 132/90 05/05/18 20:07 O2 Sat by Pulse Oximetry 100 05/05/18 20:30 Oxygen Delivery Oxygen Delivery Ventilator Procedures - Intubation Time out performed: Yes sedative: Etomidate paralytic: Rocuronium Laryngoscope: Corey ET Tube Size: 7.5 ET Tube Uncuffed: No Tube Secured Depth (cm): 24 Tube Secured Location: lips Tube Placement Confirmation: visualized tube passing through cords, equal breath sounds bilaterally, no breath sounds over epigastrium Patient Tolerated Procedure: well Intubation Complications: none Medical Decision Making - Lab Data Result diagrams: 05/05/18 15:05 05/05/18 15:05 Lab Results 05/05/18 05/05/18 05/05/18 Range/Units 15:05 15:05 15:05 WBC 4.6 (4.3-11.1) K/mcL RBC 3.87 L (4.19-5.50) M/mcL Hgb 12.8 L (12.9-16.9) g/dL Hct 39.6 (37.5-50.1) % MCV 102.3 H (83.0-100.0) fL MCH 33.1 (28.0-33.3) pg MCHC 32.3 (31.6-35.5) g/dL RDW 16.8 H (11.5-14.5) % Plt Count 104 L (140-400) K/mcL MPV 9.4 (9.4-12.4) fL Immature Gran % 0.9 (0-4) % Seg Neutrophils % 58.7 % Lymphocytes % 26.5 % Monocytes % 10.7 % Eosinophils % 2.8 % Basophils % 0.4 % Neutrophils # 2.7 (1.6-8.9) K/mcL Lymphocytes # 1.2 (0.6-4.6) K/mcL Monocytes # 0.5 (0.0-1.3) K/mcL Eosinophils # 0.1 (0.0-0.6) K/mcL Basophils # 0.0 (0.0-0.2) K/mcL VBG pH (7.32-7.42) pH Units VBG pCO2 (41-51) mmHg VBG pO2 (25-50) mmHg VBG HCO3 (21-27) mEq/L Sodium 128 L (136-145) mEq/L Potassium 5.0 (3.5-5.1) mEq/L Chloride 98 (98-107) mEq/L Carbon Dioxide 30 H (23-29) mEq/L BUN 20 (8-23) mg/dL Creatinine 2.08 H (0.70-1.30) mg/dL Est GFR ( Amer) 39 L (> 60) Est GFR (Non-Af Amer) 32 L (> 60) BUN/Creatinine Ratio 10 (6-26) Glucose 160 H (70-105) mg/dL Calculated Osmolality 272 L (280-300) Calcium 9.0 (8.6-10.3) mg/dL Troponin I < 0.03 (< 0.04) ng/mL B-Natriuretic Peptide 231 H (Less than 100) pg/mL TSH (0.340-5.600) mcIU/mL Free T4 (0.70-2.00) ng/dl Total T3 (0.87-1.78) ng/mL Person Notif of Crit 05/05/18 05/05/18 05/05/18 Range/Units 15:17 17:37 17:37 WBC (4.3-11.1) K/mcL RBC (4.19-5.50) M/mcL Hgb (12.9-16.9) g/dL Hct (37.5-50.1) % MCV (83.0-100.0) fL MCH (28.0-33.3) pg MCHC (31.6-35.5) g/dL RDW (11.5-14.5) % Plt Count (140-400) K/mcL MPV (9.4-12.4) fL Immature Gran % (0-4) % Seg Neutrophils % % Lymphocytes % % Monocytes % % Eosinophils % % Basophils % % Neutrophils # (1.6-8.9) K/mcL Lymphocytes # (0.6-4.6) K/mcL Monocytes # (0.0-1.3) K/mcL Eosinophils # (0.0-0.6) K/mcL Basophils # (0.0-0.2) K/mcL VBG pH 7.28 L (7.32-7.42) pH Units VBG pCO2 64 H (41-51) mmHg VBG pO2 146 H (25-50) mmHg VBG HCO3 30 H (21-27) mEq/L Sodium (136-145) mEq/L Potassium (3.5-5.1) mEq/L Chloride (98-107) mEq/L Carbon Dioxide (23-29) mEq/L BUN (8-23) mg/dL Creatinine (0.70-1.30) mg/dL Est GFR ( Amer) (> 60) Est GFR (Non-Af Amer) (> 60) BUN/Creatinine Ratio (6-26) Glucose (70-105) mg/dL Calculated Osmolality (280-300) Calcium (8.6-10.3) mg/dL Troponin I (< 0.04) ng/mL B-Natriuretic Peptide (Less than 100) pg/mL TSH 88.600 H (0.340-5.600) mcIU/mL Free T4 0.48 L (0.70-2.00) ng/dl Total T3 0.73 L (0.87-1.78) ng/mL Person Notif of Crit 05/05/18 Range/Units 17:57 WBC (4.3-11.1) K/mcL RBC (4.19-5.50) M/mcL Hgb (12.9-16.9) g/dL Hct (37.5-50.1) % MCV (83.0-100.0) fL MCH (28.0-33.3) pg MCHC (31.6-35.5) g/dL RDW (11.5-14.5) % Plt Count (140-400) K/mcL MPV (9.4-12.4) fL Immature Gran % (0-4) % Seg Neutrophils % % Lymphocytes % % Monocytes % % Eosinophils % % Basophils % % Neutrophils # (1.6-8.9) K/mcL Lymphocytes # (0.6-4.6) K/mcL Monocytes # (0.0-1.3) K/mcL Eosinophils # (0.0-0.6) K/mcL Basophils # (0.0-0.2) K/mcL VBG pH 7.10 L* D (7.32-7.42) pH Units VBG pCO2 110 H* (41-51) mmHg VBG pO2 177 H (25-50) mmHg VBG HCO3 34 H (21-27) mEq/L Sodium (136-145) mEq/L Potassium (3.5-5.1) mEq/L Chloride (98-107) mEq/L Carbon Dioxide (23-29) mEq/L BUN (8-23) mg/dL Creatinine (0.70-1.30) mg/dL Est GFR ( Amer) (> 60) Est GFR (Non-Af Amer) (> 60) BUN/Creatinine Ratio (6-26) Glucose (70-105) mg/dL Calculated Osmolality (280-300) Calcium (8.6-10.3) mg/dL Troponin I (< 0.04) ng/mL B-Natriuretic Peptide (Less than 100) pg/mL TSH (0.340-5.600) mcIU/mL Free T4 (0.70-2.00) ng/dl Total T3 (0.87-1.78) ng/mL Person Notif of Crit [facility]
[2018-05-05] MEDS: Ipratropium/Albuterol Neb 3 ML IH SCH ×2 (21:55)
[2018-05-05 22:02] LABS: ABG Base Excess 0 mEq/L (-2 to 3); ABG HCO3 26 mEq/L (21-27); ABG Oxygen Saturation 96 % (95-98); ABG PCO2 48 mmHg (35-45); ABG PH 7.34 pH Units (7.32-7.45); ABG PO2 84 mmHg (85-104); ABG TCO2 28 mEq/L (20-26); Blood Gas Modality PRVC; Blood Gas PEEP 5 cm H2O; Blood Gas Respiration Rate 16; Blood Gas VT 550 cc
[2018-05-05] MEDS: FentaNYL (PF) 1,000 MCG in 0.9 % Sodium Chloride 80 ML IVC SCH (22:20)
[2018-05-05] MEDS: *HR* Heparin 5,000 UNIT/ML VIAL SQ SCH (22:22)
[2018-05-05] MEDS: Pantoprazole 40 MG VIAL IVP SCH (22:22)
[2018-05-05] MEDS: Artificial Tears SOLN 15 ML BOTTLE BOTH EYES SCH (22:22)
[2018-05-05] MEDS: Insulin LISPRO 300 UNITS/3 ML VIAL SQ SCH (22:25)
[2018-05-05] MEDS ORDERED: Levothyroxine Sodium 100 MCG VIAL IVP SCH (23:45)
[2018-05-05 23:47] LABS: Estimated Average Glucose 123 mg/dl; Hemoglobin A1C 5.9 %
[2018-05-06 00:04] LABS: Prothrombin Time 11.7 Seconds (9.4-12.1)
[2018-05-06] MEDS ORDERED: Levothyroxine Sodium 100 MCG VIAL IVP SCH ×2 (00:26→00:30)
[2018-05-06 00:33] LABS: Bilirubin,Urine Small (Negative); Blood,Urine Negative (Negative); Clarity,Urine Clear (Clear); Color,Urine Dark Yellow (Yellow); Glucose,Urine (UA) 100 mg/dL (Normal); Ketones,Urine Trace mg/dL (Negative); Leukocyte Esterase,Urine Negative (Negative); Nitrite,Urine Negative (Negative); PH,Urine 6.5 pH Units (5.0-8.0); Protein,Urine 100 mg/dL (Neg-Trace); Specific Gravity,Urine 1.018 (1.010-1.025); Urobilinogen,Urine Normal (Normal)
[2018-05-06 00:37] LABS: Bacteria,Urine None Seen per hpf (None-Few); Hyaline Casts,Urine None Seen per lpf (None-Few); Squamous Epithelial Cell,Urine Many per lpf (None-Few); WBC,Urine 0-3 per hpf (0-3)
[2018-05-06] MEDS ORDERED: 0.9 % Sodium Chloride 1,000 ML IVC SCH (01:38)
[2018-05-06] MEDS ORDERED: Levofloxacin 750 MG/150 ML 750 MG/150 ML BAG IVPB SCH (02:00)
[2018-05-06] MEDS ORDERED: *HR* Metoprolol 5 MG/5 ML VIAL IVP PRN (02:11)
[2018-05-06] MEDS: Artificial Tears SOLN 15 ML BOTTLE BOTH EYES SCH ×5 (02:52→19:46)
[2018-05-06] MEDS ORDERED: methylPREDNISolone 125 MG/2 ML VIAL IVP ONE ×2 (03:00→09:00)
[2018-05-06] MEDS: Insulin LISPRO 300 UNITS/3 ML VIAL SQ SCH ×5 (03:06→19:46)
[2018-05-06] MEDS: Ipratropium/Albuterol Neb 3 ML IH SCH ×6 (03:23→23:37)
[2018-05-06 04:59] LABS: ABG Base Excess 0 mEq/L (-2 to 3); ABG HCO3 24 mEq/L (21-27); ABG Oxygen Saturation 90 % (95-98); ABG PCO2 37 mmHg (35-45); ABG PH 7.42 pH Units (7.32-7.45); ABG PO2 57 mmHg (85-104); ABG TCO2 25 mEq/L (20-26); Blood Gas Modality PRVC; Blood Gas PEEP 5 cm H2O; Blood Gas Respiration Rate 16; Blood Gas VT 550 cc
[2018-05-06 05:31] LABS: Hematocrit 37.1 % (37.5-50.1); Immature Granulocytes % 0.5 % (0-4); Mean Corpuscular Volume 99.2 fL (83.0-100.0); Red Blood Count 3.74 M/mcL (4.19-5.50); Red Cell Distribution Width 16.4 % (11.5-14.5)
[2018-05-06 05:33] LABS: Eosinophils % 0.3 %; Hemoglobin 12.3 g/dL (12.9-16.9); Lymphocytes # 0.2 K/mcL (0.6-4.6); Lymphocytes % 4.3 %; Mean Corpuscular HGB Conc 33.2 g/dL (31.6-35.5); Mean Corpuscular Hemoglobin 32.9 pg (28.0-33.3); Mean Platelet Volume 9.7 fL (9.4-12.4); Monocytes # 0.1 K/mcL (0.0-1.3); Monocytes % 1.5 %; Neutrophils # 3.7 K/mcL (1.6-8.9); Platelet Count 97 K/mcL (140-400); Segmented Neutrophils % 93.4 %
[2018-05-06 05:46] LABS: Platelet Estimate Decreased (Normal)
[2018-05-06 05:47] LABS: Anisocytosis 1+ (Not Present)
[2018-05-06] MEDS: *HR* Heparin 5,000 UNIT/ML VIAL SQ SCH ×3 (05:49→19:45)
[2018-05-06 05:52] LABS: Albumin 3.2 g/dL (3.5-5.7); Albumin/Globulin Ratio 1.9 (1.1-2.2); Bilirubin,Total 0.9 mg/dL (0.3-1.0); Calcium 8.7 mg/dL (8.6-10.3); Globulin 1.7 g/dL (2.4-3.5); Magnesium 1.5 mg/dL (1.6-2.6); Potassium 4.4 mEq/L (3.5-5.1); Total Protein 4.9 g/dL (6.4-8.9)
--- NOTE | 2018-05-06 06:45 | Pulmonology Consult Note ---
<Servando Kirk W - Last Filed: 05/06/18 09:00> Date of Encounter: 05/06/18 Medications and Allergies GlipiZIDE [Glipizide Xl] 5 mg PO DAILY 06/16/16 [History] Montelukast Sodium [Singulair] 10 mg PO DAILY 06/16/16 [History] Pantoprazole Sodium [Protonix] 40 mg PO DAILY 06/16/16 [History] Isosorbide MONOnitrate (24 HR) [Imdur] 30 mg PO DAILY 08/07/16 [History] Atorvastatin Calcium [Lipitor] 80 mg PO HS 07/23/17 [History] Metoprolol [Lopressor] 75 mg PO BID #90 tablet 08/05/17 [Rx] Amiodarone [Cordarone] 200 mg PO DAILY 05/05/18 [History] Fenofibrate Nanocrystallized [Tricor] 48 mg PO DAILY 05/05/18 [History] Insulin ASPART [Novolog Flexpen] 0 unit SQ TIDWM 05/05/18 [History] Levothyroxine [Synthroid] 100 mcg PO DAILY 05/05/18 [History] Polyethylene Glycol 3350 [MiraLAX] 17 gm PO DAILY 05/05/18 [History] PredniSONE [Xin] 7.5 mg PO DAILY 05/05/18 [History] Tamsulosin HCl [Flomax] 0.4 mg PO DAILY 05/05/18 [History] 3 Allergy/AdvReac Type Severity Reaction Status Date / Time adenosine Allergy See Verified 08/07/16 16:26 Comments fluticasone Allergy See Verified 08/07/16 16:26 [From Advair Diskus] Comments Iodinated Contrast- Oral and Allergy See Verified 06/16/16 15:37 IV Dye Comments [Iodinated Contrast Media - IV Dye] salmeterol Allergy See Verified 08/07/16 16:26 [From Advair Diskus] Comments All Systems: The remainder of the systems were reviewed and are negative Physical Examination Vital Signs: Vital Signs, Last 4 Hours Temp Pulse Resp BP Pulse Ox 05/06/18 08:38 99.4 F 05/06/18 08:00 97.6 F 60 16 85/48 92 05/06/18 07:44 16 95/50 92 05/06/18 07:00 59 16 95/50 92 05/06/18 06:00 97.6 F 60 16 96/50 92 05/06/18 05:15 16 90/49 91 Ventilator Settings Ventilator Settings: Ventilator Settings, Last 8 Hours Ventilator Tidal Volume 550 Setting Ventilator Tidal Volume 550 Setting Ventilator Tidal Volume 550 Setting Ventilator Tidal Volume 550 Setting Ventilator Tidal Volume 550 Setting Ventilator Tidal Volume 550 Setting Ventilator Tidal Volume 550 Setting Ventilator Tidal Volume 550 Setting Ventilator Tidal Volume 550 Setting Ventilator Tidal Volume 550 Setting Ventilator Tidal Volume 550 Setting Ventilator Respiratory Rate 16 Setting Ventilator Respiratory Rate 16 Setting Ventilator Respiratory Rate 16 Setting Ventilator Respiratory Rate 16 Setting Ventilator Respiratory Rate 16 Setting Ventilator Respiratory Rate 16 Setting Ventilator Respiratory Rate 16 Setting Ventilator Respiratory Rate 16 Setting Ventilator Respiratory Rate 16 Setting Ventilator Respiratory Rate 16 Setting Ventilator Respiratory Rate 16 Setting Actual Respiratory Rate 16 Actual Respiratory Rate 16 Actual Respiratory Rate 16 Actual Respiratory Rate 16 Actual Respiratory Rate 16 Actual Respiratory Rate 16 Actual Respiratory Rate 16 Actual Respiratory Rate 16 Actual Respiratory Rate 16 Actual Respiratory Rate 16 Positive End Expiratory 5 Pressure Positive End Expiratory 5 Pressure Positive End Expiratory 5 Pressure Positive End Expiratory 5 Pressure Positive End Expiratory 5 Pressure Positive End Expiratory 5 Pressure Positive End Expiratory 5 Pressure Positive End Expiratory 5 Pressure Positive End Expiratory 5 Pressure Positive End Expiratory 5 Pressure Positive End Expiratory 5 Pressure Peak Inspiratory Airway 27 Pressure Peak Inspiratory Airway 27 Pressure Peak Inspiratory Airway 27 Pressure Peak Inspiratory Airway 26 Pressure Peak Inspiratory Airway 26 Pressure Peak Inspiratory Airway 27 Pressure Peak Inspiratory Airway 26 Pressure Peak Inspiratory Airway 26 Pressure Peak Inspiratory Airway 29 Pressure Peak Inspiratory Airway 26 Pressure Results - Laboratory Findings CBC and BMP: 05/06/18 05:20 05/06/18 05:20 ABG ABG pH 7.42 pH Units (7.32-7.45) 05/06/18 04:56 ABG pCO2 37 mmHg (35-45) 05/06/18 04:56 ABG pO2 57 mmHg (85-104) L 05/06/18 04:56 ABG O2 Saturation 90 % (95-98) L 05/06/18 04:56 PT/INR, D-dimer PT 11.7 Seconds (9.4-12.1) 05/05/18 23:29 Abnormal lab findings: Abnormal lab results WBC 4.0 K/mcL (4.3-11.1) L 05/06/18 05:20 RBC 3.74 M/mcL (4.19-5.50) L 05/06/18 05:20 Hgb 12.3 g/dL (12.9-16.9) L 05/06/18 05:20 Hct 37.1 % (37.5-50.1) L 05/06/18 05:20 RDW 16.4 % (11.5-14.5) H 05/06/18 05:20 Plt Count 97 K/mcL (140-400) L 05/06/18 05:20 Lymphocytes # 0.2 K/mcL (0.6-4.6) L 05/06/18 05:20 Platelet Estimate Decreased (Normal) L 05/06/18 05:20 Anisocytosis 1+ (Not Present) A 05/06/18 05:20 ABG pO2 57 mmHg (85-104) L 05/06/18 04:56 ABG O2 Saturation 90 % (95-98) L 05/06/18 04:56 VBG pH 7.10 pH Units (7.32-7.42) L* D 05/05/18 17:57 VBG pCO2 110 mmHg (41-51) H* 05/05/18 17:57 VBG pO2 177 mmHg (25-50) H 05/05/18 17:57 VBG HCO3 34 mEq/L (21-27) H 05/05/18 17:57 Sodium 132 mEq/L (136-145) L 05/06/18 05:20 Creatinine 1.90 mg/dL (0.70-1.30) H 05/06/18 05:20 Est GFR ( Amer) 43 (> 60) L 05/06/18 05:20 Est GFR (Non-Af Amer) 35 (> 60) L 05/06/18 05:20 POC Glucose 118 mg/dL (70-99) H 05/06/18 07:55 Hemoglobin A1c 5.9 % (-5.6) H 05/05/18 23:29 Calculated Osmolality 277 (280-300) L 05/06/18 05:20 Magnesium 1.5 mg/dL (1.6-2.6) L 05/06/18 05:20 B-Natriuretic Peptide 231 pg/mL (Less than 100) H 05/05/18 15:05 Serum Total Protein 4.9 g/dL (6.4-8.9) L 05/06/18 05:20 Albumin 3.2 g/dL (3.5-5.7) L 05/06/18 05:20 Globulin 1.7 g/dL (2.4-3.5) L 05/06/18 05:20 TSH 46.090 mcIU/mL (0.340-5.600) H 05/06/18 05:20 Free T4 0.48 ng/dl (0.70-2.00) L 05/05/18 17:37 Total T3 0.73 ng/mL (0.87-1.78) L 05/05/18 17:37 Urine Protein 100 mg/dL (Neg-Trace) H 05/06/18 00:20 Urine Glucose (UA) 100 mg/dL (Normal) H 05/06/18 00:20 Urine Ketones Trace mg/dL (Negative) H 05/06/18 00:20 Urine Bilirubin Small (Negative) H 05/06/18 00:20 Urine Microscopic RBC 3-5 per hpf (0-3) H 05/06/18 00:20 Ur Squamous Epith Cells Many per lpf (None-Few) H 05/06/18 00:20 - Microbiology Findings Microbiology Findings: Microbiology, Last 48 Hours 05/05/18 19:27 Legionella Antigen - Final Urine,[place] Streptococcus pneumoniae Antigen (M - Final - Clinical Findings Intake & Output: Intake & Output 05/05/18 05/06/18 05/06/18 23:59 07:59 15:59 Intake Total 100 / 100 Output Total 350 / 350 300 / 300 Balance -350 / -350 -300 / -300 100 / 100 Weight 133.3 kg 113.3 kg Consult Discharge Plan - Plan Referrals: Khurram Victoria DO [Primary Care Provider] - - Attending Attestation I examined this patient and my medical decision-making was reviewed with the Resident Physician. I agree with the documented findings, disposition and treatment plan as described except to the extent set forth below. We independently had [id number] contact with the patient I spent 40 min of Critical Care time with this patient. It involved decision making of high complexity to assess, manipulate, and support vital organ system failure and/or to prevent further life threatening deterioration of the patient' s condition. The time involved in the performance of separately reportable procedures was not counted toward critical care time. Patient seen and examined at bedside Labs, radiology, chart personally reviewed. Management was reviewed during multidisciplinary critical care rounds. 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 Once mental status is improved he will likely be a candidate for spontaneous breathing trial Cards: Acute on chronic heart failure with preserved ejection fraction evidence of volume overload based upon a peak BNP being elevated and the radiographic picture. Plan to start diuresis today blood pressure acceptable at present GI: GI prophylaxis given Nutrition: Nothing by mouth for now Renal: Acute on chronic kidney injury is unclear if this is related to vascular congestion from heart failure which I actually suspect versus. Poor by mouth intake conflict overnight with some improvement and likely can trial diuresis later today UOP Monitored, Cont to Trend sCr and monitor Electrolytes. ID: His been covered broadly for possible infection such as pneumonia or UTI pending cultures lactate within normal limits Heme/Onc: DVT prophylaxis given; there was some concern about the overnight team that this may have been a manifestation of acute PE is my impression this is very low likelihood given the patient does not have any active malignancy was not tachycardic the situation is better explained by another process and he has no clear history of venous thromboembolism. Given this I would not pursue CT angiography as was ordered by the overnight team because of his underlying kidney dysfunction and low pretest probability for venous thromboembolism Endo: The patient presented with evidence of myxedema and it is difficult to ascertain how much of his presentation was related to hypothyroidism minute he does not have any evidence of Bence of hypothermia he was not particularly bradycardic he did have evidence of hypoventilation which may or may not be a manifestation this presentation ligatures is easily. secondary to cardiopulmonary cause he did have altered mental status overnight team had given him IV thyroxine at a fairly modest dose I have double that dose and have elected to not give full treatment for myxedema coma because of discordant clinical/laboratory information. Given his underlying cardiovascular history including recurrent SVT I feel that this is the safest approach especially given his not showed any evidence of further deterioration after initial treatment that has been provided We have given him stress dose steroids in the short-term which I suspect can be weaned down and this was done because of the IV formulation administration of thyroxine as well as cortisol less than 10 presenting with acute illness. We will continue IV formulation of thyroxine until he is able to take by mouth recheck T3-T4 tomorrow. Glucose Monitored Integ/MSK: Skin Care per routine ICU Nursing Protocol to prevent ulcers. Lines: All lines examined without evidence of infection : Dispo: remain in ICU for critical illness CODE:Full <Jose Johnson T - Last Filed: 05/06/18 15:00> Date of Encounter: 05/06/18 Time of Encounter: 06:30 Assessment and Plan (1) Acute on chronic respiratory failure with hypoxia and hypercapnia Current Visit: Yes Status: Acute 2/2 hypoventilation, pulm edema, or COPD exacerbation. Was intubated in ED after tiring on BiPAP. Acidotic/hypercarbic on initial VBG. Mild pulm edema on CXR. Resp status better today. Acidosis improved today. Concern overnight for possible PE. Upon further investigation with calling his PCP he does not have hx of DVT, no active malignancy, had 2 superficial penile cancers resected in 2016 which was not followed by heme/onc, and prostate biopsy ~5 years ago was benign. In light of the lower pretest probability I did not want to subject him to CTA given his renal status and cancelled the test. Continue bronchodilators. Will hold off diuretics in setting of TAYA but stop IVF. Will wean sedation and SBT tomorrow if mental status improves. (2) Myxedema Current Visit: Yes Status: Acute Hx of hypothyroidism and on 100mcg levothyroxine at home. TSH last night 88.6, repeat today 46. Will repeat tomorrow am. Free T4 and total T3 low last night. No hypothermia or bradycardia but encephalopathic. Cortisol 5.2 Was given stress dose steroids and IV thyroxine. (3) Acute metabolic encephalopathy Current Visit: Yes Status: Acute Likely 2/2 hypercarbia in setting of acute resp failure. He likely is baseline hypercarbic given his hx of COPD on home O2. CT head without acute process. Will wean sedation today. (4) COPD exacerbation Current Visit: Yes Status: Acute Hx of COPD, on 2L home O2. Remains intubated on vent. Acidosis and hypercarbia improved today. Will decrease minute ventilation some today as he likely has baseline hypercarbia 2/ 2 his COPD. Initially given IV methylprednisolone and IV levofloxacin in setting of suspected COPD exacerbation. Methylprednisolone stopped since stress dose hydrocortisone started in myxedema setting. Will SBT tomorrow if mental status improves. (5) Acute on chronic diastolic CHF (congestive heart failure) Current Visit: Yes Status: Acute ECHO 07/27/17, EF 60%, mild LV dysfunction BNP on admisison 231 Mild pulm edema on CXR 1+ edema on exam. Clear breath sounds on vent. Will hold diuretics today in setting of TAYA. Stop IVF. (6) Hyponatremia Current Visit: Yes Status: Acute Na on admission 128, corrected Na 129, serum osmolality 272. Urine Na 28.1, urine osmolality 638. Today, Na 132, serum osmolality 277, urine Na 29.8, urine osmolality 461 Received 1L NS on admisison. Cortisol 5.2, TSH 88.6, Cr 2.08 on admisison. Will trend Na in setting of myxedema and TAYA (7) Diabetes mellitus Current Visit: Yes Status: Chronic Hx of DM Glucose stable today at 103 Low SSI q4h as NPO 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 mellitus long term care pharmacist insulin use: with long term care pharmacist use Diabetes mellitus complication status: with kidney complications Diabetes mellitus complication detail: with chronic kidney disease Chronic kidney disease stage: stage 3 (moderate) Qualified Code(s): E11.22 - Type 2 diabetes mellitus with diabetic chronic kidney disease; N18.3 - Chronic kidney disease, stage 3 (moderate); Z79.4 - senior care (current) use of insulin (8) CAD (coronary artery disease) Current Visit: No Status: Chronic Trops neg. EKG without signs of ischemia. Continue home meds as allowed. Qualifiers: Coronary Disease-Associated Artery/Lesion type: [place] artery [place] vs. transplanted heart: [place] heart Associated angina: without angina Qualified Code(s): I25.10 - Atherosclerotic heart disease of [place] coronary artery without angina pectoris (9) Atrial flutter Current Visit: No Status: Resolved Hx of flutter. No home anticoagulation. On amioderone at home. Qualifiers: Atrial flutter type: atypical Qualified Code(s): I48.4 - Atypical atrial flutter (10) Chronic back pain Current Visit: Yes Status: Chronic Hx of spinal stenosis Qualifiers: Back pain location: back pain in unspecified location Back pain laterality : bilateral Qualified Code(s): M54.9 - Dorsalgia, unspecified; G89.29 - Other chronic pain (11) DVT prophylaxis Current Visit: Yes Status: Acute Chemical prophylaxis History of Present Illness Consult date: 05/06/18 Requesting physician: Jorge Luis Tabares Reason for consult: other (Acute respiratory failure) Chief complaint: SOB History of present illness: Mr. Humphries is a 67 year old male with a PMH of diastolic CHF, COPD on home 02, CAD, DM, chronic back pain, HTN, HLD, and hypothyroidism who presented to the ED with increased shortness of breath from pain management physician, Dr. Harrison 's office following evaluation for spinal stenosis. He acutely became short of breath and Dr. Harrison advised him to report to the emergency department. HPI was obtained from the medical record because patient was intubated in the ED secondary to AMS and inability to protect his airway while wearing BiPAP. Admission note indicated increased work of breathing, nausea, and back pain. Mild pulmonary edema on cxr. Was given Duonebs, Percocet x1, and placed on Bipap due to hypercapnia on VBG. He denied fever, chills, chest pain, cough, or sputum production. Within the ICU he was found to have TSH 89 with low T4/T3, Na 128, Cr 2.08, and BNP 231. Past Med Surg Social Fam HX - Past Medical History Medical history: cancer (penile), CHF, COPD, coronary artery disease, diabetes, hyperlipidemia, hypertension Additional medical history: anemia. leukocytosis. penile cancer. PAD Psychiatric history: no psych history - Past Surgical History Additional surgical history: CARDIAC CATH. Cardiac Stenting x5. gallbladder surgery. cancer removed twice. polyp removal. testicular tumor removal. colonoscopy. bypass in legs - Social History Smoking Status: Current every day smoker Smokeless Tobacco Status: No Alcohol use: none Drug use: none - Family History Father Living Status: Hx Family Cardiac Disorders: Yes (Enlarged heart) Mother Living Status: Hx Family Cardiac Disorders: Yes Hx Family Respiratory Disorders: Yes (COPD) ROS unobtainable: due to endotracheal tube (Sedated) All Systems: The remainder of the systems were reviewed and are negative Physical Examination Vital Signs: Vital Signs, Last 4 Hours Temp Pulse Resp BP Pulse Ox 05/06/18 06:00 97.6 F 60 16 96/50 92 05/06/18 05:15 16 90/49 91 05/06/18 05:00 61 16 90/49 92 05/06/18 04:00 97.6 F 59 16 108/41 94 05/06/18 03:23 16 94/46 93 05/06/18 03:00 57 16 94/46 93 General appearance: no acute distress, asleep (intubated and sedated) Eyes: nonicteric ENT: oropharynx dry Auscultation: bilateral: diminished breath sounds (on vent) Cardiovascular: regular rate and rhythm Gastrointestinal: normoactive bowel sounds, soft, non-tender Extremities: no cyanosis, edema (1-2+ bilateral LE edema ) unable to assess due to mental status Ventilator Settings Ventilator Settings: Ventilator Settings, Last 8 Hours Ventilator Tidal Volume 550 Setting Ventilator Tidal Volume 550 Setting Ventilator Tidal Volume 550 Setting Ventilator Tidal Volume 550 Setting Ventilator Tidal Volume 550 Setting Ventilator Tidal Volume 550 Setting Ventilator Tidal Volume 550 Setting Ventilator Tidal Volume 550 Setting Ventilator Tidal Volume 550 Setting Ventilator Tidal Volume 550 Setting Ventilator Tidal Volume 550 Setting Ventilator Tidal Volume 550 Setting Ventilator Tidal Volume 550 Setting Ventilator Tidal Volume 550 Setting Ventilator Respiratory Rate 16 Setting Ventilator Respiratory Rate 16 Setting Ventilator Respiratory Rate 16 Setting Ventilator Respiratory Rate 16 Setting Ventilator Respiratory Rate 16 Setting Ventilator Respiratory Rate 16 Setting Ventilator Respiratory Rate 16 Setting Ventilator Respiratory Rate 16 Setting Ventilator Respiratory Rate 16 Setting Ventilator Respiratory Rate 16 Setting Ventilator Respiratory Rate 16 Setting Ventilator Respiratory Rate 16 Setting Ventilator Respiratory Rate 16 Setting Ventilator Respiratory Rate 16 Setting Actual Respiratory Rate 16 Actual Respiratory Rate 16 Actual Respiratory Rate 16 Actual Respiratory Rate 16 Actual Respiratory Rate 16 Actual Respiratory Rate 16 Actual Respiratory Rate 16 Actual Respiratory Rate 16 Actual Respiratory Rate 16 Actual Respiratory Rate 16 Actual Respiratory Rate 16 Actual Respiratory Rate 17 Actual Respiratory Rate 16 Positive End Expiratory 5 Pressure Positive End Expiratory 5 Pressure Positive End Expiratory 5 Pressure Positive End Expiratory 5 Pressure Positive End Expiratory 5 Pressure Positive End Expiratory 5 Pressure Positive End Expiratory 5 Pressure Positive End Expiratory 5 Pressure Positive End Expiratory 5 Pressure Positive End Expiratory 5 Pressure Positive End Expiratory 5 Pressure Positive End Expiratory 5 Pressure Positive End Expiratory 5 Pressure Positive End Expiratory 5 Pressure Peak Inspiratory Airway 27 Pressure Peak Inspiratory Airway 26 Pressure Peak Inspiratory Airway 26 Pressure Peak Inspiratory Airway 27 Pressure Peak Inspiratory Airway 26 Pressure Peak Inspiratory Airway 26 Pressure Peak Inspiratory Airway 29 Pressure Peak Inspiratory Airway 26 Pressure Peak Inspiratory Airway 30 Pressure Peak Inspiratory Airway 26 Pressure Peak Inspiratory Airway 26 Pressure Peak Inspiratory Airway 36 Pressure Peak Inspiratory Airway 38 Pressure Results - Laboratory Findings CBC and BMP: 05/06/18 12:21 05/06/18 12:21 ABG ABG pH 7.42 pH Units (7.32-7.45) 05/06/18 04:56 ABG pCO2 37 mmHg (35-45) 05/06/18 04:56 ABG pO2 57 mmHg (85-104) L 05/06/18 04:56 ABG O2 Saturation 90 % (95-98) L 05/06/18 04:56 PT/INR, D-dimer PT 11.7 Seconds (9.4-12.1) 05/05/18 23:29 Abnormal lab findings: Abnormal lab results WBC 4.0 K/mcL (4.3-11.1) L 05/06/18 05:20 RBC 3.74 M/mcL (4.19-5.50) L 05/06/18 05:20 Hgb 12.3 g/dL (12.9-16.9) L 05/06/18 05:20 Hct 37.1 % (37.5-50.1) L 05/06/18 05:20 RDW 16.4 % (11.5-14.5) H 05/06/18 05:20 Plt Count 97 K/mcL (140-400) L 05/06/18 05:20 Lymphocytes # 0.2 K/mcL (0.6-4.6) L 05/06/18 05:20 Platelet Estimate Decreased (Normal) L 05/06/18 05:20 Anisocytosis 1+ (Not Present) A 05/06/18 05:20 ABG pO2 57 mmHg (85-104) L 05/06/18 04:56 ABG O2 Saturation 90 % (95-98) L 05/06/18 04:56 VBG pH 7.10 pH Units (7.32-7.42) L* D 05/05/18 17:57 VBG pCO2 110 mmHg (41-51) H* 05/05/18 17:57 VBG pO2 177 mmHg (25-50) H 05/05/18 17:57 VBG HCO3 34 mEq/L (21-27) H 05/05/18 17:57 Sodium 132 mEq/L (136-145) L 05/06/18 05:20 Creatinine 1.90 mg/dL (0.70-1.30) H 05/06/18 05:20 Est GFR ( Amer) 43 (> 60) L 05/06/18 05:20 Est GFR (Non-Af Amer) 35 (> 60) L 05/06/18 05:20 Hemoglobin A1c 5.9 % (-5.6) H 05/05/18 23:29 Calculated Osmolality 277 (280-300) L 05/06/18 05:20 Magnesium 1.5 mg/dL (1.6-2.6) L 05/06/18 05:20 B-Natriuretic Peptide 231 pg/mL (Less than 100) H 05/05/18 15:05 Serum Total Protein 4.9 g/dL (6.4-8.9) L 05/06/18 05:20 Albumin 3.2 g/dL (3.5-5.7) L 05/06/18 05:20 Globulin 1.7 g/dL (2.4-3.5) L 05/06/18 05:20 TSH 88.600 mcIU/mL (0.340-5.600) H 05/05/18 17:37 Free T4 0.48 ng/dl (0.70-2.00) L 05/05/18 17:37 Total T3 0.73 ng/mL (0.87-1.78) L 05/05/18 17:37 Urine Protein 100 mg/dL (Neg-Trace) H 18 00:20 Urine Glucose (UA) 100 mg/dL (Normal) H 18 00:20 Urine Ketones Trace mg/dL (Negative) H 05/06/18 00:20 Urine Bilirubin Small (Negative) H 18 00:20 Urine Microscopic RBC 3-5 per hpf (0-3) H 05/06/18 00:20 Ur Squamous Epith Cells Many per lpf (None-Few) H 05/06/18 00:20 - Microbiology Findings Microbiology Findings: Microbiology, Last 48 Hours 05/05/18 19:27 Legionella Antigen - Final Urine,[place] Streptococcus pneumoniae Antigen (M - Final - Clinical Findings Intake & Output: Intake & Output 05/05/1818 05/06/18 15:59 23:59 07:59 Output Total 350 / 350 300 / 300 Balance -350 / -350 -300 / -300 Weight 133.3 kg 113.3 kg
[2018-05-06] MEDS ORDERED: Levothyroxine Sodium 100 MCG VIAL IVP ONE (08:00)
[2018-05-06] MEDS: Chlorhexidine Rinse 15 ML MOUTHWASH MM SCH ×2 (08:41→19:45)
[2018-05-06] MEDS: Pantoprazole 40 MG VIAL IVP SCH (08:41)
[2018-05-06] MEDS: Hydrocortisone Sodium Succ 100 MG/2 ML VIAL IVP SCH ×2 (08:41→15:33)
--- NOTE | 2018-05-06 09:51 | Event Note ---
Date of Encounter: 05/06/18 Time of Encounter: 09:50 Patient is on vent, defer patient managementto ICU team, will inform PICS
[2018-05-06 10:52] LABS: Adenovirus Not Detected (Not Detect); Bordetella Pertussis Not Detected (Not Detect); Chlamydophila pneumoniae Not Detected (Not Detect); Coronavirus 229E Not Detected (Not Detect); Coronavirus HKU1 Not Detected (Not Detect); Coronavirus NL63 Not Detected (Not Detect); Coronavirus OC43 Not Detected (Not Detect); Human Metapneumovirus Not Detected (Not Detect); Human Rhinovirus/Enterovirus Not Detected (Not Detect); Influenza A Subtype 2009 H1 Not Detected (Not Detect); Influenza A Untypeable Not Detected (Not Detect); Influenza B Not Detected (Not Detect); Mycoplasma pneumoniae Not Detected (Not Detect); Parainfluenza Virus 1 Not Detected (Not Detect); Parainfluenza Virus 2 Not Detected (Not Detect); Parainfluenza Virus 3 Not Detected (Not Detect); Parainfluenza Virus 4 Not Detected (Not Detect); Respiratory Syncytial Virus Not Detected (Not Detect)
[2018-05-06] MEDS: Dexmedetomidine HCl 400 MCG/100 ML MLS IVC SCH ×2 (12:35→19:50)
[2018-05-06 12:37] LABS: Hemoglobin 12.2 g/dL (12.9-16.9); Lymphocytes # 0.2 K/mcL (0.6-4.6); Lymphocytes % 4.5 %; Mean Corpuscular Hemoglobin 33.2 pg (28.0-33.3); Mean Corpuscular Volume 100.8 fL (83.0-100.0); Monocytes # 0.1 K/mcL (0.0-1.3); Monocytes % 1.5 %; Neutrophils # 3.7 K/mcL (1.6-8.9); Platelet Count 96 K/mcL (140-400); Red Blood Count 3.67 M/mcL (4.19-5.50); Red Cell Distribution Width 16.4 % (11.5-14.5)
[2018-05-06] MEDS: FentaNYL (PF) 1,000 MCG in 0.9 % Sodium Chloride 80 ML IVC SCH ×2 (12:46→21:04)
--- NOTE | 2018-05-06 12:57 | Electrocardiograph Report ---
[place] [employer] [facility] Test Date: 2018-05-05 Pat Name: Devyn Humphries Department: [id number] Room: 10 Gender: M Mis Manager: : 1950 Requested By: Gordon Gutierrez Order Number: [id number] Reading MD: Miki Fields Measurements Intervals [place] Rate: 46 P: [place]: QRS: 68 QRSD: 104 T: 56 QT: 485 QTc: 425 Interpretive Statements Junctional rhythm Low voltage, extremity leads Electronically Signed On 05-06-2018 12:55:19 EDT by Miki Fields
[2018-05-06 13:00] LABS: Platelet Estimate Decreased (Normal)
[2018-05-06 13:13] LABS: Calcium 8.7 mg/dL (8.6-10.3); Magnesium 1.6 mg/dL (1.6-2.6); Potassium 4.6 mEq/L (3.5-5.1)
[2018-05-06 14:19] LABS: Uric Acid 5.7 mg/dL (2.3-7.6)
[2018-05-06] MEDS ORDERED: MethylPREDNISolone 40 MG/ML VIAL IVP SCH (15:00)
[2018-05-06] MEDS ORDERED: Furosemide 40 MG/4 ML VIAL IVP ONE (15:16)
--- NOTE | 2018-05-06 17:20 | Electrocardiograph Report ---
[address] [place], [place] [address] Test Date: 2018-05-05 Pat Name: Devyn Humphries Department: [id number] Room: 10 Gender: M Willow Worker: : 1950 Requested By: Eris Rodriguez Order Number: [id number] Reading MD: Nieves Yan Measurements Intervals [place] Rate: 144 P: [place]: QRS: 252 QRSD: 242 T: -82 QT: 371 QTc: 488 Interpretive Statements Artifact limits analysis Electronically Signed On 05-06-2018 17:18:33 EDT by Nieves Yan
[2018-05-07] MEDS: Hydrocortisone Sodium Succ 100 MG/2 ML VIAL IVP SCH ×4 (00:21→23:33)
[2018-05-07] MEDS: Insulin LISPRO 300 UNITS/3 ML VIAL SQ SCH ×6 (00:22→20:25)
[2018-05-07] MEDS: Artificial Tears SOLN 15 ML BOTTLE BOTH EYES SCH ×7 (00:30→22:59)
[2018-05-07] MEDS: Ipratropium/Albuterol Neb 3 ML IH SCH ×5 (03:32→19:43)
[2018-05-07] MEDS: FentaNYL (PF) 1,000 MCG in 0.9 % Sodium Chloride 80 ML IVC SCH (03:49)
[2018-05-07] MEDS: *HR* Heparin 5,000 UNIT/ML VIAL SQ SCH ×3 (05:07→20:20)
[2018-05-07 06:34] LABS: Basophils % 0.1 %; Hematocrit 40.9 % (37.5-50.1); Hemoglobin 13.6 g/dL (12.9-16.9); Immature Granulocytes % 0.6 % (0-4); Lymphocytes # 0.4 K/mcL (0.6-4.6); Mean Corpuscular HGB Conc 33.3 g/dL (31.6-35.5); Mean Corpuscular Volume 99.3 fL (83.0-100.0); Mean Platelet Volume 11.2 fL (9.4-12.4); Monocytes # 0.3 K/mcL (0.0-1.3); Monocytes % 4.8 %; Platelet Count 131 K/mcL (140-400); Red Blood Count 4.12 M/mcL (4.19-5.50); Red Cell Distribution Width 16.4 % (11.5-14.5); Segmented Neutrophils % 89.5 %
[2018-05-07 06:42] LABS: Neutrophils # 6.4 K/mcL (1.6-8.9)
--- NOTE | 2018-05-07 07:28 | Pulmonology Progress Note ---
Date of Encounter: 05/07/18 Time of Encounter: 07:28 Assessment and Plan (1) Acute on chronic respiratory failure with hypoxia and hypercapnia Current Visit: Yes Status: Acute I examined this patient and my medical decision-making was reviewed with the Resident Physician. I agree with the documented findings, disposition and treatment plan as described except to the extent set forth below. We independently had [id number] contact with the patient Patient seen and examined at bedside Labs, radiology, chart personally reviewed. Management was reviewed during multidisciplinary critical care rounds. Below represents my systems based assessment and plan GENERAL MEDICAL PRACTITIONER: Acute metabolic encephalopathy is improving patient able to follow commands today sedation holiday planned Pulm: Acute on chronic hypoxic hypercapnic respiratory failure acceptable gas exchange today plan for spontaneous breathing trial I suspect that this is a combination of factors including CHF with possible underlying pneumonia and exacerbation of COPD. Continue bronchodilators and patient is on steroids as well Cards: Suspected hydrostatic pulmonary edema from heart failure with preserved ejection fraction he is responding to diuresis blood pressure acceptable and can likely restart home antihypertensives GI: Prophylaxis given Nutrition: If passes spontaneous breathing trial after bedside speech and spell can advance diet otherwise remains on vent will start enteral nutrition per dietary recommendations Renal: Acute on chronic kidney injury I suspect is increased vascular congestion from heart failure renal ultrasound within normal limits UOP Monitored, Cont to Trend sCr and monitor Electrolytes. ID: Suspected pneumonia has evidence of gram-positive cocci in the sputum he is on antibiotics planned to de-escalate/stop based upon culture and sensitivities remains afebrile Heme/Onc: DVT prophylaxis given. H&H and platelets are stable Endo: Glucose Monitored continues to have hyperglycemia we will increase his basal bolus dosing. He has evidence of myxedema and IV pyroxene has been given he appears to be responding to this no evidence of bradycardia and hypothermia respiratory status is improved markedly as well hyponatremia also improving likely secondary to the same low cortisol on admission and his been given stress dose hydrocortisone I will filling that over the next 48 hours Integ/MSK: Skin Care per routine ICU Nursing Protocol to prevent ulcers. Lines: All lines examined without evidence of infection : Dispo: Remain in ICU today CODE: Full (2) Diabetes mellitus Current Visit: Yes Status: Chronic 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 mellitus usp insulin use: with terminal clerk use Diabetes mellitus complication status: with kidney complications Diabetes mellitus complication detail: with chronic kidney disease Chronic kidney disease stage: stage 3 (moderate) Qualified Code(s): E11.22 - Type 2 diabetes mellitus with diabetic chronic kidney disease; N18.3 - Chronic kidney disease, stage 3 (moderate); Z79.4 - intermediate manager (current) use of insulin (3) Boghg-hj-pexohgn kidney injury Current Visit: No Status: Acute Qualifiers: Acute renal failure type: unspecified Chronic kidney disease stage: unspecified stage Qualified Code(s): N17.9 - Acute kidney failure, unspecified ; N18.9 - Chronic kidney disease, unspecified (4) DVT prophylaxis Current Visit: Yes Status: Acute (5) COPD exacerbation Current Visit: Yes Status: Acute (6) Acute on chronic diastolic CHF (congestive heart failure) Current Visit: Yes Status: Acute (7) Myxedema Current Visit: Yes Status: Acute (8) Acute metabolic encephalopathy Current Visit: Yes Status: Acute (9) Pneumonia Current Visit: Yes Status: Acute Qualifiers: Pneumonia type: due to unspecified organism Laterality: unspecified laterality Lung location: unspecified part of lung Qualified Code(s): J18.9 - Pneumonia, unspecified organism Subjective Principal diagnosis: Acute Respiratory Failure Interval history: Patient is in relatively well overnight. His remained hemodynamically stable monitored on telemetry temperature has been within normal limits late yesterday afternoon patient became much more awake and interactive able to follow commands CPAP trial that time was equivocal and patient was resedate him today again he is awake and able to follow commands urine output picked up significantly after IV diuretic labs this morning as far as metabolic panel are pending. I had a chance to meet his next of kin is to adult sisters who I updated all questions were answered Objective PUL Vital signs: Last Vital Signs Temp 97.6 F 05/07/18 04:00 Pulse 74 05/07/18 07:00 Resp 15 05/07/18 07:00 BP 115/62 05/07/18 07:00 Pulse Ox 95 05/07/18 07:00 General appearance: no acute distress Eyes: nonicteric Neck: supple Auscultation: bilateral: diminished breath sounds, wheezes (Faint expiratory wheezes appreciated anterior lung schofield), rales (Family appreciated in the lung bases) Cardiovascular: regular rate and rhythm Gastrointestinal: normoactive bowel sounds, soft, non-tender Integumentary: normal Extremities: pink and warm, pulses normal, no ischemia or petechiae, edema Musculoskeletal: no deformities non-focal exam, pupils equal and round anxious Ventilator Settings Ventilator Settings: Ventilator Settings, Last 8 Hours Ventilator Tidal Volume 500 Setting Ventilator Tidal Volume 500 Setting Ventilator Tidal Volume 500 Setting Ventilator Tidal Volume 500 Setting Ventilator Tidal Volume 500 Setting Ventilator Tidal Volume 500 Setting Ventilator Tidal Volume 500 Setting Ventilator Tidal Volume 500 Setting Ventilator Tidal Volume 500 Setting Ventilator Tidal Volume 500 Setting Ventilator Tidal Volume 500 Setting Ventilator Tidal Volume 500 Setting Ventilator Tidal Volume 500 Setting Ventilator Tidal Volume 500 Setting Ventilator Respiratory Rate 16 Setting Ventilator Respiratory Rate 16 Setting Ventilator Respiratory Rate 16 Setting Ventilator Respiratory Rate 16 Setting Ventilator Respiratory Rate 16 Setting Ventilator Respiratory Rate 16 Setting Ventilator Respiratory Rate 16 Setting Ventilator Respiratory Rate 16 Setting Ventilator Respiratory Rate 16 Setting Ventilator Respiratory Rate 16 Setting Ventilator Respiratory Rate 16 Setting Ventilator Respiratory Rate 16 Setting Ventilator Respiratory Rate 16 Setting Ventilator Respiratory Rate 16 Setting Actual Respiratory Rate 16 Actual Respiratory Rate 16 Actual Respiratory Rate 16 Actual Respiratory Rate 16 Actual Respiratory Rate 16 Actual Respiratory Rate 16 Actual Respiratory Rate 17 Actual Respiratory Rate 16 Actual Respiratory Rate 16 Actual Respiratory Rate 16 Actual Respiratory Rate 16 Actual Respiratory Rate 16 Actual Respiratory Rate 16 Actual Respiratory Rate 16 Positive End Expiratory 8 Pressure Positive End Expiratory 8 Pressure Positive End Expiratory 8 Pressure Positive End Expiratory 8 Pressure Positive End Expiratory 8 Pressure Positive End Expiratory 8 Pressure Positive End Expiratory 8 Pressure Positive End Expiratory 8 Pressure Positive End Expiratory 8 Pressure Positive End Expiratory 8 Pressure Positive End Expiratory 8 Pressure Positive End Expiratory 8 Pressure Positive End Expiratory 8 Pressure Positive End Expiratory 8 Pressure Peak Inspiratory Airway 27 Pressure Peak Inspiratory Airway 27 Pressure Peak Inspiratory Airway 27 Pressure Peak Inspiratory Airway 30 Pressure Peak Inspiratory Airway 29 Pressure Peak Inspiratory Airway 29 Pressure Peak Inspiratory Airway 27 Pressure Peak Inspiratory Airway 27 Pressure Peak Inspiratory Airway 27 Pressure Peak Inspiratory Airway 27 Pressure Peak Inspiratory Airway 26 Pressure Peak Inspiratory Airway 26 Pressure Peak Inspiratory Airway 28 Pressure Peak Inspiratory Airway 27 Pressure Results - Laboratory Findings CBC and BMP: 05/07/18 05:48 05/06/18 12:21 ABG ABG pH 7.42 pH Units (7.32-7.45) 05/06/18 04:56 ABG pCO2 37 mmHg (35-45) 05/06/18 04:56 ABG pO2 57 mmHg (85-104) L 05/06/18 04:56 ABG O2 Saturation 90 % (95-98) L 05/06/18 04:56 PT/INR, D-dimer PT 11.7 Seconds (9.4-12.1) 05/05/18 23:29 Abnormal lab findings: Abnormal lab results RBC 4.12 M/mcL (4.19-5.50) L 05/07/18 05:48 RDW 16.4 % (11.5-14.5) H 05/07/18 05:48 Plt Count 131 K/mcL (140-400) L 05/07/18 05:48 Lymphocytes # 0.4 K/mcL (0.6-4.6) L 05/07/18 05:48 Platelet Estimate Decreased (Normal) L 05/06/18 12:21 Anisocytosis 1+ (Not Present) A 05/06/18 05:20 ABG pO2 57 mmHg (85-104) L 05/06/18 04:56 ABG O2 Saturation 90 % (95-98) L 05/06/18 04:56 VBG pH 7.10 pH Units (7.32-7.42) L* D 05/05/18 17:57 VBG pCO2 110 mmHg (41-51) H* 05/05/18 17:57 VBG pO2 177 mmHg (25-50) H 05/05/18 17:57 VBG HCO3 34 mEq/L (21-27) H 05/05/18 17:57 Sodium 132 mEq/L (136-145) L 05/06/18 12:21 Creatinine 2.15 mg/dL (0.70-1.30) H 05/06/18 12:21 Est GFR ( Amer) 37 (> 60) L 05/06/18 12:21 Est GFR (Non-Af Amer) 31 (> 60) L 05/06/18 12:21 Glucose 158 mg/dL (70-105) H 05/06/18 12:21 POC Glucose 319 mg/dL (70-99) H 05/07/18 03:24 Hemoglobin A1c 5.9 % (-5.6) H 05/05/18 23:29 B-Natriuretic Peptide 231 pg/mL (Less than 100) H 05/05/18 15:05 Serum Total Protein 4.9 g/dL (6.4-8.9) L 05/06/18 05:20 Albumin 3.2 g/dL (3.5-5.7) L 05/06/18 05:20 Globulin 1.7 g/dL (2.4-3.5) L 05/06/18 05:20 TSH 46.090 mcIU/mL (0.340-5.600) H 05/06/18 05:20 Free T4 0.48 ng/dl (0.70-2.00) L 05/05/18 17:37 Total T3 0.73 ng/mL (0.87-1.78) L 05/05/18 17:37 Urine Protein 100 mg/dL (Neg-Trace) H 05/06/18 00:20 Urine Glucose (UA) 100 mg/dL (Normal) H 05/06/18 00:20 Urine Ketones Trace mg/dL (Negative) H 05/06/18 00:20 Urine Bilirubin Small (Negative) H 05/06/18 00:20 Urine Microscopic RBC 3-5 per hpf (0-3) H 05/06/18 00:20 Ur Squamous Epith Cells Many per lpf (None-Few) H 05/06/18 00:20 - Microbiology Findings Microbiology Findings: Microbiology, Last 48 Hours 05/06/18 09:10 Sputum Culture - Preliminary Sputum 05/06/18 07:40 Legionella Antigen - Final Urine,Catheterized 05/05/18 19:27 Legionella Antigen - Final Urine,[place] Streptococcus pneumoniae Antigen (M - Final - Clinical Findings Intake & Output: Intake & Output 05/06/18 05/06/18 05/07/18 15:59 23:59 07:59 Intake Total 230 / 230 270 / 270 100 / 100 Output Total 60 / 60 550 / 550 1500 / 1500 Balance 170 / 170 -280 / -280 -1400 / -1400 Weight 111.8 kg Consult Discharge Plan - Plan Referrals: Khurram Victoria DO [Primary Care Provider] -
[2018-05-07] MEDS: Chlorhexidine Rinse 15 ML MOUTHWASH MM SCH ×2 (07:46→19:23)
[2018-05-07] MEDS: Pantoprazole 40 MG VIAL IVP SCH (07:46)
[2018-05-07 09:14] LABS: Calcium 9.2 mg/dL (8.6-10.3); Phosphorous 3.1 mg/dL (2.7-4.5); Potassium 3.5 mEq/L (3.5-5.1)
[2018-05-07 09:27] LABS: Thyroid Stimulating Hormone 22.553 mcIU/mL (0.340-5.600)
[2018-05-07 09:28] LABS: Triiodothyronine (T3) Free 1.46 pg/mL (2.50-3.90)
[2018-05-07] MEDS: Dexmedetomidine HCl 400 MCG/100 ML MLS IVC SCH (09:57)
[2018-05-07] MEDS: Levothyroxine Sodium 100 MCG VIAL IVP SCH (10:00)
[2018-05-07] MEDS ORDERED: Furosemide 40 MG/4 ML VIAL IVP ONE (10:19)
[2018-05-07] MEDS ORDERED: cefTRIAXone 2,000 MG in Water for inj. (sterile) 20 ML 20 ML IVP SCH (11:00)
[2018-05-07] MEDS ORDERED: *HR* Amiodarone 200 MG TABLET PO SCH (11:00)
[2018-05-08] MEDS: Ipratropium/Albuterol Neb 3 ML IH SCH ×6 (00:18→20:13)
[2018-05-08] MEDS: Insulin LISPRO 300 UNITS/3 ML VIAL SQ SCH ×6 (00:19→20:42)
[2018-05-08] MEDS: Artificial Tears SOLN 15 ML BOTTLE BOTH EYES SCH ×2 (03:35→09:10)
[2018-05-08 04:11] LABS: Hematocrit 37.6 % (37.5-50.1); Hemoglobin 12.2 g/dL (12.9-16.9); Immature Granulocytes % 1.9 % (0-4); Lymphocytes # 0.2 K/mcL (0.6-4.6); Mean Corpuscular HGB Conc 32.4 g/dL (31.6-35.5); Mean Corpuscular Hemoglobin 32.1 pg (28.0-33.3); Mean Corpuscular Volume 98.9 fL (83.0-100.0); Mean Platelet Volume 9.8 fL (9.4-12.4); Monocytes # 0.6 K/mcL (0.0-1.3); Monocytes % 5.4 %; Platelet Count 121 K/mcL (140-400); Red Cell Distribution Width 17.6 % (11.5-14.5); Segmented Neutrophils % 90.7 %
[2018-05-08 04:12] LABS: Neutrophils # 10.3 K/mcL (1.6-8.9)
[2018-05-08 04:39] LABS: Calcium 8.8 mg/dL (8.6-10.3); Phosphorous 3.9 mg/dL (2.7-4.5); Potassium 4.7 mEq/L (3.5-5.1)
[2018-05-08] MEDS: *HR* Heparin 5,000 UNIT/ML VIAL SQ SCH ×3 (05:16→20:42)
[2018-05-08] MEDS ORDERED: Furosemide 40 MG/4 ML VIAL IVP ONE (07:40)
--- NOTE | 2018-05-08 07:49 | Pulmonology Progress Note ---
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 use: with fci use Diabetes mellitus complication status: with kidney complications Diabetes mellitus complication detail: with chronic kidney disease Chronic kidney disease stage: stage 3 (moderate) Qualified Code(s): E11.22 - Type 2 diabetes mellitus with diabetic chronic kidney disease; N18.3 - Chronic kidney disease, stage 3 (moderate); Z79.4 - deckhand tuna boat (current) use of insulin (3) Cwybg-or-qwjogka kidney injury Current Visit: No Status: Acute Qualifiers: Acute renal failure type: unspecified Chronic kidney disease stage: unspecified stage Qualified Code(s): N17.9 - Acute kidney failure, unspecified ; N18.9 - Chronic kidney disease, unspecified (4) DVT prophylaxis Current Visit: Yes Status: Acute (5) COPD exacerbation Current Visit: Yes Status: Acute (6) Acute on chronic diastolic CHF (congestive heart failure) Current Visit: Yes Status: Acute (7) Myxedema Current Visit: Yes Status: Acute (8) Acute metabolic encephalopathy Current Visit: Yes Status: Acute (9) Pneumonia Current Visit: Yes Status: Acute Qualifiers: Pneumonia type: due to unspecified organism Laterality: unspecified laterality Lung location: unspecified part of lung Qualified Code(s): J18.9 - Pneumonia, unspecified organism Objective PUL Vital signs: Last Vital Signs Temp 98.4 F 05/08/18 08:00 Pulse 80 05/08/18 08:00 Resp 21 05/08/18 08:00 BP 143/56 05/08/18 08:00 Pulse Ox 91 05/08/18 08:00 Results - Laboratory Findings CBC and BMP: 05/08/18 03:49 05/08/18 03:49 ABG ABG pH 7.42 pH Units (7.32-7.45) 05/06/18 04:56 ABG pCO2 37 mmHg (35-45) 05/06/18 04:56 ABG pO2 57 mmHg (85-104) L 05/06/18 04:56 ABG O2 Saturation 90 % (95-98) L 05/06/18 04:56 PT/INR, D-dimer PT 11.7 Seconds (9.4-12.1) 05/05/18 23:29 Abnormal lab findings: Abnormal lab results WBC 11.3 K/mcL (4.3-11.1) H D 05/08/18 03:49 RBC 3.80 M/mcL (4.19-5.50) L 05/08/18 03:49 Hgb 12.2 g/dL (12.9-16.9) L 05/08/18 03:49 RDW 17.6 % (11.5-14.5) H 05/08/18 03:49 Plt Count 121 K/mcL (140-400) L 05/08/18 03:49 Neutrophils # 10.3 K/mcL (1.6-8.9) H 05/08/18 03:49 Lymphocytes # 0.2 K/mcL (0.6-4.6) L 05/08/18 03:49 Platelet Estimate Decreased (Normal) L 05/06/18 12:21 Anisocytosis 1+ (Not Present) A 05/06/18 05:20 ABG pO2 57 mmHg (85-104) L 05/06/18 04:56 ABG O2 Saturation 90 % (95-98) L 05/06/18 04:56 VBG pH 7.10 pH Units (7.32-7.42) L* D 05/05/18 17:57 VBG pCO2 110 mmHg (41-51) H* 05/05/18 17:57 VBG pO2 177 mmHg (25-50) H 05/05/18 17:57 VBG HCO3 34 mEq/L (21-27) H 05/05/18 17:57 Carbon Dioxide 30 mEq/L (23-29) H 05/08/18 03:49 BUN 27 mg/dL (8-23) H 05/08/18 03:49 Creatinine 2.03 mg/dL (0.70-1.30) H 05/08/18 03:49 Est GFR ( Amer) 40 (> 60) L 05/08/18 03:49 Est GFR (Non-Af Amer) 33 (> 60) L 05/08/18 03:49 Glucose 120 mg/dL (70-105) H 05/08/18 03:49 POC Glucose 108 mg/dL (70-99) H 05/08/18 07:59 Hemoglobin A1c 5.9 % (-5.6) H 05/05/18 23:29 B-Natriuretic Peptide 231 pg/mL (Less than 100) H 05/05/18 15:05 Serum Total Protein 4.9 g/dL (6.4-8.9) L 05/06/18 05:20 Albumin 3.2 g/dL (3.5-5.7) L 05/06/18 05:20 Globulin 1.7 g/dL (2.4-3.5) L 05/06/18 05:20 TSH 19.820 mcIU/mL (0.340-5.600) H 05/08/18 03:49 Free T4 0.63 ng/dl (0.70-2.00) L 05/07/18 08:40 Free T3 1.46 pg/mL (2.50-3.90) L 05/07/18 08:40 Total T3 0.73 ng/mL (0.87-1.78) L 05/05/18 17:37 Urine Protein 100 mg/dL (Neg-Trace) H 05/06/18 00:20 Urine Glucose (UA) 100 mg/dL (Normal) H 05/06/18 00:20 Urine Ketones Trace mg/dL (Negative) H 05/06/18 00:20 Urine Bilirubin Small (Negative) H 05/06/18 00:20 Urine Microscopic RBC 3-5 per hpf (0-3) H 05/06/18 00:20 Ur Squamous Epith Cells Many per lpf (None-Few) H 05/06/18 00:20 - Microbiology Findings Microbiology Findings: Microbiology, Last 48 Hours 05/06/18 09:10 Sputum Culture - Preliminary Sputum 05/06/18 07:40 Legionella Antigen - Final Urine,Catheterized - Clinical Findings Intake & Output: Intake & Output 05/07/18 05/08/18 05/08/18 23:59 07:59 15:59 Intake Total 30 / 30 240 / 240 Output Total 350 / 350 450 / 450 225 / 225 Balance -320 / -320 -450 / -450 15 / 15 Weight 107.9 kg Consult Discharge Plan - Plan Referrals: Khurarm Victoria DO [Primary Care Provider] - - Attending Attestation I examined this patient and my medical decision-making was reviewed with the Resident Physician. I agree with the documented findings, disposition and treatment plan as described except to the extent set forth below. We independently had [id number] contact with the patient Patient seen and examined at bedside Labs, radiology, chart personally reviewed. Management was reviewed during multidisciplinary critical care rounds. 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: Patient awake and alert appears back to baseline mental status Pulm: Acute on chronic hypoxic hypercapnic respiratory failure Acceptable oxygenation on nasal cannula today continue positive airway pressure at night continue bronchodilators Cards: Heart failure with preserved ejection fraction with volume overload continue diuresis history of SVT on amiodarone but I suspect this is caused or at least is correlated with hypothyroidism we will consult cardiology for recommendations on its continuation at this time versus discontinuation continue beta evin for now continue Lasix diuresis GI: Advance diet as tolerated Renal: Chronic kidney disease stable UOP Monitored, Cont to Trend sCr and monitor Electrolytes. ID: Treating for possibility of pneumonia he is on ceftriaxone would complete 5- 7 day course Heme/Onc: DVT prophylaxis given Endo: Glucose Monitored . Stress dose hydrocortisone for myxedema okay to transition from IV to by mouth formulation of thyroxine Integ/MSK: Skin Care per routine ICU Nursing Protocol to prevent ulcers. Lines: All lines examined without evidence of infection : Dispo: Stable for transfer to [facility] telemetry for ongoing care CODE: Full <Olga Pathak E - Last Filed: 05/08/18 11:59> Date of Encounter: 05/08/18 Time of Encounter: 07:49 Assessment and Plan (1) Acute on chronic respiratory failure with hypoxia and hypercapnia Current Visit: Yes Status: Resolved WAs extubated yesterday, did well on 6L by nasal cannula, Bipap at night for possible complicated sleep apnea (2) Acute on chronic diastolic CHF (congestive heart failure) Current Visit: Yes Status: Acute LAsix given yesterday and today, clinical picture improving Cardiology is consulted about amiodarone use for proximal A Flutter, amiodarone to be held at this time (3) Acute metabolic encephalopathy Current Visit: Yes Status: Resolved Patient is AAOx3 today, resolved (4) COPD exacerbation Current Visit: Yes Status: Acute Possibly due to pneumonia, on cefrtizone now, was given steroids but these were stopped today. Continue to monitor (5) Myxedema Current Visit: Yes Status: Acute Was on 3 doses of IV synthroid, will be changed over to PO synthroid dose tomorrow (6) Pneumonia Current Visit: Yes Status: Acute Currently on Ceftriaxone, will continue Qualifiers: Pneumonia type: due to unspecified organism Laterality: unspecified laterality Lung location: unspecified part of lung Qualified Code(s): J18.9 - Pneumonia, unspecified organism (7) Diabetes mellitus Current Visit: Yes Status: Chronic low dose SSI 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 mellitus fci insulin use: with fci use Diabetes mellitus complication status: with kidney complications Diabetes mellitus complication detail: with chronic kidney disease Chronic kidney disease stage: stage 3 (moderate) Qualified Code(s): E11.22 - Type 2 diabetes mellitus with diabetic chronic kidney disease; N18.3 - Chronic kidney disease, stage 3 (moderate); Z79.4 - half-way (current) use of insulin (8) Otnbu-ll-tyoszay kidney injury Current Visit: No Status: Acute Creatinie continues to decrease towards his normal. ONe dose of lasix given today. Qualifiers: Acute renal failure type: unspecified Chronic kidney disease stage: unspecified stage Qualified Code(s): N17.9 - Acute kidney failure, unspecified ; N18.9 - Chronic kidney disease, unspecified (9) DVT prophylaxis Current Visit: Yes Status: Acute Heparin 5000 SQ Q8 Subjective Principal diagnosis: Acute Respiratory Failure Interval history: Patient remained stable on BIPAP over night and resumed 6L O2 by Nasal Canula this morning. He is alert, awake, and oriented. Cardiology has been consulted for holding amiodarone, which they agree should be held at this time. He will be transferred to any tele bed once a bed is available. Objective PUL Vital signs: Last Vital Signs Temp 97.5 F L 05/08/18 04:46 Pulse 71 05/08/18 06:04 Resp 22 05/08/18 07:36 BP 127/73 05/08/18 06:04 Pulse Ox 91 05/08/18 07:36 General appearance: no acute distress Eyes: nonicteric ENT: oropharynx moist Neck: no lymphadenopathy Effort: normal Auscultation: bilateral: clear Cardiovascular: regular rate and rhythm Gastrointestinal: normoactive bowel sounds, soft, non-tender Integumentary: normal Extremities: no cyanosis, pink and warm, edema (2+ pitting) Results - Laboratory Findings CBC and BMP: 05/08/18 03:49 05/08/18 03:49 ABG ABG pH 7.42 pH Units (7.32-7.45) 05/06/18 04:56 ABG pCO2 37 mmHg (35-45) 05/06/18 04:56 ABG pO2 57 mmHg (85-104) L 05/06/18 04:56 ABG O2 Saturation 90 % (95-98) L 05/06/18 04:56 PT/INR, D-dimer PT 11.7 Seconds (9.4-12.1) 05/05/18 23:29 Abnormal lab findings: Abnormal lab results WBC 11.3 K/mcL (4.3-11.1) H D 05/08/18 03:49 RBC 3.80 M/mcL (4.19-5.50) L 05/08/18 03:49 Hgb 12.2 g/dL (12.9-16.9) L 05/08/18 03:49 RDW 17.6 % (11.5-14.5) H 05/08/18 03:49 Plt Count 121 K/mcL (140-400) L 05/08/18 03:49 Neutrophils # 10.3 K/mcL (1.6-8.9) H 05/08/18 03:49 Lymphocytes # 0.2 K/mcL (0.6-4.6) L 05/08/18 03:49 Platelet Estimate Decreased (Normal) L 05/06/18 12:21 Anisocytosis 1+ (Not Present) A 05/06/18 05:20 ABG pO2 57 mmHg (85-104) L 05/06/18 04:56 ABG O2 Saturation 90 % (95-98) L 05/06/18 04:56 VBG pH 7.10 pH Units (7.32-7.42) L* D 05/05/18 17:57 VBG pCO2 110 mmHg (41-51) H* 05/05/18 17:57 VBG pO2 177 mmHg (25-50) H 05/05/18 17:57 VBG HCO3 34 mEq/L (21-27) H 05/05/18 17:57 Carbon Dioxide 30 mEq/L (23-29) H 05/08/18 03:49 BUN 27 mg/dL (8-23) H 05/08/18 03:49 Creatinine 2.03 mg/dL (0.70-1.30) H 05/08/18 03:49 Est GFR ( Amer) 40 (> 60) L 05/08/18 03:49 Est GFR (Non-Af Amer) 33 (> 60) L 05/08/18 03:49 Glucose 120 mg/dL (70-105) H 05/08/18 03:49 POC Glucose 122 mg/dL (70-99) H 05/08/18 04:09 Hemoglobin A1c 5.9 % (-5.6) H 05/05/18 23:29 B-Natriuretic Peptide 231 pg/mL (Less than 100) H 05/05/18 15:05 Serum Total Protein 4.9 g/dL (6.4-8.9) L 05/06/18 05:20 Albumin 3.2 g/dL (3.5-5.7) L 05/06/18 05:20 Globulin 1.7 g/dL (2.4-3.5) L 05/06/18 05:20 TSH 22.553 mcIU/mL (0.340-5.600) H 05/07/18 08:40 Free T4 0.63 ng/dl (0.70-2.00) L 05/07/18 08:40 Free T3 1.46 pg/mL (2.50-3.90) L 05/07/18 08:40 Total T3 0.73 ng/mL (0.87-1.78) L 05/05/18 17:37 Urine Protein 100 mg/dL (Neg-Trace) H 05/06/18 00:20 Urine Glucose (UA) 100 mg/dL (Normal) H 05/06/18 00:20 Urine Ketones Trace mg/dL (Negative) H 05/06/18 00:20 Urine Bilirubin Small (Negative) H 05/06/18 00:20 Urine Microscopic RBC 3-5 per hpf (0-3) H 05/06/18 00:20 Ur Squamous Epith Cells Many per lpf (None-Few) H 05/06/18 00:20 - Microbiology Findings Microbiology Findings: Microbiology, Last 48 Hours 05/06/18 09:10 Sputum Culture - Preliminary Sputum 05/06/18 07:40 Legionella Antigen - Final Urine,Catheterized - Clinical Findings Intake & Output: Intake & Output 05/07/18 05/07/18 05/08/18 15:59 23:59 07:59 Intake Total 30 / 30 Output Total 850 / 850 350 / 350 450 / 450 Balance -830 / -830 -320 / -320 -450 / -450 Weight 107.9 kg
[2018-05-08 08:27] LABS: Thyroid Stimulating Hormone 19.82 mcIU/mL (0.340-5.600)
[2018-05-08] MEDS: Levothyroxine Sodium 100 MCG VIAL IVP SCH (09:09)
[2018-05-08] MEDS: Pantoprazole 40 MG VIAL IVP SCH (09:09)
[2018-05-08] MEDS: Chlorhexidine Rinse 15 ML MOUTHWASH MM SCH (09:10)
--- NOTE | 2018-05-08 09:32 | Cardiology Consult Note ---
Date of Encounter: 05/08/18 Time of Encounter: 09:29 Assessment and Plan (1) Paroxysmal atrial flutter Current Visit: Yes Status: Chronic No evidence of atrial flutter since admission. Recommend to discontinue amiodarone on account of severe hypothyroidism ( myxedema coma). We will place him on a different rate control medication versus antiarrhythmic should he develop arrhythmias. Patient is not on oral anticoagulation on account of rectus sheath hematoma in July secondary to Coumadin. (2) Myxedema Current Visit: Yes Status: Acute Patient is awake and conversant. EKG showed sinus bradycardia with low extremity voltages. Echo in Jul 2017 had shown LVEF 60%, and mild left ventricular diastolic dysfunction. Recommend: avoid hypothermia, continue treatment of severe hypothyroidism with synthroid. Cautious diuresis in the setting of TAYA. May need endocrinology followup. Discussion w patient/family: The assessment and plan as outlined above was discussed with the patient and/or family members who expressed understanding and agreement. All questions were answered. Thank you for involving us in the care of your patient. Please call with any questions. History of Present Illness Consult date: 05/08/18 History of present illness: Mr. Humphries is a 67 year old male with history of coronary artery disease, previous myocardial infarction, coronary artery stents. He also has hypertension , hypercholesterolemia, and history of paroxysmal atrial flutter for which he was started on amiodarone 200 mg daily last July. Patient has been on amiodarone since then but not on Coumadin because of hematoma of the rectus sheath which he developed during that hospitalization. He has not restarted anticoagulation knowing the risk of cardioembolic events. He also has history of hypothyroidism on Synthroid. He has been known to have fluctuates in thyroid function tests in the past. However, patient's presented to the ER for shortness of breath and was found to be in respiratory failure with a TSH of 88. He is being managed for myxedema coma. Since admission no episode of arrhythmias. No chest pain. Past Med Surg Social Fam HX - Past Medical History Medical history: CHF, COPD, coronary artery disease, diabetes, hyperlipidemia, hypertension Additional medical history: anemia. leukocytosis. penile cancer. PAD Psychiatric history: no psych history - Past Surgical History Additional surgical history: CARDIAC CATH. Cardiac Stenting x5. gallbladder surgery. cancer removed twice. polyp removal. testicular tumor removal. colonoscopy. bypass in legs - Social History Smoking Status: Current every day smoker Smokeless Tobacco Status: No Alcohol use: none Drug use: none - Family History Father Living Status: Hx Family Cardiac Disorders: Yes (Enlarged heart) Mother Living Status: Hx Family Cardiac Disorders: Yes Hx Family Respiratory Disorders: Yes (COPD) Medications and Allergies GlipiZIDE [Glipizide Xl] 5 mg PO DAILY 06/16/16 [History] Montelukast Sodium [Singulair] 10 mg PO DAILY 06/16/16 [History] Pantoprazole Sodium [Protonix] 40 mg PO DAILY 06/16/16 [History] Isosorbide MONOnitrate (24 HR) [Imdur] 30 mg PO DAILY 08/07/16 [History] Atorvastatin Calcium [Lipitor] 80 mg PO HS 07/23/17 [History] Metoprolol [Lopressor] 75 mg PO BID #90 tablet 08/05/17 [Rx] Amiodarone [Cordarone] 200 mg PO DAILY 05/05/18 [History] Fenofibrate Nanocrystallized [Tricor] 48 mg PO DAILY 05/05/18 [History] Insulin ASPART [Novolog Flexpen] 0 unit SQ TIDWM 05/05/18 [History] Levothyroxine [Synthroid] 100 mcg PO DAILY 05/05/18 [History] Polyethylene Glycol 3350 [MiraLAX] 17 gm PO DAILY 05/05/18 [History] PredniSONE [Xin] 7.5 mg PO DAILY 05/05/18 [History] Tamsulosin HCl [Flomax] 0.4 mg PO DAILY 05/05/18 [History] 3 Allergy/AdvReac Type Severity Reaction Status Date / Time adenosine Allergy See Verified 08/07/16 16:26 Comments fluticasone Allergy See Verified 08/07/16 16:26 [From Advair Diskus] Comments Iodinated Contrast- Oral and Allergy See Verified 06/16/16 15:37 IV Dye Comments [Iodinated Contrast Media - IV Dye] salmeterol Allergy See Verified 08/07/16 16:26 [From Advair Diskus] Comments All Systems Review: The remainder of the systems were reviewed and are negative - Constitutional Constitutional: no anorexia, no fever(s), no malaise - EENT Eyes: no loss of vision Nose, mouth and throat: no bleeding gums - Cardiovascular Cardiovascular: no chest pain at rest, no paroxysmal nocturnal dyspnea, no rapid heart rate, no slow heart rate - Respiratory Respiratory: no cough - Gastrointestinal Gastrointestinal: no abdominal pain - Genitourinary Genitourinary: no dysuria - Musculoskeletal Musculoskeletal: no abnormal gait - Integumentary Integumentary: erythema - Neurological Neurological: no abnormal speech - Psychiatric Psychiatric: no anxiety Physical Examination Vital Signs, Last 4 Hours Temp Pulse Resp BP Pulse Ox 05/08/18 08:00 98.4 F 80 21 143/56 91 05/08/18 07:36 22 91 05/08/18 07:00 80 13 131/84 98 05/08/18 06:04 71 22 127/73 99 General: Conversant Neck: No JVD Cardiac: Reg Rate and Rhythm, Normal S1 and S2, No Murmur Lungs: Other (Minimal rales bibasilarly) Neuro: Alert and responsive, No focal deficits noted Abdomen: Soft, Non-Tender Musculoskeletal: No Chest Wall Tenderness Extremities: Other (Mild pedal edema) Results 05/08/18 03:49 05/08/18 03:49 Lab Results 05/08/18 05/08/18 03:49 03:49 WBC 11.3 H D Hgb 12.2 L Hct 37.6 Plt Count 121 L Sodium 136 Potassium 4.7 D Chloride 102 Carbon Dioxide 30 H BUN 27 H Creatinine 2.03 H Glucose 120 H Calcium 8.8 Magnesium 2.0 TSH 19.820 H - EKG Interpretation EKG results cardiology: personally reviewed (Sinus rhythm prolonged AL interval low-voltage extremity leads. Right axis deviation.) Consult Discharge Plan - Plan Referrals: Khurram Victoria DO [Primary Care Provider] -
[2018-05-08] MEDS ORDERED: Acetaminophen 325 MG TABLET PO PRN (10:44)
[2018-05-08] MEDS ORDERED: D5% in Water 1,000 ML IVC PRN (10:44)
[2018-05-08] MEDS ORDERED: *HR* Metoprolol 5 MG/5 ML VIAL IVP PRN (10:44)
[2018-05-08] MEDS ORDERED: *HR* Dextrose 50 % in Water (Syg) 50 ML SYRINGE IVP PRN (10:44)
[2018-05-08] MEDS ORDERED: Dextrose Gel 15 GM/37.5 ML TUBE PO PRN ×2 (10:44)
[2018-05-08] MEDS ORDERED: Naloxone 0.4 MG/ML INJ IVP PRN (10:44)
[2018-05-08] MEDS ORDERED: Insulin LISPRO 300 UNITS/3 ML VIAL SQ SCH (12:00)
[2018-05-08] MEDS: cefTRIAXone 2,000 MG in Water for inj. (sterile) 20 ML 20 ML IVP SCH (12:13)
[2018-05-09] MEDS: Ipratropium/Albuterol Neb 3 ML IH SCH ×5 (04:01→21:38)
[2018-05-09] MEDS: *HR* Heparin 5,000 UNIT/ML VIAL SQ SCH ×3 (06:14→22:57)
--- NOTE | 2018-05-09 07:30 | Pulmonology Progress Note ---
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: with long-term use Diabetes mellitus complication status: with kidney complications Diabetes mellitus complication detail: with chronic kidney disease Chronic kidney disease stage: stage 3 (moderate) Qualified Code(s): E11.22 - Type 2 diabetes mellitus with diabetic chronic kidney disease; N18.3 - Chronic kidney disease, stage 3 (moderate); 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 (3) Prslv-eg-pbtubyk kidney injury Current Visit: No Status: Acute Qualifiers: Acute renal failure type: unspecified Chronic kidney disease stage: unspecified stage Qualified Code(s): N17.9 - Acute kidney failure, unspecified ; N18.9 - Chronic kidney disease, unspecified (4) DVT prophylaxis Current Visit: Yes Status: Acute (5) COPD exacerbation Current Visit: Yes Status: Acute (6) Acute on chronic diastolic CHF (congestive heart failure) Current Visit: Yes Status: Acute (7) Myxedema Current Visit: Yes Status: Acute (8) Acute metabolic encephalopathy Current Visit: Yes Status: Resolved (9) Pneumonia Current Visit: Yes Status: Acute Qualifiers: Pneumonia type: due to unspecified organism Laterality: unspecified laterality Lung location: unspecified part of lung Qualified Code(s): J18.9 - Pneumonia, unspecified organism Objective PUL Vital signs: Last Vital Signs Temp 98.2 F 05/09/18 08:17 Pulse 65 05/09/18 08:00 Resp 20 05/09/18 08:00 BP 129/65 05/09/18 08:00 Pulse Ox 92 05/09/18 08:00 Results - Laboratory Findings CBC and BMP: 05/09/18 07:55 05/09/18 07:55 ABG ABG pH 7.42 pH Units (7.32-7.45) 05/06/18 04:56 ABG pCO2 37 mmHg (35-45) 05/06/18 04:56 ABG pO2 57 mmHg (85-104) L 05/06/18 04:56 ABG O2 Saturation 90 % (95-98) L 05/06/18 04:56 PT/INR, D-dimer PT 11.7 Seconds (9.4-12.1) 05/05/18 23:29 Abnormal lab findings: Abnormal lab results RBC 4.03 M/mcL (4.19-5.50) L 05/09/18 07:55 MCV 101.2 fL (83.0-100.0) H 05/09/18 07:55 RDW 17.1 % (11.5-14.5) H 05/09/18 07:55 Plt Count 101 K/mcL (140-400) L 05/09/18 07:55 Platelet Estimate Decreased (Normal) L 05/06/18 12:21 Anisocytosis 1+ (Not Present) A 05/06/18 05:20 ABG pO2 57 mmHg (85-104) L 05/06/18 04:56 ABG O2 Saturation 90 % (95-98) L 05/06/18 04:56 VBG pH 7.10 pH Units (7.32-7.42) L* D 05/05/18 17:57 VBG pCO2 110 mmHg (41-51) H* 05/05/18 17:57 VBG pO2 177 mmHg (25-50) H 05/05/18 17:57 VBG HCO3 34 mEq/L (21-27) H 05/05/18 17:57 Carbon Dioxide 30 mEq/L (23-29) H 05/08/18 03:49 BUN 27 mg/dL (8-23) H 05/08/18 03:49 Creatinine 2.03 mg/dL (0.70-1.30) H 05/08/18 03:49 Est GFR ( Amer) 40 (> 60) L 05/08/18 03:49 Est GFR (Non-Af Amer) 33 (> 60) L 05/08/18 03:49 Glucose 120 mg/dL (70-105) H 05/08/18 03:49 Hemoglobin A1c 5.9 % (-5.6) H 05/05/18 23:29 B-Natriuretic Peptide 231 pg/mL (Less than 100) H 05/05/18 15:05 Serum Total Protein 4.9 g/dL (6.4-8.9) L 09/18/18 05:20 Albumin 3.2 g/dL (3.5-5.7) L 05/06/18 05:20 Globulin 1.7 g/dL (2.4-3.5) L 05/06/18 05:20 TSH 19.820 mcIU/mL (0.340-5.600) H 05/08/18 03:49 Free T4 0.63 ng/dl (0.70-2.00) L 05/07/18 08:40 Free T3 1.46 pg/mL (2.50-3.90) L 05/07/18 08:40 Total T3 0.73 ng/mL (0.87-1.78) L 05/05/18 17:37 Urine Protein 100 mg/dL (Neg-Trace) H 05/06/18 00:20 Urine Glucose (UA) 100 mg/dL (Normal) H 05/06/18 00:20 Urine Ketones Trace mg/dL (Negative) H 05/06/18 00:20 Urine Bilirubin Small (Negative) H 05/06/18 00:20 Urine Microscopic RBC 3-5 per hpf (0-3) H 05/06/18 00:20 Ur Squamous Epith Cells Many per lpf (None-Few) H 05/06/18 00:20 - Microbiology Findings Microbiology Findings: Microbiology, Last 48 Hours 05/06/18 09:10 Sputum Culture - Final Sputum - Clinical Findings Intake & Output: Intake & Output 05/08/18 05/09/18 05/09/18 23:59 07:59 15:59 Intake Total 240 / 240 Output Total 1850 / 1850 550 / 550 Balance -1610 / -1610 -550 / -550 Consult Discharge Plan - Plan Referrals: Khurram Victoria DO [Primary Care Provider] - - Attending Attestation I examined this patient and my medical decision-making was reviewed with the Resident Physician. I agree with the documented findings, disposition and treatment plan as described except to the extent set forth below. We independently had [id number] contact with the patient Patient seen and examined at bedside Labs, radiology, chart personally reviewed. Management was reviewed during multidisciplinary critical care rounds. 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 TRIM: Patient is awake and alert encephalopathy has resolved no focal deficits high risk for delirium continue to monitor Pulm: Acute on chronic hypoxic hypercapnic respiratory failure resolving acceptable oxygenation on nasal cannula continue BiPAP at night start Symbicort 160/4.5 schedule duo nebs every 6 hours for COPD exacerbation Cards: Heart failure with preserved ejection fraction volume overloaded continue diuresis holding amiodarone because of the hypothyroidism appreciate cardiology evaluation of this patient and continue beta evin titrate as needed for blood pressure control and heart rate with underlying atrial fibrillation on long-term anticoagulation at patient's request after discussion of risks benefit relationship in the outpatient setting between cardiology and his primary care physician GI: Continue to monitor Nutrition: Advance diet Renal: Chronic kidney disease stable UOP Monitored, Cont to Trend sCr and monitor Electrolytes. ID: Continue treatment for presumed pneumonia recommend 5-7 day course of antibiotics de-escalate based upon clinical course cultures as far negative Heme/Onc: DVT prophylaxis given Endo: Transition from IV to oral thyroxine for hypothyroidism with features of myxedema DM Glucose Monitored and acceptable control Integ/MSK: PT/OT consult Skin Care per routine ICU Nursing Protocol to prevent ulcers. Lines: All lines examined without evidence of infection : Dispo: Stable for transfer to [facility] telemetry for ongoing care CODE: Full code Pulmonary will sign off please call with any questions <Olga Pathak E - Last Filed: 05/09/18 11:40> Date of Encounter: 05/09/18 Time of Encounter: 08:38 Assessment and Plan (1) Acute on chronic respiratory failure with hypoxia and hypercapnia Current Visit: Yes Status: Resolved Was extubated 05/07/18, did well on 6L by nasal cannula, Bipap at night for possible complicated sleep apnea (2) Acute on chronic diastolic CHF (congestive heart failure) Current Visit: Yes Status: Acute LAsix given yesterday, clinical picture improving Cardiology is consulted about amiodarone use for proximal A Flutter, amiodarone to be held at this time (3) Acute metabolic encephalopathy Current Visit: Yes Status: Resolved Patient is AAOx3 today, resolved (4) COPD exacerbation Current Visit: Yes Status: Acute Possibly due to pneumonia, on ceftriaxone now, was given steroids to begin with but these were stopped yesterday. Continue to monitor (5) Myxedema Current Visit: Yes Status: Acute Was on 3 doses of IV synthroid, will be changed over to PO synthroid dose today (6) Pneumonia Current Visit: Yes Status: Acute Currently on Ceftriaxone, will continue Qualifiers: Pneumonia type: due to unspecified organism Laterality: unspecified laterality Lung location: unspecified part of lung Qualified Code(s): J18.9 - Pneumonia, unspecified organism (7) Diabetes mellitus Current Visit: Yes Status: Chronic low dose SSI 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 mellitus long-term insulin use: with long-term use Diabetes mellitus complication status: with kidney complications Diabetes mellitus complication detail: with chronic kidney disease Chronic kidney disease stage: stage 3 (moderate) Qualified Code(s): E11.22 - Type 2 diabetes mellitus with diabetic chronic kidney disease; N18.3 - Chronic kidney disease, stage 3 (moderate); 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 Lasix given 05/07/18 and . Qualifiers: Acute renal failure type: unspecified Chronic kidney disease stage: unspecified stage Qualified Code(s): N17.9 - Acute kidney failure, unspecified ; N18.9 - Chronic kidney disease, unspecified (9) DVT prophylaxis Current Visit: Yes Status: Acute Heparin 5000 SQ Q8 Subjective Principal diagnosis: Acute Respiratory Failure Interval history: Patient did not use his bipap last night as he said he didnt want it in the way when he coughed up mucus. He is alert, awake, and oriented. We will continue to hold amiodarone. He will be transferred to any tele bed once a bed is available. Objective PUL Vital signs: Last Vital Signs Temp 98.3 F 05/09/18 04:32 Pulse 63 05/09/18 04:15 Resp 18 05/09/18 07:28 BP 138/91 05/09/18 04:15 Pulse Ox 91 05/09/18 07:28 General appearance: no acute distress Eyes: nonicteric ENT: oropharynx moist Neck: no lymphadenopathy Effort: normal Auscultation: bilateral: diminished breath sounds (lower lobes) Cardiovascular: regular rate and rhythm Gastrointestinal: normoactive bowel sounds, soft, non-tender Extremities: no cyanosis, pink and warm, edema (1+ at feet) normal mental status Results - Laboratory Findings CBC and BMP: 05/09/18 07:55 05/09/18 07:55 ABG ABG pH 7.42 pH Units (7.32-7.45) 05/06/18 04:56 ABG pCO2 37 mmHg (35-45) 05/06/18 04:56 ABG pO2 57 mmHg (85-104) L 05/06/18 04:56 ABG O2 Saturation 90 % (95-98) L 05/06/18 04:56 PT/INR, D-dimer PT 11.7 Seconds (9.4-12.1) 05/05/18 23:29 Abnormal lab findings: Abnormal lab results WBC 11.3 K/mcL (4.3-11.1) H D 05/08/18 03:49 RBC 3.80 M/mcL (4.19-5.50) L 05/08/18 03:49 Hgb 12.2 g/dL (12.9-16.9) L 05/08/18 03:49 RDW 17.6 % (11.5-14.5) H 05/08/18 03:49 Plt Count 121 K/mcL (140-400) L 05/08/18 03:49 Neutrophils # 10.3 K/mcL (1.6-8.9) H 05/08/18 03:49 Lymphocytes # 0.2 K/mcL (0.6-4.6) L 05/08/18 03:49 Platelet Estimate Decreased (Normal) L 05/06/18 12:21 Anisocytosis 1+ (Not Present) A 05/06/18 05:20 ABG pO2 57 mmHg (85-104) L 05/06/18 04:56 ABG O2 Saturation 90 % (95-98) L 05/06/18 04:56 VBG pH 7.10 pH Units (7.32-7.42) L* D 05/05/18 17:57 VBG pCO2 110 mmHg (41-51) H* 05/05/18 17:57 VBG pO2 177 mmHg (25-50) H 05/05/18 17:57 VBG HCO3 34 mEq/L (21-27) H 05/05/18 17:57 Carbon Dioxide 30 mEq/L (23-29) H 05/08/18 03:49 BUN 27 mg/dL (8-23) H 05/08/18 03:49 Creatinine 2.03 mg/dL (0.70-1.30) H 05/08/18 03:49 Est GFR ( Amer) 40 (> 60) L 05/08/18 03:49 Est GFR (Non-Af Amer) 33 (> 60) L 05/08/18 03:49 Glucose 120 mg/dL (70-105) H 05/08/18 03:49 Hemoglobin A1c 5.9 % (-5.6) H 05/05/18 23:29 B-Natriuretic Peptide 231 pg/mL (Less than 100) H 05/05/18 15:05 Serum Total Protein 4.9 g/dL (6.4-8.9) L 05/06/18 05:20 Albumin 3.2 g/dL (3.5-5.7) L 05/06/18 05:20 Globulin 1.7 g/dL (2.4-3.5) L 05/06/18 05:20 TSH 19.820 mcIU/mL (0.340-5.600) H 05/08/18 03:49 Free T4 0.63 ng/dl (0.70-2.00) L 05/07/18 08:40 Free T3 1.46 pg/mL (2.50-3.90) L 05/07/18 08:40 Total T3 0.73 ng/mL (0.87-1.78) L 05/05/18 17:37 Urine Protein 100 mg/dL (Neg-Trace) H 05/06/18 00:20 Urine Glucose (UA) 100 mg/dL (Normal) H 05/06/18 00:20 Urine Ketones Trace mg/dL (Negative) H 05/06/18 00:20 Urine Bilirubin Small (Negative) H 05/06/18 00:20 Urine Microscopic RBC 3-5 per hpf (0-3) H 18 00:20 Ur Squamous Epith Cells Many per lpf (None-Few) H 05/06/18 00:20 - Microbiology Findings Microbiology Findings: Microbiology, Last 48 Hours 05/06/18 09:10 Sputum Culture - Final Sputum - Clinical Findings Intake & Output: Intake & Output 05/08/18 05/08/18 05/09/18 15:59 23:59 07:59 Intake Total 3800 / 3800 240 / 240 Output Total 1375 / 1375 1850 / 1850 550 / 550 Balance 2425 / 2425 -1610 / -1610 -550 / -550
[2018-05-09] MEDS: Insulin LISPRO 300 UNITS/3 ML VIAL SQ SCH ×4 (07:51→22:50)
[2018-05-09] MEDS: Fenofibrate 54 MG TABLET PO SCH (07:57)
[2018-05-09 08:07] LABS: Basophils % 0.3 %; Eosinophils # 0.2 K/mcL (0.0-0.6); Eosinophils % 2.2 %; Hematocrit 40.8 % (37.5-50.1); Hemoglobin 13.3 g/dL (12.9-16.9); Lymphocytes % 13.9 %; Mean Corpuscular HGB Conc 32.6 g/dL (31.6-35.5); Mean Corpuscular Volume 101.2 fL (83.0-100.0); Mean Platelet Volume 9.5 fL (9.4-12.4); Monocytes # 0.4 K/mcL (0.0-1.3); Monocytes % 5.3 %; Neutrophils # 5.4 K/mcL (1.6-8.9); Platelet Count 101 K/mcL (140-400); Red Blood Count 4.03 M/mcL (4.19-5.50); Red Cell Distribution Width 17.1 % (11.5-14.5); Segmented Neutrophils % 77.3 %
[2018-05-09 08:23] LABS: Calcium 8.9 mg/dL (8.6-10.3)
[2018-05-09 08:24] LABS: Magnesium 1.8 mg/dL (1.6-2.6); Phosphorous 1.2 mg/dL (2.7-4.5)
[2018-05-09] MEDS ORDERED: Pantoprazole 40 MG VIAL IVP SCH (09:00)
[2018-05-09] MEDS ORDERED: Levothyroxine Sodium 100 MCG VIAL IVP SCH (09:00)
[2018-05-09] MEDS ORDERED: *HR* Amiodarone 200 MG TABLET PO SCH (09:00)
--- NOTE | 2018-05-09 10:51 | Event Note ---
Date of Encounter: 05/09/18 Time of Encounter: 10:51 67-year-old male with history of diabetes mellitus, CHF, A. fib who was admitted for mitral edema coma, acute on chronic respiratory failure with hypoxia and hypercapnia, acute on chronic kidney injury and pneumonia. He was managed in the intensive care unit and extubated 2 days ago. The patient is to physical in the intensive care unit and was seen today by the intensive care unit team. During my evaluation, the patient was sitting up in bed, denies any new complaints, is clinically and hemodynamically stable. Labs also revealed a normal limit for status. TAYA has resolved and security stable. Awaiting transfer to telemetry bed. Physical examination Foote is anicteric, oropharynx is moist, patient is obese , but sounds are clear bilaterally, heart sounds S1-S2 regular rate and rhythm, abdomen is obese and nontender, trace bilateral pitting pedal edema. The patient is awake alert and oriented 3. Labs and imaging reviewed: CBC within normal limit, chemistry shows improvement Plan is to continue current management, recommendation by PTOT swing bed for rehabilitation. Continue other management.
[2018-05-09] MEDS: Budesonide/Formoterol 160/4.5 1 PUFF INH IH SCH ×2 (10:59→21:38)
[2018-05-09] MEDS: cefTRIAXone 2,000 MG in Water for inj. (sterile) 20 ML 20 ML IVP SCH (11:41)
[2018-05-10 03:46] LABS: Basophils % 0.3 %; Monocytes % 6.6 %
[2018-05-10 03:47] LABS: Eosinophils # 0.1 K/mcL (0.0-0.6); Eosinophils % 1.5 %; Hematocrit 40.3 % (37.5-50.1); Immature Granulocytes % 0.7 % (0-4); Immature Platelets 2.9 % (1.1-6.1); Lymphocytes # 0.8 K/mcL (0.6-4.6); Lymphocytes % 13.9 %; Mean Corpuscular HGB Conc 32.3 g/dL (31.6-35.5); Mean Corpuscular Hemoglobin 32.4 pg (28.0-33.3); Mean Corpuscular Volume 100.5 fL (83.0-100.0); Mean Platelet Volume 9.9 fL (9.4-12.4); Monocytes # 0.4 K/mcL (0.0-1.3); Neutrophils # 4.5 K/mcL (1.6-8.9); Platelet Count 103 K/mcL (140-400); Red Blood Count 4.01 M/mcL (4.19-5.50); Red Cell Distribution Width 16.4 % (11.5-14.5)
[2018-05-10] MEDS: Ipratropium/Albuterol Neb 3 ML IH SCH ×4 (03:51→21:56)
[2018-05-10 04:06] LABS: Calcium 9.6 mg/dL (8.6-10.3); Magnesium 1.7 mg/dL (1.6-2.6); Phosphorous 2.4 mg/dL (2.7-4.5); Potassium 4.2 mEq/L (3.5-5.1)
[2018-05-10] MEDS: *HR* Heparin 5,000 UNIT/ML VIAL SQ SCH ×3 (06:10→21:27)
[2018-05-10] MEDS: Insulin LISPRO 300 UNITS/3 ML VIAL SQ SCH ×4 (07:34→21:22)
[2018-05-10] MEDS: Budesonide/Formoterol 160/4.5 1 PUFF INH IH SCH ×2 (09:45→21:56)
[2018-05-10] MEDS: cefTRIAXone 2,000 MG in Water for inj. (sterile) 20 ML 20 ML IVP SCH (10:04)
[2018-05-10] MEDS: Fenofibrate 54 MG TABLET PO SCH (10:05)
--- NOTE | 2018-05-10 10:40 | Internal Med Progress Note ---
Hospitalist Progress Note - Encounter Date of Encounter: 05/10/18 Time of Encounter: 10:38 - Subjective Interval History: Seen and evaluated at the bedside 67-year-old male with history of diabetes mellitus, CHF, A. fib who was admitted for myxedema coma, acute on chronic respiratory failure with hypoxia and hypercapnia, acute on chronic kidney injury and pneumonia. He was managed in the intensive care unit and extubated 3 days ago. He complains of poor urinary output, attributing this to his BPH He also complains of straining to pee, no dysuria, he is also complaining of Left groin pain, and discomfort Per SW, bed is available and patient may be discharged when medically stable We will monitor his UO for the next 24 hrs and discharge to SNF if stable - Exam Vitals: Temp Pulse Resp BP Pulse Ox 99.0 F 66 16 116/70 94 05/10/18 06:57 05/10/18 06:57 05/10/18 09:46 05/10/18 06:57 05/10/18 09:46 Exam: VSS, not in distress, Eyes: sclera is anicteric, ENT: oropharynx is moist, patient is obese resp: breath sounds are clear bilaterally, heart: sounds S1-S2 regular rate and rhythm, Abdomen: obese and non-tender Extremities: pedal edema. Neuro: The patient is awake alert and oriented 3. Speech is normal, moves all extremities - Assessment and Plan (1) Hypertension Current Visit: Yes Status: Chronic Assessment and Plan: Continue metoprolol (2) CKD (chronic kidney disease) Current Visit: Yes Status: Chronic Assessment and Plan: CR is now at baseline Patient complaining of decreased UO and straining, add flomax (3) CAD (coronary artery disease) Current Visit: Yes Status: Chronic Assessment and Plan: Continue home meds (4) History of DVT of lower extremity Current Visit: Yes Status: Resolved Assessment and Plan: Not on A/C (5) Diabetes mellitus Current Visit: Yes Status: Chronic Assessment and Plan: SSI FS ACHS ADA diet (6) DVT prophylaxis Current Visit: Yes Status: Acute Assessment and Plan: SQ heparin (7) Morbid obesity Current Visit: Yes Status: Chronic Assessment and Plan: BMI 45.3, lifestyle modification (8) COPD exacerbation Current Visit: Yes Status: Resolved Assessment and Plan: Resolved Completed course of steroids Continue to monitor Continue O2 (9) Anemia Current Visit: Yes Status: Chronic Assessment and Plan: chronic, stable (10) Chronic back pain Current Visit: Yes Status: Chronic Assessment and Plan: continue home meds (11) Hyponatremia Current Visit: Yes Status: Acute Assessment and Plan: Sodium level 128 on arrival Stable at 135, continue to monitor (12) HLD (hyperlipidemia) Current Visit: Yes Status: Chronic Assessment and Plan: continue home meds (13) Myxedema Current Visit: Yes Status: Acute Assessment and Plan: Continue synthroid (14) Acute and chronic respiratory failure Current Visit: Yes Status: Resolved Assessment and Plan: Was extubated 05/07/18 Continue O2 by NC during the day and BIPAP at night (15) Acute metabolic encephalopathy Current Visit: Yes Status: Resolved Assessment and Plan: resolved Patient AAOX3 (16) Acute on chronic diastolic CHF (congestive heart failure) Current Visit: Yes Status: Acute Assessment and Plan: Improved with diuresis No more on lasix, continue to monitor (17) Daesk-zw-xiuuyzu kidney injury Current Visit: Yes Status: Resolved Assessment and Plan: Creatinine continues to decrease towards his normal. Lasix given 05/07/18 and . (18) Pneumonia Current Visit: Yes Status: Acute Assessment and Plan: continue antibiotics thru 05/10 - Time Spent with Patient Total time spent is greater than 50% in coordination of care (as documented) at patient's floor/unit and/or counseling patient: Plan of Care Discussed with: patient Internal Medicine: Result - Labs CBC & Chem 7: 05/10/18 03:19 05/10/18 03:19 Labs: Short CBC 05/10/18 Range/Units 03:19 WBC 5.9 (4.3-11.1) K/mcL Hgb 13.0 (12.9-16.9) g/dL Hct 40.3 (37.5-50.1) % Plt Count 103 L (140-400) K/mcL Neutrophils # 4.5 (1.6-8.9) K/mcL BMP 05/10/18 03:19 Sodium 135 L Potassium 4.2 Chloride 98 Carbon Dioxide 35 H BUN 19 Creatinine 1.43 H Glucose 105 Calcium 9.6 - ABG Interpretation ABG results: ABG ABG pH 7.42 pH Units (7.32-7.45) 05/06/18 04:56 ABG pCO2 37 mmHg (35-45) 05/06/18 04:56 ABG pO2 57 mmHg (85-104) L 05/06/18 04:56 ABG O2 Saturation 90 % (95-98) L 05/06/18 04:56 PT/INR, D-dimer PT 11.7 Seconds (9.4-12.1) 05/05/18 23:29 Consult Discharge Plan - Plan Referrals: Khurram Victoria DO [Primary Care Provider] - (1) Hypertension Qualifiers: Hypertension type: essential hypertension Qualified Code(s): I10 - Essential (primary) hypertension (2) CKD (chronic kidney disease) Qualifiers: Chronic kidney disease stage: stage 3 (moderate) Qualified Code(s): N18.3 - Chronic kidney disease, stage 3 (moderate) (3) CAD (coronary artery disease) Qualifiers: Coronary Disease-Associated Artery/Lesion type: [place] artery [place] vs. transplanted heart: [place] heart Associated angina: without angina Qualified Code(s): I25.10 - Atherosclerotic heart disease of [place] coronary artery without angina pectoris (5) Diabetes mellitus 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 mellitus remote computer terminal operator insulin use: with remote computer terminal operator use Diabetes mellitus complication status: with kidney complications Diabetes mellitus complication detail: with chronic kidney disease Chronic kidney disease stage: stage 3 (moderate) Qualified Code(s): E11.22 - Type 2 diabetes mellitus with diabetic chronic kidney disease; N18.3 - Chronic kidney disease, stage 3 (moderate); Z79.4 - joint terminal attack controller (current) use of insulin (9) Anemia Qualifiers: Anemia type: unspecified type Qualified Code(s): D64.9 - Anemia, unspecified (10) Chronic back pain Qualifiers: Back pain location: back pain in unspecified location Back pain laterality: bilateral Qualified Code(s): M54.9 - Dorsalgia, unspecified; G89.29 - Other chronic pain (12) HLD (hyperlipidemia) Qualifiers: Hyperlipidemia type: unspecified Qualified Code(s): E78.5 - Hyperlipidemia, unspecified (14) Acute and chronic respiratory failure Qualifiers: Respiratory failure complication: hypoxia and hypercapnia Qualified Code(s): J96.21 - Acute and chronic respiratory failure with hypoxia; J96.22 - Acute and chronic respiratory failure with hypercapnia; J96.22 - Acute and chronic respiratory failure with hypercapnia; J96.22 - Acute and chronic respiratory failure with hypercapnia (17) Rhxgn-jz-utlvcqk kidney injury Qualifiers: Acute renal failure type: unspecified Chronic kidney disease stage: unspecified stage Qualified Code(s): N17.9 - Acute kidney failure, unspecified ; N18.9 - Chronic kidney disease, unspecified (18) Pneumonia Qualifiers: Pneumonia type: due to unspecified organism Laterality: unspecified laterality Lung location: unspecified part of lung Qualified Code(s): J18.9 - Pneumonia, unspecified organism
[2018-05-11] MEDS: Ipratropium/Albuterol Neb 3 ML IH SCH ×4 (04:54→22:15)
[2018-05-11] MEDS: *HR* Heparin 5,000 UNIT/ML VIAL SQ SCH ×3 (05:32→21:54)
[2018-05-11] MEDS: Fenofibrate 54 MG TABLET PO SCH (07:57)
[2018-05-11] MEDS: Insulin LISPRO 300 UNITS/3 ML VIAL SQ SCH ×4 (08:04→21:54)
--- NOTE | 2018-05-11 09:39 | Internal Med Progress Note ---
Hospitalist Progress Note - Encounter Date of Encounter: 05/11/18 Time of Encounter: 09:39 - Subjective Interval History: Seen and evaluated at the bedside 67-year-old male with history of diabetes mellitus, CHF, A. fib who was admitted for myxedema coma, acute on chronic respiratory failure with hypoxia and hypercapnia, acute on chronic kidney injury and pneumonia. He was managed in the intensive care unit and extubated 05/07 On 05/10, he complained of poor urinary output, attributing this to his BPH, he also complains of straining to pee, no dysuria, he is also complaining of Left groin pain, and discomfort Urine output has improved with Tamsulosin, and documentation per chart showed 575 cc of urine 05/10 He denies new complains, abdomen is non-tender he is still requiring 5-6 L O2 by high flow NC We will attempt weaning O2, as there is no documentation by SW if this is provided at the swing bed rehab, and obtain abdominal Xray for abdominal complains He is otherwise stable - Exam Vitals: Temp Pulse Resp BP Pulse Ox 98.7 F 63 17 116/72 95 05/11/18 08:04 05/11/18 08:04 05/11/18 08:04 05/11/18 08:04 05/11/18 08:04 Exam: VSS, not in distress, Eyes: sclera is anicteric, ENT: oropharynx is moist, patient is obese resp: breath sounds are clear bilaterally, heart: sounds S1-S2 regular rate and rhythm, Abdomen: obese and non-tender, no rebound, no palpably enlarged organs Extremities: pedal edema. Neuro: The patient is awake alert and oriented 3. Speech is normal, moves all extremities - Assessment and Plan (1) Hypertension Current Visit: Yes Status: Chronic Assessment and Plan: Continue metoprolol (2) CKD (chronic kidney disease) Current Visit: Yes Status: Chronic Assessment and Plan: CR is now at baseline Patient complaining of decreased UO and straining, add flomax (3) CAD (coronary artery disease) Current Visit: Yes Status: Chronic Assessment and Plan: Continue home meds (4) History of DVT of lower extremity Current Visit: Yes Status: Resolved Assessment and Plan: Not on A/C (5) Diabetes mellitus Current Visit: Yes Status: Chronic Assessment and Plan: FS controlled Continue SSI FS ACHS ADA diet (6) DVT prophylaxis Current Visit: Yes Status: Acute Assessment and Plan: SQ heparin (7) Morbid obesity Current Visit: Yes Status: Chronic Assessment and Plan: BMI 45.3, lifestyle modification (8) COPD exacerbation Current Visit: Yes Status: Resolved Assessment and Plan: Resolved Completed course of steroids Continue to monitor Continue O2 (9) Anemia Current Visit: Yes Status: Chronic Assessment and Plan: chronic, stable (10) Chronic back pain Current Visit: Yes Status: Chronic Assessment and Plan: continue home meds (11) Hyponatremia Current Visit: Yes Status: Acute Assessment and Plan: Sodium level 128 on arrival Stable at 135, continue to monitor (12) HLD (hyperlipidemia) Current Visit: Yes Status: Chronic Assessment and Plan: continue home meds (13) Myxedema Current Visit: Yes Status: Acute Assessment and Plan: Continue synthroid (14) Acute and chronic respiratory failure Current Visit: Yes Status: Resolved Assessment and Plan: Was extubated 05/07/18 Continue O2 by NC during the day and BIPAP at night Wean as tolerated (15) Acute metabolic encephalopathy Current Visit: Yes Status: Resolved Assessment and Plan: resolved Patient AAOX3 (16) Acute on chronic diastolic CHF (congestive heart failure) Current Visit: Yes Status: Acute Assessment and Plan: Improved with diuresis No more on lasix, continue to monitor (17) Ffamr-sx-onabhhm kidney injury Current Visit: Yes Status: Resolved Assessment and Plan: Creatinine now at baseline. Lasix given 05/07/18 and 05/08/18. (18) Pneumonia Current Visit: Yes Status: Acute Assessment and Plan: completed 7 days course of antibiotics - Time Spent with Patient Total time spent is greater than 50% in coordination of care (as documented) at patient's floor/unit and/or counseling patient: Plan of Care Discussed with: patient Internal Medicine: Result - Labs CBC & Chem 7: 05/10/18 03:19 05/10/18 03:19 - ABG Interpretation ABG results: ABG ABG pH 7.42 pH Units (7.32-7.45) 05/06/18 04:56 ABG pCO2 37 mmHg (35-45) 05/06/18 04:56 ABG pO2 57 mmHg (85-104) L 05/06/18 04:56 ABG O2 Saturation 90 % (95-98) L 05/06/18 04:56 PT/INR, D-dimer PT 11.7 Seconds (9.4-12.1) 05/05/18 23:29 Consult Discharge Plan - Plan Referrals: Khurram Victoria DO [Primary Care Provider] - (1) Hypertension Qualifiers: Hypertension type: essential hypertension Qualified Code(s): I10 - Essential (primary) hypertension (2) CKD (chronic kidney disease) Qualifiers: Chronic kidney disease stage: stage 3 (moderate) Qualified Code(s): N18.3 - Chronic kidney disease, stage 3 (moderate) (3) CAD (coronary artery disease) Qualifiers: Coronary Disease-Associated Artery/Lesion type: [place] artery [place] vs. transplanted heart: [place] heart Associated angina: without angina Qualified Code(s): I25.10 - Atherosclerotic heart disease of [place] coronary artery without angina pectoris (5) Diabetes mellitus 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 mellitus intermediate insulin use: with terminologist use Diabetes mellitus complication status: with kidney complications Diabetes mellitus complication detail: with chronic kidney disease Chronic kidney disease stage: stage 3 (moderate) Qualified Code(s): E11.22 - Type 2 diabetes mellitus with diabetic chronic kidney disease; N18.3 - Chronic kidney disease, stage 3 (moderate); Z79.4 - care home (current) use of insulin (9) Anemia Qualifiers: Anemia type: unspecified type Qualified Code(s): D64.9 - Anemia, unspecified (10) Chronic back pain Qualifiers: Back pain location: back pain in unspecified location Back pain laterality: bilateral Qualified Code(s): M54.9 - Dorsalgia, unspecified; G89.29 - Other chronic pain (12) HLD (hyperlipidemia) Qualifiers: Hyperlipidemia type: unspecified Qualified Code(s): E78.5 - Hyperlipidemia, unspecified (14) Acute and chronic respiratory failure Qualifiers: Respiratory failure complication: hypoxia and hypercapnia Qualified Code(s): J96.21 - Acute and chronic respiratory failure with hypoxia; J96.22 - Acute and chronic respiratory failure with hypercapnia (17) Qyjer-ch-zmnwqah kidney injury Qualifiers: Acute renal failure type: unspecified Chronic kidney disease stage: unspecified stage Qualified Code(s): N17.9 - Acute kidney failure, unspecified ; N18.9 - Chronic kidney disease, unspecified (18) Pneumonia Qualifiers: Pneumonia type: due to unspecified organism Laterality: unspecified laterality Lung location: unspecified part of lung Qualified Code(s): J18.9 - Pneumonia, unspecified organism
[2018-05-11] MEDS: Budesonide/Formoterol 160/4.5 1 PUFF INH IH SCH ×2 (10:25→22:15)
[2018-05-12] MEDS: Ipratropium/Albuterol Neb 3 ML IH SCH ×3 (04:12→15:52)
[2018-05-12] MEDS: *HR* Heparin 5,000 UNIT/ML VIAL SQ SCH ×2 (05:29→13:51)
[2018-05-12] MEDS: Insulin LISPRO 300 UNITS/3 ML VIAL SQ SCH ×3 (09:04→16:53)
[2018-05-12] MEDS: Fenofibrate 54 MG TABLET PO SCH (09:07)
--- NOTE | 2018-05-12 10:27 | Discharge Summary ---
- NOTES TO OUTPATIENT PROVIDER Notes to Outpatient Provider: 67 M with Atrial flutter and CHF , hypothyroidism who was admitted for acute hypoxic resp failure, TAYA on CKD. Incidental finding of myxedema, urinary retention. Due to deconditioning, he is recommended for swing bed /inpatient rehab placement Orders not resulted at time of discharge: Pending orders 05/11/18 09:37 XR abdomen 2V [XR] Routine Date of Encounter: 05/12/18 Time of Encounter: 10:27 - Discharge Diagnosis (1) Urinary retention Priority: Primary Status: Acute Assessment and Plan: likely due to BPH Pearson placed, consult placed and recommends continuation of Pearson till voiding trial can be done as out-patient (2) Hypertension Priority: Secondary Status: Chronic Assessment and Plan: continue home meds Qualifiers: Hypertension type: essential hypertension Qualified Code(s): I10 - Essential (primary) hypertension (3) CKD (chronic kidney disease) Priority: Secondary Status: Chronic Assessment and Plan: Developed TAYA on admission with pre-renal component and likely post-renal with obstruction and urinary retention Cr now at baseline Qualifiers: Chronic kidney disease stage: stage 3 (moderate) Qualified Code(s): N18.3 - Chronic kidney disease, stage 3 (moderate) (4) CAD (coronary artery disease) Priority: Secondary Status: Chronic Assessment and Plan: continue home meds Qualifiers: Coronary Disease-Associated Artery/Lesion type: [place] artery [place] vs. transplanted heart: [place] heart Associated angina: without angina Qualified Code(s): I25.10 - Atherosclerotic heart disease of [place] coronary artery without angina pectoris (5) History of DVT of lower extremity Priority: Secondary Status: Resolved Assessment and Plan: not on anticaogulation due to rectal sheath hematoma 07/2017 (6) Diabetes mellitus Priority: Secondary Status: Chronic Assessment and Plan: FS controlled, continue home dose of insulin and OHA 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 mellitus terminal press operator insulin use: with chcf use Diabetes mellitus complication status: with kidney complications Diabetes mellitus complication detail: with chronic kidney disease Chronic kidney disease stage: stage 3 (moderate) Qualified Code(s): E11.22 - Type 2 diabetes mellitus with diabetic chronic kidney disease; N18.3 - Chronic kidney disease, stage 3 (moderate); Z79.4 - residential (current) use of insulin (7) DVT prophylaxis Priority: Primary Status: Resolved (8) Morbid obesity Priority: Secondary Status: Chronic Assessment and Plan: lifestyle modification encouraged (9) COPD exacerbation Priority: Primary Status: Resolved Assessment and Plan: resolved Completed course of steroids Continue O2, wean as tolerated (10) Anemia Priority: Secondary Status: Chronic Assessment and Plan: Hb stable and at baseline Qualifiers: Anemia type: unspecified type Qualified Code(s): D64.9 - Anemia, unspecified (11) Chronic back pain Priority: Secondary Status: Chronic Assessment and Plan: tyelnol prn Qualifiers: Back pain location: back pain in unspecified location Back pain laterality : bilateral Qualified Code(s): M54.9 - Dorsalgia, unspecified; G89.29 - Other chronic pain (12) Hyponatremia Priority: Primary Status: Resolved Assessment and Plan: resolved (13) HLD (hyperlipidemia) Priority: Secondary Status: Chronic Assessment and Plan: continue home meds Qualifiers: Hyperlipidemia type: unspecified Qualified Code(s): E78.5 - Hyperlipidemia , unspecified (14) Myxedema Priority: Primary Status: Acute Assessment and Plan: Hx of hypothyroidism and on 100mcg levothyroxine at home. TSH on admission 88.6, improved to 19.8 with stress dose steroids and IV thyroxine Discharged on home dose of synthroid. (15) Acute and chronic respiratory failure Priority: Primary Status: Resolved Assessment and Plan: Was extubated 05/07/18 Continue O2 by NC during the day and BIPAP at night Wean as tolerated Qualifiers: Respiratory failure complication: hypoxia and hypercapnia Qualified Code(s) : J96.21 - Acute and chronic respiratory failure with hypoxia; J96.22 - Acute and chronic respiratory failure with hypercapnia (16) Acute metabolic encephalopathy Priority: Primary Status: Resolved (17) Acute on chronic diastolic CHF (congestive heart failure) Priority: Primary Status: Acute Assessment and Plan: Improved with diuresis No more on lasix, continue to monitor (18) Efnsm-aj-gvmdrrf kidney injury Priority: Primary Status: Resolved Assessment and Plan: Creatinine now at baseline Qualifiers: Acute renal failure type: unspecified Chronic kidney disease stage: unspecified stage Qualified Code(s): N17.9 - Acute kidney failure, unspecified ; N18.9 - Chronic kidney disease, unspecified (19) Pneumonia Priority: Primary Status: Acute Assessment and Plan: completed 7 days course of antibiotics Qualifiers: Pneumonia type: due to unspecified organism Laterality: unspecified laterality Lung location: unspecified part of lung Qualified Code(s): J18.9 - Pneumonia, unspecified organism Hospital course: Mr. Humphries is a 67 year old male with history of diabetes mellitus, CHF, A. fib who was admitted for myxedema coma, acute on chronic respiratory failure with hypoxia and hypercapnia, acute on chronic kidney injury and pneumonia. He was managed in the intensive care unit and extubated 05/07 He was seen and evaluated this a.m, he developed urinary retention, which did not improve with tamsulosin , he eventually required a pearson catheter, according to Urology, the catheter should be in place till evaluation for voiding trial as outpatient HE continues to require O2, and is clinically and hemodynamically stable to be transferred to [facility]/inpatient rehab See details of each diagnoses for hosp course Discharge discussed with: patient, case management, neuropsychology medical consultant - Time Spent with Patient Total time spent providing and/or coordinating discharge services: Greater than 30 minutes (45 mins of face to face, consultation, documentatin, med rec) - Discharge Medications Home Medications: GlipiZIDE [Glipizide Xl] 5 mg PO DAILY 06/16/16 [History] Montelukast Sodium [Singulair] 10 mg PO DAILY 06/16/16 [History] Pantoprazole Sodium [Protonix] 40 mg PO DAILY 06/16/16 [History] Isosorbide MONOnitrate (24 HR) [Imdur] 30 mg PO DAILY 08/07/16 [History] Atorvastatin Calcium [Lipitor] 80 mg PO HS 07/23/17 [History] Metoprolol [Lopressor] 75 mg PO BID #90 tablet 08/05/17 [Rx] Fenofibrate Nanocrystallized [Tricor] 48 mg PO DAILY 05/05/18 [History] Insulin ASPART [Novolog Flexpen] 0 unit SQ TIDWM 05/05/18 [History] Levothyroxine [Synthroid] 100 mcg PO DAILY 05/05/18 [History] Polyethylene Glycol 3350 [MiraLAX] 17 gm PO DAILY 05/05/18 [History] Tamsulosin HCl [Flomax] 0.4 mg PO DAILY 05/05/18 [History] Acetaminophen [Tylenol] 650 mg PO Q6HR PRN tablet 05/12/18 [Rx] Budesonide/Formoterol 160/4.5 [Symbicort 160/4.5] 2 puff IH BIDR inh 05/12/18 [ Rx] Allergies/Adverse Reactions: 3 Allergy/AdvReac Type Severity Reaction Status Date / Time adenosine Allergy See Verified 08/07/16 16:26 Comments fluticasone Allergy See Verified 08/07/16 16:26 [From Advair Diskus] Comments Iodinated Contrast- Oral and Allergy See Verified 06/16/16 15:37 IV Dye Comments [Iodinated Contrast Media - IV Dye] salmeterol Allergy See Verified 08/07/16 16:26 [From Advair Diskus] Comments Date of admission: 05/05/18 18:42 Primary care physician: Khurram Victoria DO Consults: 05/05/18 20:59 Consult to Nurse Navigator [CONS] Routine Comment: 05/06/18 06:45 Consult to Critical Care [CONS] Routine Consulting Provider: [facility] [place] Reason for Consult: vent management Call Completed: Yes 05/08/18 08:40 Consult to Cardiology [CONS] Routine Comment: Consulting Provider: [facility] [place] Reason for Consult: amiodarone for a flutter, possibly causing worsening of thyroid dysfunction Time Notified: 08:41 Call Completed: Yes 05/08/18 13:32 Consult to Physical Therapy [CONS] Routine Comment: Evaluate, develop and implement POC Reason for Consult: decreased mobility Does patient have active BEDREST order?: No Is patient medically & hemodynamically stable?: Yes Patient assessed for mobility or mobilized this visit?: Yes 05/08/18 13:33 Consult to Occupational Therapy [CONS] Routine Comment: Evaluate, develop and implement POC Reason for Consult: decreased mobility Does patient have active BEDREST order?: No Is patient medically & hemodynamically stable?: Yes Patient assessed for mobility or mobilized this visit?: Yes Discharging clinician: Gordon Gutierrez Anticipated date of discharge: 05/12/18 - Constitutional Vitals: Temp Pulse Resp BP Pulse Ox 98.5 F 58 18 150/74 93 05/12/18 07:46 05/12/18 07:46 05/12/18 07:46 05/12/18 07:46 05/12/18 07:46 General appearance: Present: A&O X 3, pleasant, no acute distress, obese Exam: see below - Head Head exam: Present: atraumatic, normocephalic - Eye Eye exam: Present: PERRL, conjuntiva pink, sclera anicteric Pupils: Present: PERRL - Neck Neck exam general surgery: Present: supple, trachea midline. Absent: lymphadenopathy - Respiratory Respiratory exam: Present: CTAB. Absent: accessory muscle use, rales, rhonchi, wheezes - Cardiovascular Cardiovascular exam: Present: RRR, +S1, +S2. Absent: diastolic murmur, gallop, rubs, systolic murmur - GI/Abdominal GI/Abdominal exam: Present: normal bowel sounds, soft, no peritoneal signs. Absent: distended, tenderness - Extremities Exam Extremities exam: Present: warm, radial pulses palpable and symmetrical. Absent : calf tenderness, cyanotic, pedal edema - Neurological Exam Neurological exam: Present: alert, CN II-XII intact, oriented X3, no focal deficits. Absent: pronater drift, facial droop, speech deficit - Skin Skin exam: Present: dry, intact - Patient Status Disposition: Transfer SNF Condition: Fair Functional capacity at discharge: uses cane/walker Overall status at discharge: patient is progressing back to baseline - Discharge Instructions Follow Up With: Khurram Victoria DO [Primary Care Provider] - - Diet and Activity Activity: resume usual activities as tolerated, wear oxygen at all times Diet: diabetic diet, low fat, low cholesterol, low salt diet
[2018-05-12] MEDS ORDERED: *HR* OxyCODONE/APAP 5/325 TABLET PO PRN (10:28)
--- NOTE | 2018-05-12 10:28 | Physician Discharge Referral ---
[facility] Referral Info Provider in Charge after Transfer: PCP Institutional Level of Care: Skilled - Diagnosis (1) Hypertension Status: Chronic (2) CKD (chronic kidney disease) Status: Chronic (3) CAD (coronary artery disease) Status: Chronic (4) History of DVT of lower extremity Status: Resolved (5) Diabetes mellitus Status: Chronic (6) DVT prophylaxis Status: Acute (7) Morbid obesity Status: Chronic (8) COPD exacerbation Status: Resolved (9) Anemia Status: Chronic (10) Chronic back pain Status: Chronic (11) Hyponatremia Status: Acute (12) HLD (hyperlipidemia) Status: Chronic (13) Myxedema Status: Acute (14) Acute and chronic respiratory failure Status: Resolved (15) Acute metabolic encephalopathy Status: Resolved (16) Acute on chronic diastolic CHF (congestive heart failure) Status: Acute (17) [id number] kidney injury Status: Resolved (18) Pneumonia Status: Acute - Transfer Medications Home Medications: GlipiZIDE [Glipizide Xl] 5 mg PO DAILY 06/16/16 [History] Montelukast Sodium [Singulair] 10 mg PO DAILY 06/16/16 [History] Pantoprazole Sodium [Protonix] 40 mg PO DAILY 06/16/16 [History] Isosorbide MONOnitrate (24 HR) [Imdur] 30 mg PO DAILY 08/07/16 [History] Atorvastatin Calcium [Lipitor] 80 mg PO HS 07/23/17 [History] Metoprolol [Lopressor] 75 mg PO BID #90 tablet 08/05/17 [Rx] Amiodarone [Cordarone] 200 mg PO DAILY 05/05/18 [History] Fenofibrate Nanocrystallized [Tricor] 48 mg PO DAILY 05/05/18 [History] Insulin ASPART [Novolog Flexpen] 0 unit SQ TIDWM 05/05/18 [History] Levothyroxine [Synthroid] 100 mcg PO DAILY 05/05/18 [History] Polyethylene Glycol 3350 [MiraLAX] 17 gm PO DAILY 05/05/18 [History] PredniSONE [Xin] 7.5 mg PO DAILY 05/05/18 [History] Tamsulosin HCl [Flomax] 0.4 mg PO DAILY 05/05/18 [History] Allergies/Adverse Reactions: 3 Allergy/AdvReac Type Severity Reaction Status Date / Time adenosine Allergy See Verified 08/07/16 16:26 Comments fluticasone Allergy See Verified 08/07/16 16:26 [From Advair Diskus] Comments Iodinated Contrast- Oral and Allergy See Verified 06/16/16 15:37 IV Dye Comments [Iodinated Contrast Media - IV Dye] salmeterol Allergy See Verified 08/07/16 16:26 [From Advair Diskus] Comments - Respiratory Orders Smoking Cessation: Smoking cessation has been advised. For more information, call the [place] Tobacco Quit Line at 3-069-MAAV-NOW. CERTIFICATION: I certify that the transfer of the above named patient to an Extended Care Facility is necessary for the continuing treatment of the diagnosis listed. The above information is true and accurate reflection of patient's current condition. Confidential - Redisclosure prohibited without a patient's written consent.
[2018-05-12] MEDS: Budesonide/Formoterol 160/4.5 1 PUFF INH IH SCH (10:33)
--- NOTE | 2018-05-12 14:23 | Urology - Consult Note ---
<Dian Walker N - Last Filed: 05/12/18 14:19> Date of Encounter: 05/12/18 Time of Encounter: 14:20 - Assessment and Plan (1) Urinary retention Current Visit: Yes Status: Acute Assessment and plan: Patient is a 67-year-old male who presents with a history of urinary retention. Patient was placed on Flomax which initially helped his voiding symptoms; however, he is now unable to spontaneously void and has an indwelling Cortez catheter. I explained to the patient that this will need to stay in place for 1 -2 weeks to allow for bladder decompression. The patient will return in 1-2 weeks for a voiding trial in our office. I instructed the patient to continue with Flomax daily. Urology CN:HPI Consult date: 05/12/18 History of present illness: Patient is a 59-year-old male who presents with acute urinary retention. Patient was admitted through the emergency department after he was sent by Dr. Chadwick for increased dyspnea. Patient was subsequently intubated in the emergency department and transferred to the intensive care unit. He has now been stepped down to a regular medical floor. Patient states he is experienced retention in the past following a heart catheterization. During Mr. Humphries's hospital stay, the catheter was removed, but he was unable to spontaneously void. The catheter was replaced and is currently indwelling. Patient is currently taking Flomax once daily. Patient reports a history of penile cancer approximately 5-6 years ago that was treated by Dr. Farah with 2 excision procedures. Patient has not experienced a recurrence, but he is no longer established with a urologist. Patient currently denies fever, chills, flank pain, gross hematuria. Patient denies catheter discomfort or feeling of obstruction. Past Med Surg Social Fam HX - Past Medical History Medical history: CHF, COPD, coronary artery disease, diabetes, hyperlipidemia, hypertension Additional medical history: anemia. leukocytosis. penile cancer. PAD Psychiatric history: no psych history - Past Surgical History Additional surgical history: CARDIAC CATH. Cardiac Stenting x5. gallbladder surgery. cancer removed twice. polyp removal. testicular tumor removal. colonoscopy. bypass in legs - Social History Smoking Status: Current every day smoker Smokeless Tobacco Status: No Alcohol use: none Drug use: none - Family History Father Living Status: Hx Family Cardiac Disorders: Yes (Enlarged heart) Mother Living Status: Hx Family Cardiac Disorders: Yes Hx Family Respiratory Disorders: Yes (COPD) Medications and Allergies GlipiZIDE [Glipizide Xl] 5 mg PO DAILY 06/16/16 [History] Montelukast Sodium [Singulair] 10 mg PO DAILY 06/16/16 [History] Pantoprazole Sodium [Protonix] 40 mg PO DAILY 06/16/16 [History] Isosorbide MONOnitrate (24 HR) [Imdur] 30 mg PO DAILY 08/07/16 [History] Atorvastatin Calcium [Lipitor] 80 mg PO HS 07/23/17 [History] Metoprolol [Lopressor] 75 mg PO BID #90 tablet 08/05/17 [Rx] Fenofibrate Nanocrystallized [Tricor] 48 mg PO DAILY 05/05/18 [History] Insulin ASPART [Novolog Flexpen] 0 unit SQ TIDWM 05/05/18 [History] Levothyroxine [Synthroid] 100 mcg PO DAILY 05/05/18 [History] Polyethylene Glycol 3350 [MiraLAX] 17 gm PO DAILY 05/05/18 [History] Tamsulosin HCl [Flomax] 0.4 mg PO DAILY 05/05/18 [History] Acetaminophen [Tylenol] 650 mg PO Q6HR PRN tablet 05/12/18 [Rx] Budesonide/Formoterol 160/4.5 [Symbicort 160/4.5] 2 puff IH BIDR inh 05/12/18 [ Rx] 3 Allergy/AdvReac Type Severity Reaction Status Date / Time adenosine Allergy See Verified 08/07/16 16:26 Comments fluticasone Allergy See Verified 08/07/16 16:26 [From [employer]] Comments Iodinated Contrast- Oral and Allergy See Verified 06/16/16 15:37 IV Dye Comments [Iodinated Contrast Media - IV Dye] salmeterol Allergy See Verified 08/07/16 16:26 [From [employer]] Comments Review of Systems - Constitutional fatigue, no chills, no fever(s) - EENT Nose, mouth and throat: no dizziness, no headache(s), no throat swelling - Cardiovascular no chest pain, no diaphoresis, no dyspnea - Respiratory no cough, no dyspnea - Gastrointestinal no abdominal pain, no nausea, no vomiting - Genitourinary difficulty urinating, no flank pain, no genital lesions, no hematuria, no testicular mass, no testicular pain, no urinary frequency, no urinary hesitancy , no urinary incontinence, no urinary urgency - Musculoskeletal no back pain, no muscle weakness - Integumentary no erythema, no rash, no swelling - Neurological no confusion, no sensory deficit, no syncope - Psychiatric no anxiety, no confusion Exam Initial Vital Signs Temp Pulse Resp BP Pulse Ox 97.7 F 86 18 84/50 77 05/05/18 14:41 05/05/18 14:41 05/05/18 14:41 05/05/18 14:41 05/05/18 14:41 - General physical appearance Present: well developed, no distress, no pain, chronically ill, obese - Eyes Present: PERRL, normal ocular movement - ENT Present: normal nares, no hearing loss, no congestion - Neck Present: no masses, trachea midline - Respiratory Present: normal respiratory effort - Cardiovascular Cardiovascular exam IM: RRR - Abdomen Abdomen: Present: soft, non tender - Genitourinary other (Urethral catheter is indwelling and draining clear urine into bedside bag ) - Integumentary Present: no rash, no abnormal pigmentation - Neurologic Present: normal coordination Urology Results - Labs 05/10/18 03:19 05/10/18 03:19 Abnormal lab results RBC 4.01 M/mcL (4.19-5.50) L 05/10/18 03:19 MCV 100.5 fL (83.0-100.0) H 05/10/18 03:19 RDW 16.4 % (11.5-14.5) H 05/10/18 03:19 Plt Count 103 K/mcL (140-400) L 05/10/18 03:19 Platelet Estimate Decreased (Normal) L 05/06/18 12:21 Anisocytosis 1+ (Not Present) A 05/06/18 05:20 ABG pO2 57 mmHg (85-104) L 05/06/18 04:56 ABG O2 Saturation 90 % (95-98) L 05/06/18 04:56 VBG pH 7.10 pH Units (7.32-7.42) L* D 05/05/18 17:57 VBG pCO2 110 mmHg (41-51) H* 05/05/18 17:57 VBG pO2 177 mmHg (25-50) H 05/05/18 17:57 VBG HCO3 34 mEq/L (21-27) H 05/05/18 17:57 Sodium 135 mEq/L (136-145) L 05/10/18 03:19 Carbon Dioxide 35 mEq/L (23-29) H 05/10/18 03:19 Creatinine 1.43 mg/dL (0.70-1.30) H 05/10/18 03:19 Est GFR (Non-Af Amer) 49 (> 60) L 05/10/18 03:19 POC Glucose 122 mg/dL (70-99) H 05/11/18 16:49 Hemoglobin A1c 5.9 % (-5.6) H 05/05/18 23:29 Phosphorus 2.4 mg/dL (2.7-4.5) L 05/10/18 03:19 B-Natriuretic Peptide 231 pg/mL (Less than 100) H 05/05/18 15:05 Serum Total Protein 4.9 g/dL (6.4-8.9) L 05/06/18 05:20 Albumin 3.2 g/dL (3.5-5.7) L 05/06/18 05:20 Globulin 1.7 g/dL (2.4-3.5) L 05/06/18 05:20 TSH 19.820 mcIU/mL (0.340-5.600) H 05/08/18 03:49 Free T4 0.63 ng/dl (0.70-2.00) L 05/07/18 08:40 Free T3 1.46 pg/mL (2.50-3.90) L 05/07/18 08:40 Total T3 0.73 ng/mL (0.87-1.78) L 05/05/18 17:37 Urine Protein 100 mg/dL (Neg-Trace) H 18 00:20 Urine Glucose (UA) 100 mg/dL (Normal) H 05/06/18 00:20 Urine Ketones Trace mg/dL (Negative) H 18 00:20 Urine Bilirubin Small (Negative) H 05/06/18 00:20 Urine Microscopic RBC 3-5 per hpf (0-3) H 05/06/18 00:20 Ur Squamous Epith Cells Many per lpf (None-Few) H 18 00:20 All other labs normal. Consult Discharge Plan - Plan Referrals: Dian Walker, PAC [Physician Sexual Abuse Counsellor] - Khurram Victoria, DO [Primary Care Provider] - <Presley Perry - Last Filed: 05/12/18 18:14> Date of Encounter: 05/12/18 - Assessment and Plan (1) Urinary retention Current Visit: Yes Status: Acute Assessment and plan: Patient seen and examined with physician assistant superintendent. I agree with plan. Keep catheter in place for 1-2 weeks which hopefully will allow the patient to recover from his acute medical issues. We will attempt voiding trial in the office at that time Exam Initial Vital Signs Temp Pulse Resp BP Pulse Ox 97.7 F 86 18 84/50 77 05/05/18 14:41 05/05/18 14:41 05/05/18 14:41 05/05/18 14:41 05/05/18 14:41 Urology Results - Labs 05/10/18 03:19 05/10/18 03:19 Abnormal lab results RBC 4.01 M/mcL (4.19-5.50) L 05/10/18 03:19 MCV 100.5 fL (83.0-100.0) H 05/10/18 03:19 RDW 16.4 % (11.5-14.5) H 05/10/18 03:19 Plt Count 103 K/mcL (140-400) L 05/10/18 03:19 Platelet Estimate Decreased (Normal) L 05/06/18 12:21 Anisocytosis 1+ (Not Present) A 05/06/18 05:20 ABG pO2 57 mmHg (85-104) L 05/06/18 04:56 ABG O2 Saturation 90 % (95-98) L 05/06/18 04:56 VBG pH 7.10 pH Units (7.32-7.42) L* D 05/05/18 17:57 VBG pCO2 110 mmHg (41-51) H* 05/05/18 17:57 VBG pO2 177 mmHg (25-50) H 05/05/18 17:57 VBG HCO3 34 mEq/L (21-27) H 05/05/18 17:57 Sodium 135 mEq/L (136-145) L 05/10/18 03:19 Carbon Dioxide 35 mEq/L (23-29) H 05/10/18 03:19 Creatinine 1.43 mg/dL (0.70-1.30) H 05/10/18 03:19 Est GFR (Non-Af Amer) 49 (> 60) L 05/10/18 03:19 POC Glucose 208 mg/dL (70-99) H 05/12/18 11:24 Hemoglobin A1c 5.9 % (-5.6) H 05/05/18 23:29 Phosphorus 2.4 mg/dL (2.7-4.5) L 05/10/18 03:19 B-Natriuretic Peptide 231 pg/mL (Less than 100) H 05/05/18 15:05 Serum Total Protein 4.9 g/dL (6.4-8.9) L 05/06/18 05:20 Albumin 3.2 g/dL (3.5-5.7) L 05/06/18 05:20 Globulin 1.7 g/dL (2.4-3.5) L 05/06/18 05:20 TSH 19.820 mcIU/mL (0.340-5.600) H 05/08/18 03:49 Free T4 0.63 ng/dl (0.70-2.00) L 05/07/18 08:40 Free T3 1.46 pg/mL (2.50-3.90) L 05/07/18 08:40 Total T3 0.73 ng/mL (0.87-1.78) L 05/05/18 17:37 Urine Protein 100 mg/dL (Neg-Trace) H 05/06/18 00:20 Urine Glucose (UA) 100 mg/dL (Normal) H 05/06/18 00:20 Urine Ketones Trace mg/dL (Negative) H 05/06/18 00:20 Urine Bilirubin Small (Negative) H 05/06/18 00:20 Urine Microscopic RBC 3-5 per hpf (0-3) H 05/06/18 00:20 Ur Squamous Epith Cells Many per lpf (None-Few) H 05/06/18 00:20 All other labs normal.
[2018-05-12 16:44] VITALS: BP 119/75
== END 2018-05-12 18:17 | DRG 208 ==
LOC: 2ANU 14:33 → EMEROOARM 14:33 → ICNU 18:42 → SUATTDRO 18:42 → ICNU 20:49 → 2ANU 05-09 18:04
PROVIDERS: ADMIT Student in an Organized Health Care Education/Training Program; ATTEND Internal Medicine

== ENCOUNTER 2018-05-18 12:51 | Inpatient (IN) ==
[~2018-05-18 12:51] MED LIST: *HR* Midazolam HCl 5 MG/5 ML VIAL IVP ONE; *HR* Rocuronium Bromide 50 MG/5 ML VIAL IVC ONE
[2018-05-18] MEDS ORDERED: methylPREDNISolone 125 MG/2 ML VIAL IVP ONE (14:51)
[2018-05-18] MEDS ORDERED: Ipratropium/Albuterol Neb 3 ML IH ONE (14:55)
[2018-05-18] MEDS ORDERED: Naloxone 0.4 MG/ML INJ IVP PRN (15:26)
[2018-05-18 15:30] LABS: ABG Base Excess 11 mEq/L (-2 to 3); ABG HCO3 45 mEq/L (21-27); ABG Oxygen Saturation 84 % (95-98); ABG PCO2 131 mmHg (35-45); ABG PH 7.14 pH Units (7.32-7.45); ABG PO2 69 mmHg (85-104); ABG TCO2 49 mEq/L (20-26); Blood Gas Modality AVAPS; Blood Gas PEEP 8 cm H2O; Blood Gas Respiration Rate 8; Blood Gas VT 500 cc
--- NOTE | 2018-05-18 15:36 | Pulmonology Consult Note ---
<Deniz Mock - Last Filed: 05/18/18 17:37> Date of Encounter: 05/18/18 Time of Encounter: 15:26 Assessment and Plan (1) Acute on chronic diastolic CHF (congestive heart failure) Current Visit: No Status: Acute BNP is 82 on May 18 down from 122 on May 14 Continue current management Continue to monitor (2) Hypothyroidism Current Visit: No Status: Chronic Previous documentation of the patient on Synthroid Order for TSH shows a value of greater than 43 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 200 g of Synthroid administered We will continue to monitor and replace as necessary Qualifiers: Hypothyroidism type: acquired Qualified Code(s): E03.9 - Hypothyroidism, unspecified (3) Diabetes mellitus Current Visit: No Status: Chronic POC glucose daily since May 12 shows diabetes well-controlled on current regimen Continue POC glucose checks Diabetes protocol plus insulin lispro low-dose corrective every 6 hours Continue to monitor 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 mellitus custodial insulin use: with custodial use Diabetes mellitus complication status: with kidney complications Diabetes mellitus complication detail: with chronic kidney disease Chronic kidney disease stage: stage 3 (moderate) Qualified Code(s): E11.22 - Type 2 diabetes mellitus with diabetic chronic kidney disease; N18.3 - Chronic kidney disease, stage 3 (moderate); Z79.4 - jail (current) use of insulin (4) Tobacco abuse Current Visit: No Status: Chronic Patient documentation states current every day smoker Unknown pack years Patient is highly encouraged to stop smoking and pursue lifestyle modifications including weight loss and sleep hygiene (5) DVT prophylaxis Current Visit: Yes Status: Acute 5000 units subcutaneous heparin History of Present Illness Consult date: 05/18/18 Reason for consult: dyspnea, cough, COPD, abnormal CXR/CT Chief complaint: Acute on chronic respiratory failure History of present illness: Patient is a 67-year-old male presenting from [facility] facility for respiratory failure. The patient was admitted as an inpatient to [facility] from May 05 - for dyspnea. The patient was intubated during his stay, and was transferred upon discharge to the [facility] facility for rehabilitation. Per the patient's sister acting as a historian , the patient had a vomiting episode last evening which resulted in several episodes of cough which led to respiratory compromise throughout the night. Patient's respiratory status worsened throughout the day despite the use of BiPAP showing acute on chronic respiratory acidosis with a pH of 7.15 a PCO2 125 , HCO3 of 44 and oxygen saturation of 83%. Patient is currently on BiPAP with stat ABGs plus repeat in 2 hours. There is a low threshold for intubation. Patient started on 1500 mg of Unasyn every 6 hours for concern over aspiration pneumonia, along with Solu-Medrol plus DuoNeb nebs. Past Med Surg Social Fam HX - Past Medical History Medical history: CHF, COPD, coronary artery disease, diabetes, hyperlipidemia, hypertension Additional medical history: anemia. leukocytosis. penile cancer. PAD Psychiatric history: no psych history - Past Surgical History Additional surgical history: CARDIAC CATH. Cardiac Stenting x5. gallbladder surgery. cancer removed twice. polyp removal. testicular tumor removal. colonoscopy. bypass in legs - Social History Smoking Status: Current every day smoker Smokeless Tobacco Status: No Alcohol use: none Drug use: none - Family History Father Living Status: Hx Family Cardiac Disorders: Yes (Enlarged heart) Mother Living Status: Hx Family Cardiac Disorders: Yes Hx Family Respiratory Disorders: Yes (COPD) Medications and Allergies GlipiZIDE [Glipizide Xl] 5 mg PO DAILY 06/16/16 [History] Montelukast Sodium [Singulair] 10 mg PO DAILY 06/16/16 [History] Pantoprazole Sodium [Protonix] 40 mg PO DAILY 06/16/16 [History] Isosorbide MONOnitrate (24 HR) [Imdur] 30 mg PO DAILY 08/07/16 [History] Atorvastatin Calcium [Lipitor] 80 mg PO HS 07/23/17 [History] Metoprolol [Lopressor] 75 mg PO BID #90 tablet 08/05/17 [Rx] Fenofibrate Nanocrystallized [Tricor] 48 mg PO DAILY 05/05/18 [History] Insulin ASPART [Novolog Flexpen] 0 unit SQ TIDWM 05/05/18 [History] Levothyroxine [Synthroid] 100 mcg PO DAILY 05/05/18 [History] Polyethylene Glycol 3350 [MiraLAX] 17 gm PO DAILY 05/05/18 [History] Tamsulosin HCl [Flomax] 0.4 mg PO DAILY 05/05/18 [History] Acetaminophen [Tylenol] 650 mg PO Q6HR PRN tablet 05/12/18 [Rx] Budesonide/Formoterol 160/4.5 [Symbicort 160/4.5] 2 puff IH BIDR inh 05/12/18 [ Rx] 3 Allergy/AdvReac Type Severity Reaction Status Date / Time adenosine Allergy See Verified 08/07/16 16:26 Comments fluticasone Allergy See Verified 08/07/16 16:26 [From Advair Diskus] Comments Iodinated Contrast- Oral and Allergy See Verified 06/16/16 15:37 IV Dye Comments [Iodinated Contrast Media - IV Dye] salmeterol Allergy See Verified 08/07/16 16:26 [From Advair Diskus] Comments ROS unobtainable: due to mental status All Systems: The remainder of the systems were reviewed and are negative Physical Examination Vital Signs: Vital Signs, Last 4 Hours Pulse 05/18/18 15:07 65 General appearance: lethargic, other (Patient is intermittently responsive to verbal stimuli but is otherwise lethargic and not engaged to significant conversation) Eyes: nonicteric ENT: oropharynx moist Neck: no JVD Effort: very labored Auscultation: bilateral: wheezes Cardiovascular: other (Unable to auscultate cardiac sounds due to patient's body habitus and ambient noise from BiPAP administration) Gastrointestinal: normoactive bowel sounds, soft, non-tender (Patient does not grimace to palpation of the abdomen), non-distended Integumentary: other (Bruising noted over the anterior abdomen) Extremities: no cyanosis unable to assess due to mental status Results - Laboratory Findings CBC and BMP: 05/18/18 15:50 05/18/18 15:50 Consult Discharge Plan - Plan Referrals: Khurram Victoria DO [Primary Care Provider] - <Natacha Darby - Last Filed: 05/19/18 12:04> Date of Encounter: 05/19/18 All Systems: The remainder of the systems were reviewed and are negative Physical Examination Vital Signs: Vital Signs, Last 4 Hours Temp Pulse Resp BP Pulse Ox 05/19/18 11:50 97.8 F 05/19/18 11:30 18 92 05/19/18 11:00 70 18 143/80 92 05/19/18 10:00 79 18 125/66 97 05/19/18 09:36 18 97 05/19/18 09:00 82 18 126/70 91 Ventilator Settings Ventilator Settings: Ventilator Settings, Last 8 Hours Ventilator Tidal Volume 500 Setting Ventilator Tidal Volume 500 Setting Ventilator Tidal Volume 500 Setting Ventilator Tidal Volume 500 Setting Ventilator Tidal Volume 500 Setting Ventilator Tidal Volume 500 Setting Ventilator Tidal Volume 500 Setting Ventilator Tidal Volume 500 Setting Ventilator Tidal Volume 500 Setting Ventilator Tidal Volume 500 Setting Ventilator Tidal Volume 500 Setting Ventilator Respiratory Rate 18 Setting Ventilator Respiratory Rate 18 Setting Ventilator Respiratory Rate 18 Setting Ventilator Respiratory Rate 18 Setting Ventilator Respiratory Rate 18 Setting Ventilator Respiratory Rate 18 Setting Ventilator Respiratory Rate 18 Setting Ventilator Respiratory Rate 18 Setting Ventilator Respiratory Rate 18 Setting Ventilator Respiratory Rate 18 Setting Ventilator Respiratory Rate 18 Setting Actual Respiratory Rate 18 Actual Respiratory Rate 18 Actual Respiratory Rate 18 Actual Respiratory Rate 18 Actual Respiratory Rate 18 Actual Respiratory Rate 18 Actual Respiratory Rate 18 Actual Respiratory Rate 18 Actual Respiratory Rate 18 Actual Respiratory Rate 18 Positive End Expiratory 14 Pressure Positive End Expiratory 14 Pressure Positive End Expiratory 14 Pressure Positive End Expiratory 14 Pressure Positive End Expiratory 14 Pressure Positive End Expiratory 5 Pressure Positive End Expiratory 5 Pressure Positive End Expiratory 5 Pressure Positive End Expiratory 5 Pressure Positive End Expiratory 5 Pressure Positive End Expiratory 5 Pressure Peak Inspiratory Airway 32 Pressure Peak Inspiratory Airway 32 Pressure Peak Inspiratory Airway 33 Pressure Peak Inspiratory Airway 32 Pressure Peak Inspiratory Airway 34 Pressure Peak Inspiratory Airway 28 Pressure Peak Inspiratory Airway 31 Pressure Peak Inspiratory Airway 30 Pressure Peak Inspiratory Airway 32 Pressure Peak Inspiratory Airway 33 Pressure Results - Laboratory Findings CBC and BMP: 05/19/18 07:40 05/19/18 07:40 ABG ABG pH 7.42 pH Units (7.32-7.45) 05/19/18 05:00 ABG pCO2 51 mmHg (35-45) H 05/19/18 05:00 ABG pO2 60 mmHg (85-104) L 05/19/18 05:00 ABG O2 Saturation 91 % (95-98) L 05/19/18 05:00 Abnormal lab findings: Abnormal lab results RBC 3.80 M/mcL (4.19-5.50) L 05/19/18 07:40 Hgb 12.0 g/dL (12.9-16.9) L 05/19/18 07:40 RDW 15.1 % (11.5-14.5) H 05/19/18 07:40 Plt Count 136 K/mcL (140-400) L 05/19/18 07:40 Lymphocytes # 0.4 K/mcL (0.6-4.6) L 05/19/18 07:40 ABG pCO2 51 mmHg (35-45) H 05/19/18 05:00 ABG pO2 60 mmHg (85-104) L 05/19/18 05:00 ABG HCO3 33 mEq/L (21-27) H 05/19/18 05:00 ABG Total CO2 35 mEq/L (20-26) H 05/19/18 05:00 ABG O2 Saturation 91 % (95-98) L 05/19/18 05:00 ABG Base Excess 7 mEq/L (-2 to 3) H 05/19/18 05:00 Sodium 132 mEq/L (136-145) L 05/19/18 07:40 Chloride 93 mEq/L (98-107) L 05/19/18 07:40 Carbon Dioxide 30 mEq/L (23-29) H 05/19/18 07:40 BUN 24 mg/dL (8-23) H 05/19/18 07:40 Est GFR (Non-Af Amer) 55 (> 60) L 05/19/18 07:40 Glucose 244 mg/dL (70-105) H 05/19/18 07:40 POC Glucose 156 mg/dL (70-99) H 05/18/18 23:30 TSH 15.597 mcIU/mL (0.340-5.600) H 05/19/18 03:32 Free T3 2.10 pg/mL (2.50-3.90) L 05/19/18 03:32 Total T3 0.33 ng/mL (0.87-1.78) L 05/19/18 03:32 - Clinical Findings Intake & Output: Intake & Output 05/18/18 05/19/18 05/19/18 23:59 07:59 15:59 Intake Total 150.1 / 150.1 549.9 / 549.9 100 / 100 Output Total 325 / 325 700 / 700 225 / 225 Balance -174.9 / -174.9 -150.1 / -150.1 -125 / -125 Weight 109.5 kg 107.2 kg - Attending Attestation - Attending Attestation I saw and evaluated this patient and my medical decision-making was reviewed with the Resident Physician. I agree with the documented findings, disposition and treatment plan as described except to the extent set forth below. We independently had [id number] contact with the patient I spent 45 minutes of Critical Care time with this patient. It involved decision making of high complexity to assess, manipulate, and support vital organ system failure and/or to prevent further life threatening deterioration of the patient's condition. The time involved in the performance of separately reportable procedures was not counted toward critical care time. Patient seen and examined at bedside Labs, radiology, chart personally reviewed. Management was reviewed during multidisciplinary critical care rounds. WRITING MANAGER: Patient was conscious following commands he became more agitated pulling the endotracheal tube decided to sedate him little bit deeper than what he was now. Will add propofol to the current sedated regimen Pulm: Patient has severe VQ mismatch with with hypoxia and hypercarbia mostly complicated by exacerbation of diastolic heart failure COPD, obesity hypoventilation syndrome I increased the PEEP to 14 FiO2 is around 90% will bring down the FiO2 as tolerated to 60% then will come down on the PEEP will start him on broad-spectrum antibiotics. Cards: Patient is hemodynamically stable acute on chronic diastolic heart failure. FEN-GI: Diet according to nutrition. Renal: diuresis with strict in and take output monitoring. ID: Started on broad-spectrum antibiotics for suspected pneumonia. Heme/Onc: Labs reviewed Endo: Glucose Monitored To reduce the dose of levothyroxine as patient is not in myxedema coma . Integ/MSK: Skin Care per routine ICU Nursing Protocol to prevent ulcers. Lines: All lines examined without evidence of infection : Dispo: Patient is critically ill CODE:Full Code
[2018-05-18 16:05] LABS: Basophils % 0.3 %; Eosinophils # 0.1 K/mcL (0.0-0.6); Eosinophils % 1.3 %; Hematocrit 36.9 % (37.5-50.1); Hemoglobin 11.2 g/dL (12.9-16.9); Immature Granulocytes % 2.3 % (0-4); Lymphocytes # 0.6 K/mcL (0.6-4.6); Lymphocytes % 6.5 %; Mean Corpuscular HGB Conc 30.4 g/dL (31.6-35.5); Mean Corpuscular Hemoglobin 31.8 pg (28.0-33.3); Mean Corpuscular Volume 104.8 fL (83.0-100.0); Monocytes # 0.5 K/mcL (0.0-1.3); Monocytes % 5.7 %; Neutrophils # 7.4 K/mcL (1.6-8.9); Platelet Count 132 K/mcL (140-400); Red Blood Count 3.52 M/mcL (4.19-5.50); Red Cell Distribution Width 15.9 % (11.5-14.5); Segmented Neutrophils % 83.9 %
[2018-05-18 16:23] LABS: BUN/Creatinine Ratio 14 (6-26); Blood Urea Nitrogen 19 mg/dL (8-23); Calcium 8.6 mg/dL (8.6-10.3); Carbon Dioxide 37 mEq/L (23-29); Chloride 97 mEq/L (98-107); Glucose 134 mg/dL (70-105); Osmolality,Calculated 282 (280-300); Potassium 5.3 mEq/L (3.5-5.1); Sodium 134 mEq/L (136-145); eGFR For Non-African Americans 53 (> 60)
[2018-05-18] MEDS ORDERED: Dextrose Gel 15 GM/37.5 ML TUBE PO PRN ×2 (16:29)
[2018-05-18] MEDS ORDERED: *HR* Dextrose 50 % in Water (Syg) 50 ML SYRINGE IVP PRN (16:29)
[2018-05-18] MEDS ORDERED: D5% in Water 1,000 ML IVC PRN (16:29)
[2018-05-18] MEDS ORDERED: Ipratropium/Albuterol Neb 3 ML IH PRN (16:31)
[2018-05-18 16:36] LABS: Thyroid Stimulating Hormone 43.572 mcIU/mL (0.340-5.600)
[2018-05-18] MEDS ORDERED: Levothyroxine Sodium 200 MCG VIAL IVP ONE (16:50)
--- NOTE | 2018-05-18 17:05 | Internal Med History&Physical ---
Date of Encounter: 05/18/18 Time of Encounter: 17:02 Internal Medicine - H&P: HPI Chief complaint: Acute on chronic respiratory failure Admitted From: Hospital to Hospital Transfer Plans for Post Hospital Care: Transfer In Rehab Fac History of present illness: Mr. Humphries is a 67 year old male presenting from [facility] for respiratory failure. The patient was admitted as an inpatient to [facility] from May 05 - for dyspnea. The patient was intubated during his stay, and was transferred upon discharge to the [facility] for rehabilitation. Per the patient's sister acting as a historian , the patient had a vomiting episode last evening which resulted in several episodes of cough which led to respiratory compromise throughout the night. Patient's respiratory status worsened throughout the day despite the use of BiPAP showing acute on chronic respiratory acidosis with a pH of 7.15 a PCO2 125 , HCO3 of 44 and oxygen saturation of 83%. Patient is currently on BiPAP with stat ABGs plus repeat in 2 hours. There is a low threshold for intubation. Patient started on 1500 mg of Unasyn every 6 hours for concern over aspiration pneumonia, along with Solu-Medrol plus DuoNeb nebs. Past Med Surg Social Fam HX - Past Medical History Medical history: CHF, COPD, coronary artery disease, diabetes, hyperlipidemia, hypertension Additional medical history: anemia. leukocytosis. penile cancer. PAD Psychiatric history: no psych history - Past Surgical History Additional surgical history: CARDIAC CATH. Cardiac Stenting x5. gallbladder surgery. cancer removed twice. polyp removal. testicular tumor removal. colonoscopy. bypass in legs - Social History Smoking Status: Current every day smoker Smokeless Tobacco Status: No Alcohol use: none Drug use: none - Family History Father Living Status: Hx Family Cardiac Disorders: Yes (Enlarged heart) Mother Living Status: Hx Family Cardiac Disorders: Yes Hx Family Respiratory Disorders: Yes (COPD) Internal Medicine - H&P: Meds GlipiZIDE [Glipizide Xl] 5 mg PO DAILY 06/16/16 [History] Montelukast Sodium [Singulair] 10 mg PO DAILY 06/16/16 [History] Pantoprazole Sodium [Protonix] 40 mg PO DAILY 06/16/16 [History] Isosorbide MONOnitrate (24 HR) [Imdur] 30 mg PO DAILY 08/07/16 [History] Atorvastatin Calcium [Lipitor] 80 mg PO HS 07/23/17 [History] Metoprolol [Lopressor] 75 mg PO BID #90 tablet 08/05/17 [Rx] Fenofibrate Nanocrystallized [Tricor] 48 mg PO DAILY 05/05/18 [History] Insulin ASPART [Novolog Flexpen] 0 unit SQ TIDWM 05/05/18 [History] Levothyroxine [Synthroid] 100 mcg PO DAILY 05/05/18 [History] Polyethylene Glycol 3350 [MiraLAX] 17 gm PO DAILY 05/05/18 [History] Tamsulosin HCl [Flomax] 0.4 mg PO DAILY 05/05/18 [History] Acetaminophen [Tylenol] 650 mg PO Q6HR PRN tablet 05/12/18 [Rx] Budesonide/Formoterol 160/4.5 [Symbicort 160/4.5] 2 puff IH BIDR inh 05/12/18 [ Rx] 3 Allergy/AdvReac Type Severity Reaction Status Date / Time adenosine Allergy See Verified 08/07/16 16:26 Comments fluticasone Allergy See Verified 08/07/16 16:26 [From Advair Diskus] Comments Iodinated Contrast- Oral and Allergy See Verified 06/16/16 15:37 IV Dye Comments [Iodinated Contrast Media - IV Dye] salmeterol Allergy See Verified 08/07/16 16:26 [From Advair Diskus] Comments ROS unobtainable: due to mental status All Systems PM: A 10-system review of systems was performed and is negative for pertinent findings except as documented above in the HPI. - Constitutional Vitals: Temp Pulse Resp BP Pulse Ox 97.9 F 65 17 131/68 98 05/18/18 15:00 05/18/18 16:00 05/18/18 16:00 05/18/18 16:00 05/18/18 16:00 General appearance: Present: A&O X 1, morbidly obese Exam: Patient is intermittently responsive to verbal stimuli, but is otherwise lethargic without significant engagement to questioning. - Head Head exam: Present: atraumatic, normocephalic - Eye Eye exam: Present: normal appearance. Absent: scleral icterus - ENT ENT exam: Present: mucous membranes moist - Respiratory Respiratory exam: Present: respiratory distress, wheezes - Expanded Respiratory Exam Location: wheezes: Left, Right, Upper - Cardiovascular Additional comments: Unable to auscultate cardiac sounds due to patient's body habitus and ambient noise with BiPAP administration - GI/Abdominal GI/Abdominal exam: Present: normal bowel sounds, soft. Absent: distended, firm , tenderness - Neurological Exam Neurological exam: Present: altered - Expanded Neurological Exam Neurological exam expanded: Present: protecting the airway Patient oriented to: Present: person - Skin Skin exam: Present: dry, warm (There is bruising noted across the anterior abdomen) Internal Med - H&P Results - Labs CBC & Chem 7: 05/18/18 15:50 05/18/18 15:50 Labs: Short CBC 05/18/18 Range/Units 15:50 WBC 8.8 (4.3-11.1) K/mcL Hgb 11.2 L (12.9-16.9) g/dL Hct 36.9 L (37.5-50.1) % Plt Count 132 L (140-400) K/mcL Neutrophils # 7.4 (1.6-8.9) K/mcL BMP 05/18/18 15:50 Sodium 134 L Potassium 5.3 H Chloride 97 L Carbon Dioxide 37 H BUN 19 Creatinine 1.33 H Glucose 134 H Calcium 8.6 - ABG Interpretation Interpretation: ABG interpreted by me ABG results: 05/18/18 15:23 ABG pH 7.14 L* ABG pCO2 131 H* ABG pO2 69 L ABG HCO3 45 H ABG Total CO2 49 H ABG O2 Saturation 84 L ABG Base Excess 11 H Interpretation: respiratory acidosis - Assessment and plan (1) Acute on chronic diastolic CHF (congestive heart failure) Current Visit: Yes Status: Acute Assessment and plan: BNP is 82 on May 18 down from 122 on May 14 Continue current management Continue to monitor (2) Hypothyroidism Current Visit: Yes Status: Chronic Assessment and plan: Previous documentation of the patient on Synthroid Order for TSH shows a value of greater than 43 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 200 g of Synthroid administered We will continue to monitor and replace as necessary Qualifiers: Hypothyroidism type: acquired Qualified Code(s): E03.9 - Hypothyroidism, unspecified (3) Diabetes mellitus Current Visit: Yes Status: Chronic Assessment and plan: POC glucose daily since May 12 shows diabetes well-controlled on current regimen Continue POC glucose checks Diabetes protocol plus insulin lispro low-dose corrective every 6 hours Continue to monitor 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 care home use Diabetes mellitus complication status: with kidney complications Diabetes mellitus complication detail: with chronic kidney disease Chronic kidney disease stage: stage 3 (moderate) Qualified Code(s): E11.22 - Type 2 diabetes mellitus with diabetic chronic kidney disease; N18.3 - Chronic kidney disease, stage 3 (moderate); 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
[2018-05-18] MEDS: *HR* Heparin 5,000 UNIT/ML VIAL SQ SCH (17:39)
[2018-05-18] MEDS: Ampicillin/Sulbactam 1,500 MG in 0.9 % Sodium Chloride Mini Bag 100 ML IVPB SCH ×2 (17:40→23:57)
[2018-05-18] MEDS: Insulin LISPRO 300 UNITS/3 ML VIAL SQ SCH ×2 (17:51→23:58)
[2018-05-18 17:59] LABS: ABG Base Excess 10 mEq/L (-2 to 3); ABG HCO3 44 mEq/L (21-27); ABG Oxygen Saturation 86 % (95-98); ABG PCO2 125 mmHg (35-45); ABG PH 7.15 pH Units (7.32-7.45); ABG PO2 72 mmHg (85-104); ABG TCO2 47 mEq/L (20-26); Blood Gas Modality AVAPS; Blood Gas PEEP 8 cm H2O; Blood Gas Respiration Rate 16; Blood Gas VT 525 cc
[2018-05-18] MEDS ORDERED: Artificial Tears SOLN 15 ML BOTTLE BOTH EYES PRN (18:55)
[2018-05-18] MEDS: Dexmedetomidine HCl 400 MCG/100 ML MLS IVC SCH (19:05)
[2018-05-18] MEDS: FentaNYL (PF) 1,000 MCG in 0.9 % Sodium Chloride 80 ML IVC SCH (19:07)
--- NOTE | 2018-05-18 19:09 | Event Note ---
Date of Encounter: 05/18/18 Time of Encounter: 18:00 I have seen and examined this pt independently. I have discussed with resident physician Dr Mock regarding management plan. Please refer to his H & P for details. Pt transferred from [facility] inpatient to our hospital for vomiting in last night, somnolent, difficult to breathing, and cough. ABG in [place] shows severe respiratory acidosis with CO2 retention. On exam, pt is sleepy, not really in acute respiratory distress, mild scattered wheezes b/l, no tachycardia or tachypnea. skin is cold. Abd is soft, NT. No pedal edema. CXR from [place] shows possible pneumonia vs congestion. Lab shows no leukocytosis, mild hyperkalemia, and High TSH. Review his chart, pt was admitted for myxedema coma several days ago. Consider: 1: Myxedema coma: Levothyroxine 200mcg iv once. Solumendral 125 mg was given about 1 hr before levothyroxine in case pt has co-existing adrenal insufficiency. Check TSH, T3, T4, cortical in AM. 2: Aspiration pneumonia: Suspect as pt has AMS and vomiting, cover pt with unasyn. 3: COPD exacerbation: Cont solumendral and Duoneb, on Abx. 4: Acute respiratory failure with CO2 retention: Pt was placed on BiPAP but hypercapnia and mental status not improve even after 2 hours, pt was finally intubated, on ventilation now. 5: Will consult Crit Care team for further management. Critical time 40 min include hx, physical, data review, and medical decision making, exclude intubation.
[2018-05-18] MEDS: Ipratropium/Albuterol Neb 3 ML IH SCH ×2 (20:03→23:07)
[2018-05-18] MEDS: Budesonide/Formoterol 160/4.5 1 PUFF INH IH SCH (20:03)
[2018-05-18] MEDS: Pantoprazole 40 MG VIAL IVP SCH (20:28)
[2018-05-18] MEDS: Chlorhexidine Rinse 15 ML MOUTHWASH MM SCH (20:31)
[2018-05-18] MEDS: Artificial Tears SOLN 15 ML BOTTLE BOTH EYES SCH ×2 (20:32→23:58)
[2018-05-18 20:38] LABS: ABG Base Excess 11 mEq/L (-2 to 3); ABG HCO3 38 mEq/L (21-27); ABG Oxygen Saturation 92 % (95-98); ABG PCO2 60 mmHg (35-45); ABG PO2 65 mmHg (85-104); ABG TCO2 40 mEq/L (20-26); Blood Gas Modality PRVC; Blood Gas PEEP 5 cm H2O; Blood Gas Respiration Rate 18; Blood Gas VT 500 cc
[2018-05-18] MEDS: methylPREDNISolone 125 MG/2 ML VIAL IVP SCH (23:57)
[2018-05-19] MEDS: FentaNYL (PF) 1,000 MCG in 0.9 % Sodium Chloride 80 ML IVC SCH ×4 (02:32→19:30)
[2018-05-19] MEDS: Dexmedetomidine HCl 400 MCG/100 ML MLS IVC SCH ×5 (02:34→23:35)
[2018-05-19] MEDS: Ipratropium/Albuterol Neb 3 ML IH SCH ×5 (03:04→20:22)
[2018-05-19] MEDS: Artificial Tears SOLN 15 ML BOTTLE BOTH EYES SCH ×6 (03:33→23:59)
[2018-05-19 04:16] LABS: Thyroid Stimulating Hormone 15.597 mcIU/mL (0.340-5.600)
[2018-05-19 04:18] LABS: Triiodothyronine (T3) Free 2.1 pg/mL (2.50-3.90)
[2018-05-19 04:22] LABS: Triiodothyronine (T3) Total 0.33 ng/mL (0.87-1.78)
[2018-05-19 05:04] LABS: ABG Base Excess 7 mEq/L (-2 to 3); ABG HCO3 33 mEq/L (21-27); ABG Oxygen Saturation 91 % (95-98); ABG PCO2 51 mmHg (35-45); ABG PH 7.42 pH Units (7.32-7.45); ABG PO2 60 mmHg (85-104); ABG TCO2 35 mEq/L (20-26); Blood Gas Modality PRVC; Blood Gas PEEP 5 cm H2O; Blood Gas Respiration Rate 18; Blood Gas VT 500 cc
[2018-05-19] MEDS: *HR* Heparin 5,000 UNIT/ML VIAL SQ SCH ×2 (05:27→16:50)
[2018-05-19] MEDS: Ampicillin/Sulbactam 1,500 MG in 0.9 % Sodium Chloride Mini Bag 100 ML IVPB SCH ×2 (05:27→12:55)
[2018-05-19] MEDS: Insulin LISPRO 300 UNITS/3 ML VIAL SQ SCH ×4 (05:30→20:46)
[2018-05-19] MEDS: Budesonide/Formoterol 160/4.5 1 PUFF INH IH SCH ×2 (07:18→20:22)
[2018-05-19 07:52] LABS: Basophils % 0.2 %; Lymphocytes # 0.4 K/mcL (0.6-4.6); Lymphocytes % 4.3 %; Mean Corpuscular HGB Conc 31.6 g/dL (31.6-35.5); Mean Corpuscular Hemoglobin 31.6 pg (28.0-33.3); Mean Platelet Volume 9.6 fL (9.4-12.4); Monocytes # 0.1 K/mcL (0.0-1.3); Monocytes % 0.6 %; Platelet Count 136 K/mcL (140-400); Red Cell Distribution Width 15.1 % (11.5-14.5); Segmented Neutrophils % 92.9 %
[2018-05-19 08:08] LABS: BUN/Creatinine Ratio 18 (6-26); Blood Urea Nitrogen 24 mg/dL (8-23); Calcium 9.4 mg/dL (8.6-10.3); Carbon Dioxide 30 mEq/L (23-29); Chloride 93 mEq/L (98-107); Glucose 244 mg/dL (70-105); Osmolality,Calculated 286 (280-300); Potassium 4.9 mEq/L (3.5-5.1); Sodium 132 mEq/L (136-145); eGFR For Non-African Americans 55 (> 60)
[2018-05-19] MEDS: Chlorhexidine Rinse 15 ML MOUTHWASH MM SCH ×2 (08:52→20:48)
[2018-05-19] MEDS: methylPREDNISolone 125 MG/2 ML VIAL IVP SCH ×2 (08:52→16:49)
[2018-05-19] MEDS: Pantoprazole 40 MG VIAL IVP SCH (08:52)
[2018-05-19] MEDS: Levothyroxine Sodium 100 MCG VIAL IVP SCH ×2 (08:53→09:26)
[2018-05-19] MEDS ORDERED: Furosemide 40 MG/4 ML VIAL IVP ONE (09:28)
--- NOTE | 2018-05-19 09:30 | Pulmonology Progress Note ---
Addendum entered and electronically signed by Natacha Darby MD 05/19/18 11:57: Subjective : Patient is following commands has some episodic agitation ROS : Unable to obtain to full ROS due to endotracheal intubation PE : Patient is intubated following commands but has episodic confusion patient is sedated now Neck: No appreciable JVD because of short neck no significant lymphadenopathy CVS : S1 S2 heard no added sounds RS: bilateral bibasilar air entry is diminished with some crackles and wheezes Abd: Distended most likely due to obesity with some sluggish bowel sounds . MSK : Bilateral pedal edema Neuro : Patient is following commands before deepening of sedation he didnt have any focal neurological deficit . Original Note: <Natacha Darby - Last Filed: 05/19/18 11:50> Date of Encounter: 05/19/18 Objective PUL Vital signs: Last Vital Signs Temp 97.9 F 05/19/18 08:00 Pulse 70 05/19/18 11:00 Resp 18 05/19/18 11:30 BP 143/80 05/19/18 11:00 Pulse Ox 92 05/19/18 11:30 Ventilator Settings Ventilator Settings: Ventilator Settings, Last 8 Hours Ventilator Tidal Volume 500 Setting Ventilator Tidal Volume 500 Setting Ventilator Tidal Volume 500 Setting Ventilator Tidal Volume 500 Setting Ventilator Tidal Volume 500 Setting Ventilator Tidal Volume 500 Setting Ventilator Tidal Volume 500 Setting Ventilator Tidal Volume 500 Setting Ventilator Tidal Volume 500 Setting Ventilator Tidal Volume 500 Setting Ventilator Tidal Volume 500 Setting Ventilator Tidal Volume 500 Setting Ventilator Respiratory Rate 18 Setting Ventilator Respiratory Rate 18 Setting Ventilator Respiratory Rate 18 Setting Ventilator Respiratory Rate 18 Setting Ventilator Respiratory Rate 18 Setting Ventilator Respiratory Rate 18 Setting Ventilator Respiratory Rate 18 Setting Ventilator Respiratory Rate 18 Setting Ventilator Respiratory Rate 18 Setting Ventilator Respiratory Rate 18 Setting Ventilator Respiratory Rate 18 Setting Ventilator Respiratory Rate 18 Setting Actual Respiratory Rate 18 Actual Respiratory Rate 18 Actual Respiratory Rate 18 Actual Respiratory Rate 18 Actual Respiratory Rate 18 Actual Respiratory Rate 18 Actual Respiratory Rate 18 Actual Respiratory Rate 18 Actual Respiratory Rate 18 Actual Respiratory Rate 18 Actual Respiratory Rate 18 Positive End Expiratory 14 Pressure Positive End Expiratory 14 Pressure Positive End Expiratory 14 Pressure Positive End Expiratory 14 Pressure Positive End Expiratory 14 Pressure Positive End Expiratory 5 Pressure Positive End Expiratory 5 Pressure Positive End Expiratory 5 Pressure Positive End Expiratory 5 Pressure Positive End Expiratory 5 Pressure Positive End Expiratory 5 Pressure Positive End Expiratory 5 Pressure Peak Inspiratory Airway 32 Pressure Peak Inspiratory Airway 32 Pressure Peak Inspiratory Airway 33 Pressure Peak Inspiratory Airway 32 Pressure Peak Inspiratory Airway 34 Pressure Peak Inspiratory Airway 28 Pressure Peak Inspiratory Airway 31 Pressure Peak Inspiratory Airway 30 Pressure Peak Inspiratory Airway 32 Pressure Peak Inspiratory Airway 33 Pressure Peak Inspiratory Airway 32 Pressure Results - Laboratory Findings CBC and BMP: 05/19/18 07:40 05/19/18 07:40 ABG ABG pH 7.42 pH Units (7.32-7.45) 05/19/18 05:00 ABG pCO2 51 mmHg (35-45) H 05/19/18 05:00 ABG pO2 60 mmHg (85-104) L 05/19/18 05:00 ABG O2 Saturation 91 % (95-98) L 05/19/18 05:00 Abnormal lab findings: Abnormal lab results RBC 3.80 M/mcL (4.19-5.50) L 05/19/18 07:40 Hgb 12.0 g/dL (12.9-16.9) L 05/19/18 07:40 RDW 15.1 % (11.5-14.5) H 05/19/18 07:40 Plt Count 136 K/mcL (140-400) L 05/19/18 07:40 Lymphocytes # 0.4 K/mcL (0.6-4.6) L 05/19/18 07:40 ABG pCO2 51 mmHg (35-45) H 05/19/18 05:00 ABG pO2 60 mmHg (85-104) L 05/19/18 05:00 ABG HCO3 33 mEq/L (21-27) H 05/19/18 05:00 ABG Total CO2 35 mEq/L (20-26) H 05/19/18 05:00 ABG O2 Saturation 91 % (95-98) L 05/19/18 05:00 ABG Base Excess 7 mEq/L (-2 to 3) H 05/19/18 05:00 Sodium 132 mEq/L (136-145) L 05/19/18 07:40 Chloride 93 mEq/L (98-107) L 05/19/18 07:40 Carbon Dioxide 30 mEq/L (23-29) H 05/19/18 07:40 BUN 24 mg/dL (8-23) H 05/19/18 07:40 Est GFR (Non-Af Amer) 55 (> 60) L 05/19/18 07:40 Glucose 244 mg/dL (70-105) H 05/19/18 07:40 POC Glucose 156 mg/dL (70-99) H 05/18/18 23:30 TSH 15.597 mcIU/mL (0.340-5.600) H 05/19/18 03:32 Free T3 2.10 pg/mL (2.50-3.90) L 05/19/18 03:32 Total T3 0.33 ng/mL (0.87-1.78) L 05/19/18 03:32 - Clinical Findings Intake & Output: Intake & Output 05/18/18 05/19/18 05/19/18 23:59 07:59 15:59 Intake Total 150.1 / 150.1 549.9 / 549.9 100 / 100 Output Total 325 / 325 700 / 700 Balance -174.9 / -174.9 -150.1 / -150.1 100 / 100 Weight 109.5 kg 107.2 kg Consult Discharge Plan - Plan Referrals: Khurram Victoria DO [Primary Care Provider] - - Attending Attestation I saw and evaluated this patient and my medical decision-making was reviewed with the Resident Physician. I agree with the documented findings, disposition and treatment plan as described except to the extent set forth below. We independently had [id number] contact with the patient I spent 45 minutes of Critical Care time with this patient. It involved decision making of high complexity to assess, manipulate, and support vital organ system failure and/or to prevent further life threatening deterioration of the patient's condition. The time involved in the performance of separately reportable procedures was not counted toward critical care time. Patient seen and examined at bedside Labs, radiology, chart personally reviewed. Management was reviewed during multidisciplinary critical care rounds. 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 Will add propofol to the current sedated regimen Pulm: Patient has severe VQ mismatch with with hypoxia and hypercarbia mostly complicated by exacerbation of diastolic heart failure COPD, obesity hypoventilation syndrome I increased the PEEP to 14 FiO2 is around 90% will bring down the FiO2 as tolerated to 60% then will come down on the PEEP will start him on broad-spectrum antibiotics. Cards: Patient is hemodynamically stable acute on chronic diastolic heart failure. FEN-GI: Diet according to nutrition. Renal: diuresis with strict in and take output monitoring. ID: Started on broad-spectrum antibiotics for suspected pneumonia. Heme/Onc: Labs reviewed Endo: Glucose Monitored Integ/MSK: Skin Care per routine ICU Nursing Protocol to prevent ulcers. Lines: All lines examined without evidence of infection : Dispo: Patient is critically ill CODE:Full Code <eDniz Mock - Last Filed: 05/20/18 06:38> Date of Encounter: 05/20/18 Time of Encounter: 09:29 Assessment and Plan (1) Acute on chronic diastolic CHF (congestive heart failure) Current Visit: Yes Status: Acute (2) Hypothyroidism Current Visit: Yes Status: Chronic Qualifiers: Hypothyroidism type: acquired Qualified Code(s): E03.9 - Hypothyroidism, unspecified (3) Diabetes mellitus Current Visit: Yes Status: Chronic 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 mellitus correction insulin use: with correction use Diabetes mellitus complication status: with kidney complications Diabetes mellitus complication detail: with chronic kidney disease Chronic kidney disease stage: stage 3 (moderate) Qualified Code(s): E11.22 - Type 2 diabetes mellitus with diabetic chronic kidney disease; N18.3 - Chronic kidney disease, stage 3 (moderate); 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 (4) Tobacco abuse Current Visit: No Status: Chronic Objective PUL Vital signs: Last Vital Signs Temp 97.9 F 05/19/18 08:00 Pulse 82 05/19/18 09:00 Resp 18 05/19/18 09:00 BP 126/70 05/19/18 09:00 Pulse Ox 91 05/19/18 09:00 Ventilator Settings Ventilator Settings: Ventilator Settings, Last 8 Hours Ventilator Tidal Volume 500 Setting Ventilator Tidal Volume 500 Setting Ventilator Tidal Volume 500 Setting Ventilator Tidal Volume 500 Setting Ventilator Tidal Volume 500 Setting Ventilator Tidal Volume 500 Setting Ventilator Tidal Volume 500 Setting Ventilator Tidal Volume 500 Setting Ventilator Tidal Volume 500 Setting Ventilator Tidal Volume 500 Setting Ventilator Tidal Volume 500 Setting Ventilator Respiratory Rate 18 Setting Ventilator Respiratory Rate 18 Setting Ventilator Respiratory Rate 18 Setting Ventilator Respiratory Rate 18 Setting Ventilator Respiratory Rate 18 Setting Ventilator Respiratory Rate 18 Setting Ventilator Respiratory Rate 18 Setting Ventilator Respiratory Rate 18 Setting Ventilator Respiratory Rate 18 Setting Ventilator Respiratory Rate 18 Setting Ventilator Respiratory Rate 18 Setting Actual Respiratory Rate 18 Actual Respiratory Rate 18 Actual Respiratory Rate 18 Actual Respiratory Rate 18 Actual Respiratory Rate 18 Actual Respiratory Rate 18 Actual Respiratory Rate 18 Actual Respiratory Rate 18 Actual Respiratory Rate 18 Actual Respiratory Rate 18 Positive End Expiratory 5 Pressure Positive End Expiratory 5 Pressure Positive End Expiratory 5 Pressure Positive End Expiratory 5 Pressure Positive End Expiratory 5 Pressure Positive End Expiratory 5 Pressure Positive End Expiratory 5 Pressure Positive End Expiratory 5 Pressure Positive End Expiratory 5 Pressure Positive End Expiratory 5 Pressure Positive End Expiratory 8 Pressure Peak Inspiratory Airway 34 Pressure Peak Inspiratory Airway 28 Pressure Peak Inspiratory Airway 31 Pressure Peak Inspiratory Airway 30 Pressure Peak Inspiratory Airway 32 Pressure Peak Inspiratory Airway 33 Pressure Peak Inspiratory Airway 32 Pressure Peak Inspiratory Airway 32 Pressure Peak Inspiratory Airway 34 Pressure Peak Inspiratory Airway 32 Pressure Results - Laboratory Findings CBC and BMP: 05/20/18 03:30 05/20/18 03:30 ABG ABG pH 7.42 pH Units (7.32-7.45) 05/19/18 05:00 ABG pCO2 51 mmHg (35-45) H 05/19/18 05:00 ABG pO2 60 mmHg (85-104) L 05/19/18 05:00 ABG O2 Saturation 91 % (95-98) L 05/19/18 05:00 Abnormal lab findings: Abnormal lab results RBC 3.80 M/mcL (4.19-5.50) L 05/19/18 07:40 Hgb 12.0 g/dL (12.9-16.9) L 05/19/18 07:40 RDW 15.1 % (11.5-14.5) H 05/19/18 07:40 Plt Count 136 K/mcL (140-400) L 05/19/18 07:40 Lymphocytes # 0.4 K/mcL (0.6-4.6) L 05/19/18 07:40 ABG pCO2 51 mmHg (35-45) H 05/19/18 05:00 ABG pO2 60 mmHg (85-104) L 05/19/18 05:00 ABG HCO3 33 mEq/L (21-27) H 05/19/18 05:00 ABG Total CO2 35 mEq/L (20-26) H 05/19/18 05:00 ABG O2 Saturation 91 % (95-98) L 05/19/18 05:00 ABG Base Excess 7 mEq/L (-2 to 3) H 05/19/18 05:00 Sodium 132 mEq/L (136-145) L 05/19/18 07:40 Chloride 93 mEq/L (98-107) L 05/19/18 07:40 Carbon Dioxide 30 mEq/L (23-29) H 05/19/18 07:40 BUN 24 mg/dL (8-23) H 05/19/18 07:40 Est GFR (Non-Af Amer) 55 (> 60) L 05/19/18 07:40 Glucose 244 mg/dL (70-105) H 05/19/18 07:40 POC Glucose 156 mg/dL (70-99) H 05/18/18 23:30 TSH 15.597 mcIU/mL (0.340-5.600) H 05/19/18 03:32 Free T3 2.10 pg/mL (2.50-3.90) L 05/19/18 03:32 Total T3 0.33 ng/mL (0.87-1.78) L 05/19/18 03:32 - Clinical Findings Intake & Output: Intake & Output 05/18/18 05/19/18 05/19/18 23:59 07:59 15:59 Intake Total 150.1 / 150.1 549.9 / 549.9 Output Total 325 / 325 700 / 700 Balance -174.9 / -174.9 -150.1 / -150.1 Weight 109.5 kg 107.2 kg
[2018-05-19] MEDS ORDERED: Insulin DETEMIR 100 UNIT/ML X5UNITS SQ ONE (16:27)
[2018-05-19] MEDS: Ampicillin/Sulbactam 3,000 MG in 0.9 % Sodium Chloride Mini Bag 100 ML IVPB SCH (18:19)
[2018-05-20] MEDS: Ampicillin/Sulbactam 3,000 MG in 0.9 % Sodium Chloride Mini Bag 100 ML IVPB SCH ×5 (00:01→23:52)
[2018-05-20] MEDS: methylPREDNISolone 125 MG/2 ML VIAL IVP SCH ×2 (00:02→07:59)
[2018-05-20] MEDS: Insulin LISPRO 300 UNITS/3 ML VIAL SQ SCH ×7 (00:03→23:53)
[2018-05-20] MEDS: Ipratropium/Albuterol Neb 3 ML IH SCH ×7 (00:36→23:02)
[2018-05-20] MEDS: FentaNYL (PF) 1,000 MCG in 0.9 % Sodium Chloride 80 ML IVC SCH ×4 (02:00→22:26)
[2018-05-20] MEDS: Artificial Tears SOLN 15 ML BOTTLE BOTH EYES SCH ×5 (03:33→20:59)
[2018-05-20 03:47] LABS: Basophils % 0.1 %; Hematocrit 34.6 % (37.5-50.1); Hemoglobin 11.2 g/dL (12.9-16.9); Immature Granulocytes % 1.3 % (0-4); Lymphocytes # 0.2 K/mcL (0.6-4.6); Lymphocytes % 1.1 %; Mean Corpuscular HGB Conc 32.4 g/dL (31.6-35.5); Mean Corpuscular Volume 98.9 fL (83.0-100.0); Mean Platelet Volume 9.9 fL (9.4-12.4); Monocytes # 0.2 K/mcL (0.0-1.3); Monocytes % 1.6 %; Platelet Count 155 K/mcL (140-400); Red Cell Distribution Width 15.2 % (11.5-14.5); Segmented Neutrophils % 95.9 %
[2018-05-20 04:15] LABS: Calcium 9.2 mg/dL (8.6-10.3); Potassium 3.5 mEq/L (3.5-5.1)
[2018-05-20 04:25] LABS: ABG Base Excess 9 mEq/L (-2 to 3); ABG HCO3 34 mEq/L (21-27); ABG Oxygen Saturation 95 % (95-98); ABG PCO2 51 mmHg (35-45); ABG PH 7.44 pH Units (7.32-7.45); ABG PO2 77 mmHg (85-104); ABG TCO2 36 mEq/L (20-26); Blood Gas Modality ASSIST CONTROL; Blood Gas PEEP 14 cm H2O; Blood Gas Respiration Rate 18; Blood Gas VT 500 cc
[2018-05-20 04:30] LABS: Platelet Estimate Normal (Normal)
[2018-05-20] MEDS: *HR* Heparin 5,000 UNIT/ML VIAL SQ SCH ×2 (05:02→17:53)
[2018-05-20] MEDS: Budesonide/Formoterol 160/4.5 1 PUFF INH IH SCH ×2 (07:39→19:23)
--- NOTE | 2018-05-20 07:53 | Pulmonology Progress Note ---
<Natacha Darby S - Last Filed: 05/20/18 12:04> Date of Encounter: 05/20/18 Objective PUL Vital signs: Last Vital Signs Temp 97.6 F 05/20/18 07:00 Pulse 75 05/20/18 11:00 Resp 18 05/20/18 11:12 BP 111/67 05/20/18 11:00 Pulse Ox 92 05/20/18 11:12 Ventilator Settings Ventilator Settings: Ventilator Settings, Last 8 Hours Ventilator Tidal Volume 500 Setting Ventilator Tidal Volume 500 Setting Ventilator Tidal Volume 500 Setting Ventilator Tidal Volume 500 Setting Ventilator Tidal Volume 500 Setting Ventilator Tidal Volume 500 Setting Ventilator Tidal Volume 500 Setting Ventilator Tidal Volume 500 Setting Ventilator Tidal Volume 500 Setting Ventilator Tidal Volume 500 Setting Ventilator Tidal Volume 500 Setting Ventilator Respiratory Rate 14 Setting Ventilator Respiratory Rate 18 Setting Ventilator Respiratory Rate 18 Setting Ventilator Respiratory Rate 18 Setting Ventilator Respiratory Rate 18 Setting Ventilator Respiratory Rate 18 Setting Ventilator Respiratory Rate 18 Setting Ventilator Respiratory Rate 18 Setting Ventilator Respiratory Rate 18 Setting Ventilator Respiratory Rate 18 Setting Ventilator Respiratory Rate 18 Setting Actual Respiratory Rate 18 Actual Respiratory Rate 18 Actual Respiratory Rate 18 Actual Respiratory Rate 18 Actual Respiratory Rate 18 Actual Respiratory Rate 18 Actual Respiratory Rate 18 Actual Respiratory Rate 18 Actual Respiratory Rate 18 Actual Respiratory Rate 18 Positive End Expiratory 14 Pressure Positive End Expiratory 14 Pressure Positive End Expiratory 14 Pressure Positive End Expiratory 14 Pressure Positive End Expiratory 14 Pressure Positive End Expiratory 14 Pressure Positive End Expiratory 14 Pressure Positive End Expiratory 14 Pressure Positive End Expiratory 14 Pressure Positive End Expiratory 14 Pressure Positive End Expiratory 14 Pressure Peak Inspiratory Airway 35 Pressure Peak Inspiratory Airway 38 Pressure Peak Inspiratory Airway 32 Pressure Peak Inspiratory Airway 32 Pressure Peak Inspiratory Airway 34 Pressure Peak Inspiratory Airway 34 Pressure Peak Inspiratory Airway 34 Pressure Peak Inspiratory Airway 32 Pressure Peak Inspiratory Airway 31 Pressure Peak Inspiratory Airway 31 Pressure Results - Laboratory Findings CBC and BMP: 05/20/18 03:30 05/20/18 03:30 ABG ABG pH 7.44 pH Units (7.32-7.45) 05/20/18 04:21 ABG pCO2 51 mmHg (35-45) H 05/20/18 04:21 ABG pO2 77 mmHg (85-104) L 05/20/18 04:21 ABG O2 Saturation 95 % (95-98) 05/20/18 04:21 Abnormal lab findings: Abnormal lab results WBC 13.5 K/mcL (4.3-11.1) H D 05/20/18 03:30 RBC 3.50 M/mcL (4.19-5.50) L 05/20/18 03:30 Hgb 11.2 g/dL (12.9-16.9) L 05/20/18 03:30 Hct 34.6 % (37.5-50.1) L 05/20/18 03:30 RDW 15.2 % (11.5-14.5) H 05/20/18 03:30 Neutrophils # 13.0 K/mcL (1.6-8.9) H 05/20/18 03:30 Lymphocytes # 0.2 K/mcL (0.6-4.6) L 05/20/18 03:30 ABG pCO2 51 mmHg (35-45) H 05/20/18 04:21 ABG pO2 77 mmHg (85-104) L 05/20/18 04:21 ABG HCO3 34 mEq/L (21-27) H 05/20/18 04:21 ABG Total CO2 36 mEq/L (20-26) H 05/20/18 04:21 ABG Base Excess 9 mEq/L (-2 to 3) H 05/20/18 04:21 Sodium 134 mEq/L (136-145) L 05/20/18 03:30 Chloride 93 mEq/L (98-107) L 05/20/18 03:30 Carbon Dioxide 32 mEq/L (23-29) H 05/20/18 03:30 BUN 27 mg/dL (8-23) H 05/20/18 03:30 Creatinine 1.50 mg/dL (0.70-1.30) H 05/20/18 03:30 Est GFR ( Amer) 56 (> 60) L 05/20/18 03:30 Est GFR (Non-Af Amer) 47 (> 60) L 05/20/18 03:30 Glucose 299 mg/dL (70-105) H 05/20/18 03:30 POC Glucose 299 mg/dL (70-99) H 05/19/18 23:40 TSH 15.597 mcIU/mL (0.340-5.600) H 05/19/18 03:32 Free T3 2.10 pg/mL (2.50-3.90) L 05/19/18 03:32 Total T3 0.33 ng/mL (0.87-1.78) L 05/19/18 03:32 - Clinical Findings Intake & Output: Intake & Output 05/19/18 05/20/18 05/20/18 23:59 07:59 15:59 Intake Total 739.3 / 739.3 504.7 / 504.7 274 / 274 Output Total 325 / 325 100 / 100 Balance 414.3 / 414.3 404.7 / 404.7 274 / 274 Weight 111.6 kg Consult Discharge Plan - Plan Referrals: Khurram Victoria DO [Primary Care Provider] - - Attending Attestation - Attending Attestation I saw and evaluated this patient and my medical decision-making was reviewed with the Resident Physician. I agree with the documented findings, disposition and treatment plan as described except to the extent set forth below. We independently had [id number] contact with the patient I spent 35 minutes of Critical Care time with this patient. It involved decision making of high complexity to assess, manipulate, and support vital organ system failure and/or to prevent further life threatening deterioration of the patient's condition. The time involved in the performance of separately reportable procedures was not counted toward critical care time. Patient seen and examined at bedside Labs, radiology, chart personally reviewed. Management was reviewed during multidisciplinary critical care rounds. ENTOMOLOGY TEACHER: Patient was conscious following commands he became more agitated pulling the endotracheal tube decided to sedate him little bit deeper than what he was now. Will add propofol to the current sedated regimen 05/20 Patient is episodically is agitated still on propfol will start coming back on sedation now his respiratory V/Q mismatch is stable . Pulm: Patient has severe VQ mismatch with with hypoxia and hypercarbia mostly complicated by exacerbation of diastolic heart failure COPD, obesity hypoventilation syndrome I increased the PEEP to 14 FiO2 is around 90% will bring down the FiO2 as tolerated to 60% then will come down on the PEEP will start him on broad-spectrum antibiotics. 05/20 Patient is FIO2 is coming with acceptable oxygenation and ventilation will start diuresing more , his plateau pressure is better -lung compliance is improving after diuresis anticipate extubation in 1-2 days Cards: Patient is hemodynamically stable acute on chronic diastolic heart failure. to continue diuresis FEN-GI: Diet according to nutrition. Renal: diuresis with strict in and take output monitoring. ID: on broad-spectrum antibiotics for possible pneumonia. Heme/Onc: Labs reviewed Endo: Glucose Monitored Integ/MSK: Skin Care per routine ICU Nursing Protocol to prevent ulcers. Lines: All lines examined without evidence of infection : Dispo: Patient is critically ill CODE:Full Code <Michael Short R - Last Filed: 05/20/18 17:16> Date of Encounter: 05/20/18 Time of Encounter: 07:30 Assessment and Plan (1) Acute on chronic diastolic CHF (congestive heart failure) Current Visit: Yes Status: Acute Acute on chronic diastolic heart failure with fluid overload. Received 40 mg Lasix yesterday and another 40 mg this afternoon. Will plan on additional doses evening and reassess volume status. Potassium repleted, electrolyte protocols ordered. Strict I's and O's (2) Acute on chronic respiratory failure with hypoxia and hypercapnia Current Visit: No Status: Acute Acute on chronic respiratory failure in the setting of diastolic heart failure exacerbation and fluid overload with COPD. Patient remains sedated and intubated improvement in plateau pressures today. We will continue diuresis anticipate extubation trial in the next 1-2 days. (3) Hypothyroidism Current Visit: Yes Status: Chronic Significant hypothyroidism with TSH of 43.5 at admission. Continue IV levothyroxine Qualifiers: Hypothyroidism type: acquired Qualified Code(s): E03.9 - Hypothyroidism, unspecified (4) Diabetes mellitus Current Visit: Yes Status: Chronic Patient with blood glucose of 299 this a.m. We will increase Levemir to 25 units twice a day, patient is on high-dose sliding scale. 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 mellitus exterminator helper insulin use: with exterminator helper use Diabetes mellitus complication status: with kidney complications Diabetes mellitus complication detail: with chronic kidney disease Chronic kidney disease stage: stage 3 (moderate) Qualified Code(s): E11.22 - Type 2 diabetes mellitus with diabetic chronic kidney disease; N18.3 - Chronic kidney disease, stage 3 (moderate); Z79.4 - half-way (current) use of insulin (5) Pneumonia Current Visit: Yes Status: Suspected Suspected aspiration pneumonia some evidence of infiltrate on chest x-ray. Given recent history of vomiting and coughing patient certainly is at risk for aspiration pneumonia. We will continue day 2 of Unasyn therapy. Qualifiers: Pneumonia type: aspiration pneumonia Laterality: unspecified laterality Lung location: unspecified part of lung Qualified Code(s): J69.0 - Pneumonitis due to inhalation of food and vomit (6) DVT prophylaxis Current Visit: Yes Status: Acute Heparin 5000 units Q8H Subjective Interval history: Patient remained sedated and intubated. No acute overnight events overnight. Nursing staff reports patient became agitated yesterda evening and did try to remove his ET tube. Objective PUL Vital signs: Last Vital Signs Temp 97.6 F 05/20/18 07:00 Pulse 82 05/20/18 07:00 Resp 18 05/20/18 07:39 BP 133/86 05/20/18 07:00 Pulse Ox 94 05/20/18 07:39 General appearance: other (Sedated and intubated) Eyes: nonicteric ENT: oropharynx moist, other (ET tube in place) Neck: supple Effort: normal Auscultation: bilateral: rales (Improving) Cardiovascular: regular rate and rhythm Gastrointestinal: normoactive bowel sounds, soft, non-distended Integumentary: normal Extremities: no cyanosis Musculoskeletal: no deformities unable to assess due to mental status other (Unable to assess due to mental status) Ventilator Settings Ventilator Settings: Ventilator Settings, Last 8 Hours Ventilator Tidal Volume 500 Setting Ventilator Tidal Volume 500 Setting Ventilator Tidal Volume 500 Setting Ventilator Tidal Volume 500 Setting Ventilator Tidal Volume 500 Setting Ventilator Tidal Volume 500 Setting Ventilator Tidal Volume 500 Setting Ventilator Tidal Volume 500 Setting Ventilator Tidal Volume 500 Setting Ventilator Tidal Volume 500 Setting Ventilator Tidal Volume 500 Setting Ventilator Tidal Volume 500 Setting Ventilator Respiratory Rate 18 Setting Ventilator Respiratory Rate 18 Setting Ventilator Respiratory Rate 18 Setting Ventilator Respiratory Rate 18 Setting Ventilator Respiratory Rate 18 Setting Ventilator Respiratory Rate 18 Setting Ventilator Respiratory Rate 18 Setting Ventilator Respiratory Rate 18 Setting Ventilator Respiratory Rate 18 Setting Ventilator Respiratory Rate 18 Setting Ventilator Respiratory Rate 18 Setting Ventilator Respiratory Rate 18 Setting Actual Respiratory Rate 18 Actual Respiratory Rate 18 Actual Respiratory Rate 18 Actual Respiratory Rate 18 Actual Respiratory Rate 18 Actual Respiratory Rate 18 Actual Respiratory Rate 18 Actual Respiratory Rate 18 Actual Respiratory Rate 18 Actual Respiratory Rate 18 Actual Respiratory Rate 18 Positive End Expiratory 14 Pressure Positive End Expiratory 14 Pressure Positive End Expiratory 14 Pressure Positive End Expiratory 14 Pressure Positive End Expiratory 14 Pressure Positive End Expiratory 14 Pressure Positive End Expiratory 14 Pressure Positive End Expiratory 14 Pressure Positive End Expiratory 14 Pressure Positive End Expiratory 14 Pressure Positive End Expiratory 14 Pressure Positive End Expiratory 14 Pressure Peak Inspiratory Airway 34 Pressure Peak Inspiratory Airway 32 Pressure Peak Inspiratory Airway 31 Pressure Peak Inspiratory Airway 31 Pressure Peak Inspiratory Airway 31 Pressure Peak Inspiratory Airway 34 Pressure Peak Inspiratory Airway 34 Pressure Peak Inspiratory Airway 34 Pressure Peak Inspiratory Airway 34 Pressure Peak Inspiratory Airway 34 Pressure Peak Inspiratory Airway 32 Pressure Results - Laboratory Findings CBC and BMP: 05/20/18 03:30 05/20/18 03:30 ABG ABG pH 7.44 pH Units (7.32-7.45) 05/20/18 04:21 ABG pCO2 51 mmHg (35-45) H 05/20/18 04:21 ABG pO2 77 mmHg (85-104) L 05/20/18 04:21 ABG O2 Saturation 95 % (95-98) 05/20/18 04:21 Abnormal lab findings: Abnormal lab results WBC 13.5 K/mcL (4.3-11.1) H D 05/20/18 03:30 RBC 3.50 M/mcL (4.19-5.50) L 05/20/18 03:30 Hgb 11.2 g/dL (12.9-16.9) L 05/20/18 03:30 Hct 34.6 % (37.5-50.1) L 05/20/18 03:30 RDW 15.2 % (11.5-14.5) H 05/20/18 03:30 Neutrophils # 13.0 K/mcL (1.6-8.9) H 05/20/18 03:30 Lymphocytes # 0.2 K/mcL (0.6-4.6) L 05/20/18 03:30 ABG pCO2 51 mmHg (35-45) H 05/20/18 04:21 ABG pO2 77 mmHg (85-104) L 05/20/18 04:21 ABG HCO3 34 mEq/L (21-27) H 05/20/18 04:21 ABG Total CO2 36 mEq/L (20-26) H 05/20/18 04:21 ABG Base Excess 9 mEq/L (-2 to 3) H 05/20/18 04:21 Sodium 134 mEq/L (136-145) L 05/20/18 03:30 Chloride 93 mEq/L (98-107) L 05/20/18 03:30 Carbon Dioxide 32 mEq/L (23-29) H 05/20/18 03:30 BUN 27 mg/dL (8-23) H 05/20/18 03:30 Creatinine 1.50 mg/dL (0.70-1.30) H 05/20/18 03:30 Est GFR ( Amer) 56 (> 60) L 05/20/18 03:30 Est GFR (Non-Af Amer) 47 (> 60) L 05/20/18 03:30 Glucose 299 mg/dL (70-105) H 05/20/18 03:30 POC Glucose 299 mg/dL (70-99) H 05/19/18 23:40 TSH 15.597 mcIU/mL (0.340-5.600) H 05/19/18 03:32 Free T3 2.10 pg/mL (2.50-3.90) L 05/19/18 03:32 Total T3 0.33 ng/mL (0.87-1.78) L 05/19/18 03:32 - Clinical Findings Intake & Output: Intake & Output 05/19/18 05/19/18 05/20/18 15:59 23:59 07:59 Intake Total 650 / 650 739.3 / 739.3 504.7 / 504.7 Output Total 1375 / 1375 325 / 325 100 / 100 Balance -725 / -725 414.3 / 414.3 404.7 / 404.7 Weight 111.6 kg
[2018-05-20] MEDS: Pantoprazole 40 MG VIAL IVP SCH (07:59)
[2018-05-20] MEDS: Levothyroxine Sodium 100 MCG VIAL IVP SCH (07:59)
[2018-05-20] MEDS: Chlorhexidine Rinse 15 ML MOUTHWASH MM SCH ×2 (07:59→20:59)
[2018-05-20] MEDS ORDERED: Insulin DETEMIR 100 UNIT/ML X5UNITS SQ SCH (09:00)
[2018-05-20] MEDS ORDERED: Furosemide 40 MG/4 ML VIAL IVP ONE ×2 (10:36→17:02)
[2018-05-20] MEDS ORDERED: Potassium Chloride Elixir 20 MEQ/15 ML UDC GTUBE ONE (10:42)
[2018-05-20] MEDS: Insulin DETEMIR 100 UNIT/ML X5UNITS SQ SCH ×2 (11:17→20:59)
[2018-05-20] MEDS: Dexmedetomidine HCl 400 MCG/100 ML MLS IVC SCH ×2 (12:20→21:44)
[2018-05-20] MEDS: predniSONE 20 MG TABLET PO SCH (16:39)
[2018-05-20] MEDS ORDERED: Albumin 25% 25gram/100mL 25 GM/100 ML IV.SOLN IVPB ONE (17:02)
[2018-05-20 18:47] LABS: VBG Ionized Calcium 1.12 mmol/L (1.15-1.35)
[2018-05-20 18:49] LABS: Calcium 9.6 mg/dL (8.6-10.3); Magnesium 2.2 mg/dL (1.6-2.6)
--- NOTE | 2018-05-20 20:44 | Procedure Note ---
<Brenden Jaime - Last Filed: 05/20/18 20:41> Date of procedure: 05/20/18 Pre-op diagnosis: Limited vascular access Post-op diagnosis: same Procedure: Right femoral central venous catheter: Multiple attempts were made to contact the family for consent however these were unsuccessful and foam line appeared to be disconnected. Given the urgent need for vascular access for IV medications and frequent lab draws the procedure was considered emergent and we decided to proceed. The right femoral area was surveyed using ultrasound and deemed to be a suitable target. The area was cleaned and draped in usual sterile fashion. The skin and soft tissues were anesthetized using 4 mL of 1% lidocaine. Under ultrasound guidance introducer needle was advanced into the right femoral vein. Dark red, nonpulsatile blood flow was returned. The guidewire was advanced to the needle and into the vein without resistance. Needle was removed and the guidewire was visualized within the vein using ultrasound. A josé miguel in the skin was made and the skin and soft tissues were dilated. A 20 cm triple lumen catheter was advanced over the guidewire and into the vein without resistance. The guidewire was removed intact. All 3 ports were tested and shown to draw blood and flush easily. The catheter was sutured in place. Biopatch and sterile dressing were applied. The patient tolerated the procedure well, there are no immediate complications. The attending physician, Dr. Mckeon, was present for the entire procedure. Anesthesia: GETA, local (4cc 1% lidocaine) Surgeon: Brenden Jaime Was there an assistant housekeeping manager present: No Estimated blood loss (cc): 5 IV fluids (cc): 10 Specimen: none Pathology: none sent Condition: critical Disposition: ICU <Miles Mckeon - Last Filed: 05/20/18 20:57> Procedure: I was present and supervised procedure as detailed above by Dr. Jaime. Patient needs CVC for IV access, loss of EPIV, and need for multiple medication administrations simultaneously -- many of which are incompatible. Patient remains on ventilator for acute respiratory failure.
[2018-05-21] MEDS: Ipratropium/Albuterol Neb 3 ML IH SCH ×6 (03:07→23:14)
[2018-05-21 03:51] LABS: VBG Ionized Calcium 1.16 mmol/L (1.15-1.35)
[2018-05-21 03:51] LABS: Basophils % 0.1 %; Hematocrit 32.6 % (37.5-50.1); Hemoglobin 10.6 g/dL (12.9-16.9); Immature Granulocytes % 2.5 % (0-4); Lymphocytes # 0.2 K/mcL (0.6-4.6); Mean Corpuscular HGB Conc 32.5 g/dL (31.6-35.5); Mean Corpuscular Hemoglobin 32.1 pg (28.0-33.3); Mean Corpuscular Volume 98.8 fL (83.0-100.0); Mean Platelet Volume 9.9 fL (9.4-12.4); Monocytes # 0.5 K/mcL (0.0-1.3); Monocytes % 2.9 %; Neutrophils # 14.7 K/mcL (1.6-8.9); Platelet Count 180 K/mcL (140-400); Segmented Neutrophils % 93.5 %
[2018-05-21] MEDS: Insulin LISPRO 300 UNITS/3 ML VIAL SQ SCH ×2 (03:56→08:08)
[2018-05-21] MEDS: Artificial Tears SOLN 15 ML BOTTLE BOTH EYES SCH ×7 (03:57→23:44)
[2018-05-21 04:13] LABS: Magnesium 2.1 mg/dL (1.6-2.6); Phosphorous 2.1 mg/dL (2.7-4.5)
[2018-05-21 04:14] LABS: Calcium 9.2 mg/dL (8.6-10.3); Platelet Estimate Normal (Normal); Potassium 4.2 mEq/L (3.5-5.1); Toxic Granulation Present (Not Present)
[2018-05-21 05:01] LABS: ABG Base Excess 9 mEq/L (-2 to 3); ABG HCO3 33 mEq/L (21-27); ABG Oxygen Saturation 94 % (95-98); ABG PCO2 43 mmHg (35-45); ABG PH 7.49 pH Units (7.32-7.45); ABG PO2 67 mmHg (85-104); ABG TCO2 34 mEq/L (20-26); Blood Gas Modality ASSIST CONTROL; Blood Gas PEEP 14 cm H2O; Blood Gas Respiration Rate 18; Blood Gas VT 500 cc
[2018-05-21] MEDS: FentaNYL (PF) 1,000 MCG in 0.9 % Sodium Chloride 80 ML IVC SCH ×4 (05:11→19:54)
[2018-05-21] MEDS: *HR* Heparin 5,000 UNIT/ML VIAL SQ SCH ×2 (05:58→17:09)
[2018-05-21] MEDS: Ampicillin/Sulbactam 3,000 MG in 0.9 % Sodium Chloride Mini Bag 100 ML IVPB SCH ×4 (05:59→23:37)
[2018-05-21] MEDS: Dexmedetomidine HCl 400 MCG/100 ML MLS IVC SCH ×2 (06:35→15:22)
[2018-05-21] MEDS: Budesonide/Formoterol 160/4.5 1 PUFF INH IH SCH ×2 (07:44→19:58)
[2018-05-21] MEDS: Pantoprazole 40 MG VIAL IVP SCH (08:07)
[2018-05-21] MEDS: predniSONE 20 MG TABLET PO SCH ×2 (08:07→17:08)
[2018-05-21] MEDS: Levothyroxine Sodium 100 MCG VIAL IVP SCH ×2 (08:08→08:25)
[2018-05-21] MEDS: Insulin DETEMIR 100 UNIT/ML X5UNITS SQ SCH (08:08)
[2018-05-21] MEDS: Chlorhexidine Rinse 15 ML MOUTHWASH MM SCH ×2 (08:08→20:40)
[2018-05-21 10:07] LABS: Bilirubin,Urine Small (Negative); Blood,Urine Large (Negative); Clarity,Urine Turbid (Clear); Color,Urine Amber (Yellow); Glucose,Urine (UA) Normal (Normal); Ketones,Urine Trace mg/dL (Negative); Leukocyte Esterase,Urine Trace (Negative); Nitrite,Urine Negative (Negative); PH,Urine 5.5 pH Units (5.0-8.0); Protein,Urine 100 mg/dL (Neg-Trace); Urobilinogen,Urine Normal (Normal)
[2018-05-21 10:10] LABS: Bacteria,Urine None Seen per hpf (None-Few); Squamous Epithelial Cell,Urine Many per lpf (None-Few)
[2018-05-21 10:20] LABS: Granular Casts,Urine Few per lpf (None Seen); Hyaline Casts,Urine Many per lpf (None-Few); RBC,Urine TNTC per hpf (0-3)
[2018-05-21] MEDS: Albumin 25% 25gram/100mL 25 GM/100 ML IV.SOLN IVC SCH ×2 (10:21→10:30)
[2018-05-21 10:22] LABS: Amorphous Sediment,Urine Many (Few)
[2018-05-21 10:26] LABS: Calcium 9.1 mg/dL (8.6-10.3); Potassium 4.4 mEq/L (3.5-5.1)
[2018-05-21] MEDS: Insulin Human Regular 100 UNIT in 0.9 % Sodium Chloride 100 ML IVC SCH (12:07)
--- NOTE | 2018-05-21 13:01 | Palliative - Consult Note ---
Date of Encounter: 05/21/18 Time of Encounter: 11:15 - Assessment and Plan (1) COPD (chronic obstructive pulmonary disease) Current Visit: No Status: Chronic Assessment and plan: Continue Duonebs, Ventilator and steroid support. Managed by Pulmonary ( Critical care team). ABG improvement noted. Patient is non-compliant with treatment of COPD at home. Will need continued education and support once extubated. Qualifiers: COPD type: unspecified COPD Qualified Code(s): J44.9 - Chronic obstructive pulmonary disease, unspecified (2) CKD (chronic kidney disease) Current Visit: No Status: Chronic Qualifiers: Chronic kidney disease stage: stage 3 (moderate) Qualified Code(s): N18.3 - Chronic kidney disease, stage 3 (moderate) (3) Acute on chronic diastolic CHF (congestive heart failure) Current Visit: Yes Status: Acute Assessment and plan: LVEF 60%. Lasix 40 mg BID per ICU team. (4) Goals of care, counseling/discussion Current Visit: Yes Status: Acute Assessment and plan: Patients sister Mildred present on arrival. Other sister had just stepped out to car; however, returned and participated in goals of care discussion. Dr. Blackman present for discussion. Patients sisters report patient is non compliant with BiPAP and feel if he would have worn it like prescribed, would not be in this mess now. Reported prior to [facility] Admission on 05/05, had lived at home and as long as he can make it to the kitchen he feels ok being home. Discussed disease trajectory of COPD and CHF, requiring frequent readmissions and frequent follow up outpatient, verbalized understanding. Explained the need for longer term rehab once discharged, considering ECF. Reports patients brother had tracheostomy and patient had told them that he would not want a tracheostomy; however, reports in same sentence desires everything to be done so I can live as long as I can. Sister reports desires patient to wake up and express his own wishes after tube is out; acknowledged that this would be ideal ; however, there is a risk patient may not be able to express own desires if unable to come off ventilator, verbalized understanding. Sisters feel with inconsistent messaging from their brother regarding CPR/Intubation, they do not feel they are able to make any type of decision at this time. In regards to CPR , patients sisters were explained risk of CPR and verbalized understanding of risks; desire for patient to remain a FULL CODE at this time. Desires for further Palliative support and updates from primary team. Desires for patient to have full goals of care discussion prior to discharge to ensure they know his wishes for future admissions, should he be able to come off ventilator. Acknowledge they will be able to join together with their other sister when it comes time to make decision regarding tracheostomy/PEG if patient unable to be extubated. Sisters expressed appreciation for early discussion regarding goals of care and education regarding disease trajectory. Sisters report their other sister will be present tomorrow and would like a repeat update of clinical status. Dr. Blackman to follow up tomorrow. Did not discuss with patients sisters during visit, but patient may benefit from Passport services should he be able to return home. Patient does qualify for hospice; however, this was not discussed during initial goals of care discussion as family is not ready for this type of discussion. Palliative will continue to follow and adjust goals of care discussion to meet the needs of the patient and family based on illness/hospitalization trajectory. Palliative-CN HPI - Data of Consult Patient: new to practice Consult date: 05/21/18 Requesting Physician: Jaren Mas DO Primary Care Provider: Khurram Victoria DO - Consult Narrative Palliative Care/Comfort Measures: Palliative care Reason for consult: Goals of care History of present illness: Mr. Humphries is a 67 year old male Arrived to [place] as a transfer from [place] on for respiratory failure. Patient was admitted to [facility] from May 05- for difficulty breathing and then transferred to [facility] bed. During his visit at [place], patient was noted to have a vomiting episode with several coughs , leading to worsening dyspnea despite use of BiPAP; intubated after admission to [facility] with oxygen saturation of 83%. PMH: CHF, COPD, CAD, DM, Hyperlipidemia, anemia, leukocytosis, PAD, Hx of penile cancer, and HTN. Patient admitted and medically managed for Acute of Chronic diastolic CHF (EF 60%), Hypothyroidism ( concern for myxedema coma), DM, and acute respiratory failure with COPDE. Chest x-ray showing: OG tube appears looped in the stomach, with tip overlying the gastric fundus and Endotracheal tube tip 3.5 cm above the claudia; Patchy left basilar opacities could represent infiltrates or atelectasis; New small to moderate right pleural effusion, with basilar atelectasis and/or consolidation. Patient placed on Broad spectrum antibiotics. Repeat chest x-ray showing: Small bilateral pleural effusions with associated right lower lobe airspace disease. Patients FiO2 is decreasing and goal to bring down PEEP. Palliative care consult for Goals of care discussion. Patient lying in bed with eyes closed upon arrival for assessment. Patient opens eyes somewhat with light tactile stimulation, sedation infusing. ET tube in place, with ventilator management. Family denies feeling patient is uncomfortable, reports chronic back pain without adequate management outpatient , educated on risk of pain medication effecting respiratory drive. CC: Jaren Mas, DO - Time Spent with Patient Time: Total time spent is greater than 50% in coordination of care (as documented) at patient's floor/unit and/or counseling patient: Spent 45 minutes with patient/family regarding goals of care, code status, and disease trajectory. Greater than 35 minutes Past Med Surg Social Fam HX - Past Medical History Medical history: CHF, COPD, coronary artery disease, diabetes, hyperlipidemia, hypertension Additional medical history: anemia. leukocytosis. penile cancer. PAD Psychiatric history: no psych history - Past Surgical History Additional surgical history: CARDIAC CATH. Cardiac Stenting x5. gallbladder surgery. cancer removed twice. polyp removal. testicular tumor removal. colonoscopy. bypass in legs - Social History Smoking Status: Current every day smoker Smokeless Tobacco Status: No Alcohol use: none Drug use: none - Family History Father Living Status: Hx Family Cardiac Disorders: Yes (Enlarged heart) Mother Living Status: Hx Family Cardiac Disorders: Yes Hx Family Respiratory Disorders: Yes (COPD) Medications and Allergies Montelukast Sodium [Singulair] 10 mg PO DAILY 06/16/16 [History] Pantoprazole Sodium [Protonix] 40 mg PO DAILY 06/16/16 [History] Isosorbide MONOnitrate (24 HR) [Imdur] 30 mg PO DAILY 08/07/16 [History] Atorvastatin Calcium [Lipitor] 80 mg PO HS 07/23/17 [History] Fenofibrate Nanocrystallized [Tricor] 48 mg PO DAILY 05/05/18 [History] Insulin ASPART [Novolog Flexpen] 0 unit SQ TIDWM 05/05/18 [History] Polyethylene Glycol 3350 [MiraLAX] 17 gm PO DAILY 05/05/18 [History] Tamsulosin HCl [Flomax] 0.4 mg PO DAILY 05/05/18 [History] Budesonide/Formoterol 160/4.5 [Symbicort 160/4.5] 2 puff IH BIDR inh 05/12/18 [ Rx] Aspirin 81 mg PO DAILY 05/19/18 [History] Gabapentin [Neurontin] 100 mg PO TID 05/19/18 [History] Levothyroxine [Synthroid] 150 mcg PO DAILY 05/19/18 [History] Lidocaine Patch [Lidoderm 5% patch] 1 each TP DAILY 05/19/18 [History] Metoprolol XL (24 HR) Succ [Toprol XL] 50 mg PO DAILY 05/19/18 [History] Nitroglycerin [Nitrostat] 0.4 mg SL PRN PRN 05/19/18 [History] glipiZIDE [Glucotrol] 2.5 mg PO DAILY 05/19/18 [History] 3 Allergy/AdvReac Type Severity Reaction Status Date / Time adenosine Allergy See Verified 08/07/16 16:26 Comments fluticasone Allergy See Verified 08/07/16 16:26 [From Advair Diskus] Comments Iodinated Contrast- Oral and Allergy See Verified 06/16/16 15:37 IV Dye Comments [Iodinated Contrast Media - IV Dye] salmeterol Allergy See Verified 08/07/16 16:26 [From Advair Diskus] Comments ROS unobtainable: due to endotracheal tube Palliative Care-Exam - Constitutional Vitals: Temp Pulse Resp BP Pulse Ox 98.0 F 76 18 147/72 92 05/21/18 11:45 05/21/18 12:00 05/21/18 12:00 05/21/18 12:00 05/21/18 12:00 General appearance: Present: morbidly obese, no acute distress - Head Head Exam: Present: normal inspection - Eye Eye exam: Present: normal appearance, PERRL (sluggish). Absent: periorbital swelling, periorbital tenderness - ENT ENT exam: Present: mucous membranes moist, normal external ear exam - Expanded ENT Exam Mouth Exam: Present: moist. Absent: drooling - Neck Neck exam: Present: full ROM, normal inspection. Absent: tenderness - Respiratory Respiratory exam: Present: wheezes. Absent: accessory muscle use, chest wall tenderness, respiratory distress - Cardiovascular Cardiovascular exam: Present: +S1, +S2 - Expanded Cardiovascular Exam Peripheral pulses: 1+: Radial (L), Radial (R), Posterior Tibialis (L), Posterior Tibialis (R), Dorsalis Pedis (L) PM, Dorsalis Pedis (R) PM - GI/Abdominal Exam GI/Abdominal exam: Present: normal bowel sounds, soft. Absent: firm, tenderness - Rectal Rectal Exam: Present: deferred - Catheter Type: Urethral ([place]) - Extremities Exam Extremities exam: Present: normal inspection. Absent: calf tenderness, pedal edema - Neurological Exam Neurological exam: Present: altered. Absent: alert, facial droop - Expanded Neurological Exam Coma Scale Eye Opening: To Pain Coma Scale Motor Response: Localizes to Pain Coma Scale Verbal Response: None Coma Scale Total: 8 - Psychiatric Psychiatric exam: Present: flat affect - Skin Skin exam: Present: dry, intact, warm Internal Medicine - CN: Reslt - Labs CBC & Chem 7: 05/21/18 03:35 05/21/18 09:45 Labs: Short CBC 05/21/18 Range/Units 03:35 WBC 15.7 H (4.3-11.1) K/mcL Hgb 10.6 L (12.9-16.9) g/dL Hct 32.6 L (37.5-50.1) % Plt Count 180 (140-400) K/mcL Neutrophils # 14.7 H (1.6-8.9) K/mcL BMP 05/20/18 05/21/18 05/21/18 18:02 03:35 09:45 Sodium 135 L 134 L 136 Potassium 5.0 D 4.2 4.4 Chloride 95 L 95 L 96 L Carbon Dioxide 29 30 H 31 H BUN 35 H 40 H 41 H Creatinine 1.87 H 2.02 H 2.19 H Glucose 302 H 282 H 230 H Calcium 9.6 9.2 9.1 Urine 05/21/18 Range/Units 09:06 Urine Color Ashlie A (Yellow) Urine Clarity Turbid A (Clear) Urine pH 5.5 (5.0-8.0) pH Units Ur Specific [place] 1.020 (1.010-1.025) Urine Protein 100 H (Neg-Trace) mg/dL Urine Glucose (UA) Normal (Normal) mg/dL - ABG Interpretation ABG results: ABG ABG pH 7.49 pH Units (7.32-7.45) H 05/21/18 04:58 ABG pCO2 43 mmHg (35-45) 05/21/18 04:58 ABG pO2 67 mmHg (85-104) L 05/21/18 04:58 ABG O2 Saturation 94 % (95-98) L 05/21/18 04:58 - Impressions Impressions Chest X-Ray 05/21/18 09:52 IMPRESSION: Small bilateral pleural effusions with associated right lower lobe airspace disease. These changes may represent mild CHF versus pneumonia. D/ / 05/21/2018 10:31:[address] MD / marlon Interpreting Provider: Leonides Way MD Consult Discharge Plan - Plan Referrals: Khurram Victoria DO [Primary Care Provider] - Palliative Quality Palliative Quality: Screen for Code Status: Yes, Screen for Goals of Care: Yes, Screen for Pain: NA, If Pain Regimen Started, Initiate Bowel Regimen: NA, Screen for Nausea/Vomitting: NA Code Status: 05/18/18 15:26 Resuscitation Status: Active [RES] Routine Comment: Resuscitation Status: Full Code
--- NOTE | 2018-05-21 13:17 | Pulmonology Progress Note ---
<Deniz Mock - Last Filed: 05/21/18 13:22> Date of Encounter: 05/21/18 Time of Encounter: 13:23 Assessment and Plan (1) Acute on chronic diastolic CHF (congestive heart failure) Current Visit: Yes Status: Acute Acute on chronic diastolic heart failure with fluid overload 40 mg Lasix given on May 19 and repeated on May 20 Consider further doses of Lasix Chest x-ray showed progressive reduction in pulmonary edema and pleural effusion Electrolyte protocols ordered with potassium repleted Patient has had minimal urine output over the last 48 hours Began albumin 50 g to increase cardiac preload Continue strict I's and O's (2) Acute on chronic respiratory failure with hypoxia and hypercapnia Current Visit: No Status: Acute Acute on chronic respiratory failure in the setting of diastolic heart failure exacerbation and fluid overload with COPD. Patient remains sedated and intubated with further improvement in plateau pressures today. We will continue diuresis anticipate extubation on 05/23/2018 (3) Diabetes mellitus Current Visit: Yes Status: Chronic POC glucose found to be 282 this a.m. 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: with long-term use Diabetes mellitus complication status: with kidney complications Diabetes mellitus complication detail: with chronic kidney disease Chronic kidney disease stage: stage 3 (moderate) Qualified Code(s): E11.22 - Type 2 diabetes mellitus with diabetic chronic kidney disease; N18.3 - Chronic kidney disease, stage 3 (moderate); Z79.4 - termite technician (current) use of insulin (4) Pneumonia Current Visit: Yes Status: Suspected Patient history of vomiting with cough prior to respiratory distress concerning for aspiration pneumonia Chest x-ray shows some evidence of aspiration pneumonia in the right lower lobe We will continue Unasyn Qualifiers: Pneumonia type: aspiration pneumonia Laterality: unspecified laterality Lung location: unspecified part of lung Qualified Code(s): J69.0 - Pneumonitis due to inhalation of food and vomit (5) Hypothyroidism Current Visit: Yes Status: Chronic TSH noted to be 43.5 upon admission 200 g Synthroid administered TSH level decreased to 15.59 IV Synthroid decreased to 65 g daily to match patient's equivalent home dose Qualifiers: Hypothyroidism type: acquired Qualified Code(s): E03.9 - Hypothyroidism, unspecified (6) Tobacco abuse Current Visit: No Status: Chronic Patient documentation states current every day smoker Unknown pack years Patient is highly encouraged to stop smoking and pursue lifestyle modifications including weight loss and sleep hygiene (7) Goals of care, counseling/discussion Current Visit: Yes Status: Acute Palliative care consulted and is following Per palliative care discussion was had with the family regarding goals of care Family wishes for patient remained full code with aggressive measures if necessary Subjective Principal diagnosis: Acute on chronic respiratory failure Interval history: Patient is a 67-year-old male presenting from [facility] for respiratory failure. The patient was admitted as an inpatient to [facility] from May 05 - for dyspnea. The patient was intubated during his stay, and was transferred upon discharge to the [facility] for rehabilitation. Per the patient's sister acting as a historian , the patient had a vomiting episode on the evening of May 16 which resulted in several episodes of cough which led to respiratory compromise throughout the night. Patient's respiratory status worsened throughout the next day despite the use of BiPAP -eventually showing acute on chronic respiratory acidosis with a pH of 7.15 a PCO2 125, HCO3 of 44 and oxygen saturation of 83%. The patient was subsequently intubated shortly after arrival at [facility]. Current Plans to extubate the patient on 05/23/2018 Objective PUL Vital signs: Last Vital Signs Temp 98.0 F 05/21/18 11:45 Pulse 76 05/21/18 12:00 Resp 18 05/21/18 13:12 BP 147/72 05/21/18 12:00 Pulse Ox 92 05/21/18 13:12 General appearance: other (Patient sedated for mechanical ventilation) Eyes: nonicteric ENT: oropharynx moist Effort: other (Patient is intubated and mechanically ventilated) Auscultation: bilateral: clear Cardiovascular: regular rate and rhythm Gastrointestinal: normoactive bowel sounds, soft, non-distended Extremities: no cyanosis, edema (There is mild edema noted in the 4 extremities) unable to assess due to mental status Ventilator Settings Ventilator Settings: Ventilator Settings, Last 8 Hours Ventilator Tidal Volume 500 Setting Ventilator Tidal Volume 500 Setting Ventilator Tidal Volume 500 Setting Ventilator Tidal Volume 500 Setting Ventilator Tidal Volume 500 Setting Ventilator Tidal Volume 500 Setting Ventilator Respiratory Rate 18 Setting Ventilator Respiratory Rate 18 Setting Ventilator Respiratory Rate 18 Setting Ventilator Respiratory Rate 18 Setting Ventilator Respiratory Rate 18 Setting Ventilator Respiratory Rate 18 Setting Actual Respiratory Rate 18 Actual Respiratory Rate 18 Actual Respiratory Rate 18 Actual Respiratory Rate 18 Actual Respiratory Rate 18 Actual Respiratory Rate 18 Positive End Expiratory 10 Pressure Positive End Expiratory 10 Pressure Positive End Expiratory 10 Pressure Positive End Expiratory 10 Pressure Positive End Expiratory 12 Pressure Positive End Expiratory 12 Pressure Peak Inspiratory Airway 33 Pressure Peak Inspiratory Airway 32 Pressure Peak Inspiratory Airway 33 Pressure Peak Inspiratory Airway 30 Pressure Peak Inspiratory Airway 35 Pressure Peak Inspiratory Airway 33 Pressure Results - Laboratory Findings CBC and BMP: 05/21/18 03:35 05/21/18 09:45 ABG ABG pH 7.49 pH Units (7.32-7.45) H 05/21/18 04:58 ABG pCO2 43 mmHg (35-45) 05/21/18 04:58 ABG pO2 67 mmHg (85-104) L 05/21/18 04:58 ABG O2 Saturation 94 % (95-98) L 05/21/18 04:58 Abnormal lab findings: Abnormal lab results WBC 15.7 K/mcL (4.3-11.1) H 05/21/18 03:35 RBC 3.30 M/mcL (4.19-5.50) L 05/21/18 03:35 Hgb 10.6 g/dL (12.9-16.9) L 05/21/18 03:35 Hct 32.6 % (37.5-50.1) L 05/21/18 03:35 RDW 16.0 % (11.5-14.5) H 05/21/18 03:35 Neutrophils # 14.7 K/mcL (1.6-8.9) H 05/21/18 03:35 Lymphocytes # 0.2 K/mcL (0.6-4.6) L 05/21/18 03:35 Toxic Granulation Present (Not Present) A 05/21/18 03:35 ABG pH 7.49 pH Units (7.32-7.45) H 05/21/18 04:58 ABG pO2 67 mmHg (85-104) L 05/21/18 04:58 ABG HCO3 33 mEq/L (21-27) H 05/21/18 04:58 ABG Total CO2 34 mEq/L (20-26) H 05/21/18 04:58 ABG O2 Saturation 94 % (95-98) L 05/21/18 04:58 ABG Base Excess 9 mEq/L (-2 to 3) H 05/21/18 04:58 Chloride 96 mEq/L (98-107) L 05/21/18 09:45 Carbon Dioxide 31 mEq/L (23-29) H 05/21/18 09:45 BUN 41 mg/dL (8-23) H 05/21/18 09:45 Creatinine 2.19 mg/dL (0.70-1.30) H 05/21/18 09:45 Est GFR ( Amer) 36 (> 60) L 05/21/18 09:45 Est GFR (Non-Af Amer) 30 (> 60) L 05/21/18 09:45 Glucose 230 mg/dL (70-105) H 05/21/18 09:45 POC Glucose 209 mg/dL (70-99) H 05/21/18 07:10 Phosphorus 2.3 mg/dL (2.7-4.5) L 05/21/18 09:45 TSH 15.597 mcIU/mL (0.340-5.600) H 05/19/18 03:32 Free T3 2.10 pg/mL (2.50-3.90) L 05/19/18 03:32 Total T3 0.33 ng/mL (0.87-1.78) L 05/19/18 03:32 Ur Specimen Adequacy See below A 05/21/18 09:06 Urine Color Ashlie (Yellow) A 05/21/18 09:06 Urine Clarity Turbid (Clear) A 05/21/18 09:06 Urine Protein 100 mg/dL (Neg-Trace) H 05/21/18 09:06 Urine Ketones Trace mg/dL (Negative) H 05/21/18 09:06 Urine Blood Large (Negative) H 05/21/18 09:06 Urine Bilirubin Small (Negative) H 05/21/18 09:06 Ur Leukocyte Esterase Trace (Negative) H 05/21/18 09:06 Urine Microscopic RBC TNTC per hpf (0-3) H 05/21/18 09:06 Urine Microscopic WBC 5-15 per hpf (0-3) H 05/21/18 09:06 Ur Squamous Epith Cells Many per lpf (None-Few) H 05/21/18 09:06 Amorphous Sediment Many (Few) H 05/21/18 09:06 Hyaline Casts Many per lpf (None-Few) H 05/21/18 09:06 Granular Casts Few per lpf (None Seen) H 05/21/18 09:06 Ur Culture Indicated? NO. (NO) A 05/21/18 09:06 - Clinical Findings Intake & Output: Intake & Output 05/20/18 05/21/18 05/21/18 23:59 07:59 15:59 Intake Total 700 / 700 600 / 600 620 / 620 Output Total 25 / 25 300 / 300 100 / 100 Balance 675 / 675 300 / 300 520 / 520 Weight 110.48 kg Consult Discharge Plan - Plan Referrals: Khurram Victoria DO [Primary Care Provider] - <Natacha Darby - Last Filed: 05/21/18 15:48> Date of Encounter: 05/21/18 Objective PUL Vital signs: Last Vital Signs Temp 98 F 05/21/18 12:00 Pulse 82 05/21/18 15:00 Resp 18 05/21/18 15:04 BP 123/62 05/21/18 15:00 Pulse Ox 95 05/21/18 15:04 Ventilator Settings Ventilator Settings: Ventilator Settings, Last 8 Hours Ventilator Tidal Volume 500 Setting Ventilator Tidal Volume 500 Setting Ventilator Tidal Volume 500 Setting Ventilator Tidal Volume 500 Setting Ventilator Tidal Volume 500 Setting Ventilator Tidal Volume 500 Setting Ventilator Tidal Volume 500 Setting Ventilator Respiratory Rate 18 Setting Ventilator Respiratory Rate 18 Setting Ventilator Respiratory Rate 18 Setting Ventilator Respiratory Rate 18 Setting Ventilator Respiratory Rate 18 Setting Ventilator Respiratory Rate 18 Setting Ventilator Respiratory Rate 18 Setting Actual Respiratory Rate 18 Actual Respiratory Rate 18 Actual Respiratory Rate 18 Actual Respiratory Rate 18 Actual Respiratory Rate 18 Actual Respiratory Rate 18 Actual Respiratory Rate 18 Positive End Expiratory 10 Pressure Positive End Expiratory 10 Pressure Positive End Expiratory 10 Pressure Positive End Expiratory 10 Pressure Positive End Expiratory 10 Pressure Positive End Expiratory 12 Pressure Positive End Expiratory 12 Pressure Peak Inspiratory Airway 32 Pressure Peak Inspiratory Airway 33 Pressure Peak Inspiratory Airway 32 Pressure Peak Inspiratory Airway 33 Pressure Peak Inspiratory Airway 30 Pressure Peak Inspiratory Airway 35 Pressure Peak Inspiratory Airway 33 Pressure Results - Laboratory Findings CBC and BMP: 05/21/18 03:35 05/21/18 09:45 ABG ABG pH 7.49 pH Units (7.32-7.45) H 05/21/18 04:58 ABG pCO2 43 mmHg (35-45) 05/21/18 04:58 ABG pO2 67 mmHg (85-104) L 05/21/18 04:58 ABG O2 Saturation 94 % (95-98) L 05/21/18 04:58 Abnormal lab findings: Abnormal lab results WBC 15.7 K/mcL (4.3-11.1) H 05/21/18 03:35 RBC 3.30 M/mcL (4.19-5.50) L 05/21/18 03:35 Hgb 10.6 g/dL (12.9-16.9) L 05/21/18 03:35 Hct 32.6 % (37.5-50.1) L 05/21/18 03:35 RDW 16.0 % (11.5-14.5) H 05/21/18 03:35 Neutrophils # 14.7 K/mcL (1.6-8.9) H 05/21/18 03:35 Lymphocytes # 0.2 K/mcL (0.6-4.6) L 05/21/18 03:35 Toxic Granulation Present (Not Present) A 05/21/18 03:35 ABG pH 7.49 pH Units (7.32-7.45) H 05/21/18 04:58 ABG pO2 67 mmHg (85-104) L 05/21/18 04:58 ABG HCO3 33 mEq/L (21-27) H 05/21/18 04:58 ABG Total CO2 34 mEq/L (20-26) H 05/21/18 04:58 ABG O2 Saturation 94 % (95-98) L 05/21/18 04:58 ABG Base Excess 9 mEq/L (-2 to 3) H 05/21/18 04:58 Chloride 96 mEq/L (98-107) L 05/21/18 09:45 Carbon Dioxide 31 mEq/L (23-29) H 05/21/18 09:45 BUN 41 mg/dL (8-23) H 05/21/18 09:45 Creatinine 2.19 mg/dL (0.70-1.30) H 05/21/18 09:45 Est GFR ( Amer) 36 (> 60) L 05/21/18 09:45 Est GFR (Non-Af Amer) 30 (> 60) L 05/21/18 09:45 Glucose 230 mg/dL (70-105) H 05/21/18 09:45 POC Glucose 209 mg/dL (70-99) H 05/21/18 07:10 Phosphorus 2.3 mg/dL (2.7-4.5) L 05/21/18 09:45 TSH 15.597 mcIU/mL (0.340-5.600) H 05/19/18 03:32 Free T3 2.10 pg/mL (2.50-3.90) L 05/19/18 03:32 Total T3 0.33 ng/mL (0.87-1.78) L 05/19/18 03:32 Ur Specimen Adequacy See below A 05/21/18 09:06 Urine Color Ashlie (Yellow) A 05/21/18 09:06 Urine Clarity Turbid (Clear) A 05/21/18 09:06 Urine Protein 100 mg/dL (Neg-Trace) H 05/21/18 09:06 Urine Ketones Trace mg/dL (Negative) H 05/21/18 09:06 Urine Blood Large (Negative) H 05/21/18 09:06 Urine Bilirubin Small (Negative) H 05/21/18 09:06 Ur Leukocyte Esterase Trace (Negative) H 05/21/18 09:06 Urine Microscopic RBC TNTC per hpf (0-3) H 05/21/18 09:06 Urine Microscopic WBC 5-15 per hpf (0-3) H 05/21/18 09:06 Ur Squamous Epith Cells Many per lpf (None-Few) H 05/21/18 09:06 Amorphous Sediment Many (Few) H 05/21/18 09:06 Hyaline Casts Many per lpf (None-Few) H 05/21/18 09:06 Granular Casts Few per lpf (None Seen) H 05/21/18 09:06 Ur Culture Indicated? NO. (NO) A 05/21/18 09:06 - Clinical Findings Intake & Output: Intake & Output 05/20/18 05/21/18 05/21/18 23:59 07:59 15:59 Intake Total 700 / 700 600 / 600 820 / 820 Output Total 25 / 25 300 / 300 100 / 100 Balance 675 / 675 300 / 300 720 / 720 Weight 110.48 kg - Attending Attestation - Attending Attestation I saw and evaluated this patient and my medical decision-making was reviewed with the Resident Physician. I agree with the documented findings, disposition and treatment plan as described except to the extent set forth below. We independently had [id number] contact with the patient I spent 33 minutes of Critical Care time with this patient. It involved decision making of high complexity to assess, manipulate, and support vital organ system failure and/or to prevent further life threatening deterioration of the patient's condition. The time involved in the performance of separately reportable procedures was not counted toward critical care time. Patient seen and examined at bedside Labs, radiology, chart personally reviewed. Management was reviewed during multidisciplinary critical care rounds. CHILDREN LIBRARIAN: Patient was conscious following commands he became more agitated pulling the endotracheal tube decided to sedate him little bit deeper than what he was now. Will add propofol to the current sedated regimen 10/ Patient is episodically is agitated still on propfol will start coming back on sedation now his respiratory V/Q mismatch is stable . 10 Patient when he wakes up he is agitated he is on propofol . Pulm: Patient has severe VQ mismatch with with hypoxia and hypercarbia mostly complicated by exacerbation of diastolic heart failure COPD, obesity hypoventilation syndrome I increased the PEEP to 14 FiO2 is around 90% will bring down the FiO2 as tolerated to 60% then will come down on the PEEP will start him on broad-spectrum antibiotics. 10/ Patient is FIO2 is coming with acceptable oxygenation and ventilation will start diuresing more , his plateau pressure is better -lung compliance is improving after diuresis anticipate extubation in 1-2 days 10 no response to diuresis his plateau pressure is coming down , PEEP therapy is coming down . Patient is not ready for spontaneous breathing trial. Cards: Patient is hemodynamically stable acute on chronic diastolic heart failure. FEN-GI: Diet according to nutrition. Renal: The patient has acute on chronic diastolic heart failure looks like he might be volume depleted we will give her on albumin 200 ml as patient urine output tapered with worsening of serum creatinine. ID: on broad-spectrum antibiotics for possible pneumonia. Heme/Onc: Labs reviewed Endo: Glucose Monitored Integ/MSK: Skin Care per routine ICU Nursing Protocol to prevent ulcers. Lines: All lines examined without evidence of infection : Dispo: Patient is critically ill CODE:Full Code
[2018-05-22] MEDS: Dexmedetomidine HCl 400 MCG/100 ML MLS IVC SCH ×3 (01:54→12:15)
[2018-05-22] MEDS: Ipratropium/Albuterol Neb 3 ML IH SCH ×6 (03:04→23:00)
[2018-05-22] MEDS: FentaNYL (PF) 1,000 MCG in 0.9 % Sodium Chloride 80 ML IVC SCH ×2 (03:39→10:30)
[2018-05-22] MEDS: Artificial Tears SOLN 15 ML BOTTLE BOTH EYES SCH ×4 (04:31→15:55)
[2018-05-22 04:58] LABS: ABG Base Excess 9 mEq/L (-2 to 3); ABG HCO3 33 mEq/L (21-27); ABG Oxygen Saturation 91 % (95-98); ABG PCO2 45 mmHg (35-45); ABG PH 7.48 pH Units (7.32-7.45); ABG PO2 58 mmHg (85-104); ABG TCO2 35 mEq/L (20-26); Blood Gas Modality ASSIST CONTROL; Blood Gas PEEP 10 cm H2O; Blood Gas Respiration Rate 18; Blood Gas VT 500 cc
[2018-05-22] MEDS: Ampicillin/Sulbactam 3,000 MG in 0.9 % Sodium Chloride Mini Bag 100 ML IVPB SCH ×4 (05:03→23:19)
[2018-05-22] MEDS: *HR* Heparin 5,000 UNIT/ML VIAL SQ SCH ×2 (05:03→18:15)
[2018-05-22] MEDS: Insulin Human Regular 100 UNIT in 0.9 % Sodium Chloride 100 ML IVC SCH (05:27)
[2018-05-22 05:44] LABS: Basophils % 0.1 %; Hematocrit 30.4 % (37.5-50.1); Hemoglobin 9.7 g/dL (12.9-16.9); Immature Granulocytes % 2.4 % (0-4); Lymphocytes # 0.2 K/mcL (0.6-4.6); Lymphocytes % 2.2 %; Mean Corpuscular HGB Conc 31.9 g/dL (31.6-35.5); Mean Corpuscular Hemoglobin 32.2 pg (28.0-33.3); Mean Platelet Volume 10.6 fL (9.4-12.4); Monocytes # 0.4 K/mcL (0.0-1.3); Monocytes % 3.9 %; Neutrophils # 8.5 K/mcL (1.6-8.9); Platelet Count 166 K/mcL (140-400); Red Blood Count 3.01 M/mcL (4.19-5.50); Red Cell Distribution Width 16.3 % (11.5-14.5); Segmented Neutrophils % 91.4 %
[2018-05-22 05:50] LABS: Albumin 3.5 g/dL (3.5-5.7); Albumin/Globulin Ratio 2.3 (1.1-2.2); Bilirubin,Direct 0.2 mg/dL (0.0-0.2); Bilirubin,Indirect 0.3 mg/dL (0.0-1.2); Bilirubin,Total 0.5 mg/dL (0.3-1.0); Calcium 8.9 mg/dL (8.6-10.3); Globulin 1.5 g/dL (2.4-3.5)
[2018-05-22 06:43] LABS: Phosphorous 3.8 mg/dL (2.7-4.5)
[2018-05-22] MEDS: Budesonide/Formoterol 160/4.5 1 PUFF INH IH SCH ×2 (08:07→19:48)
[2018-05-22] MEDS: Albumin 25% 25gram/100mL 25 GM/100 ML IV.SOLN IVC SCH ×2 (08:34→08:49)
[2018-05-22] MEDS: Chlorhexidine Rinse 15 ML MOUTHWASH MM SCH (08:35)
[2018-05-22] MEDS: predniSONE 20 MG TABLET PO SCH (08:35)
[2018-05-22] MEDS: Pantoprazole 40 MG VIAL IVP SCH (08:35)
[2018-05-22] MEDS: Levothyroxine Sodium 100 MCG VIAL IVP SCH (08:35)
[2018-05-22] MEDS ORDERED: Sennosides/Docusate Sodium TABLET GTUBE SCH (09:00)
--- NOTE | 2018-05-22 09:25 | Pulmonology Progress Note ---
<Deniz Mock - Last Filed: 05/22/18 09:26> Date of Encounter: 05/22/18 Time of Encounter: 09:26 Assessment and Plan (1) Acute on chronic diastolic CHF (congestive heart failure) Current Visit: Yes Status: Acute Acute on chronic diastolic heart failure with fluid overload 40 mg Lasix given on May 19 and repeated on May 20 Consider further doses of Lasix Chest x-ray showed progressive reduction in pulmonary edema and pleural effusion Electrolyte protocols ordered with potassium repleted Patient has had minimal urine output noted on May 20 and third Began albumin 50 g to increase cardiac preload Urine output responded with output of 850 on May 21 Repeat 50 g of albumin on May 22 We will continue to monitor (2) Acute on chronic respiratory failure with hypoxia and hypercapnia Current Visit: No Status: Acute Acute on chronic respiratory failure in the setting of diastolic heart failure exacerbation and fluid overload with COPD. Patient remains sedated and intubated with some worsening in plateau pressures today. We will attempt spontaneous breathing trial this afternoon for at least 2 hours with ABG to follow Intent to transition to BiPAP this afternoon or tomorrow (3) Diabetes mellitus Current Visit: Yes Status: Chronic Subcutaneous insulin regimen stopped May 21 and patient initiated on insulin drip starting dose of 6.7 units per hour POC glucose shows well-controlled over the past 24 hours We will continue to monitor 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 mellitus oil heaterman insulin use: with oil heaterman use Diabetes mellitus complication status: with kidney complications Diabetes mellitus complication detail: with chronic kidney disease Chronic kidney disease stage: stage 3 (moderate) Qualified Code(s): E11.22 - Type 2 diabetes mellitus with diabetic chronic kidney disease; N18.3 - Chronic kidney disease, stage 3 (moderate); Z79.4 - senior living (current) use of insulin (4) Pneumonia Current Visit: Yes Status: Suspected Patient history of vomiting with cough prior to respiratory distress concerning for aspiration pneumonia Chest x-ray shows some evidence of aspiration pneumonia in the right lower lobe Bedside ultrasound conducted on May 22 showed no evidence of significant pleural effusion-suspect atelectasis We will continue Unasyn Qualifiers: Pneumonia type: aspiration pneumonia Laterality: unspecified laterality Lung location: unspecified part of lung (5) Hypothyroidism Current Visit: Yes Status: Chronic TSH noted to be 43.5 upon admission 200 g Synthroid administered TSH level decreased to 15.59 IV Synthroid decreased to 65 g daily to match patient's equivalent home dose Qualifiers: Hypothyroidism type: acquired Qualified Code(s): E03.9 - Hypothyroidism, unspecified (6) Tobacco abuse Current Visit: No Status: Chronic Patient documentation states current every day smoker Unknown pack years Patient is highly encouraged to stop smoking and pursue lifestyle modifications including weight loss and sleep hygiene (7) Goals of care, counseling/discussion Current Visit: Yes Status: Acute Palliative care consulted and is following Per palliative care discussion was had with the family regarding goals of care Family wishes for patient remained full code with aggressive measures if necessary Subjective Principal diagnosis: Acute on chronic respiratory failure Interval history: Patient is a 67-year-old male presenting from [facility] for respiratory failure. The patient was admitted as an inpatient to [facility] from May 05 - for dyspnea. The patient was intubated during his stay, and was transferred upon discharge to the [facility] for rehabilitation. Per the patient's sister acting as a historian , the patient had a vomiting episode on the evening of May 16 which resulted in several episodes of cough which led to respiratory compromise throughout the night. Patient's respiratory status worsened throughout the next day despite the use of BiPAP -eventually showing acute on chronic respiratory acidosis with a pH of 7.15 a PCO2 125, HCO3 of 44 and oxygen saturation of 83%. The patient was subsequently intubated shortly after arrival at [facility]. Current Plans to extubate the patient on 05/23/2018 Objective PUL Vital signs: Last Vital Signs Temp 97.5 F L 05/22/18 08:00 Pulse 68 05/22/18 09:00 Resp 18 05/22/18 09:00 BP 153/74 05/22/18 09:00 Pulse Ox 96 05/22/18 09:00 General appearance: no acute distress, other (Patient is intubated and mechanically ventilated) Eyes: nonicteric Effort: other (Patient is intubated and mechanically ventilated) Auscultation: bilateral: rhonchi Cardiovascular: regular rate and rhythm Gastrointestinal: normoactive bowel sounds, soft, non-tender, other (Patient abdomen is distended from baseline, but soft - placed on bowel regimen) Integumentary: normal Extremities: no cyanosis, pink and warm, edema (There is 2+ pitting edema noted in the lower extremities) other (Unable to assess due to sedation and intubation) Ventilator Settings Ventilator Settings: Ventilator Settings, Last 8 Hours Ventilator Tidal Volume 500 Setting Ventilator Tidal Volume 500 Setting Ventilator Tidal Volume 500 Setting Ventilator Tidal Volume 500 Setting Ventilator Tidal Volume 500 Setting Ventilator Tidal Volume 500 Setting Ventilator Tidal Volume 500 Setting Ventilator Tidal Volume 500 Setting Ventilator Respiratory Rate 18 Setting Ventilator Respiratory Rate 18 Setting Ventilator Respiratory Rate 18 Setting Ventilator Respiratory Rate 18 Setting Ventilator Respiratory Rate 18 Setting Ventilator Respiratory Rate 18 Setting Ventilator Respiratory Rate 18 Setting Ventilator Respiratory Rate 18 Setting Actual Respiratory Rate 18 Actual Respiratory Rate 18 Actual Respiratory Rate 18 Actual Respiratory Rate 18 Positive End Expiratory 8 Pressure Positive End Expiratory 10 Pressure Positive End Expiratory 10 Pressure Positive End Expiratory 10 Pressure Positive End Expiratory 10 Pressure Positive End Expiratory 10 Pressure Positive End Expiratory 10 Pressure Positive End Expiratory 10 Pressure Peak Inspiratory Airway 37 Pressure Peak Inspiratory Airway 37 Pressure Peak Inspiratory Airway 33 Pressure Peak Inspiratory Airway 32 Pressure Peak Inspiratory Airway 33 Pressure Peak Inspiratory Airway 33 Pressure Peak Inspiratory Airway 32 Pressure Results - Laboratory Findings CBC and BMP: 05/22/18 04:25 05/22/18 04:25 ABG ABG pH 7.48 pH Units (7.32-7.45) H 05/22/18 04:55 ABG pCO2 45 mmHg (35-45) 05/22/18 04:55 ABG pO2 58 mmHg (85-104) L 05/22/18 04:55 ABG O2 Saturation 91 % (95-98) L 05/22/18 04:55 Abnormal lab findings: Abnormal lab results RBC 3.01 M/mcL (4.19-5.50) L 05/22/18 04:25 Hgb 9.7 g/dL (12.9-16.9) L 05/22/18 04:25 Hct 30.4 % (37.5-50.1) L 05/22/18 04:25 MCV 101.0 fL (83.0-100.0) H 05/22/18 04:25 RDW 16.3 % (11.5-14.5) H 05/22/18 04:25 Lymphocytes # 0.2 K/mcL (0.6-4.6) L 05/22/18 04:25 Toxic Granulation Present (Not Present) A 05/21/18 03:35 ABG pH 7.48 pH Units (7.32-7.45) H 05/22/18 04:55 ABG pO2 58 mmHg (85-104) L 05/22/18 04:55 ABG HCO3 33 mEq/L (21-27) H 05/22/18 04:55 ABG Total CO2 35 mEq/L (20-26) H 05/22/18 04:55 ABG O2 Saturation 91 % (95-98) L 05/22/18 04:55 ABG Base Excess 9 mEq/L (-2 to 3) H 05/22/18 04:55 Carbon Dioxide 31 mEq/L (23-29) H 05/22/18 04:25 BUN 48 mg/dL (8-23) H 05/22/18 04:25 Creatinine 1.94 mg/dL (0.70-1.30) H 05/22/18 04:25 Est GFR ( Amer) 42 (> 60) L 05/22/18 04:25 Est GFR (Non-Af Amer) 35 (> 60) L 05/22/18 04:25 Glucose 175 mg/dL (70-105) H 05/22/18 04:25 POC Glucose 153 mg/dL (70-99) H 05/22/18 00:14 Calculated Osmolality 303 (280-300) H 05/22/18 04:25 Serum Total Protein 5.0 g/dL (6.4-8.9) L 05/22/18 04:25 Globulin 1.5 g/dL (2.4-3.5) L 05/22/18 04:25 Albumin/Globulin Ratio 2.3 (1.1-2.2) H 05/22/18 04:25 TSH 15.597 mcIU/mL (0.340-5.600) H 05/19/18 03:32 Free T3 2.10 pg/mL (2.50-3.90) L 05/19/18 03:32 Total T3 0.33 ng/mL (0.87-1.78) L 05/19/18 03:32 Ur Specimen Adequacy See below A 05/21/18 09:06 Urine Color Ashlie (Yellow) A 05/21/18 09:06 Urine Clarity Turbid (Clear) A 05/21/18 09:06 Urine Protein 100 mg/dL (Neg-Trace) H 05/21/18 09:06 Urine Ketones Trace mg/dL (Negative) H 10/03/18 09:06 Urine Blood Large (Negative) H 05/21/18 09:06 Urine Bilirubin Small (Negative) H 05/21/18 09:06 Ur Leukocyte Esterase Trace (Negative) H 05/21/18 09:06 Urine Microscopic RBC TNTC per hpf (0-3) H 05/21/18 09:06 Urine Microscopic WBC 5-15 per hpf (0-3) H 05/21/18 09:06 Ur Squamous Epith Cells Many per lpf (None-Few) H 05/21/18 09:06 Amorphous Sediment Many (Few) H 05/21/18 09:06 Hyaline Casts Many per lpf (None-Few) H 05/21/18 09:06 Granular Casts Few per lpf (None Seen) H 05/21/18 09:06 Ur Culture Indicated? NO. (NO) A 05/21/18 09:06 - Clinical Findings Intake & Output: Intake & Output 05/21/18 05/22/18 05/22/18 23:59 07:59 15:59 Intake Total 1025.5 / 1025.5 700.5 / 700.5 444 / 444 Output Total 450 / 450 450 / 450 550 / 550 Balance 575.5 / 575.5 250.5 / 250.5 -106 / -106 Weight 117.1 kg Consult Discharge Plan - Plan Referrals: Khurram Victoria DO [Primary Care Provider] - <Natacha Darby - Last Filed: 05/22/18 11:58> Date of Encounter: 05/22/18 Objective PUL Vital signs: Last Vital Signs Temp 97.5 F L 05/22/18 08:00 Pulse 68 05/22/18 09:00 Resp 18 05/22/18 09:00 BP 153/74 05/22/18 09:00 Pulse Ox 96 05/22/18 09:00 Ventilator Settings Ventilator Settings: Ventilator Settings, Last 8 Hours Ventilator Tidal Volume 500 Setting Ventilator Tidal Volume 500 Setting Ventilator Tidal Volume 500 Setting Ventilator Tidal Volume 500 Setting Ventilator Tidal Volume 500 Setting Ventilator Tidal Volume 500 Setting Ventilator Tidal Volume 500 Setting Ventilator Tidal Volume 500 Setting Ventilator Respiratory Rate 18 Setting Ventilator Respiratory Rate 18 Setting Ventilator Respiratory Rate 18 Setting Ventilator Respiratory Rate 18 Setting Ventilator Respiratory Rate 18 Setting Ventilator Respiratory Rate 18 Setting Ventilator Respiratory Rate 18 Setting Ventilator Respiratory Rate 18 Setting Actual Respiratory Rate 18 Actual Respiratory Rate 18 Actual Respiratory Rate 18 Actual Respiratory Rate 18 Positive End Expiratory 8 Pressure Positive End Expiratory 10 Pressure Positive End Expiratory 10 Pressure Positive End Expiratory 10 Pressure Positive End Expiratory 10 Pressure Positive End Expiratory 10 Pressure Positive End Expiratory 10 Pressure Positive End Expiratory 10 Pressure Peak Inspiratory Airway 37 Pressure Peak Inspiratory Airway 37 Pressure Peak Inspiratory Airway 33 Pressure Peak Inspiratory Airway 32 Pressure Peak Inspiratory Airway 33 Pressure Peak Inspiratory Airway 33 Pressure Peak Inspiratory Airway 32 Pressure Results - Laboratory Findings CBC and BMP: 05/22/18 04:25 05/22/18 04:25 ABG ABG pH 7.48 pH Units (7.32-7.45) H 05/22/18 04:55 ABG pCO2 45 mmHg (35-45) 05/22/18 04:55 ABG pO2 58 mmHg (85-104) L 05/22/18 04:55 ABG O2 Saturation 91 % (95-98) L 05/22/18 04:55 Abnormal lab findings: Abnormal lab results RBC 3.01 M/mcL (4.19-5.50) L 05/22/18 04:25 Hgb 9.7 g/dL (12.9-16.9) L 05/22/18 04:25 Hct 30.4 % (37.5-50.1) L 05/22/18 04:25 MCV 101.0 fL (83.0-100.0) H 05/22/18 04:25 RDW 16.3 % (11.5-14.5) H 05/22/18 04:25 Lymphocytes # 0.2 K/mcL (0.6-4.6) L 05/22/18 04:25 Toxic Granulation Present (Not Present) A 05/21/18 03:35 ABG pH 7.48 pH Units (7.32-7.45) H 05/22/18 04:55 ABG pO2 58 mmHg (85-104) L 05/22/18 04:55 ABG HCO3 33 mEq/L (21-27) H 05/22/18 04:55 ABG Total CO2 35 mEq/L (20-26) H 05/22/18 04:55 ABG O2 Saturation 91 % (95-98) L 05/22/18 04:55 ABG Base Excess 9 mEq/L (-2 to 3) H 05/22/18 04:55 Carbon Dioxide 31 mEq/L (23-29) H 05/22/18 04:25 BUN 48 mg/dL (8-23) H 05/22/18 04:25 Creatinine 1.94 mg/dL (0.70-1.30) H 05/22/18 04:25 Est GFR ( Amer) 42 (> 60) L 05/22/18 04:25 Est GFR (Non-Af Amer) 35 (> 60) L 05/22/18 04:25 Glucose 175 mg/dL (70-105) H 05/22/18 04:25 POC Glucose 153 mg/dL (70-99) H 05/22/18 00:14 Calculated Osmolality 303 (280-300) H 05/22/18 04:25 Serum Total Protein 5.0 g/dL (6.4-8.9) L 05/22/18 04:25 Globulin 1.5 g/dL (2.4-3.5) L 05/22/18 04:25 Albumin/Globulin Ratio 2.3 (1.1-2.2) H 05/22/18 04:25 TSH 15.597 mcIU/mL (0.340-5.600) H 05/19/18 03:32 Free T3 2.10 pg/mL (2.50-3.90) L 05/19/18 03:32 Total T3 0.33 ng/mL (0.87-1.78) L 05/19/18 03:32 Ur Specimen Adequacy See below A 05/21/18 09:06 Urine Color Ashlie (Yellow) A 05/21/18 09:06 Urine Clarity Turbid (Clear) A 05/21/18 09:06 Urine Protein 100 mg/dL (Neg-Trace) H 05/21/18 09:06 Urine Ketones Trace mg/dL (Negative) H 05/21/18 09:06 Urine Blood Large (Negative) H 05/21/18 09:06 Urine Bilirubin Small (Negative) H 05/21/18 09:06 Ur Leukocyte Esterase Trace (Negative) H 05/21/18 09:06 Urine Microscopic RBC TNTC per hpf (0-3) H 05/21/18 09:06 Urine Microscopic WBC 5-15 per hpf (0-3) H 05/21/18 09:06 Ur Squamous Epith Cells Many per lpf (None-Few) H 05/21/18 09:06 Amorphous Sediment Many (Few) H 05/21/18 09:06 Hyaline Casts Many per lpf (None-Few) H 05/21/18 09:06 Granular Casts Few per lpf (None Seen) H 05/21/18 09:06 Ur Culture Indicated? NO. (NO) A 05/21/18 09:06 - Clinical Findings Intake & Output: Intake & Output 05/21/18 05/22/18 05/22/18 23:59 07:59 15:59 Intake Total 1025.5 / 1025.5 700.5 / 700.5 444 / 444 Output Total 450 / 450 450 / 450 550 / 550 Balance 575.5 / 575.5 250.5 / 250.5 -106 / -106 Weight 117.1 kg - Attending Attestation Attending Attestation I saw and evaluated this patient and my medical decision-making was reviewed with the Resident Physician. I agree with the documented findings, disposition and treatment plan as described except to the extent set forth below. We independently had [id number] contact with the patient I spent 33 minutes of Critical Care time with this patient. It involved decision making of high complexity to assess, manipulate, and support vital organ system failure and/or to prevent further life threatening deterioration of the patient's condition. The time involved in the performance of separately reportable procedures was not counted toward critical care time. Patient seen and examined at bedside Labs, radiology, chart personally reviewed. Management was reviewed during multidisciplinary critical care rounds. SCREEN ROLLER: Patient was conscious following commands he became more agitated pulling the endotracheal tube decided to sedate him little bit deeper than what he was now. Will add propofol to the current sedated regimen 05/20 Patient is episodically is agitated still on propfol will start coming back on sedation now his respiratory V/Q mismatch is stable . 05/21 Patient when he wakes up he is agitated he is on propofol . 05/22 sedation was liberated patient was agitated but he was following commands doing well on the short CPAP trial and extubated him to BiPAP patient is conscious and able to talk following commands Pulm: Patient has severe VQ mismatch with with hypoxia and hypercarbia mostly complicated by exacerbation of diastolic heart failure COPD, obesity hypoventilation syndrome I increased the PEEP to 14 FiO2 is around 90% will bring down the FiO2 as tolerated to 60% then will come down on the PEEP will start him on broad-spectrum antibiotics. 05/20 Patient is FIO2 is coming with acceptable oxygenation and ventilation will start diuresing more , his plateau pressure is better -lung compliance is improving after diuresis anticipate extubation in 1-2 days 05/21 no response to diuresis his plateau pressure is coming down , PEEP therapy is coming down . Patient is not ready for spontaneous breathing trial. 05/22 patient was extubated to BiPAP tolerating well for now to keep him nothing by mouth whole day and whole night to continue his BiPAP to continue bronchodilators and steroids and antibiotics patient has acceptable oxygenation and ventilation if he gets more drowsy and hypoxic we will repeat the blood gas. Otherwise we will get an ABG late in the night. Cards: Patient is hemodynamically stable acute on chronic diastolic heart failure. Could not do much diuresis I personally did ultrasound of the lung which showed minimal left-sided pleural effusion lot of atelectasis with some signs of fluid overload as evidenced by B lines in lung ultrasound. FEN-GI: Nothing by mouth for now. Renal: Labs and output reviewed kidney function improving ID: on broad-spectrum antibiotics for possible aspiration pneumonia. Heme/Onc: Labs reviewed Endo: Glucose Monitored Integ/MSK: Skin Care per routine ICU Nursing Protocol to prevent ulcers. Lines: All lines examined without evidence of infection : Dispo: Patient is critically ill high chance of reintubation. CODE:Full Code
[2018-05-22] MEDS: Docusate Oral Soln 100 MG/10 ML UDC GTUBE SCH ×2 (11:32→22:09)
[2018-05-22 12:18] LABS: ABG Base Excess 8 mEq/L (-2 to 3); ABG HCO3 34 mEq/L (21-27); ABG Oxygen Saturation 96 % (95-98); ABG PCO2 59 mmHg (35-45); ABG PH 7.37 pH Units (7.32-7.45); ABG PO2 85 mmHg (85-104); ABG TCO2 36 mEq/L (20-26)
[2018-05-22] MEDS: *HR* Metoprolol 5 MG/5 ML VIAL IVP PRN ×2 (13:45→20:10)
--- NOTE | 2018-05-22 14:00 | Palliative Progress Note ---
Date of Encounter: 05/22/18 Time of Encounter: 13:58 - Assessment and plan (1) Goals of care, counseling/discussion Current Visit: Yes Status: Acute (2) Acute and chronic respiratory failure Current Visit: No Status: Resolved Assessment and plan: Prior to today, patient was not tolerating spontaneous breathing trials; however , patient became more alert with decrease in sedation, and was ultimately extubated successfully. He is currently tolerating BiPAP well without signs of distress. His most recent ABG demonstrated pH 7.37, pCO2 59, pO2 85, and HCO3 34. Patient is currently receiving symbicort, duonebs, and PO steroids for acute COPD exacerbation. He is noncompliant with home BiPAP recommendations. Will continue further management per primary team. Qualifiers: Respiratory failure complication: hypoxia and hypercapnia Qualified Code(s) : J96.21 - Acute and chronic respiratory failure with hypoxia; J96.22 - Acute and chronic respiratory failure with hypercapnia (3) Acute on chronic diastolic CHF (congestive heart failure) Current Visit: Yes Status: Acute Assessment and plan: Patient arrived to [facility] with acute respiratory distress secondary to acute CHF exacerbation and possible aspiration pneumonia. He has received 2 doses of lasix to date, and has recently been started on albumin. At the time of admission, CXR demonstrated small to mild bilateral pleural effusions, which has improved based on CXR performed this morning. Patient is currently extubated and on BiPAP, which he appears to be tolerating well. Will continue to monitor with assistance of primary team. (4) Pneumonia Current Visit: Yes Status: Suspected Assessment and plan: Due to history of recent vomiting with worsening respiratory status immediately after, there was suspicion of aspiration pneumonia. Patient was started on antibiotic therapy at the time of admission, and is currently on Unasyn. Most recent laboratory studies showed WBC count WNL. Will continue antibiotic therapy per primary team. Qualifiers: Pneumonia type: aspiration pneumonia Laterality: unspecified laterality Lung location: unspecified part of lung (5) CKD (chronic kidney disease) Current Visit: No Status: Chronic Assessment and plan: Patient has a history of CKD stage III. He has had elevation in serum creatinine during this admission in response to lasix therapy. Creatinine improved on laboratory studies this morning. Will continue monitoring in cooperation with primary team. Qualifiers: Chronic kidney disease stage: stage 3 (moderate) Qualified Code(s): N18.3 - Chronic kidney disease, stage 3 (moderate) (6) Diabetes mellitus Current Visit: Yes Status: Chronic Assessment and plan: Patient is currently on insulin drip due to sustained hyperglycemia over several days. Blood glucose appears to be better controlled at this time. Will continue insulin drip per primary team. 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 mellitus moth exterminator insulin use: with moth exterminator use Diabetes mellitus complication status: with kidney complications Diabetes mellitus complication detail: with chronic kidney disease Chronic kidney disease stage: stage 3 (moderate) Qualified Code(s): E11.22 - Type 2 diabetes mellitus with diabetic chronic kidney disease; N18.3 - Chronic kidney disease, stage 3 (moderate); Z79.4 - exterminator helper (current) use of insulin (7) Hypothyroidism Current Visit: Yes Status: Chronic Assessment and plan: Synthroid 65 micrograms IVP daily Qualifiers: Hypothyroidism type: acquired Qualified Code(s): E03.9 - Hypothyroidism, unspecified (8) Hypertension Current Visit: No Status: Chronic Assessment and plan: Patient's home medication regimen includes metoprolol XL 50mg daily and imdur 30mg daily. He has had some elevated systolic BP measurements today, and is currently receiving lopressor 5mg IVP Q6H PRN. Consider transition back to PO antihypertensive agents if patient continues to do well with non-invasive ventilation and is able to tolerate PO intake. Qualifiers: Hypertension type: essential hypertension Qualified Code(s): I10 - Essential (primary) hypertension (9) Tobacco abuse Current Visit: No Status: Chronic - Time Spent With Patient Total time spent is greater than 50% in coordination of care (as documented) at patient's floor/unit and/or counseling patient: - Subjective Interval history: Patient arrived to [facility] as a transfer from [facility] on 2017 due to respiratory failure. He had previously been hospitalized at [facility] from 05/05 - 05/12 for dyspnea, during which he required intubation. He was extubated prior to discharge from that admission and was transferred to [facility]. He experienced an episode of emesis, with concern for possible aspiration on 05/17, and experienced progressive respiratory decline. On presentation to the [facility] ED, he was found to have acute on chronic respiratory acidosis, and ultimately required intubation for management. - Constitutional Vitals: Abnormal lab results RBC 3.01 M/mcL (4.19-5.50) L 10/04/18 04:25 Hgb 9.7 g/dL (12.9-16.9) L 05/22/18 04:25 Hct 30.4 % (37.5-50.1) L 05/22/18 04:25 MCV 101.0 fL (83.0-100.0) H 05/22/18 04:25 RDW 16.3 % (11.5-14.5) H 05/22/18 04:25 Lymphocytes # 0.2 K/mcL (0.6-4.6) L 05/22/18 04:25 Toxic Granulation Present (Not Present) A 05/21/18 03:35 ABG pCO2 59 mmHg (35-45) H 05/22/18 12:12 ABG HCO3 34 mEq/L (21-27) H 05/22/18 12:12 ABG Total CO2 36 mEq/L (20-26) H 05/22/18 12:12 ABG Base Excess 8 mEq/L (-2 to 3) H 05/22/18 12:12 Carbon Dioxide 31 mEq/L (23-29) H 05/22/18 04:25 BUN 48 mg/dL (8-23) H 05/22/18 04:25 Creatinine 1.94 mg/dL (0.70-1.30) H 05/22/18 04:25 Est GFR ( Amer) 42 (> 60) L 05/22/18 04:25 Est GFR (Non-Af Amer) 35 (> 60) L 05/22/18 04:25 Glucose 175 mg/dL (70-105) H 05/22/18 04:25 POC Glucose 153 mg/dL (70-99) H 05/22/18 00:14 Calculated Osmolality 303 (280-300) H 05/22/18 04:25 Serum Total Protein 5.0 g/dL (6.4-8.9) L 05/22/18 04:25 Globulin 1.5 g/dL (2.4-3.5) L 05/22/18 04:25 Albumin/Globulin Ratio 2.3 (1.1-2.2) H 05/22/18 04:25 TSH 15.597 mcIU/mL (0.340-5.600) H 05/19/18 03:32 Free T3 2.10 pg/mL (2.50-3.90) L 05/19/18 03:32 Total T3 0.33 ng/mL (0.87-1.78) L 05/19/18 03:32 Ur Specimen Adequacy See below A 05/21/18 09:06 Urine Color Ashlie (Yellow) A 05/21/18 09:06 Urine Clarity Turbid (Clear) A 05/21/18 09:06 Urine Protein 100 mg/dL (Neg-Trace) H 05/21/18 09:06 Urine Ketones Trace mg/dL (Negative) H 05/21/18 09:06 Urine Blood Large (Negative) H 05/21/18 09:06 Urine Bilirubin Small (Negative) H 05/21/18 09:06 Ur Leukocyte Esterase Trace (Negative) H 05/21/18 09:06 Urine Microscopic RBC TNTC per hpf (0-3) H 05/21/18 09:06 Urine Microscopic WBC 5-15 per hpf (0-3) H 05/21/18 09:06 Ur Squamous Epith Cells Many per lpf (None-Few) H 05/21/18 09:06 Amorphous Sediment Many (Few) H 05/21/18 09:06 Hyaline Casts Many per lpf (None-Few) H 05/21/18 09:06 Granular Casts Few per lpf (None Seen) H 05/21/18 09:06 Ur Culture Indicated? NO. (NO) A 05/21/18 09:06 Palliative Quality Palliative Quality: Screen for Code Status: Yes, Screen for Goals of Care: Yes, Screen for Pain: NA, If Pain Regimen Started, Initiate Bowel Regimen: NA, Screen for Nausea/Vomitting: NA Code Status: 05/18/18 15:26 Resuscitation Status: Active [RES] Routine Comment: Resuscitation Status: Full Code - Labs CBC & Chem 7: 05/22/18 04:25 05/22/18 04:25 Labs: Laboratory Results - last 24 hr 05/21/18 05/21/18 05/21/18 11:09 12:05 14:18 WBC RBC Hgb Hct MCV MCH MCHC RDW Plt Count MPV Immature Gran % Seg Neutrophils % Lymphocytes % Monocytes % Eosinophils % Basophils % Neutrophils # Lymphocytes # Monocytes # Eosinophils # Basophils # Sample Site ABG pH ABG pCO2 ABG pO2 ABG HCO3 ABG Total CO2 ABG O2 Saturation ABG Base Excess [place] Test Respiration Rate O2 Delivery Device Blood Gas Modality Inspired O2 Tidal Volume PEEP Sodium Potassium Chloride Carbon Dioxide BUN Creatinine Est GFR ( Amer) Est GFR (Non-Af Amer) BUN/Creatinine Ratio Glucose POC Glucose 206 H 184 H 164 H Calculated Osmolality Calcium Phosphorus Magnesium Total Bilirubin Direct Bilirubin Indirect Bilirubin AST ALT Alkaline Phosphatase Serum Total Protein Albumin Globulin Albumin/Globulin Ratio 05/21/18 05/21/18 05/21/18 15:07 16:22 17:04 WBC RBC Hgb Hct MCV MCH MCHC RDW Plt Count MPV Immature Gran % Seg Neutrophils % Lymphocytes % Monocytes % Eosinophils % Basophils % Neutrophils # Lymphocytes # Monocytes # Eosinophils # Basophils # Sample Site ABG pH ABG pCO2 ABG pO2 ABG HCO3 ABG Total CO2 ABG O2 Saturation ABG Base Excess [place] Test Respiration Rate O2 Delivery Device Blood Gas Modality Inspired O2 Tidal Volume PEEP Sodium Potassium Chloride Carbon Dioxide BUN Creatinine Est GFR ( Amer) Est GFR (Non-Af Amer) BUN/Creatinine Ratio Glucose POC Glucose 166 H 164 H 167 H Calculated Osmolality Calcium Phosphorus Magnesium Total Bilirubin Direct Bilirubin Indirect Bilirubin AST ALT Alkaline Phosphatase Serum Total Protein Albumin Globulin Albumin/Globulin Ratio 05/21/18 05/21/18 05/21/18 17:46 18:52 20:04 WBC RBC Hgb Hct MCV MCH MCHC RDW Plt Count MPV Immature Gran % Seg Neutrophils % Lymphocytes % Monocytes % Eosinophils % Basophils % Neutrophils # Lymphocytes # Monocytes # Eosinophils # Basophils # Sample Site ABG pH ABG pCO2 ABG pO2 ABG HCO3 ABG Total CO2 ABG O2 Saturation ABG Base Excess [place] Test Respiration Rate O2 Delivery Device Blood Gas Modality Inspired O2 Tidal Volume PEEP Sodium Potassium Chloride Carbon Dioxide BUN Creatinine Est GFR ( Amer) Est GFR (Non-Af Amer) BUN/Creatinine Ratio Glucose POC Glucose 156 H 174 H 157 H Calculated Osmolality Calcium Phosphorus Magnesium Total Bilirubin Direct Bilirubin Indirect Bilirubin AST ALT Alkaline Phosphatase Serum Total Protein Albumin Globulin Albumin/Globulin Ratio 05/21/18 05/21/18 05/21/18 20:50 20:55 22:15 WBC RBC Hgb Hct MCV MCH MCHC RDW Plt Count MPV Immature Gran % Seg Neutrophils % Lymphocytes % Monocytes % Eosinophils % Basophils % Neutrophils # Lymphocytes # Monocytes # Eosinophils # Basophils # Sample Site ABG pH ABG pCO2 ABG pO2 ABG HCO3 ABG Total CO2 ABG O2 Saturation ABG Base Excess [place] Test Respiration Rate O2 Delivery Device Blood Gas Modality Inspired O2 Tidal Volume PEEP Sodium Potassium Chloride Carbon Dioxide BUN Creatinine Est GFR ( Amer) Est GFR (Non-Af Amer) BUN/Creatinine Ratio Glucose POC Glucose 175 H 195 H Calculated Osmolality Calcium Phosphorus 4.1 Magnesium Total Bilirubin Direct Bilirubin Indirect Bilirubin AST ALT Alkaline Phosphatase Serum Total Protein Albumin Globulin Albumin/Globulin Ratio 05/21/18 05/22/18 05/22/18 23:01 00:14 04:25 WBC 9.3 RBC 3.01 L Hgb 9.7 L Hct 30.4 L MCV 101.0 H MCH 32.2 MCHC 31.9 RDW 16.3 H Plt Count 166 MPV 10.6 Immature Gran % 2.4 Seg Neutrophils % 91.4 Lymphocytes % 2.2 Monocytes % 3.9 Eosinophils % 0.0 Basophils % 0.1 Neutrophils # 8.5 Lymphocytes # 0.2 L Monocytes # 0.4 Eosinophils # 0.0 Basophils # 0.0 Sample Site ABG pH ABG pCO2 ABG pO2 ABG HCO3 ABG Total CO2 ABG O2 Saturation ABG Base Excess [place] Test Respiration Rate O2 Delivery Device Blood Gas Modality Inspired O2 Tidal Volume PEEP Sodium Potassium Chloride Carbon Dioxide BUN Creatinine Est GFR ( Amer) Est GFR (Non-Af Amer) BUN/Creatinine Ratio Glucose POC Glucose 173 H 153 H Calculated Osmolality Calcium Phosphorus Magnesium Total Bilirubin Direct Bilirubin Indirect Bilirubin AST ALT Alkaline Phosphatase Serum Total Protein Albumin Globulin Albumin/Globulin Ratio 05/22/18 05/22/18 05/22/18 04:25 04:55 12:12 WBC RBC Hgb Hct MCV MCH MCHC RDW Plt Count MPV Immature Gran % Seg Neutrophils % Lymphocytes % Monocytes % Eosinophils % Basophils % Neutrophils # Lymphocytes # Monocytes # Eosinophils # Basophils # Sample Site R Brach L Radial ABG pH 7.48 H 7.37 ABG pCO2 45 59 H ABG pO2 58 L 85 ABG HCO3 33 H 34 H ABG Total CO2 35 H 36 H ABG O2 Saturation 91 L 96 ABG Base Excess 9 H 8 H Carson Test N/A Positive Respiration Rate 18 O2 Delivery Device Adult Vent BiPAP Blood Gas Modality ASSIST CONTROL Inspired O2 50.0 50.0 Tidal Volume 500 PEEP 10 Sodium 138 Potassium 4.0 Chloride 98 Carbon Dioxide 31 H BUN 48 H Creatinine 1.94 H Est GFR ( Amer) 42 L Est GFR (Non-Af Amer) 35 L BUN/Creatinine Ratio 25 Glucose 175 H POC Glucose Calculated Osmolality 303 H Calcium 8.9 Phosphorus 3.8 Magnesium 2.0 Total Bilirubin 0.5 Direct Bilirubin 0.2 Indirect Bilirubin 0.3 AST 18 ALT 18 Alkaline Phosphatase 45 Serum Total Protein 5.0 L Albumin 3.5 Globulin 1.5 L Albumin/Globulin Ratio 2.3 H - Impressions Impressions Chest X-Ray 05/22/18 08:45 IMPRESSION: 1. Endotracheal tube tip is approximately 2 cm above the claudia. 2. Small bilateral pleural effusions with adjacent atelectasis. Slightly increased linear opacity in the right mid lung either reflects loculated effusion within the fissure versus atelectasis. 3. Cardiomegaly with mild interstitial edema. D/ / 05/22/2018 09:07:48 Marija Lewis MD / sadia Interpreting Provider: Marija Lewis MD - ABG Interpretation ABG results: ABG ABG pH 7.37 pH Units (7.32-7.45) 05/22/18 12:12 ABG pCO2 59 mmHg (35-45) H 05/22/18 12:12 ABG pO2 85 mmHg (85-104) 05/22/18 12:12 ABG O2 Saturation 96 % (95-98) 05/22/18 12:12 Consult Discharge Plan - Plan Referrals: Khurram Victoria DO [Primary Care Provider] -
[2018-05-22] MEDS: Insulin LISPRO 300 UNITS/3 ML VIAL SQ SCH (23:19)
[2018-05-23] MEDS: *HR* Metoprolol 5 MG/5 ML VIAL IVP PRN ×3 (03:27→20:20)
[2018-05-23] MEDS: Ipratropium/Albuterol Neb 3 ML IH SCH ×6 (04:03→23:00)
[2018-05-23] MEDS: Insulin LISPRO 300 UNITS/3 ML VIAL SQ SCH ×5 (04:35→20:07)
[2018-05-23 05:42] LABS: Basophils % 0.5 %; Eosinophils % 0.1 %; Hematocrit 32.2 % (37.5-50.1); Hemoglobin 9.9 g/dL (12.9-16.9); Immature Granulocytes % 4.7 % (0-4); Lymphocytes # 0.6 K/mcL (0.6-4.6); Lymphocytes % 7.3 %; Mean Corpuscular HGB Conc 30.7 g/dL (31.6-35.5); Mean Corpuscular Hemoglobin 31.6 pg (28.0-33.3); Mean Corpuscular Volume 102.9 fL (83.0-100.0); Mean Platelet Volume 10.1 fL (9.4-12.4); Monocytes # 0.5 K/mcL (0.0-1.3); Monocytes % 6.1 %; Neutrophils # 6.4 K/mcL (1.6-8.9); Platelet Count 133 K/mcL (140-400); Red Blood Count 3.13 M/mcL (4.19-5.50); Red Cell Distribution Width 16.3 % (11.5-14.5); Segmented Neutrophils % 81.3 %
[2018-05-23 05:59] LABS: Albumin 3.7 g/dL (3.5-5.7); Albumin/Globulin Ratio 2.6 (1.1-2.2); Bilirubin,Direct 0.3 mg/dL (0.0-0.2); Bilirubin,Indirect 0.5 mg/dL (0.0-1.2); Bilirubin,Total 0.8 mg/dL (0.3-1.0); Calcium 9.4 mg/dL (8.6-10.3); Globulin 1.4 g/dL (2.4-3.5); Total Protein 5.1 g/dL (6.4-8.9)
[2018-05-23] MEDS: Ampicillin/Sulbactam 3,000 MG in 0.9 % Sodium Chloride Mini Bag 100 ML IVPB SCH (06:00)
[2018-05-23] MEDS: *HR* Heparin 5,000 UNIT/ML VIAL SQ SCH ×2 (06:07→17:50)
[2018-05-23] MEDS: Budesonide/Formoterol 160/4.5 1 PUFF INH IH SCH ×2 (07:40→19:50)
--- NOTE | 2018-05-23 07:56 | Pulmonology Progress Note ---
<Natacha Darby S - Last Filed: 05/23/18 09:34> Date of Encounter: 05/23/18 Objective PUL Vital signs: Last Vital Signs Temp 98.2 F 05/23/18 07:26 Pulse 100 05/23/18 09:00 Resp 20 05/23/18 09:00 BP 180/91 05/23/18 09:00 Pulse Ox 93 05/23/18 09:00 Results - Laboratory Findings CBC and BMP: 05/23/18 04:40 05/23/18 04:40 ABG ABG pH 7.37 pH Units (7.32-7.45) 05/22/18 12:12 ABG pCO2 59 mmHg (35-45) H 05/22/18 12:12 ABG pO2 85 mmHg (85-104) 05/22/18 12:12 ABG O2 Saturation 96 % (95-98) 05/22/18 12:12 Abnormal lab findings: Abnormal lab results RBC 3.13 M/mcL (4.19-5.50) L 05/23/18 04:40 Hgb 9.9 g/dL (12.9-16.9) L 05/23/18 04:40 Hct 32.2 % (37.5-50.1) L 05/23/18 04:40 MCV 102.9 fL (83.0-100.0) H 05/23/18 04:40 MCHC 30.7 g/dL (31.6-35.5) L 05/23/18 04:40 RDW 16.3 % (11.5-14.5) H 05/23/18 04:40 Plt Count 133 K/mcL (140-400) L 05/23/18 04:40 Immature Gran % 4.7 % (0-4) H 05/23/18 04:40 Toxic Granulation Present (Not Present) A 05/21/18 03:35 ABG pCO2 59 mmHg (35-45) H 05/22/18 12:12 ABG HCO3 34 mEq/L (21-27) H 05/22/18 12:12 ABG Total CO2 36 mEq/L (20-26) H 05/22/18 12:12 ABG Base Excess 8 mEq/L (-2 to 3) H 05/22/18 12:12 Carbon Dioxide 30 mEq/L (23-29) H 05/23/18 04:40 BUN 35 mg/dL (8-23) H 05/23/18 04:40 Creatinine 1.56 mg/dL (0.70-1.30) H 05/23/18 04:40 Est GFR ( Amer) 54 (> 60) L 05/23/18 04:40 Est GFR (Non-Af Amer) 44 (> 60) L 05/23/18 04:40 Calculated Osmolality 301 (280-300) H 05/23/18 04:40 Direct Bilirubin 0.3 mg/dL (0.0-0.2) H 05/23/18 04:40 Serum Total Protein 5.1 g/dL (6.4-8.9) L 05/23/18 04:40 Globulin 1.4 g/dL (2.4-3.5) L 05/23/18 04:40 Albumin/Globulin Ratio 2.6 (1.1-2.2) H 05/23/18 04:40 TSH 15.597 mcIU/mL (0.340-5.600) H 05/19/18 03:32 Free T3 2.10 pg/mL (2.50-3.90) L 05/19/18 03:32 Total T3 0.33 ng/mL (0.87-1.78) L 05/19/18 03:32 Ur Specimen Adequacy See below A 05/21/18 09:06 Urine Color Ashlie (Yellow) A 05/21/18 09:06 Urine Clarity Turbid (Clear) A 05/21/18 09:06 Urine Protein 100 mg/dL (Neg-Trace) H 05/21/18 09:06 Urine Ketones Trace mg/dL (Negative) H 05/21/18 09:06 Urine Blood Large (Negative) H 05/21/18 09:06 Urine Bilirubin Small (Negative) H 05/21/18 09:06 Ur Leukocyte Esterase Trace (Negative) H 05/21/18 09:06 Urine Microscopic RBC TNTC per hpf (0-3) H 05/21/18 09:06 Urine Microscopic WBC 5-15 per hpf (0-3) H 05/21/18 09:06 Ur Squamous Epith Cells Many per lpf (None-Few) H 05/21/18 09:06 Amorphous Sediment Many (Few) H 05/21/18 09:06 Hyaline Casts Many per lpf (None-Few) H 05/21/18 09:06 Granular Casts Few per lpf (None Seen) H 05/21/18 09:06 Ur Culture Indicated? NO. (NO) A 05/21/18 09:06 - Microbiology Findings Microbiology Findings: Microbiology, Last 48 Hours 05/22/18 14:00 Sputum Culture - Preliminary Sputum - Clinical Findings Intake & Output: Intake & Output 05/22/18 05/23/18 05/23/18 23:59 07:59 15:59 Intake Total 107.5 / 107.5 200 / 200 Output Total 1025 / 1025 750 / 750 Balance -917.5 / -917.5 -550 / -550 Weight 112.8 kg Consult Discharge Plan - Plan Referrals: Khurram Victoria DO [Primary Care Provider] - - Attending Attestation Attending Attestation I saw and evaluated this patient and my medical decision-making was reviewed with the Resident Physician. I agree with the documented findings, disposition and treatment plan as described except to the extent set forth below. We independently had [id number] contact with the patient Patient seen and examined at bedside Labs, radiology, chart personally reviewed. Management was reviewed during multidisciplinary critical care rounds. 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 Will add propofol to the current sedated regimen 05/20 Patient is episodically is agitated still on propfol will start coming back on sedation now his respiratory V/Q mismatch is stable . 05/21 Patient when he wakes up he is agitated he is on propofol . 05/22 sedation was liberated patient was agitated but he was following commands doing well on the short CPAP trial and extubated him to BiPAP patient is conscious and able to talk following commands 05/23 Patient is off BIPAP this morning conscious oriented 3 Pulm: Patient has severe VQ mismatch with with hypoxia and hypercarbia mostly complicated by exacerbation of diastolic heart failure COPD, obesity hypoventilation syndrome I increased the PEEP to 14 FiO2 is around 90% will bring down the FiO2 as tolerated to 60% then will come down on the PEEP will start him on broad-spectrum antibiotics. 10 Patient is FIO2 is coming with acceptable oxygenation and ventilation will start diuresing more , his plateau pressure is better -lung compliance is improving after diuresis anticipate extubation in 1-2 days 05/21 no response to diuresis his plateau pressure is coming down , PEEP therapy is coming down . Patient is not ready for spontaneous breathing trial. 05/22 patient was extubated to BiPAP tolerating well for now to keep him nothing by mouth whole day and whole night to continue his BiPAP to continue bronchodilators and steroids and antibiotics patient has acceptable oxygenation and ventilation if he gets more drowsy and hypoxic we will repeat the blood gas. 05/23 Patient to use BIPAP to give breaks after each meal . Cards: Patient is hemodynamically stable acute on chronic diastolic heart failure. Could not do much diuresis I personally did ultrasound of the lung which showed minimal left-sided pleural effusion lot of atelectasis with some signs of fluid overload as evidenced by B lines in lung ultrasound. 05/23 acute on chronic diastolic heart failure patient is auto diuresing. FEN-GI: Advance diet as tolerated Renal: Labs and output reviewed kidney function improving ID: on broad-spectrum antibiotics for possible aspiration pneumonia to complete 7 days of antibiotics. Heme/Onc: Labs reviewed Endo: Glucose Monitored Integ/MSK: Skin Care per routine ICU Nursing Protocol to prevent ulcers. Lines: All lines examined without evidence of infection : Dispo: Patient is critically ill high chance of reintubation. To remain in ICU CODE:Full Code <Michael Short R - Last Filed: 05/23/18 16:59> Date of Encounter: 05/23/18 Time of Encounter: 07:20 Assessment and Plan (1) Acute on chronic diastolic CHF (congestive heart failure) Current Visit: Yes Status: Acute Acute on chronic diastolic heart failure secondary to fluid overload and COPD exacerbation with pneumonia. Patient is usually diuresed on May 19 and , patient did have increasing creatinine following this the subsequent diuresis was held. Chest x-ray is showing persistent but improved pulmonary edema and pleural effusions. Received albumin yesterday, urine output responded well with more than 2 L of output in the last 24 hours. Well hold diuretics for now. (2) Acute on chronic respiratory failure with hypoxia and hypercapnia Current Visit: Yes Status: Acute Acute on chronic respiratory failure in the setting of diastolic heart failure exacerbation and fluid overload with COPD with exacerbation secondary to pneumonia. Patient was extubated yesterday, tolerated BiPAP well. Is currently saturating adequately on room air Patient may continue to need BiPAP at night. Patient is on day 6 of steroid therapy, will plan for taper and total of 12 day course. (3) Pneumonia Current Visit: Yes Status: Suspected Day 6 of antibiotic therapy, patient is tolerating by mouth medications will transition Unasyn to Augmentin 875 twice a day, will set Augmentin to discontinue after tomorrow. Qualifiers: Pneumonia type: aspiration pneumonia Laterality: unspecified laterality Lung location: unspecified part of lung Qualified Code(s): J69.0 - Pneumonitis due to inhalation of food and vomit (4) Hypothyroidism Current Visit: Yes Status: Chronic We will transition to by mouth levothyroxin 150 daily. Plan to recheck TSH in approximately a week. Qualifiers: Hypothyroidism type: acquired Qualified Code(s): E03.9 - Hypothyroidism, unspecified (5) Diabetes mellitus Current Visit: Yes Status: Chronic Insulin drip discontinued patient on sliding scale. 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 He is saturating adequately on room air at present Objective PUL Vital signs: Last Vital Signs Temp 98.2 F 05/23/18 07:26 Pulse 94 05/23/18 07:00 Resp 20 05/23/18 07:00 BP 179/105 05/23/18 07:00 Pulse Ox 91 05/23/18 07:00 General appearance: no acute distress Eyes: nonicteric ENT: oropharynx moist Neck: supple Effort: normal Auscultation: bilateral: diminished breath sounds (Posterior lung bases), rales Cardiovascular: regular rate and rhythm Gastrointestinal: normoactive bowel sounds, soft, non-distended Integumentary: normal Extremities: no cyanosis, pink and warm, edema (In the bilateral lower extremities) Musculoskeletal: no deformities Gait: normal posture normal mental status, non-focal exam mood appropriate Results - Laboratory Findings CBC and BMP: 05/23/18 04:40 05/23/18 04:40 ABG ABG pH 7.37 pH Units (7.32-7.45) 05/22/18 12:12 ABG pCO2 59 mmHg (35-45) H 05/22/18 12:12 ABG pO2 85 mmHg (85-104) 05/22/18 12:12 ABG O2 Saturation 96 % (95-98) 05/22/18 12:12 Abnormal lab findings: Abnormal lab results RBC 3.13 M/mcL (4.19-5.50) L 05/23/18 04:40 Hgb 9.9 g/dL (12.9-16.9) L 05/23/18 04:40 Hct 32.2 % (37.5-50.1) L 05/23/18 04:40 MCV 102.9 fL (83.0-100.0) H 05/23/18 04:40 MCHC 30.7 g/dL (31.6-35.5) L 05/23/18 04:40 RDW 16.3 % (11.5-14.5) H 05/23/18 04:40 Plt Count 133 K/mcL (140-400) L 05/23/18 04:40 Immature Gran % 4.7 % (0-4) H 05/23/18 04:40 Toxic Granulation Present (Not Present) A 05/21/18 03:35 ABG pCO2 59 mmHg (35-45) H 05/22/18 12:12 ABG HCO3 34 mEq/L (21-27) H 05/22/18 12:12 ABG Total CO2 36 mEq/L (20-26) H 05/22/18 12:12 ABG Base Excess 8 mEq/L (-2 to 3) H 05/22/18 12:12 Carbon Dioxide 30 mEq/L (23-29) H 05/23/18 04:40 BUN 35 mg/dL (8-23) H 05/23/18 04:40 Creatinine 1.56 mg/dL (0.70-1.30) H 05/23/18 04:40 Est GFR ( Amer) 54 (> 60) L 05/23/18 04:40 Est GFR (Non-Af Amer) 44 (> 60) L 05/23/18 04:40 Calculated Osmolality 301 (280-300) H 05/23/18 04:40 Direct Bilirubin 0.3 mg/dL (0.0-0.2) H 05/23/18 04:40 Serum Total Protein 5.1 g/dL (6.4-8.9) L 05/23/18 04:40 Globulin 1.4 g/dL (2.4-3.5) L 05/23/18 04:40 Albumin/Globulin Ratio 2.6 (1.1-2.2) H 05/23/18 04:40 TSH 15.597 mcIU/mL (0.340-5.600) H 05/19/18 03:32 Free T3 2.10 pg/mL (2.50-3.90) L 05/19/18 03:32 Total T3 0.33 ng/mL (0.87-1.78) L 05/19/18 03:32 Ur Specimen Adequacy See below A 05/21/18 09:06 Urine Color Ashlie (Yellow) A 05/21/18 09:06 Urine Clarity Turbid (Clear) A 05/21/18 09:06 Urine Protein 100 mg/dL (Neg-Trace) H 05/21/18 09:06 Urine Ketones Trace mg/dL (Negative) H 05/21/18 09:06 Urine Blood Large (Negative) H 05/21/18 09:06 Urine Bilirubin Small (Negative) H 05/21/18 09:06 Ur Leukocyte Esterase Trace (Negative) H 05/21/18 09:06 Urine Microscopic RBC TNTC per hpf (0-3) H 05/21/18 09:06 Urine Microscopic WBC 5-15 per hpf (0-3) H 05/21/18 09:06 Ur Squamous Epith Cells Many per lpf (None-Few) H 05/21/18 09:06 Amorphous Sediment Many (Few) H 05/21/18 09:06 Hyaline Casts Many per lpf (None-Few) H 05/21/18 09:06 Granular Casts Few per lpf (None Seen) H 05/21/18 09:06 Ur Culture Indicated? NO. (NO) A 05/21/18 09:06 - Microbiology Findings Microbiology Findings: Microbiology, Last 48 Hours 05/22/18 14:00 Sputum Culture - Preliminary Sputum - Clinical Findings Intake & Output: Intake & Output 05/22/18 05/22/18 05/23/18 15:59 23:59 07:59 Intake Total 1075.5 / 1075.5 107.5 / 107.5 200 / 200 Output Total 1250 / 1250 1025 / 1025 750 / 750 Balance -174.5 / -174.5 -917.5 / -917.5 -550 / -550 Weight 112.8 kg
[2018-05-23] MEDS ORDERED: Metoprolol XL (24 HR) Succ 50 MG TAB.ER.24H PO SCH (09:00)
[2018-05-23] MEDS ORDERED: predniSONE 20 MG TABLET PO SCH (09:00)
[2018-05-23] MEDS ORDERED: Isosorbide MONOnitrate (24 HR) 30 MG TAB.ER.24H PO SCH (09:00)
--- NOTE | 2018-05-23 11:54 | Palliative Progress Note ---
Date of Encounter: 05/23/18 Time of Encounter: 11:00 - Assessment and plan (1) COPD (chronic obstructive pulmonary disease) Current Visit: No Status: Chronic Assessment and plan: Respiratory status greatly improved form initial consult. Continue management per primary ICU team. Qualifiers: COPD type: unspecified COPD Qualified Code(s): J44.9 - Chronic obstructive pulmonary disease, unspecified (2) CKD (chronic kidney disease) Current Visit: No Status: Chronic Assessment and plan: BUN 35 Cr 1.56. Continue to avoid nephrotoxins. Qualifiers: Chronic kidney disease stage: stage 3 (moderate) Qualified Code(s): N18.3 - Chronic kidney disease, stage 3 (moderate) (3) Acute on chronic diastolic CHF (congestive heart failure) Current Visit: Yes Status: Acute Assessment and plan: Pedal edema present. (4) Goals of care, counseling/discussion Current Visit: Yes Status: Acute Assessment and plan: Upon arrival for assessment, patient alert and oriented and agreeable to Goals of care discussion. Dr. Blackman present for discussion. Patient expressed desire to remain a FULL CODE. Patient is ok with CPR and intubation, both long term care social worker and short term as long as he is able to participate in "living." Patient able to verbalize understanding of risks related to CPR. Desires to not be connected to machines forever. Patient only agreeable to PEG and Trach if he is able to continue living. Reports he does not want to be a burden. Patient also expressed desire to return home with home health and Passport at discharge. Patient has life alert in place. Agreeable to ordering PT/OT for evaluation and recommendations. Discussed the need for MPOA, as patient is not , nor has children. Expressed concern over giving rights of decision over to family; explained result of not having MPOA and whom would make decisions on his behalf without forms completed, verbalized understanding. Patient expressed he has no desire to identify MPOA at this time, but is now knowledgeable of whom would make decisions without identification in place. Upon completion of discussion, notified Dr. York of results of goals of care discussion. Palliative care will sign off at this time. Please re-consult as needed. (5) Constipation by delayed colonic transit Current Visit: Yes Status: Chronic Assessment and plan: Patient reports increased gas and chronic difficulty with bowels. Reports takes Miralax daily at home. Added Miralax to bowel regimen. - Time Spent With Patient Total time spent is greater than 50% in coordination of care (as documented) at patient's floor/unit and/or counseling patient: - Subjective Interval history: Patient sitting up in bed with 4L O2 per NC in place upon arrival for assessment. Patient alert and oriented times 3; no family present at beside. Patient denies pain, anxiety, dyspnea, nausea, and vomiting during assessment. Patient remains hypertensive, per ICU rounds restarting home BP medications. Patient complains of increased gas and chronic difficulty with bowels. - Constitutional Vitals: Abnormal lab results RBC 3.13 M/mcL (4.19-5.50) L 05/23/18 04:40 Hgb 9.9 g/dL (12.9-16.9) L 05/23/18 04:40 Hct 32.2 % (37.5-50.1) L 05/23/18 04:40 MCV 102.9 fL (83.0-100.0) H 05/23/18 04:40 MCHC 30.7 g/dL (31.6-35.5) L 05/23/18 04:40 RDW 16.3 % (11.5-14.5) H 05/23/18 04:40 Plt Count 133 K/mcL (140-400) L 05/23/18 04:40 Immature Gran % 4.7 % (0-4) H 05/23/18 04:40 Toxic Granulation Present (Not Present) A 05/21/18 03:35 ABG pCO2 59 mmHg (35-45) H 05/22/18 12:12 ABG HCO3 34 mEq/L (21-27) H 05/22/18 12:12 ABG Total CO2 36 mEq/L (20-26) H 05/22/18 12:12 ABG Base Excess 8 mEq/L (-2 to 3) H 05/22/18 12:12 Carbon Dioxide 30 mEq/L (23-29) H 05/23/18 04:40 BUN 35 mg/dL (8-23) H 05/23/18 04:40 Creatinine 1.56 mg/dL (0.70-1.30) H 05/23/18 04:40 Est GFR ( Amer) 54 (> 60) L 05/23/18 04:40 Est GFR (Non-Af Amer) 44 (> 60) L 05/23/18 04:40 Calculated Osmolality 301 (280-300) H 05/23/18 04:40 Direct Bilirubin 0.3 mg/dL (0.0-0.2) H 05/23/18 04:40 Serum Total Protein 5.1 g/dL (6.4-8.9) L 05/23/18 04:40 Globulin 1.4 g/dL (2.4-3.5) L 05/23/18 04:40 Albumin/Globulin Ratio 2.6 (1.1-2.2) H 05/23/18 04:40 TSH 15.597 mcIU/mL (0.340-5.600) H 05/19/18 03:32 Free T3 2.10 pg/mL (2.50-3.90) L 05/19/18 03:32 Total T3 0.33 ng/mL (0.87-1.78) L 05/19/18 03:32 Ur Specimen Adequacy See below A 05/21/18 09:06 Urine Color Ashlie (Yellow) A 05/21/18 09:06 Urine Clarity Turbid (Clear) A 05/21/18 09:06 Urine Protein 100 mg/dL (Neg-Trace) H 05/21/18 09:06 Urine Ketones Trace mg/dL (Negative) H 05/21/18 09:06 Urine Blood Large (Negative) H 05/21/18 09:06 Urine Bilirubin Small (Negative) H 05/21/18 09:06 Ur Leukocyte Esterase Trace (Negative) H 05/21/18 09:06 Urine Microscopic RBC TNTC per hpf (0-3) H 05/21/18 09:06 Urine Microscopic WBC 5-15 per hpf (0-3) H 05/21/18 09:06 Ur Squamous Epith Cells Many per lpf (None-Few) H 05/21/18 09:06 Amorphous Sediment Many (Few) H 05/21/18 09:06 Hyaline Casts Many per lpf (None-Few) H 05/21/18 09:06 Granular Casts Few per lpf (None Seen) H 05/21/18 09:06 Ur Culture Indicated? NO. (NO) A 05/21/18 09:06 General appearance: Present: cooperative, morbidly obese, no acute distress - Head Head exam: Present: atraumatic, normal inspection - Eye Eye exam: Present: normal appearance, PERRL. Absent: periorbital swelling, periorbital tenderness Pupils: Present: normal accommodation, PERRL - ENT ENT exam: Present: mucous membranes dry, normal external ear exam - Neck Neck exam: Present: full ROM, normal inspection - Respiratory Respiratory exam: Present: rhonchi, tachypnea. Absent: accessory muscle use, respiratory distress - Cardiovascular Cardiovascular exam: Present: +S1, +S2 - GI/Abdominal GI/Abdominal exam: Present: diminished bowel sounds, distended, soft. Absent: guarding, tenderness - Rectal Rectal exam: Present: deferred - Extremities Exam Extremities exam: Present: full ROM, pedal edema. Absent: calf tenderness - Neurological Exam Neurological exam: Present: alert, oriented X3, strengths equal and symetr throughout. Absent: altered - Psychiatric Psychiatric exam: Present: normal affect, normal mood - Skin Skin exam: Present: intact, normal color, warm Palliative Quality Palliative Quality: Screen for Code Status: Yes, Screen for Goals of Care: Yes, Screen for Pain: Yes, If Pain Regimen Started, Initiate Bowel Regimen: Yes, Screen for Nausea/Vomitting: Yes Code Status: 05/18/18 15:26 Resuscitation Status: Active [RES] Routine Comment: Resuscitation Status: Full Code - Labs CBC & Chem 7: 05/23/18 04:40 05/23/18 04:40 Labs: Laboratory Results - last 24 hr 05/22/18 05/22/18 05/22/18 01:00 02:07 03:00 WBC RBC Hgb Hct MCV MCH MCHC RDW Plt Count MPV Immature Gran % Seg Neutrophils % Lymphocytes % Monocytes % Eosinophils % Basophils % Neutrophils # Lymphocytes # Monocytes # Eosinophils # Basophils # Sample Site ABG pH ABG pCO2 ABG pO2 ABG HCO3 ABG Total CO2 ABG O2 Saturation ABG Base Excess Carson Test O2 Delivery Device Inspired O2 Sodium Potassium Chloride Carbon Dioxide BUN Creatinine Est GFR ( Amer) Est GFR (Non-Af Amer) BUN/Creatinine Ratio Glucose POC Glucose 164 H 131 H 176 H Calculated Osmolality Calcium Magnesium Total Bilirubin Direct Bilirubin Indirect Bilirubin AST ALT Alkaline Phosphatase Serum Total Protein Albumin Globulin Albumin/Globulin Ratio 05/22/18 05/22/18 05/22/18 04:28 05:44 06:30 WBC RBC Hgb Hct MCV MCH MCHC RDW Plt Count MPV Immature Gran % Seg Neutrophils % Lymphocytes % Monocytes % Eosinophils % Basophils % Neutrophils # Lymphocytes # Monocytes # Eosinophils # Basophils # Sample Site ABG pH ABG pCO2 ABG pO2 ABG HCO3 ABG Total CO2 ABG O2 Saturation ABG Base Excess [place] Test O2 Delivery Device Inspired O2 Sodium Potassium Chloride Carbon Dioxide BUN Creatinine Est GFR ( Amer) Est GFR (Non-Af Amer) BUN/Creatinine Ratio Glucose POC Glucose 126 H 165 H 153 H Calculated Osmolality Calcium Magnesium Total Bilirubin Direct Bilirubin Indirect Bilirubin AST ALT Alkaline Phosphatase Serum Total Protein Albumin Globulin Albumin/Globulin Ratio 05/22/18 05/22/18 05/22/18 07:07 08:28 08:56 WBC RBC Hgb Hct MCV MCH MCHC RDW Plt Count MPV Immature Gran % Seg Neutrophils % Lymphocytes % Monocytes % Eosinophils % Basophils % Neutrophils # Lymphocytes # Monocytes # Eosinophils # Basophils # Sample Site ABG pH ABG pCO2 ABG pO2 ABG HCO3 ABG Total CO2 ABG O2 Saturation ABG Base Excess [place] Test O2 Delivery Device Inspired O2 Sodium Potassium Chloride Carbon Dioxide BUN Creatinine Est GFR ( Amer) Est GFR (Non-Af Amer) BUN/Creatinine Ratio Glucose POC Glucose 159 H 147 H 188 H Calculated Osmolality Calcium Magnesium Total Bilirubin Direct Bilirubin Indirect Bilirubin AST ALT Alkaline Phosphatase Serum Total Protein Albumin Globulin Albumin/Globulin Ratio 05/22/18 05/22/18 05/22/18 09:59 11:35 12:12 WBC RBC Hgb Hct MCV MCH MCHC RDW Plt Count MPV Immature Gran % Seg Neutrophils % Lymphocytes % Monocytes % Eosinophils % Basophils % Neutrophils # Lymphocytes # Monocytes # Eosinophils # Basophils # Sample Site L Radial ABG pH 7.37 ABG pCO2 59 H ABG pO2 85 ABG HCO3 34 H ABG Total CO2 36 H ABG O2 Saturation 96 ABG Base Excess 8 H Carson Test Positive O2 Delivery Device BiPAP Inspired O2 50.0 Sodium Potassium Chloride Carbon Dioxide BUN Creatinine Est GFR ( Amer) Est GFR (Non-Af Amer) BUN/Creatinine Ratio Glucose POC Glucose 159 H 168 H Calculated Osmolality Calcium Magnesium Total Bilirubin Direct Bilirubin Indirect Bilirubin AST ALT Alkaline Phosphatase Serum Total Protein Albumin Globulin Albumin/Globulin Ratio 05/22/18 05/22/18 05/22/18 13:29 14:17 15:07 WBC RBC Hgb Hct MCV MCH MCHC RDW Plt Count MPV Immature Gran % Seg Neutrophils % Lymphocytes % Monocytes % Eosinophils % Basophils % Neutrophils # Lymphocytes # Monocytes # Eosinophils # Basophils # Sample Site ABG pH ABG pCO2 ABG pO2 ABG HCO3 ABG Total CO2 ABG O2 Saturation ABG Base Excess Carson Test O2 Delivery Device Inspired O2 Sodium Potassium Chloride Carbon Dioxide BUN Creatinine Est GFR ( Amer) Est GFR (Non-Af Amer) BUN/Creatinine Ratio Glucose POC Glucose 101 H 87 106 H Calculated Osmolality Calcium Magnesium Total Bilirubin Direct Bilirubin Indirect Bilirubin AST ALT Alkaline Phosphatase Serum Total Protein Albumin Globulin Albumin/Globulin Ratio 05/22/18 05/22/18 05/22/18 16:14 17:04 18:17 WBC RBC Hgb Hct MCV MCH MCHC RDW Plt Count MPV Immature Gran % Seg Neutrophils % Lymphocytes % Monocytes % Eosinophils % Basophils % Neutrophils # Lymphocytes # Monocytes # Eosinophils # Basophils # Sample Site ABG pH ABG pCO2 ABG pO2 ABG HCO3 ABG Total CO2 ABG O2 Saturation ABG Base Excess Carson Test O2 Delivery Device Inspired O2 Sodium Potassium Chloride Carbon Dioxide BUN Creatinine Est GFR ( Amer) Est GFR (Non-Af Amer) BUN/Creatinine Ratio Glucose POC Glucose 115 H 117 H 109 H Calculated Osmolality Calcium Magnesium Total Bilirubin Direct Bilirubin Indirect Bilirubin AST ALT Alkaline Phosphatase Serum Total Protein Albumin Globulin Albumin/Globulin Ratio 05/22/18 05/22/18 05/22/18 19:06 19:55 21:06 WBC RBC Hgb Hct MCV MCH MCHC RDW Plt Count MPV Immature Gran % Seg Neutrophils % Lymphocytes % Monocytes % Eosinophils % Basophils % Neutrophils # Lymphocytes # Monocytes # Eosinophils # Basophils # Sample Site ABG pH ABG pCO2 ABG pO2 ABG HCO3 ABG Total CO2 ABG O2 Saturation ABG Base Excess Carson Test O2 Delivery Device Inspired O2 Sodium Potassium Chloride Carbon Dioxide BUN Creatinine Est GFR ( Amer) Est GFR (Non-Af Amer) BUN/Creatinine Ratio Glucose POC Glucose 107 H 97 109 H Calculated Osmolality Calcium Magnesium Total Bilirubin Direct Bilirubin Indirect Bilirubin AST ALT Alkaline Phosphatase Serum Total Protein Albumin Globulin Albumin/Globulin Ratio 05/22/18 05/22/18 05/23/18 22:04 23:19 00:05 WBC RBC Hgb Hct MCV MCH MCHC RDW Plt Count MPV Immature Gran % Seg Neutrophils % Lymphocytes % Monocytes % Eosinophils % Basophils % Neutrophils # Lymphocytes # Monocytes # Eosinophils # Basophils # Sample Site ABG pH ABG pCO2 ABG pO2 ABG HCO3 ABG Total CO2 ABG O2 Saturation ABG Base Excess Carson Test O2 Delivery Device Inspired O2 Sodium Potassium Chloride Carbon Dioxide BUN Creatinine Est GFR ( Amer) Est GFR (Non-Af Amer) BUN/Creatinine Ratio Glucose POC Glucose 107 H 88 96 Calculated Osmolality Calcium Magnesium Total Bilirubin Direct Bilirubin Indirect Bilirubin AST ALT Alkaline Phosphatase Serum Total Protein Albumin Globulin Albumin/Globulin Ratio 05/23/18 05/23/18 04:40 04:40 WBC 7.8 RBC 3.13 L Hgb 9.9 L Hct 32.2 L MCV 102.9 H MCH 31.6 MCHC 30.7 L RDW 16.3 H Plt Count 133 L MPV 10.1 Immature Gran % 4.7 H Seg Neutrophils % 81.3 Lymphocytes % 7.3 Monocytes % 6.1 Eosinophils % 0.1 Basophils % 0.5 Neutrophils # 6.4 Lymphocytes # 0.6 Monocytes # 0.5 Eosinophils # 0.0 Basophils # 0.0 Sample Site ABG pH ABG pCO2 ABG pO2 ABG HCO3 ABG Total CO2 ABG O2 Saturation ABG Base Excess Carson Test O2 Delivery Device Inspired O2 Sodium 142 Potassium 4.0 Chloride 105 Carbon Dioxide 30 H BUN 35 H Creatinine 1.56 H Est GFR ( Amer) 54 L Est GFR (Non-Af Amer) 44 L BUN/Creatinine Ratio 22 Glucose 88 POC Glucose Calculated Osmolality 301 H Calcium 9.4 Magnesium 2.0 Total Bilirubin 0.8 Direct Bilirubin 0.3 H Indirect Bilirubin 0.5 AST 25 ALT 20 Alkaline Phosphatase 41 Serum Total Protein 5.1 L Albumin 3.7 Globulin 1.4 L Albumin/Globulin Ratio 2.6 H - Impressions Impressions Chest X-Ray 05/23/18 05:00 IMPRESSION: Status post extubation. Persistent small pleural effusions with bibasilar atelectasis. D/ / 05/23/2018 07:21:18 Derick Champion MD / bcarter Interpreting Provider: Derick Champion MD - ABG Interpretation ABG results: ABG ABG pH 7.37 pH Units (7.32-7.45) 05/22/18 12:12 ABG pCO2 59 mmHg (35-45) H 05/22/18 12:12 ABG pO2 85 mmHg (85-104) 10/04/18 12:12 ABG O2 Saturation 96 % (95-98) 05/22/18 12:12 Consult Discharge Plan - Plan Referrals: Khurram Victoria DO [Primary Care Provider] -
[2018-05-23] MEDS ORDERED: Ipratropium/Albuterol Neb 3 ML IH PRN (13:28)
[2018-05-23] MEDS ORDERED: *HR* Dextrose 50 % in Water (Syg) 50 ML SYRINGE IVP PRN (13:28)
[2018-05-23] MEDS ORDERED: Dextrose Gel 15 GM/37.5 ML TUBE PO PRN ×2 (13:28)
[2018-05-23] MEDS ORDERED: Naloxone 0.4 MG/ML INJ IVP PRN (13:28)
[2018-05-23] MEDS ORDERED: D5% in Water 1,000 ML IVC PRN (13:28)
[2018-05-24] MEDS: Insulin LISPRO 300 UNITS/3 ML VIAL SQ SCH ×5 (00:16→22:50)
[2018-05-24] MEDS: Ipratropium/Albuterol Neb 3 ML IH SCH ×6 (03:55→23:36)
[2018-05-24] MEDS: *HR* Metoprolol 5 MG/5 ML VIAL IVP PRN ×2 (04:17→11:17)
[2018-05-24 04:20] LABS: Basophils % 0.6 %; Eosinophils % 0.1 %; Immature Granulocytes % 8.6 % (0-4); Lymphocytes # 0.6 K/mcL (0.6-4.6); Lymphocytes % 8.7 %; Mean Corpuscular HGB Conc 31.3 g/dL (31.6-35.5); Mean Corpuscular Hemoglobin 31.6 pg (28.0-33.3); Mean Corpuscular Volume 101.3 fL (83.0-100.0); Mean Platelet Volume 9.5 fL (9.4-12.4); Monocytes # 0.5 K/mcL (0.0-1.3); Monocytes % 7.3 %; Neutrophils # 5.2 K/mcL (1.6-8.9); Platelet Count 108 K/mcL (140-400); Red Blood Count 3.16 M/mcL (4.19-5.50); Red Cell Distribution Width 15.7 % (11.5-14.5); Segmented Neutrophils % 74.7 %
[2018-05-24 04:39] LABS: Alanine Aminotransferase 22 Units/L (7-52); Albumin 3.5 g/dL (3.5-5.7); Albumin/Globulin Ratio 2.3 (1.1-2.2); Alkaline Phosphatase 44 Units/L (34-104); Aspartate Amino Transferase 20 Units/L (13-39); BUN/Creatinine Ratio 22 (6-26); Bilirubin,Direct 0.2 mg/dL (0.0-0.2); Bilirubin,Indirect 0.6 mg/dL (0.0-1.2); Bilirubin,Total 0.8 mg/dL (0.3-1.0); Blood Urea Nitrogen 29 mg/dL (8-23); Calcium 9.5 mg/dL (8.6-10.3); Carbon Dioxide 30 mEq/L (23-29); Chloride 105 mEq/L (98-107); Globulin 1.5 g/dL (2.4-3.5); Glucose 111 mg/dL (70-105); Magnesium 2.1 mg/dL (1.6-2.6); Osmolality,Calculated 295 (280-300); Potassium 4.6 mEq/L (3.5-5.1); Sodium 139 mEq/L (136-145); eGFR For Non-African Americans 53 (> 60)
[2018-05-24 05:08] LABS: Hypochromasia Present (Not Present); Platelet Estimate Decreased (Normal)
[2018-05-24] MEDS: *HR* Heparin 5,000 UNIT/ML VIAL SQ SCH ×2 (06:27→18:29)
--- NOTE | 2018-05-24 08:52 | Pulmonology Progress Note ---
Date of Encounter: 05/24/18 Time of Encounter: 07:45 Assessment and Plan (1) Acute on chronic respiratory failure with hypoxia and hypercapnia Current Visit: Yes Status: Acute Complicated by pneumonia and acute on chronic diastolic heart failure patient is doing well off BiPAP during the day will need BiPAP during the night and also will need BiPAP qualification before discharging home. (2) Acute on chronic diastolic CHF (congestive heart failure) Current Visit: Yes Status: Acute Patient current presentation complicated by acute on chronic diastolic heart failure will need diuresis on and of as tolerated patient will need education about salt and water restriction patient will need adequate blood pressure control to keep systolic less than 140. (3) Pneumonia Current Visit: Yes Status: Suspected To complete 7 days of antibiotics Qualifiers: Pneumonia type: aspiration pneumonia Laterality: unspecified laterality Lung location: unspecified part of lung Qualified Code(s): J69.0 - Pneumonitis due to inhalation of food and vomit (4) COPD (chronic obstructive pulmonary disease) Current Visit: No Status: Chronic Weight 12 days of steroid taper should go home on nebulizer albuterol with Symbicort. Qualifiers: COPD type: unspecified COPD Qualified Code(s): J44.9 - Chronic obstructive pulmonary disease, unspecified (5) Morbid obesity Current Visit: No Status: Chronic (6) DVT prophylaxis Current Visit: Yes Status: Acute Continue subcutaneous heparin. Subjective Principal diagnosis: Acute on chronic respiratory failure Interval history: Patient is doing well no acute events overnight says the importance of using BiPAP during napping and during the night. Patient denies any shortness of breath denies any chest pain or chest tightness denies any palpitation or syncope patient denies any abdominal pain. Objective PUL Vital signs: Last Vital Signs Temp 98.1 F 05/24/18 07:31 Pulse 91 05/24/18 08:28 Resp 18 05/24/18 07:30 BP 152/81 05/24/18 07:30 Pulse Ox 98 05/24/18 07:30 General appearance: alert Auscultation: bilateral: diminished breath sounds (bibasilar diminished breadth sounds ), rales (minimal scattered rales ) Gastrointestinal: other (obese distended abdomen ) Extremities: edema Results - Laboratory Findings CBC and BMP: 05/24/18 04:00 05/24/18 04:00 ABG ABG pH 7.37 pH Units (7.32-7.45) 05/22/18 12:12 ABG pCO2 59 mmHg (35-45) H 05/22/18 12:12 ABG pO2 85 mmHg (85-104) 05/22/18 12:12 ABG O2 Saturation 96 % (95-98) 05/22/18 12:12 Abnormal lab findings: Abnormal lab results RBC 3.16 M/mcL (4.19-5.50) L 05/24/18 04:00 Hgb 10.0 g/dL (12.9-16.9) L 05/24/18 04:00 Hct 32.0 % (37.5-50.1) L 05/24/18 04:00 MCV 101.3 fL (83.0-100.0) H 05/24/18 04:00 MCHC 31.3 g/dL (31.6-35.5) L 05/24/18 04:00 RDW 15.7 % (11.5-14.5) H 05/24/18 04:00 Plt Count 108 K/mcL (140-400) L 05/24/18 04:00 Immature Gran % 8.6 % (0-4) H 05/24/18 04:00 Toxic Granulation Present (Not Present) A 05/21/18 03:35 Platelet Estimate Decreased (Normal) L 05/24/18 04:00 Hypochromasia Present (Not Present) A 05/24/18 04:00 ABG pCO2 59 mmHg (35-45) H 05/22/18 12:12 ABG HCO3 34 mEq/L (21-27) H 05/22/18 12:12 ABG Total CO2 36 mEq/L (20-26) H 05/22/18 12:12 ABG Base Excess 8 mEq/L (-2 to 3) H 05/22/18 12:12 Carbon Dioxide 30 mEq/L (23-29) H 05/24/18 04:00 BUN 29 mg/dL (8-23) H 05/24/18 04:00 Creatinine 1.33 mg/dL (0.70-1.30) H 05/24/18 04:00 Est GFR (Non-Af Amer) 53 (> 60) L 05/24/18 04:00 Glucose 111 mg/dL (70-105) H 05/24/18 04:00 POC Glucose 127 mg/dL (70-99) H 05/23/18 23:42 Serum Total Protein 5.0 g/dL (6.4-8.9) L 05/24/18 04:00 Globulin 1.5 g/dL (2.4-3.5) L 05/24/18 04:00 Albumin/Globulin Ratio 2.3 (1.1-2.2) H 05/24/18 04:00 TSH 15.597 mcIU/mL (0.340-5.600) H 05/19/18 03:32 Free T3 2.10 pg/mL (2.50-3.90) L 05/19/18 03:32 Total T3 0.33 ng/mL (0.87-1.78) L 05/19/18 03:32 Ur Specimen Adequacy See below A 05/21/18 09:06 Urine Color Ashlie (Yellow) A 05/21/18 09:06 Urine Clarity Turbid (Clear) A 05/21/18 09:06 Urine Protein 100 mg/dL (Neg-Trace) H 05/21/18 09:06 Urine Ketones Trace mg/dL (Negative) H 05/21/18 09:06 Urine Blood Large (Negative) H 05/21/18 09:06 Urine Bilirubin Small (Negative) H 05/21/18 09:06 Ur Leukocyte Esterase Trace (Negative) H 05/21/18 09:06 Urine Microscopic RBC TNTC per hpf (0-3) H 05/21/18 09:06 Urine Microscopic WBC 5-15 per hpf (0-3) H 05/21/18 09:06 Ur Squamous Epith Cells Many per lpf (None-Few) H 05/21/18 09:06 Amorphous Sediment Many (Few) H 05/21/18 09:06 Hyaline Casts Many per lpf (None-Few) H 05/21/18 09:06 Granular Casts Few per lpf (None Seen) H 05/21/18 09:06 Ur Culture Indicated? NO. (NO) A 05/21/18 09:06 - Microbiology Findings Microbiology Findings: Microbiology, Last 48 Hours 05/22/18 14:00 Sputum Culture - Preliminary Sputum Gram Positive Rods - Clinical Findings Intake & Output: Intake & Output 05/23/18 05/24/18 05/24/18 23:59 07:59 15:59 Intake Total 440 / 440 Output Total 900 / 900 325 / 325 Balance -460 / -460 -325 / -325 Weight 113.3 kg Consult Discharge Plan - Plan Referrals: Khurram Victoria DO [Primary Care Provider] -
[2018-05-24] MEDS ORDERED: Isosorbide MONOnitrate (24 HR) 30 MG TAB.ER.24H PO SCH (09:00)
[2018-05-24] MEDS ORDERED: Metoprolol XL (24 HR) Succ 50 MG TAB.ER.24H PO SCH (09:00)
[2018-05-24] MEDS ORDERED: predniSONE 20 MG TABLET PO SCH (09:00)
[2018-05-24] MEDS: Budesonide/Formoterol 160/4.5 1 PUFF INH IH SCH ×2 (11:30→20:55)
[2018-05-24] MEDS ORDERED: Naloxone 0.4 MG/ML INJ IVP PRN (15:44)
[2018-05-24] MEDS ORDERED: *HR* Dextrose 50 % in Water (Syg) 50 ML SYRINGE IVP PRN (15:44)
[2018-05-24] MEDS ORDERED: Ipratropium/Albuterol Neb 3 ML IH PRN (15:44)
[2018-05-24] MEDS ORDERED: *HR* Metoprolol 5 MG/5 ML VIAL IVP PRN (15:44)
[2018-05-24] MEDS ORDERED: Dextrose Gel 15 GM/37.5 ML TUBE PO PRN ×2 (15:44)
[2018-05-24] MEDS ORDERED: D5% in Water 1,000 ML IVC PRN (15:44)
[2018-05-24] MEDS ORDERED: Insulin LISPRO 300 UNITS/3 ML VIAL SQ SCH (16:00)
[2018-05-25] MEDS: Ipratropium/Albuterol Neb 3 ML IH SCH ×7 (04:28→23:26)
[2018-05-25 05:43] LABS: Hemoglobin 11.1 g/dL (12.9-16.9); Mean Corpuscular HGB Conc 31.7 g/dL (31.6-35.5); Mean Corpuscular Hemoglobin 31.8 pg (28.0-33.3); Mean Corpuscular Volume 100.3 fL (83.0-100.0); Mean Platelet Volume 10.4 fL (9.4-12.4); Platelet Count 103 K/mcL (140-400); Red Blood Count 3.49 M/mcL (4.19-5.50); Red Cell Distribution Width 15.3 % (11.5-14.5)
[2018-05-25 05:55] LABS: Alanine Aminotransferase 24 Units/L (7-52); Albumin 3.7 g/dL (3.5-5.7); Albumin/Globulin Ratio 2.2 (1.1-2.2); Alkaline Phosphatase 47 Units/L (34-104); Aspartate Amino Transferase 20 Units/L (13-39); BUN/Creatinine Ratio 21 (6-26); Bilirubin,Direct 0.2 mg/dL (0.0-0.2); Bilirubin,Indirect 0.7 mg/dL (0.0-1.2); Bilirubin,Total 0.9 mg/dL (0.3-1.0); Blood Urea Nitrogen 29 mg/dL (8-23); Calcium 9.9 mg/dL (8.6-10.3); Carbon Dioxide 25 mEq/L (23-29); Chloride 107 mEq/L (98-107); Globulin 1.7 g/dL (2.4-3.5); Glucose 106 mg/dL (70-105); Osmolality,Calculated 292 (280-300); Potassium 5.1 mEq/L (3.5-5.1); Sodium 138 mEq/L (136-145); Total Protein 5.4 g/dL (6.4-8.9); eGFR For Non-African Americans 50 (> 60)
[2018-05-25 06:25] LABS: Lymphocytes # 1.1 K/mcL (0.6-4.6); Monocytes # 0.7 K/mcL (0.0-1.3); Neutrophils # 7.1 K/mcL (1.6-8.9)
[2018-05-25 06:26] LABS: Platelet Estimate Slight Decrease (Normal)
[2018-05-25] MEDS: *HR* Heparin 5,000 UNIT/ML VIAL SQ SCH ×2 (06:38→17:54)
[2018-05-25] MEDS: Budesonide/Formoterol 160/4.5 1 PUFF INH IH SCH ×2 (07:36→20:16)
[2018-05-25] MEDS ORDERED: Metoprolol XL (24 HR) Succ 50 MG TAB.ER.24H PO SCH (09:00)
[2018-05-25] MEDS ORDERED: Isosorbide MONOnitrate (24 HR) 30 MG TAB.ER.24H PO SCH (09:00)
[2018-05-25] MEDS: Isosorbide MONOnitrate (24 HR) 30 MG TAB.ER.24H PO SCH (10:14)
[2018-05-25] MEDS: predniSONE 20 MG TABLET PO SCH (10:14)
[2018-05-25] MEDS: Metoprolol XL (24 HR) Succ 50 MG TAB.ER.24H PO SCH (10:15)
[2018-05-25] MEDS: Insulin LISPRO 300 UNITS/3 ML VIAL SQ SCH ×4 (10:16→22:27)
--- NOTE | 2018-05-25 13:10 | Internal Med Progress Note ---
Hospitalist Progress Note - Encounter Date of Encounter: 05/25/18 Time of Encounter: 11:25 - Subjective Interval History: Patient seen and examined this morning. No acute overnight events. - Exam Vitals: Temp Pulse Resp BP Pulse Ox 98.2 F 74 16 144/83 100 05/25/18 11:15 05/25/18 11:15 05/25/18 11:15 05/25/18 11:15 05/25/18 11:15 Exam: General: In no acute distress. Conversant. Morbidly Obese. alert and oriented. Respiratory exam: CTAB. diminished air entry no accessory muscle use, rhonchi, wheezes. Some rales at base Cardiovascular exam: RRR, +S1, +S2. no MRG GI/Abdominal exam: soft, Non-tender, Non-distended, BS+, no peritoneal signs. Extremities exam: full ROM, 1+ pedal edema, warm, pulses palpable in b/l lower extremities. no calf tenderness Neurological exam: CN II-XII intact, AO X3, no focal deficits. no pronater drift , facial droop, speech deficit Skin exam: No skin rash, ulcer, purpura or ecchymosis. - Summary of Assessment and Plan Summary of Assessment and Plan: Acute on chronic respiratory failure with hypoxia and hypercapnia - Secondary to pneumonia and acute on chronic diastolic heart failure - Now extubated. - Off BiPAP during the day will need BiPAP during the night. Will get Bipap/o2 evaluation today - Social service consult to arrange for bipap. - Patient to go back to ECF on discharge. Acute on chronic diastolic CHF - will need diuresis on and of as tolerated patient - salt and water restriction Pneumonia - To complete 7 days of antibiotics COPD - c/w duonebs - 12 days of steroid taper - c/w Symbicort. CKD - At baseline. Anemia - At baseline. Likely related to CKD DVT prophylaxis - subcutaneous heparin. Plan for DC tomorrow. Patient is Full code. Discuss by paliative care given recurrent admission for CHF/COPD. PT- contact guard assist, walker, inpatient rehab - Time Spent with Patient Total time spent is greater than 50% in coordination of care (as documented) at patient's floor/unit and/or counseling patient: Internal Medicine: Result - Labs CBC & Chem 7: 05/25/18 05:30 05/25/18 05:30 Labs: Short CBC 05/25/18 Range/Units 05:30 WBC 8.9 (4.3-11.1) K/mcL Hgb 11.1 L (12.9-16.9) g/dL Hct 35.0 L (37.5-50.1) % Plt Count 103 L (140-400) K/mcL Neutrophils # 7.1 (1.6-8.9) K/mcL BMP 05/25/18 05:30 Sodium 138 Potassium 5.1 Chloride 107 Carbon Dioxide 25 BUN 29 H Creatinine 1.40 H Glucose 106 H Calcium 9.9 Liver Function 05/25/18 Range/Units 05:30 Total Bilirubin 0.9 (0.3-1.0) mg/dL Direct Bilirubin 0.2 (0.0-0.2) mg/dL AST 20 (13-39) Units/L ALT 24 (7-52) Units/L Alkaline Phosphatase 47 (34-104) Units/L Albumin 3.7 (3.5-5.7) g/dL - ABG Interpretation ABG results: ABG ABG pH 7.37 pH Units (7.32-7.45) 05/22/18 12:12 ABG pCO2 59 mmHg (35-45) H 05/22/18 12:12 ABG pO2 85 mmHg (85-104) 05/22/18 12:12 ABG O2 Saturation 96 % (95-98) 05/22/18 12:12 - Impressions Impressions Chest X-Ray 05/22/18 08:45 IMPRESSION: 1. Endotracheal tube tip is approximately 2 cm above the claudia. 2. Small bilateral pleural effusions with adjacent atelectasis. Slightly increased linear opacity in the right mid lung either reflects loculated effusion within the fissure versus atelectasis. 3. Cardiomegaly with mild interstitial edema. D/ / 05/22/2018 09:07:48 Marija Lewis MD / sadia Interpreting Provider: Marija Lewis MD Consult Discharge Plan - Plan Referrals: Khurram Victoria DO [Primary Care Provider] -
[2018-05-25] MEDS ORDERED: Furosemide 40 MG/4 ML VIAL IVP ONE (14:46)
[2018-05-26] MEDS: Ipratropium/Albuterol Neb 3 ML IH SCH ×4 (03:29→15:26)
[2018-05-26 04:59] LABS: Basophils % 0.4 %; Eosinophils # 0.1 K/mcL (0.0-0.6); Hematocrit 37.1 % (37.5-50.1); Hemoglobin 11.6 g/dL (12.9-16.9); Immature Granulocytes % 7.3 % (0-4); Lymphocytes # 0.7 K/mcL (0.6-4.6); Lymphocytes % 9.9 %; Mean Corpuscular HGB Conc 31.3 g/dL (31.6-35.5); Mean Corpuscular Hemoglobin 31.4 pg (28.0-33.3); Mean Corpuscular Volume 100.3 fL (83.0-100.0); Mean Platelet Volume 9.8 fL (9.4-12.4); Monocytes # 0.8 K/mcL (0.0-1.3); Monocytes % 10.9 %; Platelet Count 113 K/mcL (140-400); Red Cell Distribution Width 15.1 % (11.5-14.5); Segmented Neutrophils % 70.5 %
[2018-05-26 05:03] LABS: Neutrophils # 5.2 K/mcL (1.6-8.9)
[2018-05-26] MEDS: *HR* Heparin 5,000 UNIT/ML VIAL SQ SCH (05:16)
[2018-05-26 05:19] LABS: Alanine Aminotransferase 23 Units/L (7-52); Albumin 3.8 g/dL (3.5-5.7); Albumin/Globulin Ratio 2.5 (1.1-2.2); Alkaline Phosphatase 47 Units/L (34-104); Aspartate Amino Transferase 15 Units/L (13-39); BUN/Creatinine Ratio 22 (6-26); Bilirubin,Direct 0.3 mg/dL (0.0-0.2); Bilirubin,Indirect 0.7 mg/dL (0.0-1.2); Blood Urea Nitrogen 28 mg/dL (8-23); Calcium 9.6 mg/dL (8.6-10.3); Carbon Dioxide 30 mEq/L (23-29); Chloride 103 mEq/L (98-107); Globulin 1.5 g/dL (2.4-3.5); Glucose 106 mg/dL (70-105); Osmolality,Calculated 292 (280-300); Potassium 4.4 mEq/L (3.5-5.1); Sodium 138 mEq/L (136-145); Total Protein 5.3 g/dL (6.4-8.9); eGFR For Non-African Americans 57 (> 60)
[2018-05-26 06:05] LABS: Macrocytosis Present (Not Present); Platelet Estimate Decreased (Normal); Toxic Granulation Present (Not Present)
[2018-05-26 07:07] VITALS: BP 151/82
[2018-05-26] MEDS: Budesonide/Formoterol 160/4.5 1 PUFF INH IH SCH (07:24)
[2018-05-26] MEDS: Metoprolol XL (24 HR) Succ 50 MG TAB.ER.24H PO SCH (08:30)
[2018-05-26] MEDS: predniSONE 20 MG TABLET PO SCH (08:30)
[2018-05-26] MEDS: Isosorbide MONOnitrate (24 HR) 30 MG TAB.ER.24H PO SCH (08:30)
[2018-05-26] MEDS: Insulin LISPRO 300 UNITS/3 ML VIAL SQ SCH ×2 (08:31→11:59)
[2018-05-26] MEDS ORDERED: Isovue-370 500 ML INFUS..BTL IV ONE (11:28)
--- NOTE | 2018-05-26 11:52 | Internal Med Progress Note ---
Hospitalist Progress Note - Encounter Date of Encounter: 05/26/18 Time of Encounter: 11:51 - Subjective Interval History: Patient seen and examined this morning. No acute overnight events. Breathing better. Did not have bipap overnight. Is ambulating well. - Exam Vitals: Temp Pulse Resp BP Pulse Ox 97.9 F 70 16 151/82 95 05/26/18 07:05 05/26/18 07:05 05/26/18 11:41 05/26/18 07:05 05/26/18 11:41 Exam: General: In no acute distress. Conversant. Morbidly Obese. alert and oriented. Respiratory exam: CTAB. diminished air entry. no accessory muscle use, rhonchi, wheezes. Some rales at base Cardiovascular exam: RRR, +S1, +S2. no MRG GI/Abdominal exam: soft, Non-tender, Non-distended, BS+, no peritoneal signs. Extremities exam: full ROM, 1+ pedal edema, warm, pulses palpable in b/l lower extremities. no calf tenderness Neurological exam: CN II-XII intact, AO X3, no focal deficits. no pronater drift , facial droop, speech deficit Skin exam: No skin rash, ulcer, purpura or ecchymosis. - Time Spent with Patient Total time spent is greater than 50% in coordination of care (as documented) at patient's floor/unit and/or counseling patient: Internal Medicine: Result - Labs CBC & Chem 7: 05/26/18 04:48 05/26/18 04:48 Labs: Short CBC 05/26/18 Range/Units 04:48 WBC 7.3 (4.3-11.1) K/mcL Hgb 11.6 L (12.9-16.9) g/dL Hct 37.1 L (37.5-50.1) % Plt Count 113 L (140-400) K/mcL Neutrophils # 5.2 (1.6-8.9) K/mcL BMP 05/26/18 04:48 Sodium 138 Potassium 4.4 Chloride 103 Carbon Dioxide 30 H BUN 28 H Creatinine 1.26 Glucose 106 H Calcium 9.6 Liver Function 05/26/18 Range/Units 04:48 Total Bilirubin 1.0 (0.3-1.0) mg/dL Direct Bilirubin 0.3 H (0.0-0.2) mg/dL AST 15 (13-39) Units/L ALT 23 (7-52) Units/L Alkaline Phosphatase 47 (34-104) Units/L Albumin 3.8 (3.5-5.7) g/dL - ABG Interpretation ABG results: ABG ABG pH 7.37 pH Units (7.32-7.45) 05/22/18 12:12 ABG pCO2 59 mmHg (35-45) H 05/22/18 12:12 ABG pO2 85 mmHg (85-104) 05/22/18 12:12 ABG O2 Saturation 96 % (95-98) 05/22/18 12:12 Consult Discharge Plan - Plan Referrals: Khurram Victoria DO [Primary Care Provider] -
--- NOTE | 2018-05-26 15:03 | Discharge Summary ---
- NOTES TO OUTPATIENT PROVIDER Notes to Outpatient Provider: Follow volume status closely and adjust diuresis. Is full code. Orders not resulted at time of discharge: Pending orders 05/22/18 14:00 Culture,Sputum with Gram Stain [RM] Stat Date of Encounter: 05/26/18 Time of Encounter: 14:50 Hospital course: Mr. Humphries is a 67 year old male with PMHx of CHF, COPD, CAD, DM, HTN who was recently discharge to [place] after acute respiratory failure was admitted due to shortness of breath. Patient came back with shortness of breath and was intubated for acute respiratory failure. He was treated for Pneumonia, COPD exacerbation and CHF and Myxedema coma. He was successfully extubated. Palliative consult discussed goals of care given recurrent respiratory failure. Patient wasnts to be full code. Patient finished 7 day antibiotic course. He was diuresed. Will need on and off diuresis as tolerated and salt and water restriction. Patient qualified for Bipap. Will be discharge to [place]. Discharge discussed with: patient, nurse, social work, case management - Time Spent with Patient Total time spent providing and/or coordinating discharge services: Greater than 30 minutes - Discharge Medications Prescriptions: Furosemide [Lasix] 20 mg PO DAILY 10 Days #10 tablet predniSONE [PredniSONE] 10 mg PO DAILY #30 tablet Home Medications: Montelukast Sodium [Singulair] 10 mg PO DAILY 06/16/16 [History] Pantoprazole Sodium [Protonix] 40 mg PO DAILY 06/16/16 [History] Isosorbide MONOnitrate (24 HR) [Imdur] 30 mg PO DAILY 08/07/16 [History] Atorvastatin Calcium [Lipitor] 80 mg PO HS 07/23/17 [History] Fenofibrate Nanocrystallized [Tricor] 48 mg PO DAILY 05/05/18 [History] Insulin ASPART [Novolog Flexpen] 0 unit SQ TIDWM 05/05/18 [History] Polyethylene Glycol 3350 [MiraLAX] 17 gm PO DAILY 05/05/18 [History] Tamsulosin HCl [Flomax] 0.4 mg PO DAILY 05/05/18 [History] Budesonide/Formoterol 160/4.5 [Symbicort 160/4.5] 2 puff IH BIDR inh 05/12/18 [ Rx] Aspirin 81 mg PO DAILY 05/19/18 [History] Gabapentin [Neurontin] 100 mg PO TID 05/19/18 [History] Levothyroxine [Synthroid] 150 mcg PO DAILY 05/19/18 [History] Lidocaine Patch [Lidoderm 5% patch] 1 each TP DAILY 05/19/18 [History] Metoprolol XL (24 HR) Succ [Toprol Xl] 50 mg PO DAILY 05/19/18 [History] Nitroglycerin [Nitrostat] 0.4 mg SL PRN PRN 05/19/18 [History] glipiZIDE [Glucotrol] 2.5 mg PO DAILY 05/19/18 [History] Furosemide [Lasix] 20 mg PO DAILY 10 Days #10 tablet 05/26/18 [Rx] predniSONE [PredniSONE] 10 mg PO DAILY #30 tablet 05/26/18 [Rx] Allergies/Adverse Reactions: 3 Allergy/AdvReac Type Severity Reaction Status Date / Time adenosine Allergy See Verified 08/07/16 16:26 Comments fluticasone Allergy See Verified 08/07/16 16:26 [From Advair Diskus] Comments Iodinated Contrast- Oral and Allergy See Verified 06/16/16 15:37 IV Dye Comments [Iodinated Contrast Media - IV Dye] salmeterol Allergy See Verified 08/07/16 16:26 [From Advair Diskus] Comments Date of admission: 05/18/18 14:45 Primary care physician: Khurram Victoria DO Consults: 05/18/18 16:37 Consult to Critical Care [CONS] Stat Consulting Provider: [facility] [place] Reason for Consult: RESPIRATORY DISTRESS, BIPAP Call Completed: Yes 05/18/18 18:55 Consult to Nutrition [CONS] Routine Comment: Consulting Provider: NUTRITION Reason for Dietary Consult: TPN Start and Manage 05/21/18 10:54 Consult to Palliative Care [CONS] Routine Comment: Consulting Provider: [facility] [place] Reason for Consult: Intubated, CHF, COPD Call Completed: Yes 05/23/18 11:50 Consult to Occupational Therapy [CONS] Routine Comment: Evaluate, develop and implement POC Reason for Consult: evaluate for discharge planning. Does patient have active BEDREST order?: No Is patient medically & hemodynamically stable?: Yes Patient assessed for mobility or mobilized this visit?: No Consult to Physical Therapy [CONS] Routine Comment: Evaluate, develop and implement POC Reason for Consult: Evaluate abilities for discharge planning. Does patient have active BEDREST order?: No Is patient medically & hemodynamically stable?: Yes Patient assessed for mobility or mobilized this visit?: No 05/23/18 13:30 Consult to Counseling Aide [CONS] Stat Reason for SW Consult: Possible need for Rehab Discharging clinician: Guero Lewis - Constitutional Vitals: Temp Pulse Resp BP Pulse Ox 97.9 F 70 16 151/82 95 05/26/18 07:05 05/26/18 07:05 05/26/18 11:41 05/26/18 07:05 05/26/18 11:41 General appearance: Present: A&O X 1, morbidly obese Exam: General: In no acute distress. Conversant. Morbidly Obese. alert and oriented. Respiratory exam: CTAB. diminished air entry. no accessory muscle use, rhonchi, wheezes. Some rales at base Cardiovascular exam: RRR, +S1, +S2. no MRG GI/Abdominal exam: soft, Non-tender, Non-distended, BS+, no peritoneal signs. Extremities exam: full ROM, 1+ pedal edema, warm, pulses palpable in b/l lower extremities. no calf tenderness Neurological exam: CN II-XII intact, AO X3, no focal deficits. no pronater drift , facial droop, speech deficit Skin exam: No skin rash, ulcer, purpura or ecchymosis. 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
--- NOTE | 2018-05-26 15:51 | Physician Discharge Referral ---
ExtendedCare Referral Info Institutional Level of Care: Skilled - Transfer Medications Prescriptions: Furosemide [Lasix] 20 mg PO DAILY 10 Days #10 tablet predniSONE [PredniSONE] 10 mg PO DAILY #30 tablet Home Medications: Montelukast Sodium [Singulair] 10 mg PO DAILY 06/16/16 [History] Pantoprazole Sodium [Protonix] 40 mg PO DAILY 06/16/16 [History] Isosorbide MONOnitrate (24 HR) [Imdur] 30 mg PO DAILY 08/07/16 [History] Atorvastatin Calcium [Lipitor] 80 mg PO HS 07/23/17 [History] Fenofibrate Nanocrystallized [Tricor] 48 mg PO DAILY 05/05/18 [History] Insulin ASPART [Novolog Flexpen] 0 unit SQ TIDWM 05/05/18 [History] Polyethylene Glycol 3350 [MiraLAX] 17 gm PO DAILY 05/05/18 [History] Tamsulosin HCl [Flomax] 0.4 mg PO DAILY 05/05/18 [History] Budesonide/Formoterol 160/4.5 [Symbicort 160/4.5] 2 puff IH BIDR inh 05/12/18 [ Rx] Aspirin 81 mg PO DAILY 05/19/18 [History] Gabapentin [Neurontin] 100 mg PO TID 05/19/18 [History] Levothyroxine [Synthroid] 150 mcg PO DAILY 05/19/18 [History] Lidocaine Patch [Lidoderm 5% patch] 1 each TP DAILY 05/19/18 [History] Metoprolol XL (24 HR) Succ [Toprol Xl] 50 mg PO DAILY 05/19/18 [History] Nitroglycerin [Nitrostat] 0.4 mg SL PRN PRN 05/19/18 [History] glipiZIDE [Glucotrol] 2.5 mg PO DAILY 05/19/18 [History] Furosemide [Lasix] 20 mg PO DAILY 10 Days #10 tablet 05/26/18 [Rx] predniSONE [PredniSONE] 10 mg PO DAILY #30 tablet 05/26/18 [Rx] Allergies/Adverse Reactions: 3 Allergy/AdvReac Type Severity Reaction Status Date / Time adenosine Allergy See Verified 08/07/16 16:26 Comments fluticasone Allergy See Verified 08/07/16 16:26 [From Advair Diskus] Comments Iodinated Contrast- Oral and Allergy See Verified 06/16/16 15:37 IV Dye Comments [Iodinated Contrast Media - IV Dye] salmeterol Allergy See Verified 08/07/16 16:26 [From Advair Diskus] Comments - Respiratory Orders Smoking Cessation: Smoking cessation has been advised. For more information, call the [place] Tobacco Quit Line at 7-790-UWEW-NOW. - Advance Directives Code Status: Full Code - Rehabiliation Orders Rehab Orders: Evaluation for Physical Therapy - Diet Orders Cardiac CERTIFICATION: I certify that the transfer of the above named patient to an Extended Care Facility is necessary for the continuing treatment of the diagnosis listed. The above information is true and accurate reflection of patient's current condition. Confidential - Redisclosure prohibited without a patient's written consent.
== END 2018-05-26 18:36 | DRG 291 ==
LOC: SUATTDRO 14:45 → ICNU 14:45 → 2NENU 05-24 15:45
PROVIDERS: ADMIT Internal Medicine; ATTEND Internal Medicine

== ENCOUNTER 2018-11-14 16:32 | Observation (INO) ==
[2018-11-14] MEDS ORDERED: Aspirin 81 MG TAB.CHEW PO ONE (16:41)
[2018-11-14] MEDS ORDERED: Nitroglycerin 0.4 MG TAB.SUBL SL PRN ×2 (16:41→20:38)
--- NOTE | 2018-11-14 16:47 | Emergency Department Note ---
Disposition Clinical Impression: Chest pain Qualifiers: Chest pain type: unspecified Qualified Code(s): R07.9 - Chest pain, unspecified Disposition: Admitted As Inpatient Condition: Good Time of Disposition: 18:22 General Adult HPI - General Stated complaint: Chest Pain Time Seen by Provider: 11/14/18 16:41 Source: patient, EMS Mode of arrival: EMS Limitations: no limitations Nursing Notes Reviewed: Yes Vital Signs Reviewed: Yes - History of Present Illness HPI Narrative: Patient is a 68-year-old male that presents the emergency department with reports of chest pain. Patient was seen at urgent care and was given nitroglycerin which did not provide temporary relief of his chest pain. Patient describes the pain as pressure and tightness in the center of his chest that radiates to the left side. Patient also reports that her radiates to bilateral sides of his neck. Patient states that he has had some shortness of breath but no diaphoresis. Patient states he did have nausea couple days ago. But none currently. Patient states that he has had 3 previous heart attacks with stents that is been placed. Patient states that this is similar to one of his previous heart attacks with the pain radiating into his neck. Patient denies any other symptoms. - Related Data Home Medications Medication Instructions Recorded Confirmed Montelukast Sodium [Singulair] 10 mg PO HS 06/16/16 09/24/18 Pantoprazole Sodium [Protonix] 40 mg PO 0730,1630 06/16/16 09/24/18 Isosorbide MONOnitrate (24 HR) 30 mg PO DAILY 08/07/16 09/24/18 [Imdur] Atorvastatin Calcium [Lipitor] 80 mg PO HS 07/23/17 09/24/18 Fenofibrate Nanocrystallized 48 mg PO DAILY 05/05/18 09/24/18 [Tricor] Insulin ASPART [Novolog Flexpen] 0 unit SQ TIDWM 05/05/18 09/24/18 Tamsulosin HCl [Flomax] 0.4 mg PO DAILY 05/05/18 09/24/18 Aspirin 81 mg PO DAILY 05/19/18 09/24/18 Levothyroxine [Synthroid] 125 mcg PO DAILY@0630 05/19/18 09/24/18 Nitroglycerin [Nitrostat] 0.4 mg SL PRN PRN 05/19/18 09/24/18 glipiZIDE [Glucotrol] 5 mg PO BIDWM 05/19/18 09/24/18 Acetylcysteine [Nac] 600 mg PO BID 09/23/18 09/24/18 Albuterol Neb [Proventil Neb] 2.5 mg IH TID PRN 09/23/18 09/24/18 Albuterol Sulfate [Albuterol 2 puff IH Q4-6H PRN 09/23/18 09/24/18 Inhaler] Lisinopril 2.5 mg PO DAILY 09/23/18 09/24/18 Metoprolol [Lopressor] 50 mg PO BID 09/24/18 09/24/18 Previous Rx's Medication Instructions Recorded Budesonide/Formoterol 160/4.5 2 puff IH BIDR inh 05/12/18 [Symbicort 160/4.5] Bumetanide [Bumex] 0.5 mg PO DAILY #30 tablet 09/28/18 Allergies Allergy/AdvReac Type Severity Reaction Status Date / Time adenosine Allergy See Verified 08/07/16 16:26 Comments fluticasone Allergy See Verified 08/07/16 16:26 [From Advair Diskus] Comments Iodinated Contrast- Oral and Allergy See Verified 06/16/16 15:37 IV Dye Comments [Iodinated Contrast Media - IV Dye] salmeterol Allergy See Verified 08/07/16 16:26 [From Advair Diskus] Comments pregabalin [From Lyrica] AdvReac Shakiness Verified 11/07/18 13:26 All systems ED: reviewed and negative except as stated. Constitutional: Denies: fever Cardiovascular: Reports: chest pain Respiratory: Reports: dyspnea Gastrointestinal: Reports: nausea. Denies: abdominal pain, vomiting, diarrhea Genitourinary: Denies: urgency, dysuria, frequency Past Medical History - Past Medical History Medical history: Reports: cancer, CHF, COPD, coronary artery disease, DVT, diabetes, hyperlipidemia, hypertension, peripheral artery disease, renal disease, other Surgical history: Reports: angioplasty/stent, cancer surgery, cholecystectomy, vascular surgery, other Psychiatric history: Reports: no psych history - Social History Smoking Status: Former smoker Smokeless Tobacco Status: No Alcohol use: Reports: none Drug use: Reports: none Physical Exam - General Limitations: no limitations General appearance: alert, in no apparent distress - Head Head exam: atraumatic, normocephalic - Eye Eye exam: Present: normal appearance, EOMI - Neck Neck exam: Present: normal inspection, full ROM, trachea midline - Respiratory Respiratory exam: Present: normal lung sounds bilaterally. Absent: respiratory distress, wheezes - Cardiovascular Cardiovascular exam: Present: regular rate, normal rhythm, normal heart sounds, +S1, +S2 - Abdominal Exam Abdominal exam: Present: soft, Non-Tender, normal bowel sounds - Neurological Exam Neurological exam: Present: alert, oriented X3 - Psychiatric Psychiatric exam: Present: normal affect, normal mood - Skin Skin exam: Present: warm, dry, intact Course Vital Signs Temperature 98.1 F 11/14/18 16:52 Pulse Rate 68 11/14/18 16:52 Respiratory Rate 16 11/14/18 16:52 Blood Pressure 125/82 11/14/18 16:52 O2 Sat by Pulse Oximetry 98 11/14/18 16:52 Temperature 98.1 F 11/14/18 16:52 Pulse Rate 64 11/14/18 17:52 Respiratory Rate 16 11/14/18 17:52 Blood Pressure 129/89 11/14/18 17:52 O2 Sat by Pulse Oximetry 98 11/14/18 17:52 Oxygen Delivery Oxygen Delivery Nasal Cannula Medical Decision Making - [facility] Narrative Medical decision making narrative: Due the patient presenting to emergency department with reports of chest pain and shortness of breath with a past medical history of 3 MIs and stent placement there is a concern for possible cardiac involvement we will obtain basic laboratory testing, chest x-ray and EKG. The patient will likely require admission. Patient's initial heart score is 5 basin the patient having had previous coronary artery disease, age of [age] years old and moderately suspicious story due to the patient having chest pain that radiates into his neck that is relieved by nitroglycerin. Patient's troponin was negative. Chest x-ray showed possible evidence of a pneumonia however the patient has not having any evidence of cough sputum production or fever. Feel that this is less likely. A concern is for cardiac rule out. Called spoke the admitting hospitalist Dr. Ferraro and he is accepted the patient to their service. Patient will be admitted to the hospital at this time for further evaluation and management. - Medical Records Medical records reviewed: Yes I reviewed the patient's medical records. - Lab Data Lab results reviewed: Yes I reviewed the patient's lab results. Result diagrams: 11/14/18 17:08 11/14/18 17:08 Lab Results 11/14/18 11/14/18 11/14/18 Range/Units 17:08 17:08 17:08 WBC 11.5 H (4.3-11.1) K/mcL RBC 4.53 (4.19-5.50) M/mcL Hgb 14.1 (12.9-16.9) g/dL Hct 44.9 (37.5-50.1) % MCV 99.1 (83.0-100.0) fL MCH 31.1 (28.0-33.3) pg MCHC 31.4 L (31.6-35.5) g/dL RDW 14.8 H (11.5-14.5) % Plt Count 160 (140-400) K/mcL MPV 10.1 (9.4-12.4) fL Immature Gran % 3.0 (0-4) % Seg Neutrophils % 85.4 % Lymphocytes % 6.3 % Monocytes % 4.8 % Eosinophils % 0.0 % Basophils % 0.5 % Neutrophils # 9.8 H (1.6-8.9) K/mcL Lymphocytes # 0.7 (0.6-4.6) K/mcL Monocytes # 0.6 (0.0-1.3) K/mcL Eosinophils # 0.0 (0.0-0.6) K/mcL Basophils # 0.1 (0.0-0.2) K/mcL PT 11.0 (9.4-12.1) Seconds INR 1.0 APTT 25.0 L (26.0-36.0) Seconds Sodium 138 (136-145) mEq/L Potassium 5.8 H (3.5-5.1) mEq/L Chloride 101 (98-107) mEq/L Carbon Dioxide 33 H (23-29) mEq/L BUN 37 H (8-23) mg/dL Glucose 200 H (70-105) mg/dL Calculated Osmolality 300 (280-300) Calcium 10.0 (8.6-10.3) mg/dL Troponin I < 0.03 (< 0.04) ng/mL - Radiology Data Radiology results reviewed: Yes I reviewed the patient's radiology results. Chest X-Ray 11/14/18 16:41 IMPRESSION: Focal increased density in the left lower lung, nonspecific, but raising the possibility of pneumonia. In any event, that must be followed to resolution, to ensure that there is no underlying neoplasm. D/ / Carlos Alberto Weber MD / Carlos Alberto Weber MD Interpreting Provider: Carlos Alberto Weber MD - EKG Data EKG #1 EKG attestation: Yes I reviewed and interpreted this EKG. EKG results narrative: EKG shows a sinus rhythm and rate of 67 beats per minute , GA interval 204, QRS duration of 82, QTC of 397. There is no evidence of STEMI on EKG.
--- NOTE | 2018-11-14 17:00 | Emergency Department Note ---
Disposition Clinical Impression: Chest pain Qualifiers: Chest pain type: unspecified Qualified Code(s): R07.9 - Chest pain, unspecified Disposition: Admitted As Inpatient Condition: Good Time of Disposition: 21:24 General Adult HPI - General Stated complaint: Chest Pain Time Seen by Provider: 11/14/18 16:41 Source: patient, EMS Mode of arrival: EMS Limitations: no limitations Nursing Notes Reviewed: Yes Vital Signs Reviewed: Yes - History of Present Illness HPI Narrative: Attestation note ED attending note I examined this patient and my medical decision-making was reviewed with the emergency medicine resident Dr. Maury Perry. I agree with the documented findings, disposition and treatment plan as described except to the extent set forth below. Briefly: 68-year-old male HEART score 5 presents with chest discomfort seen in urgent care given nitroglycerin EKG shows nonspecific ST-T changes. Patient get screening labs chest x-ray troponin was admission anticipated. We D the patient has been in the emergency department. Provided 30 minutes of critical care service for this patient. - Related Data Home Medications Medication Instructions Recorded Confirmed RX: Montelukast Sodium [Singulair] 10 mg PO HS 06/16/16 09/24/18 RX: Pantoprazole Sodium [Protonix] 40 mg PO 0730,1630 06/16/16 09/24/18 RX: Isosorbide MONOnitrate (24 HR) 30 mg PO DAILY 08/07/16 09/24/18 [Imdur] RX: Atorvastatin Calcium [Lipitor] 80 mg PO HS 07/23/17 09/24/18 RX: Fenofibrate Nanocrystallized 48 mg PO DAILY 05/05/18 09/24/18 [Tricor] RX: Insulin ASPART [Novolog 0 unit SQ TIDWM 05/05/18 09/24/18 Flexpen] RX: Tamsulosin HCl [Flomax] 0.4 mg PO DAILY 05/05/18 09/24/18 RX: Aspirin 81 mg PO DAILY 05/19/18 09/24/18 RX: Levothyroxine [Synthroid] 125 mcg PO DAILY@0630 05/19/18 09/24/18 RX: Nitroglycerin [Nitrostat] 0.4 mg SL PRN PRN 05/19/18 09/24/18 RX: glipiZIDE [Glucotrol] 5 mg PO BIDWM 05/19/18 09/24/18 RX: Acetylcysteine [Nac] 600 mg PO BID 09/23/18 09/24/18 RX: Albuterol Neb [Proventil Neb] 2.5 mg IH TID PRN 09/23/18 09/24/18 RX: Albuterol Sulfate [Albuterol 2 puff IH Q4-6H PRN 09/23/18 09/24/18 Inhaler] RX: Lisinopril 2.5 mg PO DAILY 09/23/18 09/24/18 RX: Metoprolol [Lopressor] 50 mg PO BID 09/24/18 09/24/18 Previous Rx's Medication Instructions Recorded RX: Budesonide/Formoterol 160/4.5 2 puff IH BIDR inh 05/12/18 [Symbicort 160/4.5] RX: Bumetanide [Bumex] 0.5 mg PO DAILY #30 tablet 09/28/18 Allergies Allergy/AdvReac Type Severity Reaction Status Date / Time adenosine Allergy See Verified 08/07/16 16:26 Comments fluticasone Allergy See Verified 08/07/16 16:26 [From Advair Diskus] Comments Iodinated Contrast- Oral and Allergy See Verified 06/16/16 15:37 IV Dye Comments [Iodinated Contrast Media - IV Dye] salmeterol Allergy See Verified 08/07/16 16:26 [From Advair Diskus] Comments pregabalin [From Lyrica] AdvReac Shakiness Verified 11/07/18 13:26 Constitutional: Denies: fever Cardiovascular: Reports: chest pain Respiratory: Reports: dyspnea Gastrointestinal: Reports: nausea. Denies: abdominal pain, vomiting, diarrhea Genitourinary: Denies: urgency, dysuria, frequency Past Medical History - Past Medical History Medical history: Reports: cancer, CHF, COPD, coronary artery disease, DVT, diabetes, hyperlipidemia, hypertension, peripheral artery disease, renal disease, other Surgical history: Reports: angioplasty/stent, cancer surgery, cholecystectomy, vascular surgery, other Psychiatric history: Reports: no psych history - Social History Smoking Status: Former smoker Smokeless Tobacco Status: No Alcohol use: Reports: none Drug use: Reports: none Physical Exam - General Limitations: no limitations General appearance: alert, in no apparent distress Course Vital Signs Temperature 98.1 F 11/14/18 16:52 Pulse Rate 68 11/14/18 16:52 Respiratory Rate 16 11/14/18 16:52 Blood Pressure 125/82 11/14/18 16:52 O2 Sat by Pulse Oximetry 98 11/14/18 16:52 Temperature 98.1 F 11/14/18 16:52 Pulse Rate 66 11/14/18 18:58 Respiratory Rate 18 11/14/18 18:58 Blood Pressure 129/70 11/14/18 18:58 O2 Sat by Pulse Oximetry 98 11/14/18 18:58 Oxygen Delivery Oxygen Delivery Nasal Cannula Medical Decision Making - Lab Data Result diagrams: 11/14/18 17:08 11/14/18 17:08 Lab Results 11/14/18 11/14/18 11/14/18 Range/Units 17:08 17:08 17:08 WBC 11.5 H (4.3-11.1) K/mcL RBC 4.53 (4.19-5.50) M/mcL Hgb 14.1 (12.9-16.9) g/dL Hct 44.9 (37.5-50.1) % MCV 99.1 (83.0-100.0) fL MCH 31.1 (28.0-33.3) pg MCHC 31.4 L (31.6-35.5) g/dL RDW 14.8 H (11.5-14.5) % Plt Count 160 (140-400) K/mcL MPV 10.1 (9.4-12.4) fL Immature Gran % 3.0 (0-4) % Seg Neutrophils % 85.4 % Lymphocytes % 6.3 % Monocytes % 4.8 % Eosinophils % 0.0 % Basophils % 0.5 % Neutrophils # 9.8 H (1.6-8.9) K/mcL Lymphocytes # 0.7 (0.6-4.6) K/mcL Monocytes # 0.6 (0.0-1.3) K/mcL Eosinophils # 0.0 (0.0-0.6) K/mcL Basophils # 0.1 (0.0-0.2) K/mcL PT 11.0 (9.4-12.1) Seconds INR 1.0 APTT 25.0 L (26.0-36.0) Seconds Sodium 138 (136-145) mEq/L Potassium 5.8 H (3.5-5.1) mEq/L Chloride 101 (98-107) mEq/L Carbon Dioxide 33 H (23-29) mEq/L BUN 37 H (8-23) mg/dL Creatinine 1.75 H (0.70-1.30) mg/dL Est GFR ( Amer) 47 L (> 60) Est GFR (Non-Af Amer) 39 L (> 60) BUN/Creatinine Ratio 21 (6-26) Glucose 200 H (70-105) mg/dL Calculated Osmolality 300 (280-300) Calcium 10.0 (8.6-10.3) mg/dL Troponin I < 0.03 (< 0.04) ng/mL
[2018-11-14 17:27] LABS: Basophils # 0.1 K/mcL (0.0-0.2); Basophils % 0.5 %; Hematocrit 44.9 % (37.5-50.1); Hemoglobin 14.1 g/dL (12.9-16.9); Lymphocytes # 0.7 K/mcL (0.6-4.6); Lymphocytes % 6.3 %; Mean Corpuscular HGB Conc 31.4 g/dL (31.6-35.5); Mean Corpuscular Hemoglobin 31.1 pg (28.0-33.3); Mean Corpuscular Volume 99.1 fL (83.0-100.0); Mean Platelet Volume 10.1 fL (9.4-12.4); Monocytes # 0.6 K/mcL (0.0-1.3); Monocytes % 4.8 %; Neutrophils # 9.8 K/mcL (1.6-8.9); Platelet Count 160 K/mcL (140-400); Red Blood Count 4.53 M/mcL (4.19-5.50); Red Cell Distribution Width 14.8 % (11.5-14.5); Segmented Neutrophils % 85.4 %
[2018-11-14 17:42] LABS: Blood Urea Nitrogen 37 mg/dL (8-23); Carbon Dioxide 33 mEq/L (23-29); Chloride 101 mEq/L (98-107); Glucose 200 mg/dL (70-105); Osmolality,Calculated 300 (280-300); Potassium 5.8 mEq/L (3.5-5.1); Sodium 138 mEq/L (136-145); Troponin I < 0.03 ng/mL (< 0.04)
[2018-11-14 18:27] LABS: BUN/Creatinine Ratio 21 (6-26); eGFR For Non-African Americans 39 (> 60)
[2018-11-14] MEDS ORDERED: Furosemide 40 MG/4 ML VIAL IVP ONE (20:38)
[2018-11-14] MEDS ORDERED: *HR* Dextrose 50 % in Water (Syg) 50 ML SYRINGE IVP PRN (20:41)
[2018-11-14] MEDS ORDERED: Dextrose Gel 15 GM/37.5 ML TUBE PO PRN ×2 (20:41)
[2018-11-14] MEDS ORDERED: Ipratropium/Albuterol Neb 3 ML IH PRN (20:46)
[2018-11-14] MEDS: Insulin LISPRO 300 UNITS/3 ML VIAL SQ SCH (21:25)
[2018-11-14] MEDS: *HR* Heparin 5,000 UNIT/ML VIAL SQ SCH (21:36)
[2018-11-14] MEDS: Budesonide/Formoterol 160/4.5 1 PUFF INH IH SCH (22:21)
--- NOTE | 2018-11-14 22:41 | Internal Med History&Physical ---
Date of Encounter: 11/14/18 Time of Encounter: 22:39 Internal Medicine - H&P: HPI Chief complaint: Chest pain Admitted From: Home Plans for Post Hospital Care: Home History of present illness: Devyn Humphries is a 68-year-old male with tonic hypoxic respiratory failure secondary to COPD on home oxygen, atrial fibrillation, chronic kidney disease, coronary artery disease with multiple stent placements, hypertension, diabetes and peripheral vascular disease. 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 He presents to the emergency room with reports of chest pain which she describes as a pressure and tightness in the center of his chest that radiates to the left side as well as his neck. He also had some shortness of breath associated with that. She did receive nitroglycerin in urgent care before coming to the ER which has relieved his pain and at this time feels comfortable. Blood work was grossly unremarkable with a negative initial troponin. EKG done in the ER was reviewed by me and concerning for some elevation of the ST segments in the inferior leads but I compared this to an EKG he had 6 weeks ago and they appear grossly similar. I repeated an EKG upon arrival to the floor and again the findings appear consistent. He is currently chest pain-free with a negative troponin however given his risk factors he is admitted for further observation. Vitals: Reviewed General: Well-developed obese white male lying in bed in no acute distress. Skin: Warm and supple. HEENT: Moist mucous membranes. No conjunctivae pallor. Neck: No lymphadenopathy. No JVD. No carotid bruits. No palpable thyroid. Chest: Normal thoracic expansion. Normal breath sounds. Clear to auscultation. Heart: Normal S1 & S2; rhythmic. No rubs or murmurs. Abdomen: Obese, soft and non-tender to palpation. No peritoneal reaction. Extremities: No clubbing, cyanosis. 2+ pitting edema in his lower legs. No calf tenderness. Normal distal pulses. Neurological: Awake, alert and oriented to person, place and time. No focal deficits. Psych: Affect appropriate. Past Med Surg Social Fam HX - Past Medical History Medical history: cancer, CHF, COPD, coronary artery disease, DVT, diabetes, hyperlipidemia, hypertension, peripheral artery disease, renal disease, other Additional medical history: penile cancer Psychiatric history: no psych history - Past Surgical History Surgical History: angioplasty/stent, cancer surgery, cholecystectomy, vascular surgery, other Additional surgical history: CARDIAC CATH. Cardiac Stenting x5. gallbladder surgery. cancer removed twice. polyp removal. testicular tumor removal. colonoscopy. bypass in legs - Social History Smoking Status: Former smoker Smokeless Tobacco Status: No Alcohol use: none Drug use: none - Family History Father Living Status: Age at : 60 Cause of : heart attack Hx Family Cardiac Disorders: Yes (Enlarged heart) Mother Living Status: Age at : 77 Cause of : heart failure Hx Family Cardiac Disorders: Yes Hx Family Respiratory Disorders: Yes (COPD) Sister Living Status: Age at : 79 Cause of : PNU Brother Living Status: Age at : 65 Cause of : colon cancer Internal Medicine - H&P: Meds Montelukast Sodium [Singulair] 10 mg PO HS 06/16/16 [History] Pantoprazole Sodium [Protonix] 40 mg PO 0730,1630 06/16/16 [History] Isosorbide MONOnitrate (24 HR) [Imdur] 30 mg PO DAILY 08/07/16 [History] Atorvastatin Calcium [Lipitor] 80 mg PO HS 07/23/17 [History] Fenofibrate Nanocrystallized [Tricor] 48 mg PO DAILY 05/05/18 [History] Insulin ASPART [Novolog Flexpen] 0 unit SQ TIDWM 05/05/18 [History] Tamsulosin HCl [Flomax] 0.4 mg PO DAILY 05/05/18 [History] Budesonide/Formoterol 160/4.5 [Symbicort 160/4.5] 2 puff IH BIDR inh 05/12/18 [Rx] Aspirin 81 mg PO DAILY 05/19/18 [History] Levothyroxine [Synthroid] 125 mcg PO DAILY@0630 05/19/18 [History] Nitroglycerin [Nitrostat] 0.4 mg SL PRN PRN 05/19/18 [History] glipiZIDE [Glucotrol] 5 mg PO BIDWM 05/19/18 [History] Acetylcysteine [Nac] 600 mg PO BID 09/23/18 [History] Albuterol Neb [Proventil Neb] 2.5 mg IH TID PRN 09/23/18 [History] Albuterol Sulfate [Albuterol Inhaler] 2 puff IH Q4-6H PRN 09/23/18 [History] Lisinopril 2.5 mg PO DAILY 09/23/18 [History] Metoprolol [Lopressor] 50 mg PO BID 09/24/18 [History] Bumetanide [Bumex] 0.5 mg PO DAILY #30 tablet 09/28/18 [Rx] Allergy/AdvReac Type Severity Reaction Status Date / Time adenosine Allergy See Verified 08/07/16 16:26 Comments fluticasone Allergy See Verified 08/07/16 16:26 [From Advair Diskus] Comments Iodinated Contrast- Oral and Allergy See Verified 06/16/16 15:37 IV Dye Comments [Iodinated Contrast Media - IV Dye] salmeterol Allergy See Verified 08/07/16 16:26 [From Advair Diskus] Comments pregabalin [From Lyrica] AdvReac Shakiness Verified 11/07/18 13:26 All Systems PM: A 10-system review of systems was performed and is negative for pertinent findings except as documented above in the HPI. - Constitutional Vitals: Temp Pulse Resp BP Pulse Ox 98.1 F 66 16 129/70 96 11/14/18 16:52 11/14/18 18:58 11/14/18 22:21 11/14/18 18:58 11/14/18 22:21 Exam: . Internal Med - H&P Results - Labs CBC & Chem 7: 11/14/18 17:08 11/14/18 17:08 Labs: Short CBC 11/14/18 Range/Units 17:08 WBC 11.5 H (4.3-11.1) K/mcL Hgb 14.1 (12.9-16.9) g/dL Hct 44.9 (37.5-50.1) % Plt Count 160 (140-400) K/mcL Neutrophils # 9.8 H (1.6-8.9) K/mcL BMP 11/14/18 17:08 Sodium 138 Potassium 5.8 H Chloride 101 Carbon Dioxide 33 H BUN 37 H Creatinine 1.75 H Glucose 200 H Calcium 10.0 Cardiac Enzymes 11/14/18 Range/Units 17:08 Troponin I < 0.03 (< 0.04) ng/mL - Impressions ITS Impressions Chest X-Ray 11/14/18 16:41 IMPRESSION: Focal increased density in the left lower lung, nonspecific, but raising the possibility of pneumonia. In any event, that must be followed to resolution, to ensure that there is no underlying neoplasm. D/ / Carlos Alberto Weber MD / Carlos Alberto Weber MD Interpreting Provider: Carlos Alberto Weber MD - Assessment and Plan (1) Chest pain Current Visit: Yes Status: Acute Assessment and plan: The patient has significant risk factors and a rather typical presentation which is concerning and therefore warrants observation. Will monitor on telemetry and continue to trend his troponins while observing for any chest pain recurrence that may require urgent intervention. Qualifiers: Chest pain type: unspecified Qualified Code(s): R07.9 - Chest pain, unspecified (2) CKD (chronic kidney disease) stage 3, GFR 30-59 ml/min Current Visit: Yes Status: Chronic Assessment and plan: Stable. Noted to have a tendency to hyperkalemia. Will avoid nephrotoxic agents. Recheck K in the morning after correction. (3) Atrial fibrillation Current Visit: Yes Status: Chronic Assessment and plan: Rate controlled. Not on anticoagulation due to bleeding episode. Continue aspirin. Qualifiers: Atrial fibrillation type: paroxysmal Qualified Code(s): I48.0 - Paroxysmal atrial fibrillation (4) CAD (coronary artery disease) Current Visit: Yes Status: Chronic Assessment and plan: on aspirin and high intensity statin. Qualifiers: Coronary Disease-Associated Artery/Lesion type: [place] artery [place] vs. t ransplanted heart: [place] heart Associated angina: without angina Qualified Code(s): I25.10 - Atherosclerotic heart disease of [place] coronary artery without angina pectoris (5) COPD (chronic obstructive pulmonary disease) Current Visit: Yes Status: Chronic Assessment and plan: Appears stable with no evidence of active disease. Continue supplemental oxygen as needed. Nebulizers prn ordered. Qualifiers: COPD type: unspecified COPD Qualified Code(s): J44.9 - Chronic obstructive pulmonary disease, unspecified (6) Diabetes mellitus Current Visit: Yes Status: Chronic Assessment and plan: A1C shows excellent control at 5.9%. Hold oral agents and place on insulin sliding scale. 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 mellitus half-way insulin use: with half-way use Diabetes mellitus complication status: with kidney complications Diabetes mellitus complication detail: with chronic kidney disease Chronic kidney disease stage: stage 3 (moderate) Qualified Code(s): E11.22 - Type 2 diabetes mellitus with diabetic chronic kidney disease; N18.3 - Chronic kidney disease, stage 3 (moderate); Z79.4 - residential (current) use of insulin (7) HLD (hyperlipidemia) Current Visit: Yes Status: Chronic Assessment and plan: On high intensity statin. Qualifiers: Hyperlipidemia type: unspecified Qualified Code(s): E78.5 - Hyperlipidemia, unspecified (8) Hypothyroidism Current Visit: Yes Status: Chronic Assessment and plan: Clinically and biochemically euthyroid. Continue daily levothyroxine. Qualifiers: Hypothyroidism type: unspecified Qualified Code(s): E03.9 - Hypothyroidism, unspecified (9) Morbid obesity Current Visit: Yes Status: Chronic Assessment and plan: Counseled and educated on therapeutic lifestyle changes for weight loss as it will be of benefit in controlling comorbidities. [facility] [employer] Department evaluation advised. (10) DVT prophylaxis Current Visit: No Status: Acute - Time Spent With Patient Total time spent is greater than 50% in coordination of care (as documented) at patient's floor/unit and/or counseling patient: Greater than 35 minutes
[2018-11-14 23:26] LABS: Potassium 5.1 mEq/L (3.5-5.1)
[2018-11-14 23:28] LABS: Troponin I < 0.03 ng/mL (< 0.04)
[2018-11-15] MEDS: *HR* Heparin 5,000 UNIT/ML VIAL SQ SCH ×3 (06:34→21:28)
[2018-11-15 06:48] LABS: BUN/Creatinine Ratio 21 (6-26); Blood Urea Nitrogen 35 mg/dL (8-23); Calcium 9.2 mg/dL (8.6-10.3); Carbon Dioxide 30 mEq/L (23-29); Chloride 105 mEq/L (98-107); Glucose 85 mg/dL (70-105); Osmolality,Calculated 299 (280-300); Potassium 4.9 mEq/L (3.5-5.1); Sodium 141 mEq/L (136-145); Troponin I < 0.03 ng/mL (< 0.04); eGFR For Non-African Americans 40 (> 60)
[2018-11-15] MEDS: Insulin LISPRO 300 UNITS/3 ML VIAL SQ SCH ×4 (08:55→21:20)
[2018-11-15] MEDS: Fenofibrate 54 MG TABLET PO SCH (08:58)
[2018-11-15] MEDS: Aspirin 81 MG TAB.CHEW PO SCH (08:58)
[2018-11-15] MEDS: Bumetanide 1 MG TABLET PO SCH (08:58)
[2018-11-15] MEDS: Isosorbide MONOnitrate (24 HR) 30 MG TAB.ER.24H PO SCH (08:58)
--- NOTE | 2018-11-15 09:41 | Internal Med Progress Note ---
Hospitalist Progress Note - Encounter Date of Encounter: 11/15/18 Time of Encounter: 11:00 - Exam Vitals: Temp Pulse Resp BP Pulse Ox 97.9 F 65 16 118/69 92 11/15/18 07:50 11/15/18 07:50 11/15/18 07:50 11/15/18 07:50 11/15/18 08:55 Exam: Gen.: Nonacute distress, alert and oriented 3 ENT: Mucosal membranes moist Respiratory: Lungs are clear to auscultation bilaterally without any wheezing rhonchi or rales Cardiovascular: Normal S1 and S2 regular rate rhythm no murmurs rubs or gallops Abdomen: Soft, nontender and nondistended with positive bowel sounds Extremities: No lower extremity edema Skin: Normal color - Assessment and Plan (1) Chest pain Current Visit: Yes Status: Acute Assessment and Plan: The patient has significant risk factors and a rather typical presentation with abnormal EKG on admission. Troponins negative; echocardiogram pending Cardiology consulted due to significant coronary artery disease history with abnormal EKG (2) CAD (coronary artery disease) Current Visit: Yes Status: Chronic Assessment and Plan: Patient with history of multiple stents Continue aspirin and high intensity statin. (3) Atrial fibrillation Current Visit: Yes Status: Chronic Assessment and Plan: Rate controlled. Not on anticoagulation due to bleeding episode. Continue aspirin. (4) CKD (chronic kidney disease) stage 3, GFR 30-59 ml/min Current Visit: Yes Status: Chronic Assessment and Plan: Stable; continue to monitor (5) Hypothyroidism Current Visit: Yes Status: Chronic Assessment and Plan: Continue daily levothyroxine. (6) HLD (hyperlipidemia) Current Visit: Yes Status: Chronic Assessment and Plan: On high intensity statin. (7) COPD (chronic obstructive pulmonary disease) Current Visit: Yes Status: Chronic Assessment and Plan: No evidence of active disease. Continue supplemental oxygen as needed. Nebulizers prn ordered. (8) Diabetes mellitus Current Visit: Yes Status: Chronic Assessment and Plan: A1C shows excellent control at 5.9%. Hold oral agents and place on insulin sliding scale. (9) Morbid obesity Current Visit: Yes Status: Chronic Assessment and Plan: BMI of 38.2 DVT Prophylaxis: Heparin subcutaneous - Time Spent with Patient Total time spent is greater than 50% in coordination of care (as documented) at patient's floor/unit and/or counseling patient: Internal Medicine: Result - Labs CBC & Chem 7: 11/14/18 17:08 11/15/18 05:41 Labs: Short CBC 11/14/18 Range/Units 17:08 WBC 11.5 H (4.3-11.1) K/mcL Hgb 14.1 (12.9-16.9) g/dL Hct 44.9 (37.5-50.1) % Plt Count 160 (140-400) K/mcL Neutrophils # 9.8 H (1.6-8.9) K/mcL BMP 11/14/18 11/14/18 11/15/18 17:08 22:30 05:41 Sodium 138 141 Potassium 5.8 H 5.1 4.9 Chloride 101 105 Carbon Dioxide 33 H 30 H BUN 37 H 35 H Creatinine 1.75 H 1.70 H Glucose 200 H 85 Calcium 10.0 9.2 Cardiac Enzymes 11/14/18 11/14/18 11/15/18 Range/Units 17:08 22:30 05:41 Troponin I < 0.03 < 0.03 < 0.03 (< 0.04) ng/mL - ABG Interpretation ABG results: PT/INR, D-dimer PT 11.0 Seconds (9.4-12.1) 11/14/18 17:08 - Impressions Impressions Chest X-Ray 11/14/18 16:41 IMPRESSION: Focal increased density in the left lower lung, nonspecific, but raising the possibility of pneumonia. In any event, that must be followed to resolution, to ensure that there is no underlying neoplasm. D/ / Carlos Alberto Weber MD / Carlos Alberto Weber MD Interpreting Provider: Carlos Alberto Weber MD Consult Discharge Plan - Plan Referrals: Khurram Victoria DO [Primary Care Provider] - (Appointment has been requested. Our offices will call with an appointment time and date.) (1) Chest pain Qualifiers: Chest pain type: unspecified Qualified Code(s): R07.9 - Chest pain, unspecified (2) CAD (coronary artery disease) Qualifiers: Coronary Disease-Associated Artery/Lesion type: [place] artery [place] vs. transplanted heart: [place] heart Associated angina: without angina Qualified Code(s): I25.10 - Atherosclerotic heart disease of [place] coronary artery without angina pectoris (3) Atrial fibrillation Qualifiers: Atrial fibrillation type: paroxysmal Qualified Code(s): I48.0 - Paroxysmal atrial fibrillation (5) Hypothyroidism Qualifiers: Hypothyroidism type: unspecified Qualified Code(s): E03.9 - Hypothyroidism, unspecified (6) HLD (hyperlipidemia) Qualifiers: Hyperlipidemia type: unspecified Qualified Code(s): E78.5 - Hyperlipidemia, unspecified (7) COPD (chronic obstructive pulmonary disease) Qualifiers: COPD type: unspecified COPD Qualified Code(s): J44.9 - Chronic obstructive pulmonary disease, unspecified (8) Diabetes mellitus 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 mellitus intermediate teacher insulin use: with group home use Diabetes mellitus complication status: with kidney complications Diabetes mellitus complication detail: with chronic kidney disease Chronic kidney disease stage: stage 3 (moderate) Qualified Code(s): E11.22 - Type 2 diabetes mellitus with diabetic chronic kidney disease; N18.3 - Chronic kidney disease, stage 3 (moderate); Z79.4 - shelter (current) use of insulin
[2018-11-15] MEDS: Budesonide/Formoterol 160/4.5 1 PUFF INH IH SCH ×2 (10:06→20:40)
--- NOTE | 2018-11-15 10:49 | Cardiology Consult Note ---
<Jay Jay Cox - Last Filed: 11/15/18 11:05> Date of Encounter: 11/15/18 Time of Encounter: 10:46 Assessment and Plan (1) Chest pain Current Visit: Yes Status: Acute Presents with chest pain that started at rest on , described as midsternal chest pressure with radiation to both sides of neck. Pain improved with 2 SL nitro, but mild discomfort persists. Troponin negative x 3. CXR possible PNA. Mild chest tenderness on palpation. Different from his prior anginal equivalent. ECG reviewed--No new changes compared to previous. Unchanged. Hx CAD with multiple PCIs. Last [facility] reported as years ago. Nuclear stress test 2016 negative for ischemia or infarct. TTE 07/2017 EF preserved. Will discuss and review with Dr. Yan. Do not anticipate further testing. Qualifiers: Chest pain type: unspecified Qualified Code(s): R07.9 - Chest pain, unspecified (2) PAF (paroxysmal atrial fibrillation) Current Visit: Yes Status: Acute Hx of PAF/Fl. Previously on amiodarone, was d/c'd on account of severe hypothyroidism (myxedema coma). Continue BB and ASA. 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 (3) CAD (coronary artery disease) Current Visit: Yes Status: Chronic Hx of CAD with multiple PCI. Continue ASA, Statin, BB. Qualifiers: Coronary Disease-Associated Artery/Lesion type: [place] artery [place] vs. transplanted heart: [place] heart Associated angina: without angina Qualified Code(s): I25.10 - Atherosclerotic heart disease of [place] coronary artery witho ut angina pectoris Discussion w patient/family: The assessment and plan as outlined above was discussed with the patient and/or family members who expressed understanding and agreement. All questions were answered. Thank you for involving us in the care of your patient. Please call with any questions. I will discuss all the above with Dr. Yan and make changes as necessary. History of Present Illness Consult date: 11/15/18 Requesting physician: Gustavo Cunha Consult reason: Chest pain Chief complaint: chest pain History of present illness: Mr. Humphries is a 68 year old male with PMH of COPD on home oxygen, atrial fibrillation not on AC d/t hx of rectus sheath hematoma, CKD, CAD with hx of PCI, HTN, DM and PVD. He presents to the ED with reports of chest pain which she describes as a pressure and tightness in the center of his chest that radiates to both sides of his neck. He states he had improvement in pain after 2 nitro. Currently reports mild chest pressure. No exacerbating factors. Prior anginal equivalent was chest pressure radiating to left arm. Troponins negative. Concern for ECG changes and cardiology was consulted for further recs. Prior CV testing: TTE 07/27/17: LVEF 60%. Mild LVDD. Mildly dilated left atrium. Unable to estimate RVSP due to lack of TR jet. Nuclear stress test 08/09/16: Gated EF 59%. Perfusion imaging negative for ischemia or infarct. Past Med Surg Social Fam HX - Past Medical History Medical history: cancer, CHF, COPD, coronary artery disease, DVT, diabetes, hyperlipidemia, hypertension, peripheral artery disease, renal disease, other Additional medical history: penile cancer Psychiatric history: no psych history - Past Surgical History Surgical History: angioplasty/stent, cancer surgery, cholecystectomy, vascular surgery, other Additional surgical history: CARDIAC CATH. Cardiac Stenting x5. gallbladder surgery. cancer removed twice. polyp removal. testicular tumor removal. colonoscopy. bypass in legs - Social History Smoking Status: Former smoker Smokeless Tobacco Status: No Alcohol use: none Drug use: none - Family History Father Living Status: Age at : 60 Cause of : heart attack Hx Family Cardiac Disorders: Yes (Enlarged heart) Mother Living Status: Age at : 77 Cause of : heart failure Hx Family Cardiac Disorders: Yes Hx Family Respiratory Disorders: Yes (COPD) Sister Living Status: Age at : 79 Cause of : PNU Brother Living Status: Age at : 65 Cause of : colon cancer Medications and Allergies Montelukast Sodium [Singulair] 10 mg PO HS 06/16/16 [History] Pantoprazole Sodium [Protonix] 40 mg PO 0730,1630 06/16/16 [History] Isosorbide MONOnitrate (24 HR) [Imdur] 30 mg PO DAILY 08/07/16 [History] Atorvastatin Calcium [Lipitor] 80 mg PO HS 07/23/17 [History] Fenofibrate Nanocrystallized [Tricor] 48 mg PO DAILY 05/05/18 [History] Insulin ASPART [Novolog Flexpen] 0 unit SQ TIDWM 05/05/18 [History] Tamsulosin HCl [Flomax] 0.4 mg PO DAILY 05/05/18 [History] Budesonide/Formoterol 160/4.5 [Symbicort 160/4.5] 2 puff IH BIDR inh 05/12/18 [Rx] Aspirin 81 mg PO DAILY 05/19/18 [History] Levothyroxine [Synthroid] 125 mcg PO DAILY@0630 05/19/18 [History] Nitroglycerin [Nitrostat] 0.4 mg SL PRN PRN 05/19/18 [History] glipiZIDE [Glucotrol] 5 mg PO BIDWM 05/19/18 [History] Acetylcysteine [Nac] 600 mg PO BID 09/23/18 [History] Albuterol Neb [Proventil Neb] 2.5 mg IH TID PRN 09/23/18 [History] Albuterol Sulfate [Albuterol Inhaler] 2 puff IH Q4-6H PRN 09/23/18 [History] Lisinopril 2.5 mg PO DAILY 09/23/18 [History] Metoprolol [Lopressor] 50 mg PO BID 09/24/18 [History] Bumetanide [Bumex] 0.5 mg PO DAILY #30 tablet 09/28/18 [Rx] Allergy/AdvReac Type Severity Reaction Status Date / Time adenosine Allergy See Verified 08/07/16 16:26 Comments fluticasone Allergy See Verified 08/07/16 16:26 [From Advair Diskus] Comments Iodinated Contrast- Oral and Allergy See Verified 06/16/16 15:37 IV Dye Comments [Iodinated Contrast Media - IV Dye] salmeterol Allergy See Verified 08/07/16 16:26 [From Advair Diskus] Comments pregabalin [From Lyrica] AdvReac Shakiness Verified 11/07/18 13:26 All Systems Review: The remainder of the systems were reviewed and are negative - Cardiovascular Cardiovascular: as per HPI, chest pain at rest, chest pain with exertion, dysp jennifer at rest, dyspnea on exertion, radiating jaw, neck or arm pain - Respiratory Respiratory: dyspnea Physical Examination Vital Signs, Last 4 Hours Temp Pulse Resp BP Pulse Ox 11/15/18 10:06 18 96 11/15/18 08:55 92 11/15/18 07:50 97.9 F 65 16 118/69 92 Vital Signs Temp Pulse Resp BP Pulse Ox 11/15/18 10:06 18 96 11/15/18 08:55 92 11/15/18 07:50 97.9 F 65 16 118/69 92 11/15/18 03:30 98.6 F 73 16 116/74 98 11/14/18 23:16 98.2 F 65 16 122/77 95 11/14/18 22:21 16 96 11/14/18 18:58 66 18 129/70 98 11/14/18 17:52 64 16 129/89 98 11/14/18 16:52 98.1 F 68 16 125/82 98 Intake and Output 11/14/18 11/15/18 11/15/18 23:59 07:59 15:59 Intake Total 480 / 480 Output Total 400 / 400 Balance -400 / -400 480 / 480 Intake: Oral 480 / 480 Output: Urine 400 / 400 Other: Meal Breakfast Percent of Meal Consumed 100% Weight 106.708 kg 104 kg Blood Glucose* 100 87 Patient Weight 11/15/18 23:59 Weight 104 kg General: Conversant, No Apparent Distress HEENT: Atraumatic, Normocephaly, Mucus Membranes Moist Neck: No JVD, Normal carotid pulses Cardiac: Reg Rate and Rhythm, Normal S1 and S2, No Murmur Lungs: Normal Breath Sounds, No Wheeze, Rales, Rhonchi Neuro: Alert and responsive, No focal deficits noted Abdomen: Soft, Non-Tender Skin: No rashes noted on visualized skin Musculoskeletal: No Chest Wall Tenderness Extremities: No Clubbing, No Cyanosis, No Edema, Normal Pulses Results 11/14/18 17:08 11/15/18 05:41 Lab Results 11/14/18 11/14/18 11/14/18 17:08 17:08 17:08 WBC 11.5 H Hgb 14.1 Hct 44.9 Plt Count 160 INR 1.0 APTT 25.0 L Sodium 138 Potassium 5.8 H Chloride 101 Carbon Dioxide 33 H BUN 37 H Creatinine 1.75 H Glucose 200 H Calcium 10.0 Troponin I < 0.03 11/14/18 11/15/18 22:30 05:41 WBC Hgb Hct Plt Count INR APTT Sodium 141 Potassium 5.1 4.9 Chloride 105 Carbon Dioxide 30 H BUN 35 H Creatinine 1.70 H Glucose 85 Calcium 9.2 Troponin I < 0.03 < 0.03 Short CBC 11/14/18 Range/Units 17:08 WBC 11.5 H (4.3-11.1) K/mcL Hgb 14.1 (12.9-16.9) g/dL Hct 44.9 (37.5-50.1) % Plt Count 160 (140-400) K/mcL Neutrophils # 9.8 H (1.6-8.9) K/mcL BMP 11/15/18 11/14/18 11/14/18 Range/Units 05:41 22:30 17:08 Sodium 141 138 (136-145) mEq/L Potassium 4.9 5.1 5.8 H (3.5-5.1) mEq/L Chloride 105 101 (98-107) mEq/L Carbon Dioxide 30 H 33 H (23-29) mEq/L BUN 35 H 37 H (8-23) mg/dL Creatinine 1.70 H 1.75 H (0.70-1.30) mg/dL Glucose 85 200 H (70-105) mg/dL Calcium 9.2 10.0 (8.6-10.3) mg/dL Cardiac Enzymes 11/15/18 11/14/18 11/14/18 Range/Units 05:41 22:30 17:08 Troponin I < 0.03 < 0.03 < 0.03 (< 0.04) ng/mL Impressions Chest X-Ray 11/14/18 16:41 IMPRESSION: Focal increased density in the left lower lung, nonspecific, but raising the possibility of pneumonia. In any event, that must be followed to resolution, to ensure that there is no underlying neoplasm. D/ / Carlos Alberto Weber MD / Carlos Alberto Weber MD Interpreting Provider: Carlos Alberto Weber MD Active Medications Albuterol/Ipratropium (Duoneb) 3 ml IH [id number] PRN PRN Reason: Shortness Of Breath/Wheezing Stop: 05/16/19 20:47 Aspirin (Aspirin) 81 mg PO DAILY [facility] Stop: 05/17/19 09:01 Last Admin: 11/15/18 08:58 Dose: 81 mg Atorvastatin Calcium (Lipitor) 80 mg PO HS [facility] Stop: 05/16/19 21:01 Last Admin: 11/14/18 21:36 Dose: 80 mg Budesonide/Formoterol Fumarate (Symbicort) 2 puff IH BIDR [facility]; Protocol Stop: 05/16/19 22:01 Last Admin: 11/15/18 10:06 Dose: 2 puff Bumetanide (Bumex) 0.5 mg PO DAILY [facility] Stop: 05/17/19 09:01 Last Admin: 11/15/18 08:58 Dose: 0.5 mg Dextrose/Water (Dextrose 50% (Syg)) 25 ml IVP AD PRN PRN Reason: Hypoglycemia Stop: 05/16/19 20:42 Fenofibrate (Tricor) 54 mg PO DAILY [facility] Stop: 05/17/19 09:01 Last Admin: 11/15/18 08:58 Dose: 54 mg Glucose (Gluctose) 15 gm PO ONCE PRN PRN Reason: Hypoglycemia Stop: 05/16/19 20:42 Glucose (Gluctose) 30 gm PO ONCE PRN PRN Reason: Hypoglycemia Stop: 05/16/19 20:42 Heparin Sodium (Porcine) (Heparin) 5,000 unit SQ Q8HCO [facility] Stop: 05/16/19 22:01 Last Admin: 11/15/18 06:34 Dose: 5,000 unit Insulin Human Lispro (Humalog) 0 units SQ HS [facility]; Protocol Stop: 05/16/19 21:01 Last Admin: 11/14/18 21:25 Dose: Not Given Insulin Human Lispro (Humalog) 0 units SQ TIDAC [facility]; Protocol Stop: 05/17/19 07:31 Last Admin: 11/15/18 08:55 Dose: Not Given Isosorbide Mononitrate (Imdur) 30 mg PO DAILY [facility] Stop: 05/17/19 09:01 Last Admin: 11/15/18 08:58 Dose: 30 mg Levothyroxine Sodium (Synthroid) 125 mcg PO DAILY@0630 [facility] Stop: 05/17/19 06:31 Last Admin: 11/15/18 06:34 Dose: 125 mcg Lisinopril (Zestril) 2.5 mg PO DAILY [facility] Stop: 05/17/19 09:01 Last Admin: 11/15/18 08:58 Dose: 2.5 mg Metoprolol Tartrate (Lopressor) 50 mg PO BID [facility] Stop: 05/16/19 21:01 Last Admin: 11/15/18 08:58 Dose: 50 mg Montelukast Sodium (Singulair) 10 mg PO HS [facility] Stop: 05/16/19 21:01 Last Admin: 11/14/18 21:36 Dose: 10 mg Nitroglycerin (Nitroglycerin) 0.4 mg SL Q5M PRN PRN Reason: Chest Pain Stop: 05/16/19 16:42 Omeprazole (Prilosec) 20 mg PO 0730,1630 [facility] Stop: 05/17/19 07:31 Last Admin: 11/15/18 06:34 Dose: 20 mg Tamsulosin HCl (Flomax) 0.4 mg PO DAILY [facility]; Protocol Stop: 05/17/19 09:01 Last Admin: 11/15/18 08:57 Dose: 0.4 mg - Imaging and Cardiology Stress Test: report reviewed Echo: report reviewed - EKG Interpretation EKG results cardiology: personally reviewed, other (12 hr tele AVG HR 63, SR) Consult Discharge Plan - Plan Referrals: Khurram Victoria DO [Primary Care Provider] - (Appointment has been requested. Our offices will call with an appointment time and date.) <Nieves Yan - Last Filed: 11/15/18 11:39> Date of Encounter: 11/15/18 - Attending Attestation I independently examined this patient and my medical decision-making was reviewed with the SECURITIES SUPERVISOR. I agree with the documented findings, disposition and treatment plan as described. Mr. Humphries presents with atypical chest pain reproducible on exam by anterior chest wall palpation. Chest x-ray suspicious for pneumonia. Troponin negative x3. ECG reviewed and compared with prior ECG from 09/23/2018 demonstrating similar findings without new or acute changes. No further cardiac testing warranted at this time. Symptoms do not represent ACS. Echo was canceled. Recommend routine outpatient Cardiology follow up. Will sign off. Assessment and Plan Discussion w patient/family: The assessment and plan as outlined above was discussed with the patient and/or family members who expressed understanding and agreement. All questions were answered. Thank you for involving us in the care of your patient. Please call with any questions. History of Present Illness History of present illness: Mr. Humphries is a 68 year old male All Systems Review: The remainder of the systems were reviewed and are negative Physical Examination Vital Signs, Last 4 Hours Temp Pulse Resp BP Pulse Ox 11/15/18 11:10 97.8 F 64 18 96/60 95 11/15/18 10:06 18 96 11/15/18 08:55 92 11/15/18 07:50 97.9 F 65 16 118/69 92 Results 11/14/18 17:08 11/15/18 05:41 Lab Results 11/14/18 11/14/18 11/14/18 17:08 17:08 17:08 WBC 11.5 H Hgb 14.1 Hct 44.9 Plt Count 160 INR 1.0 APTT 25.0 L Sodium 138 Potassium 5.8 H Chloride 101 Carbon Dioxide 33 H BUN 37 H Creatinine 1.75 H Glucose 200 H Calcium 10.0 Troponin I < 0.03 11/14/18 11/15/18 22:30 05:41 WBC Hgb Hct Plt Count INR APTT Sodium 141 Potassium 5.1 4.9 Chloride 105 Carbon Dioxide 30 H BUN 35 H Creatinine 1.70 H Glucose 85 Calcium 9.2 Troponin I < 0.03 < 0.03
[2018-11-15] MEDS ORDERED: traMADol 50 MG TABLET PO ONE (21:50)
[2018-11-16] MEDS: *HR* Heparin 5,000 UNIT/ML VIAL SQ SCH ×2 (05:05→12:21)
[2018-11-16] MEDS: Insulin LISPRO 300 UNITS/3 ML VIAL SQ SCH ×2 (07:25→12:21)
[2018-11-16] MEDS: Budesonide/Formoterol 160/4.5 1 PUFF INH IH SCH (07:53)
[2018-11-16] MEDS: Bumetanide 1 MG TABLET PO SCH (08:49)
[2018-11-16] MEDS: Aspirin 81 MG TAB.CHEW PO SCH (08:50)
[2018-11-16] MEDS: Isosorbide MONOnitrate (24 HR) 30 MG TAB.ER.24H PO SCH (08:50)
[2018-11-16] MEDS: Fenofibrate 54 MG TABLET PO SCH (08:52)
[2018-11-16 11:22] VITALS: BP 113/68
--- NOTE | 2018-11-16 14:37 | Discharge Summary ---
Orders not resulted at time of discharge: Pending orders 11/14/18 16:41 ECG 12 lead ECG [ECG] Stat 11/14/18 20:48 EKG [ECG 12 lead ECG] [ECG] Stat Date of Encounter: 11/16/18 Time of Encounter: 11:00 - Discharge Diagnosis (1) Chest pain Priority: Primary Status: Acute Qualifiers: Chest pain type: unspecified Qualified Code(s): R07.9 - Chest pain, unspecified (2) CAD (coronary artery disease) Priority: Secondary Status: Chronic Qualifiers: Coronary Disease-Associated Artery/Lesion type: [place] artery [place] vs. transplanted heart: [place] heart Associated angina: without angina Qualified Code(s): I25.10 - Atherosclerotic heart disease of [place] coronary artery without angina pectoris (3) Atrial fibrillation Priority: Secondary Status: Chronic Qualifiers: Atrial fibrillation type: paroxysmal Qualified Code(s): I48.0 - Paroxysmal atrial fibrillation (4) CKD (chronic kidney disease) stage 3, GFR 30-59 ml/min Priority: Secondary Status: Chronic (5) Hypothyroidism Priority: Secondary Status: Chronic Qualifiers: Hypothyroidism type: unspecified Qualified Code(s): E03.9 - Hypothyroidism, unspecified (6) HLD (hyperlipidemia) Priority: Secondary Status: Chronic Qualifiers: Hyperlipidemia type: unspecified Qualified Code(s): E78.5 - Hyperlipidemia, unspecified (7) COPD (chronic obstructive pulmonary disease) Priority: Secondary Status: Chronic Qualifiers: COPD type: unspecified COPD Qualified Code(s): J44.9 - Chronic obstructive pulmonary disease, unspecified (8) Diabetes mellitus Priority: Secondary Status: Chronic 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 use Diabetes mellitus complication status: with kidney complications Diabetes mellitus complication detail: with chronic kidney disease Chronic kidney disease stage: stage 3 (moderate) Qualified Code(s): E11.22 - Type 2 diabetes mellitus with diabetic chronic kidney disease; N18.3 - Chronic kidney disease, stage 3 (moderate); Z79.4 - nursing home (current) use of insulin (9) Morbid obesity Priority: Secondary Status: Chronic Hospital course: This is a 68-year-old male with past medical history significant for hypoxic respiratory failure secondary to COPD on home oxygen, atrial fibrillation, chronic kidney disease, coronary artery disease with multiple stent placements, hypertension, diabetes and peripheral vascular disease who presented due to chest pain. Patient was admitted for ACS rule out. Patients hospital stay cardiology was consulted with recommendations for continued medical management and patient will follow-up with cardiology as an outpatient. - Time Spent with Patient Total time spent providing and/or coordinating discharge services: Time spent: Less than 30 minutes - Discharge Medications Prescriptions: Continue Pantoprazole Sodium [Protonix] 40 mg PO 0730,1630 Isosorbide MONOnitrate (24 HR) [Imdur] 30 mg PO DAILY Atorvastatin Calcium [Lipitor] 80 mg PO HS Insulin ASPART [Novolog Flexpen] 0 unit SQ TIDWM Fenofibrate Nanocrystallized [Tricor] 48 mg PO DAILY Tamsulosin HCl [Flomax] 0.4 mg PO DAILY Budesonide/Formoterol 160/4.5 [Symbicort 160/4.5] 2 puff IH BIDR inh Nitroglycerin [Nitrostat] 0.4 mg SL Q5MIN PRN PRN Reason: Chest Pain glipiZIDE [Glucotrol] 5 mg PO BIDWM Aspirin 81 mg PO DAILY Metoprolol [Lopressor] 50 mg PO BID Bumetanide [Bumex] 0.5 mg PO DAILY #30 tablet Acetylcysteine [Y-Wexevp-q-Cysteine] 600 mg PO BID Allopurinol [Zyloprim 100 MG] 100 mg PO DAILY Ergocalciferol (VITAMIN D2) [Vitamin D2] 50,000 unit PO QWEEK Levothyroxine [Synthroid] 125 mcg PO 0630 Montelukast [Singulair] 10 mg PO HS Albuterol Sulfate [Albuterol Inhaler] 2 puff IH Q4-6H PRN PRN Reason: Shortness Of Breath/Wheezing Lisinopril 2.5 mg PO DAILY Albuterol Neb [Proventil Neb] 2.5 mg IH TID PRN PRN Reason: Shortness Of Breath/Wheezing Home Medications: Pantoprazole Sodium [Protonix] 40 mg PO 0730,1630 06/16/16 [History] Isosorbide MONOnitrate (24 HR) [Imdur] 30 mg PO DAILY 08/07/16 [History] Atorvastatin Calcium [Lipitor] 80 mg PO HS 07/23/17 [History] Fenofibrate Nanocrystallized [Tricor] 48 mg PO DAILY 05/05/18 [History] Insulin ASPART [Novolog Flexpen] 0 unit SQ TIDWM 05/05/18 [History] Tamsulosin HCl [Flomax] 0.4 mg PO DAILY 05/05/18 [History] Budesonide/Formoterol 160/4.5 [Symbicort 160/4.5] 2 puff IH BIDR inh 05/12/18 [Rx] Aspirin 81 mg PO DAILY 05/19/18 [History] Nitroglycerin [Nitrostat] 0.4 mg SL Q5MIN PRN 05/19/18 [History] glipiZIDE [Glucotrol] 5 mg PO BIDWM 05/19/18 [History] Albuterol Neb [Proventil Neb] 2.5 mg IH TID PRN 09/23/18 [History] Albuterol Sulfate [Albuterol Inhaler] 2 puff IH Q4-6H PRN 09/23/18 [History] Lisinopril 2.5 mg PO DAILY 09/23/18 [History] Metoprolol [Lopressor] 50 mg PO BID 09/24/18 [History] Bumetanide [Bumex] 0.5 mg PO DAILY #30 tablet 09/28/18 [Rx] Acetylcysteine [P-Riumri-b-Cysteine] 600 mg PO BID 11/16/18 [History] Allopurinol [Zyloprim 100 MG] 100 mg PO DAILY 11/16/18 [History] Ergocalciferol (VITAMIN D2) [Vitamin D2] 50,000 unit PO QWEEK 11/16/18 [History] Levothyroxine [Synthroid] 125 mcg PO 0630 11/16/18 [History] Montelukast [Singulair] 10 mg PO HS 11/16/18 [History] Allergies/Adverse Reactions: Allergy/AdvReac Type Severity Reaction Status Date / Time adenosine Allergy See Verified 08/07/16 16:26 Comments fluticasone Allergy See Verified 08/07/16 16:26 [From Advair Diskus] Comments Iodinated Contrast- Oral and Allergy See Verified 06/16/16 15:37 IV Dye Comments [Iodinated Contrast Media - IV Dye] salmeterol Allergy See Verified 08/07/16 16:26 [From Advair Diskus] Comments pregabalin [From Lyrica] AdvReac Shakiness Verified 11/07/18 13:26 Date of admission: 11/14/18 18:42 Primary care physician: Khurram Victoria DO Consults: 11/15/18 09:34 Consult to Cardiology [CONS] Routine Comment: Consulting Provider: Cardiology Anali Reason for Consult: Abnormal EKG findings with chest pain and history of CAD Call Completed: No - Constitutional Vitals: Temp Pulse Resp BP Pulse Ox 97.8 F 66 17 113/68 96 11/16/18 11:21 11/16/18 11:21 11/16/18 11:21 11/16/18 11:21 11/16/18 11:21 Exam: Gen.: Nonacute distress, alert and oriented 3 Skin: Normal colorsis - Patient Status Disposition: Home, Self-Care Condition: Good - Discharge Instructions Instructions: Heart Failure (DC), Atrial Fibrillation (DC), Chest Pain (DC), Acute Respiratory Distress Syndrome (DC), Urinary Tract Infection in Men (DC), Hypothyroidism (DC) Follow Up With: Khurram Victoria DO [Primary Care Provider] - (Appointment has been requested. Our offices will call with an appointment time and date.) Forms: ED Satisfaction Letter
--- NOTE | 2018-11-19 08:06 | Electrocardiograph Report ---
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
--- NOTE | 2018-11-19 08:14 | Electrocardiograph Report ---
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
== END 2018-11-16 15:10 | disposition home or self-care (01) ==
LOC: 3BNU 16:32 → EMEROOARM 16:32 → SUATTDRO 18:42 → 3BNU 20:10
PROVIDERS: ADMIT Internal Medicine; ATTEND Hospitalist

== ENCOUNTER 2019-09-15 14:50 | Observation (INO) ==
[2019-09-15 15:25] LABS: Basophils % 0.5 %; Eosinophils % 0.2 %; Hematocrit 43.4 % (37.5-50.1); Hemoglobin 14.2 g/dL (12.9-16.9); Immature Granulocytes % 1.4 % (0-4); Lymphocytes # 0.6 K/mcL (0.6-4.6); Lymphocytes % 7.3 %; Mean Corpuscular HGB Conc 32.7 g/dL (31.6-35.5); Mean Corpuscular Hemoglobin 31.5 pg (28.0-33.3); Mean Corpuscular Volume 96.2 fL (83.0-100.0); Mean Platelet Volume 10.3 fL (9.4-12.4); Monocytes # 0.6 K/mcL (0.0-1.3); Monocytes % 6.4 %; Neutrophils # 7.4 K/mcL (1.6-8.9); Platelet Count 143 K/mcL (140-400); Red Blood Count 4.51 M/mcL (4.19-5.50); Red Cell Distribution Width 15.8 % (11.5-14.5); Segmented Neutrophils % 84.2 %; White Blood Count 8.8 K/mcL (4.3-11.1)
[2019-09-15 15:31] LABS: Activated Partial Thrombo Time 30.4 Seconds (26.0-36.0); INR 0.9; Prothrombin Time 10.7 Seconds (9.4-12.1)
[2019-09-15 15:45] LABS: BUN/Creatinine Ratio 14 (6-26); Blood Urea Nitrogen 24 mg/dL (8-23); Calcium 9.9 mg/dL (8.6-10.3); Carbon Dioxide 27 mEq/L (23-29); Chloride 99 mEq/L (98-107); Glucose 221 mg/dL (70-105); Osmolality,Calculated 289 (280-300); Potassium 5.3 mEq/L (3.5-5.1); Sodium 134 mEq/L (136-145); eGFR For African Americans 47 (> 60); eGFR For Non-African Americans 38 (> 60)
[2019-09-15 15:46] LABS: Troponin I < 0.03 ng/mL (< 0.04)
[2019-09-15] MEDS ORDERED: Aspirin 81 MG TAB.CHEW PO STA (16:28)
[2019-09-15] MEDS ORDERED: 0.9 % Sodium Chloride 500 ML IVC ONE (17:05)
[2019-09-15] MEDS ORDERED: Ondansetron 4 MG/2 ML VIAL IVP PRN (17:07)
[2019-09-15] MEDS ORDERED: Naloxone 0.4 MG/ML INJ IVP PRN (17:07)
[2019-09-15] MEDS ORDERED: D5% in Water 1,000 ML IVC PRN (17:08)
[2019-09-15] MEDS ORDERED: *HR* Dextrose 50 % in Water (Syg) 50 ML SYRINGE IVP PRN (17:08)
[2019-09-15] MEDS ORDERED: Dextrose Gel 15 GM/37.5 ML TUBE PO PRN ×2 (17:08)
[2019-09-15] MEDS ORDERED: Nitroglycerin 0.4 MG TAB.SUBL SL PRN (17:28)
[2019-09-15] MEDS ORDERED: Perflutren Lipid Microsphere 1.3 ML in 0.9 % Sodium Chloride 8.7 ML IVP ONE (20:11)
[2019-09-15] MEDS: Levalbuterol Neb 0.63 MG/3 ML IH SCH (22:18)
[2019-09-15] MEDS: Budesonide/Formoterol 160/4.5 1 PUFF INH IH SCH (22:18)
[2019-09-16] MEDS: Levalbuterol Neb 0.63 MG/3 ML IH SCH ×3 (03:40→15:17)
[2019-09-16 05:40] LABS: Basophils # 0.1 K/mcL (0.0-0.2); Basophils % 0.9 %; Eosinophils # 0.1 K/mcL (0.0-0.6); Eosinophils % 2.1 %; Hematocrit 41.5 % (37.5-50.1); Hemoglobin 13.3 g/dL (12.9-16.9); Immature Granulocytes % 1.6 % (0-4); Lymphocytes # 1.5 K/mcL (0.6-4.6); Lymphocytes % 21.7 %; Mean Corpuscular Hemoglobin 31.7 pg (28.0-33.3); Mean Platelet Volume 10.6 fL (9.4-12.4); Monocytes # 0.6 K/mcL (0.0-1.3); Neutrophils # 4.4 K/mcL (1.6-8.9); Platelet Count 117 K/mcL (140-400); Red Blood Count 4.19 M/mcL (4.19-5.50); Segmented Neutrophils % 64.7 %; White Blood Count 6.8 K/mcL (4.3-11.1)
[2019-09-16 05:46] LABS: Calcium 9.7 mg/dL (8.6-10.3); Chol/HDL Ratio 2.3 (0-4.9); Potassium 4.8 mEq/L (3.5-5.1)
[2019-09-16] MEDS ORDERED: Fenofibrate 54 MG TABLET PO SCH (09:00)
[2019-09-16] MEDS ORDERED: predniSONE 5 MG TABLET PO SCH (09:00)
[2019-09-16] MEDS ORDERED: Isosorbide MONOnitrate (24 HR) 30 MG TAB.ER.24H PO SCH (09:00)
[2019-09-16] MEDS ORDERED: Aspirin 81 MG TAB.CHEW PO SCH (09:00)
[2019-09-16] MEDS: Insulin LISPRO 300 UNITS/3 ML VIAL SQ SCH ×3 (09:12→16:30)
[2019-09-16] MEDS: Budesonide/Formoterol 160/4.5 1 PUFF INH IH SCH (09:53)
[2019-09-16 14:16] VITALS: BP 121/82
[2019-09-17] MEDS ORDERED: Isosorbide MONOnitrate (24 HR) 30 MG TAB.ER.24H PO SCH (09:00)
== END 2019-09-16 17:05 | disposition home or self-care (01) ==
LOC: EMEROOARM 14:50 → 3ANU 14:50 → SUATTDRO 17:03 → 3ANU 19:56
PROVIDERS: ADMIT Internal Medicine; ATTEND Family Medicine

== ENCOUNTER 2022-04-26 15:26 | Inpatient (IN) ==
[2022-04-26] MEDS ORDERED: Ringers Solution, Lactated 500 ML IVC ONE (18:23)
[2022-04-26] MEDS ORDERED: Naloxone 0.4 MG/ML INJ IVP PRN (18:25)
[2022-04-26] MEDS ORDERED: Acetaminophen 325 MG TABLET PO PRN (18:25)
[2022-04-26] MEDS ORDERED: Albuterol 2.5 MG/3 ML NEBULIZER IH PRN (18:30)
[2022-04-26] MEDS ORDERED: *HR* Dextrose 50 % in Water (Syg) 50 ML SYRINGE IVP PRN (18:31)
[2022-04-26] MEDS ORDERED: D5% in Water 1,000 ML IVC PRN (18:31)
[2022-04-26] MEDS ORDERED: Dextrose Gel 15 GM/37.5 ML TUBE PO PRN ×2 (18:31)
[2022-04-26] MEDS: Pantoprazole 40 MG VIAL IVP SCH (20:17)
[2022-04-26] MEDS: Ringers Solution, Lactated 1,000 ML IVC SCH (20:17)
[2022-04-26] MEDS: Insulin DETEMIR 100 UNIT/ML X5UNITS SUBQ SCH (20:21)
[2022-04-26] MEDS: Ipratropium/Albuterol Neb 3 ML IH SCH ×2 (20:26→22:50)
[2022-04-27] MEDS: Insulin LISPRO 300 UNITS/3 ML VIAL SUBQ SCH ×4 (00:12→16:32)
[2022-04-27] MEDS: methylPREDNISolone 125 MG/2 ML VIAL IVP SCH ×3 (01:25→18:35)
[2022-04-27] MEDS: Azithromycin 500 MG in 0.9 % Sodium Chloride 250 ML IVPB SCH (01:26)
[2022-04-27] MEDS: Ampicillin/Sulbactam 3,000 MG in 0.9 % Sodium Chloride Mini Bag 100 ML IVPB SCH ×4 (01:28→19:47)
[2022-04-27] MEDS: Ipratropium/Albuterol Neb 3 ML IH SCH ×4 (03:51→22:32)
[2022-04-27] MEDS: Ringers Solution, Lactated 1,000 ML IVC SCH (03:53)
[2022-04-27 04:48] LABS: Hematocrit 37.3 % (37.5-50.1); Hemoglobin 11.2 g/dL (12.9-16.9); Mean Corpuscular Hemoglobin 27.5 pg (28.0-33.3); Mean Corpuscular Volume 91.6 fL (83.0-100.0); Mean Platelet Volume 10.1 fL (9.4-12.4); Platelet Count 102 K/mcL (140-400); Red Blood Count 4.07 M/mcL (4.19-5.50); Red Cell Distribution Width 18.1 % (11.5-14.5); White Blood Count 9.4 K/mcL (4.3-11.1)
[2022-04-27 05:08] LABS: Calcium 8.4 mg/dL (8.6-10.3); INR 4.8; Potassium 4.8 mEq/L (3.5-5.1); Prothrombin Time 52.4 Seconds (9.4-12.1)
[2022-04-27] MEDS: Pantoprazole 40 MG VIAL IVP SCH (07:58)
[2022-04-27] MEDS ORDERED: D5% in Water 1,000 ML IVC PRN (10:55)
[2022-04-27] MEDS ORDERED: Azithromycin 500 MG in 0.9 % Sodium Chloride 250 ML IVPB SCH (13:00)
[2022-04-27] MEDS ORDERED: methylPREDNISolone 125 MG/2 ML VIAL IVP SCH (18:28)
[2022-04-27] MEDS ORDERED: Ampicillin/Sulbactam 3,000 MG in 0.9 % Sodium Chloride Mini Bag 100 ML IVPB SCH (18:28)
[2022-04-27] MEDS: Insulin DETEMIR 100 UNIT/ML X5UNITS SUBQ SCH (19:48)
[2022-04-27] MEDS ORDERED: Insulin LISPRO 300 UNITS/3 ML VIAL SUBQ SCH (21:00)
[2022-04-28] MEDS: Azithromycin 500 MG in 0.9 % Sodium Chloride 250 ML IVPB SCH (00:34)
[2022-04-28] MEDS: Ampicillin/Sulbactam 3,000 MG in 0.9 % Sodium Chloride Mini Bag 100 ML IVPB SCH ×4 (01:38→19:57)
[2022-04-28] MEDS: Ipratropium/Albuterol Neb 3 ML IH SCH ×4 (04:28→20:13)
[2022-04-28] MEDS: methylPREDNISolone 125 MG/2 ML VIAL IVP SCH (05:39)
[2022-04-28] MEDS ORDERED: Albuterol 2.5 MG/3 ML NEBULIZER IH PRN (07:09)
[2022-04-28] MEDS ORDERED: Acetaminophen 325 MG TABLET PO PRN (07:09)
[2022-04-28] MEDS ORDERED: Dextrose Gel 15 GM/37.5 ML TUBE PO PRN ×2 (07:09)
[2022-04-28] MEDS ORDERED: Naloxone 0.4 MG/ML INJ IVP PRN (07:09)
[2022-04-28] MEDS ORDERED: *HR* Dextrose 50 % in Water (Syg) 50 ML SYRINGE IVP PRN (07:09)
[2022-04-28] MEDS ORDERED: D5% in Water 1,000 ML IVC PRN (07:09)
[2022-04-28] MEDS: Insulin LISPRO 300 UNITS/3 ML VIAL SUBQ SCH ×4 (09:24→19:58)
[2022-04-28 10:38] LABS: Hematocrit 38.3 % (37.5-50.1); Hemoglobin 11.5 g/dL (12.9-16.9); Mean Corpuscular Hemoglobin 27.3 pg (28.0-33.3); Mean Corpuscular Volume 90.8 fL (83.0-100.0); Mean Platelet Volume 10.3 fL (9.4-12.4); Platelet Count 108 K/mcL (140-400); Red Blood Count 4.22 M/mcL (4.19-5.50); Red Cell Distribution Width 17.5 % (11.5-14.5)
[2022-04-28 10:47] LABS: INR 4.1
[2022-04-28 10:54] LABS: Prothrombin Time 45.5 Seconds (9.4-12.1)
[2022-04-28 10:59] LABS: Potassium 4.8 mEq/L (3.5-5.1)
[2022-04-28] MEDS ORDERED: *HR* Metoprolol 5 MG/5 ML VIAL IVP ONE (16:21)
[2022-04-28] MEDS ORDERED: methylPREDNISolone 125 MG/2 ML VIAL IVP SCH (18:00)
[2022-04-28] MEDS: Insulin DETEMIR 100 UNIT/ML X5UNITS SUBQ SCH (19:58)
[2022-04-28] MEDS ORDERED: Insulin DETEMIR 100 UNIT/ML X5UNITS SUBQ SCH (21:00)
[2022-04-28] MEDS ORDERED: Insulin LISPRO 300 UNITS/3 ML VIAL SUBQ SCH (21:00)
[2022-04-29] MEDS ORDERED: Azithromycin 500 MG in 0.9 % Sodium Chloride 250 ML IVPB SCH (01:10)
[2022-04-29] MEDS: Ampicillin/Sulbactam 3,000 MG in 0.9 % Sodium Chloride Mini Bag 100 ML IVPB SCH ×2 (01:43→08:02)
[2022-04-29] MEDS: Ipratropium/Albuterol Neb 3 ML IH SCH ×4 (03:54→20:06)
[2022-04-29 06:34] LABS: Basophils % 0.1 %; Hematocrit 38.3 % (37.5-50.1); Hemoglobin 11.5 g/dL (12.9-16.9); Immature Granulocytes % 0.8 % (0-4); Lymphocytes # 0.6 K/mcL (0.6-4.6); Lymphocytes % 5.6 %; Mean Corpuscular Hemoglobin 27.4 pg (28.0-33.3); Mean Corpuscular Volume 91.4 fL (83.0-100.0); Mean Platelet Volume 9.7 fL (9.4-12.4); Monocytes # 0.5 K/mcL (0.0-1.3); Monocytes % 4.5 %; Platelet Count 114 K/mcL (140-400); Red Blood Count 4.19 M/mcL (4.19-5.50); Red Cell Distribution Width 17.6 % (11.5-14.5); White Blood Count 11.2 K/mcL (4.3-11.1)
[2022-04-29] MEDS: Isosorbide MONOnitrate (24 HR) 60 MG TAB.ER.24H PO SCH (08:01)
[2022-04-29] MEDS: predniSONE 20 MG TABLET PO SCH (08:01)
[2022-04-29] MEDS: Aspirin 81 MG TAB.CHEW PO SCH (08:01)
[2022-04-29] MEDS: Insulin LISPRO 300 UNITS/3 ML VIAL SUBQ SCH ×4 (08:02→20:14)
[2022-04-29 10:53] LABS: Prothrombin Time 21.8 Seconds (9.4-12.1)
[2022-04-29 11:04] LABS: Calcium 8.9 mg/dL (8.6-10.3); Potassium 4.7 mEq/L (3.5-5.1)
[2022-04-29] MEDS: *HR* Metoprolol 5 MG/5 ML VIAL IVP PRN (16:12)
[2022-04-29] MEDS: Insulin DETEMIR 100 UNIT/ML X5UNITS SUBQ SCH (20:12)
[2022-04-30] MEDS: Ipratropium/Albuterol Neb 3 ML IH SCH ×4 (04:32→22:05)
[2022-04-30] MEDS: *HR* Metoprolol 5 MG/5 ML VIAL IVP PRN (05:43)
[2022-04-30 05:50] LABS: Hematocrit 36.8 % (37.5-50.1); Hemoglobin 11.1 g/dL (12.9-16.9); Mean Corpuscular HGB Conc 30.2 g/dL (31.6-35.5); Mean Corpuscular Hemoglobin 27.2 pg (28.0-33.3); Mean Corpuscular Volume 90.2 fL (83.0-100.0); Mean Platelet Volume 10.1 fL (9.4-12.4); Platelet Count 118 K/mcL (140-400); Red Blood Count 4.08 M/mcL (4.19-5.50); Red Cell Distribution Width 17.4 % (11.5-14.5)
[2022-04-30 05:57] LABS: INR 1.5; Prothrombin Time 17.2 Seconds (9.4-12.1)
[2022-04-30 06:09] LABS: Calcium 8.9 mg/dL (8.6-10.3); Potassium 4.2 mEq/L (3.5-5.1)
[2022-04-30] MEDS: Azithromycin 250 MG TABLET PO SCH (08:04)
[2022-04-30] MEDS: predniSONE 20 MG TABLET PO SCH (08:04)
[2022-04-30] MEDS: Insulin LISPRO 300 UNITS/3 ML VIAL SUBQ SCH ×4 (08:05→20:25)
[2022-04-30] MEDS: Aspirin 81 MG TAB.CHEW PO SCH (08:05)
[2022-04-30] MEDS: Isosorbide MONOnitrate (24 HR) 60 MG TAB.ER.24H PO SCH (08:05)
[2022-04-30] MEDS ORDERED: Lidocaine -MPF 2% 5 ML VIAL ONE (14:00)
[2022-04-30] MEDS ORDERED: Warfarin perPT PO PRN (18:00)
[2022-04-30] MEDS ORDERED: *HR* Warfarin 2.5 MG TABLET PO SCH (18:15)
[2022-04-30] MEDS ORDERED: *HR* Warfarin 2.5 MG TABLET PO ONE (18:45)
[2022-04-30] MEDS: Insulin DETEMIR 100 UNIT/ML X5UNITS SUBQ SCH (20:25)
[2022-05-01 01:49] LABS: Hematocrit 36.7 % (37.5-50.1); Hemoglobin 11.2 g/dL (12.9-16.9); Mean Corpuscular HGB Conc 30.5 g/dL (31.6-35.5); Mean Corpuscular Hemoglobin 27.1 pg (28.0-33.3); Mean Corpuscular Volume 88.6 fL (83.0-100.0); Mean Platelet Volume 9.5 fL (9.4-12.4); Platelet Count 109 K/mcL (140-400); Red Blood Count 4.14 M/mcL (4.19-5.50); Red Cell Distribution Width 17.2 % (11.5-14.5); White Blood Count 6.5 K/mcL (4.3-11.1)
[2022-05-01 01:57] LABS: INR 1.5; Prothrombin Time 16.8 Seconds (9.4-12.1)
[2022-05-01 02:03] LABS: Calcium 9.1 mg/dL (8.6-10.3); Potassium 4.3 mEq/L (3.5-5.1)
[2022-05-01] MEDS: Ipratropium/Albuterol Neb 3 ML IH SCH ×3 (03:26→15:27)
[2022-05-01 07:41] VITALS: PULSE 108
[2022-05-01] MEDS: Azithromycin 250 MG TABLET PO SCH (07:45)
[2022-05-01] MEDS: Aspirin 81 MG TAB.CHEW PO SCH (07:45)
[2022-05-01] MEDS: predniSONE 20 MG TABLET PO SCH (07:45)
[2022-05-01] MEDS: Isosorbide MONOnitrate (24 HR) 60 MG TAB.ER.24H PO SCH (07:45)
[2022-05-01] MEDS ORDERED: *HR* Enoxaparin 100 MG/ML SYRINGE SQ SCH ×2 (08:45→22:00)
[2022-05-01] MEDS: Insulin LISPRO 300 UNITS/3 ML VIAL SUBQ SCH ×2 (09:58→12:23)
[2022-05-01 13:54] VITALS: BP 116/78; TEMP 98.2
[2022-05-01 14:35] LABS: BUN/Creatinine Ratio 26 (6-26); Blood Urea Nitrogen 23 mg/dL (8-23); Calcium 6.5 mg/dL (8.6-10.3); Carbon Dioxide 20 mEq/L (23-29); Chloride 115 mEq/L (98-107); Glucose 246 mg/dL (70-105); Osmolality,Calculated 300 (280-300); Potassium 3.8 mEq/L (3.5-5.1); Sodium 139 mEq/L (136-145)
[2022-05-01 15:34] VITALS: O2SAT 96
[2022-05-01] MEDS ORDERED: *HR* Warfarin 2.5 MG TABLET PO ONE (18:00)
[2022-05-01] MEDS ORDERED: *HR* Warfarin 2.5 MG TABLET PO SCH (18:07)
== END 2022-05-01 17:34 | disposition home or self-care (01) | DRG 871 ==
LOC: ICNU → SUATTDRO 18:53 → 3NENU 04-27 23:44
PROVIDERS: ADMIT Internal Medicine; ATTEND Internal Medicine
PROC: ENDOEBX (2022-04-30 13:30)